=== PATIENT | female | born 1985 | race Caucasian/White ===

== ENCOUNTER → 2020-08-21 08:35 | Outpatient (BNVA) | payer MEDICAID, SELFPAY | PROVIDERS: PCP Nurse Practitioner Family; Visit Provider Obstetrics & Gynecology | DX: G89.29 Other chronic pain (principal); R10.2 Pelvic and perineal pain; N97.9 Female infertility, unspecified | CPT/HCPCS: 99212 ==

== ENCOUNTER 2020-09-13 17:28 | Emergency (ER) | payer MEDICAID, SELFPAY ==
[2020-09-13 19:07] VITALS: BP 134/80; PULSE 81; RESP 18; TEMP 37.1; O2SAT 97; BMI 37.6
--- NOTE | 2020-09-13 19:27 | PC.NURSE ---
PT TO ROOM WITH C/O LOWER BACK PAIN WHICH RADIATES DOWN LEFT LEG. PT HAS LIDOCAINE PATCHES ON BACK WITHOUT RELIEF. PT ARRIVES ALERT, RESPIRATIONS EASY, N/L. SKIN W/D. PT CHG INTO GOWN AND AWAITING MD'S EVAL.
--- NOTE | 2020-09-13 19:57 | ED.BACK ---
HPI - Back Pain/Injury General Chief Complaint: Back Pain/Injury Stated Complaint: low back pain Time Seen by Provider: 09/13/20 19:36 Source: patient Mode of arrival: ambulatory Limitations: no limitations History of Present Illness HPI Narrative: Patient presents to ED for chronic back exacerbation going down left leg. Patient denies any recent trauma to lower back. Patient states history of chronic back pain due to work injury. 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 Patient denies any dysuria or hematuria. Patient states no flank pain, fever, chills, nausea, or vomiting. patient states no vaginal bleeding or discharge. Related Data Home Medications Medication Instructions Recorded Confirmed naproxen 375 mg tablet,delayed 375 mg PO BID 08/21/20 release Previous Rx's Medication Instructions Recorded prenat.vits,kelvin,[id number] 1 tab PO DAILY #90 tab 08/21/20 Allergies Allergy/AdvReac Type Severity Reaction Status Date / Time No Known Allergies Allergy Verified 09/13/20 19:17 [No Known Allergies*] Review of Systems Review of Systems: Yes all other systems are reviewed and are negative Constitutional: Constitutional: Reports as per HPI and Reports no additional constitutional complaints Eyes: Eyes: Reports as per HPI and Reports no additional eye complaints ENT: Reports system reviewed and no additional complaints, except as documented and Reports as per HPI Cardiovascular: Cardiovascular: Reports as per HPI and Reports no additional cardiovascular complaints Respiratory: Respiratory: Reports as per HPI and Reports no additional respiratory complaints Gastrointestinal: Gastrointestinal: Reports as per HPI and Reports no additional gastrointestinal complaints Genitourinary: Genitourinary: Reports no additional female genitourinary complaints and Reports as per HPI Musculoskeletal: Musculoskeletal: Reports no additional musculoskeletal complaints, Reports as per HPI and Reports back pain Neurologic: Reports system reviewed and no additional complaints, except as documented and Reports as per HPI Psychiatric: Psychiatric: Reports no additional psychiatric complaints and Reports as per HPI PMF Past Medical History Medical History Back pain Surgical History History of appendectomy Social History Social History Advance Directives: Yes Advance Directives Information Provided: Yes Advance Directives on File: No Physical Exam Vital Signs: Vital Signs: Last Vital Signs Temp 98.0 F 09/13/20 21:05 Pulse 87 09/13/20 21:05 Resp 18 09/13/20 21:05 BP 121/81 09/13/20 21:05 Pulse Ox 97 09/13/20 21:05 Body Mass Index 37.6 Const: General: cooperative, healthy appearing, comfortable, no acute distress, well developed, alert, awake and Physically active Orientation/consciousness: patient oriented x3 HENMT: Head: Yes normal to inspection and Yes No palpable skull fracture present Eyes: General: appearance normal, both eyes and all related structures Neck: Neck: Yes normal visual inspection, Yes full ROM, Yes no lymphadenopathy, Yes no meningeal signs, Yes trachea midline, Yes supple and No tender Chest: Chest palpation & inspection: normal inspection of the chest, normal palpation of entire chest wall and no localized rib tenderness Resp: Effort & Inspection: normal respiratory effort, able to speak in complete sentences, no audible wheezes and no cough Auscultation: clear to auscultation bilaterally, no crackles, no rales, no rhonchi and no wheezes Cardio: Jugular venous distension: no JVD Heart sounds: S1 normal heart sound present and S2 normal heart sound present GI: Inspection: Yes normal to inspection and No abdominal wall ecchymosis Palpation (GI): Soft to palpation, not firm, nontender, no guarding and not rigid : General: No CVA tenderness and Yes no CVA tenderness Back/Spine/Pelvis: Back: no CVA tenderness, No CVA tenderness and back tenderness (lumbar tenderness. ) Skin: General skin exam: no rashes or lesions noted Neuro: General: patient oriented x3, gait normal, no meningeal signs and CN's II-XI intact bilaterally Cranial nerves: Yes CN's II-XII intact bilaterally Extrem: General: Yes normal to inspection and Yes full ROM Psych: Appearance: grossly normal, well kempt and not disheveled Course Course Course Narrative: History physical exam indicate chronic back pain exacerbation. No need for labs. History physical exam does not indicate kidney stones. Negative for any x-ray due to patient denies having any blunr trauma and no motor deficit of lower extremities. Patient given Toradol. Patient already was prescribed flexeril and nabumethone. Patient also has 2 lidocaine patches. Reevaluation(s) Reevaluation #1: Patient given Toradol for pain. Patient encourageed to continue taking pain med she was prescribed. Presently history physical exam does not indicate on a cord compression or epidural abscess. Time: 20:30 MDM - Back Pain/Injury MDM Narrative Medical decision making narrative: chronic back pain exacerbated Discharge Plan Discharge Clinical Impression: Chronic back pain Patient Disposition: Home, Self-Care Instructions: Chronic Back Pain (DC) Additional Instructions: return to ED for any dysuria, hematuria, flank pain, fever, chills, urinary/ bowel incontinence, nausea, vomiting, weakness, or any other concerning symptoms. Please continue taking medications you are prescribed the by your PCP. Prescriptions: No Action prenat.vits,kelvin,[id number] Tablet 1 tab PO DAILY Qty: 90 RF: 3 Referrals: Cielo Ron NP [Primary Care Provider] - 2 days ( Chronic back pain exacerbation.) Stand Alone Forms: Work/School Release Interventions: ED Discharge Assessment Last Done: 09/13/20 21:06 Discharge Date/Time: 09/13/20 21:07 Print Language: Vietnamese
[2020-09-13] MEDS: Ketorolac Tromethamine 30 MG/ML VIAL 60 MG IM (20:14)
--- NOTE | 2020-09-13 20:20 | PC.NURSE ---
PT MEDICATED FOR BACK PAIN PER EMAR. PT AWAITING FOR D/C.
[2020-09-13 21:05] VITALS: BP 121/81; PULSE 87; RESP 18; TEMP 36.7; O2SAT 97
== END 2020-09-13 21:07 | disposition home or self-care (01) ==
PROVIDERS: Emergency Provider Internal Medicine; PCP Nurse Practitioner Family
DX: M54.5 Low back pain (principal); M79.662 Pain in left lower leg; Z79.899 Other long term (current) drug therapy
CPT/HCPCS: 96372; 99284; J1885

== ENCOUNTER 2020-09-15 12:52 | Outpatient (REF) | payer MEDICAID, SELFPAY ==
--- NOTE | 2020-09-15 13:00 | MR_ITS ---
EXAMINATION: MR BRAIN WITHOUT CONTRAST CLINICAL INFORMATION: Migraine. COMPARISON: CT head from 12/25/2019. TECHNIQUE: MRI of the brain was obtained using routine sequences without contrast. FINDINGS: No focal restricted diffusion is demonstrated to suggest acute or subacute cerebral ischemia. No evidence of acute or chronic hemorrhagic products on heme-sensitive imaging. Normal parenchymal signal characteristics. The ventricles are normal in morphology and size. No abnormal mass effect. No midline shift. Normal appearance of the pituitary gland. No abnormalities of the posterior fossa with normal appearance of the brainstem and cerebellum. Normal positioning of the cerebellar tonsils. Normal arterial and venous vascular flow voids are present. Normal, homogeneous marrow signal. Mild mucosal thickening of the paranasal sinuses. Rightward nasal septal deviation. No signal abnormalities within the mastoids. MR/MR head/brain wo con IMPRESSION: No acute intracranial abnormalities. No MRI abnormalities to explain the patient's symptoms.
== END 2020-09-15 12:53 | disposition home or self-care (01) ==
LOC: HO.MRI 12:52
PROVIDERS: Visit Provider Nurse Practitioner Family
DX: G43.001 Migraine without aura, not intractable, with status migrainosus (principal)
CPT/HCPCS: 70551

== ENCOUNTER → 2020-09-16 11:21 | Outpatient (BNVA) | payer MEDICAID, SELFPAY | PROVIDERS: Visit Provider Obstetrics & Gynecology | DX: Z76.89 Persons encountering health services in other specified circumstances (principal) ==

== ENCOUNTER 2021-01-06 13:43 | Outpatient (REF) | payer MEDICAID, SELFPAY ==
--- NOTE | ~2021-01-06 | US_ITS ---
EXAMINATION: US VENOUS WITH DOPPLER UPPER EXTREMITY, LEFT CLINICAL INFORMATION: Left upper extremity symptoms. Recent blood draw. Assess for DVT. COMPARISON: None TECHNIQUE: Ultrasound of the upper extremity is performed using compression sonography and color and pulse Doppler flow with assessment of augmentation of flow. There is also imaging and Doppler assessment of the jugular and subclavian veins. Spectral analysis with color-flow imaging is performed. FINDINGS: Respiratory variation, normal compression, and augmented flow are noted throughout the upper extremity including the axillary, brachial, cubital, and radial and ulnar veins. There is normal flow in the internal jugular and subclavian veins. Additional imaging contralateral right subclavian vein is unremarkable. There is no visible deep or superficial thrombophlebitis. US/US venous duplex UE LT IMPRESSION: No DVT demonstrated in the left upper extremity.
== END 2021-01-06 13:44 | disposition home or self-care (01) ==
LOC: HO.US 13:43
PROVIDERS: Absent Provider Obstetrics & Gynecology; PCP Family Medicine; Visit Provider Emergency Medicine
DX: M79.602 Pain in left arm (principal); M79.89 Other specified soft tissue disorders
CPT/HCPCS: 93971

== ENCOUNTER 2021-01-15 12:54 | Outpatient (REF) | payer MEDICAID, SELFPAY ==
--- NOTE | ~2021-01-15 | US_ITS ---
EXAMINATION: ULTRASOUND PELVIS COMPLETE CLINICAL INFORMATION: Secondary amenorrhea COMPARISON: None TECHNIQUE: Transabdominal and transvaginal imaging of pelvis is performed. FINDINGS: The uterus is anteverted and anteflexed measuring 8.8 cm in length, 3.2 cm in AP and 4.5 cm in transverse dimension. Endometrial thickness is 0.6 cm. No focal lesion seen. Right ovary measures 3.5 x 2.4 x 2.1 cm and volume 9.1 mL. There is anechoic cyst measuring 1.8 x 1.3 x 1.9 cm. Previously right ovary measured 3.5 x 2.2 x 2.1 cm. The left ovary measures 2.8 x 1.8 x 2.3 cm and volume 6.2 mL. Small follicular cysts are seen. Previously it measured 2.8 x 1.5 x 1.9 cm. There is no free fluid cul-de-sac. US/US transvaginal IMPRESSION: Unremarkable uterus. Small simple cyst right ovary. Multiple small follicular cysts seen in the left ovary.
--- NOTE | ~2021-01-15 | US_ITS ---
EXAMINATION: ULTRASOUND PELVIS COMPLETE CLINICAL INFORMATION: Secondary amenorrhea COMPARISON: None TECHNIQUE: Transabdominal and transvaginal imaging of pelvis is performed. FINDINGS: The uterus is anteverted and anteflexed measuring 8.8 cm in length, 3.2 cm in AP and 4.5 cm in transverse dimension. Endometrial thickness is 0.6 cm. No focal lesion seen. Right ovary measures 3.5 x 2.4 x 2.1 cm and volume 9.1 mL. There is anechoic cyst measuring 1.8 x 1.3 x 1.9 cm. Previously right ovary measured 3.5 x 2.2 x 2.1 cm. The left ovary measures 2.8 x 1.8 x 2.3 cm and volume 6.2 mL. Small follicular cysts are seen. Previously it measured 2.8 x 1.5 x 1.9 cm. There is no free fluid cul-de-sac. US/US pelvic complete IMPRESSION: Unremarkable uterus. Small simple cyst right ovary. Multiple small follicular cysts seen in the left ovary.
== END 2021-01-15 12:55 | disposition home or self-care (01) ==
LOC: HO.US 12:54
PROVIDERS: Visit Provider Family Medicine
DX: N91.1 Secondary amenorrhea (principal)
CPT/HCPCS: 76830; 76856

== ENCOUNTER 2021-02-02 14:42 | Outpatient (REF) | payer MEDICAID, SELFPAY ==
--- NOTE | ~2021-02-02 | XR_ITS ---
EXAMINATION: XR CHEST CLINICAL INFORMATION: Latent tuberculosis. COMPARISON: Most recent chest radiograph dated 03/05/2019. TECHNIQUE: 2 views of the chest were obtained. FINDINGS: The lungs are clear. The cardiomediastinal silhouette is normal in size. There is no pleural effusion or pneumothorax. No acute osseous abnormality. XR/XR chest 2V IMPRESSION: No acute cardiopulmonary findings.
== END 2021-02-02 14:43 | disposition home or self-care (01) ==
LOC: HO.XRAY 14:42
PROVIDERS: PCP Family Medicine; Visit Provider Family Medicine
DX: Z22.7 Latent tuberculosis (principal)
CPT/HCPCS: 71046

== ENCOUNTER 2021-02-27 12:45 | Outpatient (REF) | payer MEDICAID, SELFPAY ==
--- NOTE | ~2021-02-27 | XR_ITS ---
EXAMINATION: XR SHOULDER, RIGHT CLINICAL INFORMATION: Unspecified disorder of synovium and tendon right shoulder. COMPARISON: None TECHNIQUE: AP external rotation, Grashey, scapular Y, and axillary views of the right shoulder. FINDINGS: The bones and soft tissues are normal. No fracture. Glenohumeral and acromioclavicular alignment is anatomic with normal joint space. No abnormal soft tissue calcifications. XR/XR shoulder RT min 2V IMPRESSION: Normal right shoulder.
== END 2021-02-27 12:46 | disposition home or self-care (01) ==
LOC: HO.XRAY 12:45
PROVIDERS: PCP Family Medicine; Visit Provider Family Medicine
DX: M67.911 Unspecified disorder of synovium and tendon, right shoulder (principal)
CPT/HCPCS: 73030

== ENCOUNTER 2021-03-30 13:45 | Outpatient (REF) | payer MEDICAID, SELFPAY ==
--- NOTE | ~2021-03-30 | XR_ITS ---
EXAMINATION: XR WRIST, RIGHT CLINICAL INFORMATION: Pain in right wrist COMPARISON: None TECHNIQUE: PA, lateral, and oblique views of the right wrist. FINDINGS: No acute visible fracture or dislocation. Very slight positive ulnar variance. Joint spaces and alignment are otherwise maintained. Soft tissues are unremarkable. XR/XR wrist RT min 3V IMPRESSION: 1. No acute visible fracture or dislocation. 2. Very slight positive ulnar variance.
== END 2021-03-30 13:46 | disposition home or self-care (01) ==
LOC: HO.HOSX 13:45
PROVIDERS: Visit Provider Orthopaedic Surgery
DX: M25.531 Pain in right wrist (principal); R20.0 Anesthesia of skin; R20.2 Paresthesia of skin
CPT/HCPCS: 73110; 99202

== ENCOUNTER 2021-04-24 13:53 | Outpatient (REF) | payer MEDICAID, SELFPAY ==
[2021-04-29 21:06] LABS: HPV mRNA E6/E7 rflx Not Detected (Not Detected)
== END 2021-04-24 13:54 | disposition home or self-care (01) ==
LOC: HO.LAB 13:53
PROVIDERS: Visit Provider Advanced Practice Midwife
DX: Z01.419 Encounter for gynecological examination (general) (routine) without abnormal findings (principal); E66.9 Obesity, unspecified; R10.2 Pelvic and perineal pain; Z79.899 Other long term (current) drug therapy
CPT/HCPCS: 87624; 88142

== ENCOUNTER 2021-04-26 12:47 | Emergency (ER) | payer MEDICAID, SELFPAY ==
--- NOTE | ~2021-04-26 | XR_ITS ---
EXAMINATION: XR CHEST CLINICAL INFORMATION: Cough. COMPARISON: Chest done on 02/02/2021. TECHNIQUE: Frontal view of the chest was obtained. FINDINGS: No significant abnormality is noted involving the heart, lungs, mediastinum, bony thorax or soft tissues. XR/XR chest 1V IMPRESSION: Unremarkable examination.
[2021-04-26 12:53] VITALS: BP 145/89; PULSE 100; RESP 18; TEMP 36.6; O2SAT 96; BMI 38.4
[2021-04-26 13:20] LABS: COVID-19 Test Negative (Negative); IDNOW Serial# 9DD0AD1C
--- NOTE | 2021-04-26 14:37 | ED.URI ---
HPI - URI/Sore Throat General Chief Complaint: Upper Respiratory Symptoms Stated Complaint: SORE THROAT Time Seen by Provider: 04/26/21 13:55 History of Present Illness HPI Narrative: patient complains of runny nose sore throat and dry cough for 24 hours, no fever no chills no shortness of breath no difficulty breathing or swallowing no vomiting Related Data Home Medications Medication Instructions Recorded Confirmed naproxen 375 mg tablet,delayed 375 mg PO BID 08/21/20 04/24/21 release Previous Rx's Medication Instructions Recorded prenat.vits,kelvin,[id number]-[id number] 1 tab PO DAILY #90 tab 08/21/20 Allergies Allergy/AdvReac Type Severity Reaction Status Date / Time No Known Allergies Allergy Verified 04/24/21 14:14 [No Known Allergies*] Review of Systems Review of Systems: positive for runny nose sore throat and cough Negatives are no fever no chills no dizziness no weakness no fainting no feeling faint no headache no neck pain no chest pain no shortness of breath no abdominal pain no nausea vomiting or diarrhea no dysuria no skin rash Yes all other systems are reviewed and are negative PMFSH Past Medical History Source: nursing notes reviewed Medical History Back pain Migraine headache Surgical History History of appendectomy Social History Social History (Updated 04/24/21 @ 14:20 by Arlene Brewster CMA) Alcohol intake: never Patient Tobacco Use Status: Never used Tobacco Advance Directives: No Advance Directives Information Provided: No Patient : No Current occupational status: employed Current occupation: right handed. Gender identity: female Physical Exam Vital Signs: Vital Signs: Last Vital Signs Temp 97.9 F 04/26/21 12:53 Pulse 100 04/26/21 12:53 Resp 18 04/26/21 12:53 BP 145/89 H 04/26/21 12:53 Pulse Ox 96 04/26/21 12:53 Body Mass Index 38.4 general appearance no acute distress The sinuses are nontender The pharynx is clear with no redness swelling or exudate, voice is normal, mucous membranes are moist Neck is supple Chest is clear to auscultation bilateral Heart no murmur Abdomen soft nontender Extremities no edema no calf swelling or tenderness Extremities full range of motion x4 Skin no rashes Course Course Course Narrative: COVID test and chest x-ray were negative Well-appearing patient is discharged but 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 despite the negative test and advised to not work until symptoms are gone and a repeat test is negative MDM - URI/Sore Throat Lab Data Labs: Lab Results 04/26/21 Range/Units 12:58 COVID-19 (CRICKET) Negative (Negative) COVID-19 Clin Com See Note Discharge Plan Discharge Clinical Impression: Acute viral syndrome Patient Disposition: Home, Self-Care Additional Instructions: COVID test was negative as was chest x-ray But COVID testing can miss many cases and even though your vaccinated in rare cases people can still get COVID and pass it to others, so best plan 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
== END 2021-04-26 14:43 | disposition home or self-care (01) ==
PROVIDERS: Physician Assistant Medical; Emergency Provider Emergency Medicine; PCP Family Medicine
DX: B34.9 Viral infection, unspecified (principal); Z20.822 Contact with and (suspected) exposure to COVID-19
CPT/HCPCS: 36415; 71045; 87635; 99283

== ENCOUNTER 2021-06-03 09:53 | Outpatient (REF) | payer MEDICAID, SELFPAY ==
--- NOTE | 2021-06-03 09:56 | EMG_ITS ---
This is a 36-year-old woman with 1-year history of right upper extremity pain, numbness, and tingling. She is otherwise healthy and takes no medications. PHYSICAL EXAMINATION: On examination, she is alert and oriented with normal intellectual functions. Cranial nerves II through XII are normal. Muscle tone and strength are normal in all 4 extremities. No Tinel or Phalen sign. IMPRESSION: Rule out carpal tunnel syndrome. Nerve conduction EMG study: Normal electrodiagnostic study of the right upper extremity with no evidence of carpal tunnel syndrome or nerve entrapment. Normal EMG of the right C5-T1 innervated muscles. MD ZIA Forbes/SHERYL / [id number]
== END 2021-06-03 09:54 | disposition home or self-care (01) ==
LOC: HO.NEURO 09:53
PROVIDERS: Visit Provider Orthopaedic Surgery
DX: R20.0 Anesthesia of skin (principal); R20.2 Paresthesia of skin
CPT/HCPCS: 95885; 95910

== ENCOUNTER 2021-07-03 13:02 | Outpatient (REF) | payer MEDICAID, SELFPAY ==
--- NOTE | ~2021-07-03 | XR_ITS ---
EXAMINATION: XR SHOULDER, RIGHT CLINICAL INFORMATION: Unspecified disorder of synovium and tendon, right shoulder COMPARISON: 02/27/2021 TECHNIQUE: AP external rotation, Grashey, scapular Y, and axillary views of the right shoulder. FINDINGS: There is mild acromioclavicular osteoarthritis. Glenohumeral joint is well preserved. No fracture. Alignment is anatomic. Soft tissues are normal with no abnormal calcifications. XR/XR shoulder RT min 2V IMPRESSION: No acute osseous abnormality of the right shoulder.
== END 2021-07-03 13:03 | disposition home or self-care (01) ==
LOC: HO.XRAY 13:02
PROVIDERS: PCP Family Medicine; Visit Provider Family Medicine
DX: M67.911 Unspecified disorder of synovium and tendon, right shoulder (principal)
CPT/HCPCS: 73030

== ENCOUNTER → 2021-07-29 16:02 | Outpatient (BNVA) | payer MEDICAID, SELFPAY | PROVIDERS: PCP Family Medicine; Visit Provider Anesthesiology | DX: M79.10 Myalgia, unspecified site (principal); U09.9 Post COVID-19 condition, unspecified; G89.29 Other chronic pain; I47.1 Supraventricular tachycardia | CPT/HCPCS: 99202 ==

== ENCOUNTER → 2021-09-10 10:17 | Outpatient (BNVA) | payer MEDICAID, SELFPAY | PROVIDERS: PCP Family Medicine; Referring Provider Family Medicine; Visit Provider Internal Medicine | DX: R07.2 Precordial pain (principal); R00.2 Palpitations; U09.9 Post COVID-19 condition, unspecified | CPT/HCPCS: 93005; 99202 ==

== ENCOUNTER 2021-09-21 21:52 | Emergency (ER) | payer MEDICAID, SELFPAY ==
--- NOTE | ~2021-09-21 | XR_ITS ---
EXAMINATION: XR CHEST CLINICAL INFORMATION: Syncope COMPARISON: 04/26/2021 TECHNIQUE: Frontal view of the chest was obtained. FINDINGS: No significant abnormality is noted involving the heart, lungs, mediastinum, bony thorax or soft tissues. XR/XR chest 1V IMPRESSION: Unremarkable examination.
[2021-09-21 21:54] VITALS: BP 124/75; PULSE 93; RESP 18; TEMP 36.9; O2SAT 98; BMI 36.6
--- NOTE | 2021-09-21 21:57 | ECG_ITS ---
Test Reason : SYNCOPE Blood Pressure : / mmHG Vent. Rate : 098 BPM Atrial Rate : 098 BPM P-R Int : 122 ms QRS Dur : 084 ms QT Int : 362 ms P-R-T Axes : 032 085 051 degrees QTc Int : 462 ms Normal sinus rhythm Normal ECG When compared with ECG of 24-AUG-2017 19:36, No significant change was found Referred By: Generic ED Physician Electronically Signed By:FABIO HUTTON MD
[2021-09-21 22:56] LABS: Basophils Percent Auto 0.3 % (0-2); Eosinophils Absolute Auto 0.3 X10*3/uL (0.0-0.4); Eosinophils Percent Auto 2.5 % (0-4); Hematocrit 38.4 % (37.0-47.0); Hemoglobin 12.6 g/dl (12.0-16.0); Imm Gran Abs Auto 0.03 X10*3/uL (0.00-0.03); Imm Gran Pct Auto 0.3 % (0.0-0.4); Lymphocytes Absolute Auto 2.2 X10*3/uL (1.2-4.9); Lymphocytes Percent Auto 21.1 % (20-40); MANUAL DIFF FLAG NO; Mean Corpuscular HGB Conc 32.8 g/dl (31.0-35.0); Mean Corpuscular Hemoglobin 29.2 pg (27.0-33.0); Mean Corpuscular Volume 88.9 fL (80.0-98.0); Mean Platelet Volume 9.6 fL (9.4-12.3); Monocytes Absolute Auto 0.9 X10*3/uL (0.1-1.2); Monocytes Percent Auto 8.6 % (2-11); Neutrophils Absolute Auto 6.9 x10*3/uL (2.0-8.3); Neutrophils Percent Auto 67.2 % (45-73); Platelet Count 244 X10*3/uL (160-400); Red Blood Count 4.32 X10*6/uL (4.20-5.50); Red Cell Distribution Width 12.7 % (11.0-16.0); White Blood Count 10.3 X10*3/uL (4.8-10.8)
[2021-09-21 23:08] LABS: Anion Gap 13 (12-20); Blood Urea Nitrogen 10 mg/dL (9-16); Calcium 9.2 mg/dL (8.4-10.2); Carbon Dioxide 24 mmol/L (22-29); Chloride 103 mmol/L (96-108); Creatinine Clr Calc Pharmacy 109.2; Estimated Glomerular Filt Rate > 60; Glucose Random 143 mg/dL (60-115); Potassium 3.7 mmol/L (3.3-5.1); Sodium 136 mmol/L (135-145)
[2021-09-21 23:15] LABS: Troponin-I High Sensitivity < 3.5 ng/L (<3.5-17.0)
[2021-09-22 03:01] LABS: Appearance Urine CLEAR; Color Urine STRAW; Glucose Urine UA NEG (NEG); Leukocyte Esterase Urine TRACE (NEG); Nitrite Urine NEG (NEG); Specific Gravity - Urine <= 1.005 (1.005-1.025); UACC Culture Trigger YES; Urine Blood NEG (NEG); Urine Ketones NEG (NEG); Urine Protein NEG (NEG-TRACE)
[2021-09-22 03:14] LABS: Bacteria Urine 1+ /LPF; Calcium Phosphate Crystals Ur 1+ /LPF; RBC Urine 0 /HPF (0); Squamous Epithelial Cell Urine 2+ /LPF
--- NOTE | 2021-09-22 04:22 | ED.SYNCOPE ---
HPI - Syncope General Chief Complaint: Syncope Stated Complaint: Syncope Time Seen by Provider: 09/22/21 02:08 Source: patient and family ( Significant other) Mode of arrival: ambulatory History of Present Illness HPI narrative: 36-year-old female who presents with having sexual intercourse and approximately 1 hour afterwards experienced a significant amount of pain and went into the bathroom to have a bowel movement but states that she began feeling very cold with graying of her vision and her significant other who was with her at the bedside reports that patient passed out . He was at her side and did not allow her to hit her head. Patient recovered quickly was mildly out of it but was able to walk to the car and come into the emergency room for further evaluation. She denies any recent travel, smoking, use of control, calf swelling/ pain and denies any recent illnesses or fevers. Related Data Home Medications Medication Instructions Recorded Confirmed naproxen 375 mg tablet,delayed 375 mg PO BID 08/21/20 09/10/21 release (EC-Naproxen) Previous Rx's Medication Instructions Recorded prenat.vits,kelvin,[id number] 1 tab PO DAILY #90 tab 08/21/20 gabapentin 300 mg capsule 300 mg PO TID 30 Days #90 cap 07/29/21 ciprofloxacin HCl 250 mg tablet 250 mg PO Q12H 3 Days #6 tab 09/22/21 (Cipro) Allergies Allergy/AdvReac Type Severity Reaction Status Date / Time No Known Allergies Allergy Verified 09/21/21 21:54 [No Known Allergies*] Review of Systems Review of Systems: Pertinent positives and negatives as stated in HPI 10 point review of systems is otherwise negative. [facility] Past Medical History Source: nursing notes reviewed Medical History Back pain 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 Mother Heart disease HTN (hypertension) Social History Social History Alcohol intake: never Patient Tobacco Use Status: Never used Tobacco Advance Directives: No Advance Directives Information Provided: Yes Patient : No Current occupational status: employed Current occupation: right handed. Gender identity: Female Physical Exam Vital Signs: Vital Signs: Last Vital Signs Temp 98.5 F 09/21/21 21:54 Pulse 93 09/21/21 21:54 Resp 18 09/21/21 21:54 BP 124/75 09/21/21 21:54 Pulse Ox 98 09/21/21 21:54 Body Mass Index 36.6 VITAL SIGNS: Reviewed. GENERAL: Well developed, well nourished, in no acute distress. HEAD: Normocephalic/atraumatic EYES: PERRLA, EOMI LUNGS: Normal breath sounds. No adventitious sounds or accessory muscle use. SpO2<98> CARDIOVASCULAR: Regular rate and rhythm without noted murmurs, no JVD or lower extremity edema. ABDOMEN: Soft, Mild tenderness at the suprapubic non-distended with bowel sounds. MUSCULOSKELETAL: No tenderness, deformities, or effusions noted on gross inspection. EXTREMITIES: No cyanosis, clubbing or edema. SKIN: Inspection of the skin reveals no rashes NEUROLOGIC: Alert and oriented x 4. Strength and sensation to light touch were grossly intact x 4. Course Course Course Narrative: 36-year-old female with history and clinical presentation most consistent with vasovagal episode likely secondary to the pain that she experienced. Patient states that she has fully recovered at this time and on review of all investigations there are no acute findings other than evidence of UTI for which she received initial antibiotics here in the emergency room and then will be discharged home in stable condition with remaining course. MDM - Syncope Lab Data Result diagrams: 09/21/21 22:40 09/21/21 22:40 Labs: Lab Results 09/21/21 09/21/21 09/21/21 Range/Units 22:40 22:40 22:40 WBC 10.3 (4.8-10.8) X10*3/uL RBC 4.32 (4.20-5.50) X10*6/uL Hgb 12.6 (12.0-16.0) g/dl Hct 38.4 (37.0-47.0) % MCV 88.9 (80.0-98.0) fL MCH 29.2 (27.0-33.0) pg MCHC 32.8 (31.0-35.0) g/dl RDW 12.7 (11.0-16.0) % Plt Count 244 (160-400) X10*3/uL MPV 9.6 (9.4-12.3) fL Immature Gran % (Auto) 0.3 (0.0-0.4) % Neut % (Auto) 67.2 (45-73) % Lymph % (Auto) 21.1 (20-40) % [place] % (Auto) 8.6 (2-11) % Eos % (Auto) 2.5 (0-4) % Baso % (Auto) 0.3 (0-2) % Lymph # (Auto) 2.2 (1.2-4.9) X10*3/uL [place] # (Auto) 0.9 (0.1-1.2) X10*3/uL Eos # (Auto) 0.3 (0.0-0.4) X10*3/uL Baso # (Auto) 0.0 (0.0-0.2) X10*3/uL Abs Immat Gran (auto) 0.03 (0.00-0.03) X10*3/uL Absolute Neuts (auto) 6.9 (2.0-8.3) x10*3/uL Absolute Nucleated RBC 0.000 (0.0-0.012) X10*3/uL Nucleated RBC % (auto) 0.0 (0.0-0.2) /100WBC Sodium 136 (135-145) mmol/L Potassium 3.7 (3.3-5.1) mmol/L Chloride 103 (96-108) mmol/L Carbon Dioxide 24 (22-29) mmol/L Anion Gap 13 (12-20) BUN 10 (9-16) mg/dL Creatinine 0.76 (0.5-1.4) mg/dL Estim Creat Clear Calc 109.2 Estimated GFR > 60 Random Glucose 143 H (60-115) mg/dL Calcium 9.2 (8.4-10.2) mg/dL Troponin I High Sens < 3.5 (<3.5-17.0) ng/L Urine Color Urine Appearance Urine pH (5.0-8.0) Ur Specific [place] (1.005-1.025) Urine Protein (NEG-TRACE) MG/DL Urine Glucose (UA) (NEG) MG/DL Urine Ketones (NEG) MG/DL Urine Blood (NEG) Urine Nitrite (NEG) Ur Leukocyte Esterase (NEG) Urine RBC (0) /HPF Urine WBC (0-4) /HPF Ur Squamous Epith Cells /LPF Calcium Phosphate Cryst /LPF Urine Bacteria /LPF 09/22/21 Range/Units 02:53 WBC (4.8-10.8) X10*3/uL RBC (4.20-5.50) X10*6/uL Hgb (12.0-16.0) g/dl Hct (37.0-47.0) % MCV (80.0-98.0) fL MCH (27.0-33.0) pg MCHC (31.0-35.0) g/dl RDW (11.0-16.0) % Plt Count (160-400) X10*3/uL MPV (9.4-12.3) fL Immature Gran % (Auto) (0.0-0.4) % Neut % (Auto) (45-73) % Lymph % (Auto) (20-40) % [place] % (Auto) (2-11) % Eos % (Auto) (0-4) % Baso % (Auto) (0-2) % Lymph # (Auto) (1.2-4.9) X10*3/uL [place] # (Auto) (0.1-1.2) X10*3/uL Eos # (Auto) (0.0-0.4) X10*3/uL Baso # (Auto) (0.0-0.2) X10*3/uL Abs Immat Gran (auto) (0.00-0.03) X10*3/uL Absolute Neuts (auto) (2.0-8.3) x10*3/uL Absolute Nucleated RBC (0.0-0.012) X10*3/uL Nucleated RBC % (auto) (0.0-0.2) /100WBC Sodium (135-145) mmol/L Potassium (3.3-5.1) mmol/L Chloride (96-108) mmol/L Carbon Dioxide (22-29) mmol/L Anion Gap (12-20) BUN (9-16) mg/dL Creatinine (0.5-1.4) mg/dL Estim Creat Clear Calc Estimated GFR Random Glucose (60-115) mg/dL Calcium (8.4-10.2) mg/dL Troponin I High Sens (<3.5-17.0) ng/L Urine Color STRAW Urine Appearance CLEAR Urine pH 6.0 (5.0-8.0) Ur Specific [place] <= 1.005 (1.005-1.025) Urine Protein NEG (NEG-TRACE) MG/DL Urine Glucose (UA) NEG (NEG) MG/DL Urine Ketones NEG (NEG) MG/DL Urine Blood NEG (NEG) Urine Nitrite NEG (NEG) Ur Leukocyte Esterase TRACE H (NEG) Urine RBC 0 (0) /HPF Urine WBC 5-9 H (0-4) /HPF Ur Squamous Epith Cells 2+ /LPF Calcium Phosphate Cryst 1+ /LPF Urine Bacteria 1+ /LPF Discharge Plan Discharge Clinical Impression: Vasovagal syncope, UTI (urinary tract infection) Patient Disposition: Home, Self-Care Instructions: Urinary Tract Infection in Women (ED), Syncope (ED) Additional Instructions: 1. Complete the entire course of antibiotics that you have been prescribed for your UTI. 2. Follow-up with your primary care provider in the next 1-2 days for re-evaluation. Return to the ER for acute worsening of symptoms. Prescriptions: New ciprofloxacin HCl [Cipro] 250 mg tablet 250 mg PO Q12H 3 Days Qty: 6 RF: 0 No Action gabapentin 300 mg capsule 300 mg PO TID 30 Days Qty: 90 RF: 8 naproxen [EC-Naproxen] 375 mg tablet,delayed release (DR/EC) 375 mg PO BID RF: 0 prenat.vits,kelvin,[id number] Tablet 1 tab PO DAILY Qty: 90 RF: 3 Referrals: Patti Clark MD [Primary Care Provider] - 2 days
[2021-09-22] MEDS: cephALEXin 500 MG CAPSULE PO (04:29)
[2021-09-22 04:31] VITALS: BP 105/65; PULSE 92; RESP 16; O2SAT 99
== END 2021-09-22 04:50 | disposition home or self-care (01) ==
PROVIDERS: Emergency Provider Student in an Organized Health Care Education/Training Program; PCP Family Medicine
DX: R55 Syncope and collapse (principal); N39.0 Urinary tract infection, site not specified
CPT/HCPCS: 36415; 71045; 80048; 81001; 81003; 84484; 85025; 87086; 93005; 99284

== ENCOUNTER 2021-10-15 11:45 | Outpatient (REF) | payer MEDICAID, SELFPAY ==
--- NOTE | ~2021-10-15 | US_ITS ---
EXAMINATION: US VENOUS ULTRASOUND WITH DOPPLER LOWER EXTREMITY, RIGHT CLINICAL INFORMATION: Right lower extremity pain COMPARISON: None TECHNIQUE: Ultrasound of the deep veins is performed from the hip to the calf with compression sonography and color and pulse Doppler assessment. Spectral analysis with color-flow imaging is performed. FINDINGS: There is normal venous compression and respiratory variation and augmented flow. The visualized common femoral vein, superficial femoral vein, profunda femoral vein, popliteal vein, and the trifurcation region shows no evidence of deep venous thrombosis. There is no significant popliteal fossa cyst. If the patient's symptoms persist, followup ultrasound in 5 days 7 days might be of value to exclude proximal propagation from a non-visualized calf vein. US/US venous duplex LE RT IMPRESSION: No DVT demonstrated in the right lower extremity.
== END 2021-10-15 11:46 | disposition home or self-care (01) ==
LOC: HO.US 11:45
PROVIDERS: PCP Family Medicine; Visit Provider Pediatrics
DX: M79.661 Pain in right lower leg (principal)
CPT/HCPCS: 93971

== ENCOUNTER 2021-11-18 12:33 | Outpatient (REF) | payer MEDICAID, SELFPAY ==
--- NOTE | ~2021-11-18 | XR_ITS ---
EXAMINATION: BILATERAL AP KNEE STANDING AND RIGHT KNEE 2 VIEWS. CLINICAL INFORMATION: Pain in right knee. COMPARISON: None TECHNIQUE: AP bilateral knee standing and right knee 2 views. FINDINGS: AP bilateral knee: There is mild loss of medial compartment joint space both knees. The lateral compartment joint space is somewhat maintained. No bony erosive changes or loose body seen. Right knee: The patellofemoral compartment joint space is maintained normal. There is no loose bodies, no joint effusion. No bony erosive changes. XR/XR knee standing BI IMPRESSION: Minimal loss of medial compartment joint space both knees. Unremarkable lateral and sunrise view right knee.
--- NOTE | ~2021-11-18 | XR_ITS ---
EXAMINATION: BILATERAL AP KNEE STANDING AND RIGHT KNEE 2 VIEWS. CLINICAL INFORMATION: Pain in right knee. COMPARISON: None TECHNIQUE: AP bilateral knee standing and right knee 2 views. FINDINGS: AP bilateral knee: There is mild loss of medial compartment joint space both knees. The lateral compartment joint space is somewhat maintained. No bony erosive changes or loose body seen. Right knee: The patellofemoral compartment joint space is maintained normal. There is no loose bodies, no joint effusion. No bony erosive changes. XR/XR knee RT 2V IMPRESSION: Minimal loss of medial compartment joint space both knees. Unremarkable lateral and sunrise view right knee.
== END 2021-11-18 12:34 | disposition home or self-care (01) ==
LOC: HO.HOSX 12:33
PROVIDERS: PCP Family Medicine; Visit Provider Physician Assistant
DX: M22.2X1 Patellofemoral disorders, right knee (principal); M25.562 Pain in left knee
CPT/HCPCS: 73560; 73565; 99202

== ENCOUNTER 2022-02-25 17:30 | Emergency (ER) | payer MEDICAID, SELFPAY ==
[2022-02-25 17:41] VITALS: BP 123/7; PULSE 78; RESP 16; TEMP 36.2; O2SAT 100; BMI 34.0
[2022-02-25] MEDS: Tetracaine HCl/PF 0.5% Oph Sol 4 ML DROPS 3 DROP EYE-LEFT (19:08)
[2022-02-25] MEDS: Fluorescein Sodium STRIP 1 STRIP EYE-LEFT (19:08)
--- NOTE | 2022-02-25 20:29 | ED_ITS ---
HPI - Eye Problem General Chief complaint: Upper Respiratory Symptoms Stated complaint: blurry vision, head pressure Time Seen by Provider: 02/25/22 18:07 Source: patient Mode of arrival: ambulatory Limitations: no limitations History of Present Illness HPI Narrative: 37-year-old female presents for blurry vision and pressure in her left eye. States her left eye feels burning and is painful to open. Mild headache with pressure and frontal sinuses. No nausea, vomiting, stiff neck, gait disturbance, chest pain, abdominal pain, shortness of breath. Patient does not wear contacts or glasses. Related Data Home Medications Medication Instructions Recorded Confirmed naproxen 375 mg tablet,delayed 375 mg PO BID 08/21/20 09/10/21 release (EC-Naproxen) Previous Rx's Medication Instructions Recorded prenat.vits,kelvin,[id number] 1 tab PO DAILY #90 tab 08/21/20 gabapentin 300 mg capsule 300 mg PO TID 30 Days #90 cap 07/29/21 ciprofloxacin HCl 250 mg tablet 250 mg PO Q12H 3 Days #6 tab 09/22/21 (Cipro) erythromycin 5 mg/gram (0.5 %) eye 0.5 inch OPHTHALMIC (EYE) QID 5 02/25/22 ointment Days #3.5 g Allergies Allergy/AdvReac Type Severity Reaction Status Date / Time No Known Allergies Allergy Verified 02/25/22 17:45 [No Known Allergies*] Review of Systems Constitutional: Constitutional: Denies body ache(s), Denies chills, Denies fatigue, Denies fever(s), Denies headache(s), Denies malaise and Denies weakness Eyes: Eyes: Reports blurry vision, Denies exophthalmos, Denies diplopia, Reports irritation, Denies itchy eyes, Denies loss of vision, Reports eye pain, Denies seeing flashes, Denies spots in vision and Denies tunnel vision ENT: Denies vertigo, Denies dizziness, Denies otalgia, Denies headache(s), Denies mouth pain, Denies post nasal drip, Denies sinus pain, Denies sinus pressure, Denies sore throat and Denies throat swelling Cardiovascular: Cardiovascular: Denies chest pain, Denies syncope, Denies leg edema, Denies lightheadedness, Denies Loss of Consciousness, Denies palpitations and Denies dyspnea Respiratory: Respiratory: Denies chest congestion, Denies cough and Denies dyspnea Musculoskeletal: Musculoskeletal: Reports no additional musculoskeletal complaints Neurologic: Denies confusion, Denies vertigo, Denies dizziness, Denies syncope, Denies headache(s), Denies loss of vision and Denies weakness Psychiatric: Psychiatric: Denies anxiety, Denies confusion and Denies depression Endocrine: Endocrine: Denies fatigue and Denies palpitations Allergic/Immunologic: Allergic/Immunologic: Denies itchy eyes and Denies throat swelling PMFSH Past Medical History Medical History Back pain 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 Mother Heart disease HTN (hypertension) Social History Social History (Updated 11/18/21 @ 12:51 by Angel Schofield) Alcohol intake: never Patient Tobacco Use Status: Never used Tobacco Advance Directives: No Advance Directives Information Provided: Yes Patient : No Current occupational status: unemployed Current occupation: right handed. Gender identity: Female Physical Exam Vital Signs: Vital Signs: Last Vital Signs Temp 97.1 F 02/25/22 17:41 Pulse 78 02/25/22 17:41 Resp 16 02/25/22 17:41 BP 123/7 L 02/25/22 17:41 Pulse Ox 100 02/25/22 17:41 BMI result Body Mass Index 34.0 Const: General: No confusion Nutritional Appearance: well nourished Orientation/consciousness: No confusion Limitations: no limitations HEENT: Head: Yes normal to inspection, Yes normocephalic and Yes atraumatic Ears: hearing grossly normal bilaterally, external ears normal, TM's normal bilaterally and EAC's normal General nose exam: Normal external nose present Face and sinus: Yes normal facial exam and Yes sinuses nontender Mouth: Normal oral and palatal mucosa present Throat: Yes posterior oropharynx normal Eyes: Visual Woodard: normal visual woodard by confrontation Alignment and Position: alignment normal Periorbital: periorbital findings normal Eyelids: Yes eyelids normal Conjunctivae: conjunctival abnormal left conjunctival injection diffuse Corneas: corneas abnormal on the left fluorescein used and abrasion linear and at the following clock position (6 o'clock) and fluorescein used Pupils: Equal, round and reactive pupils present EOM: EOMs intact bilaterally Direct Ophthalmoscopy: normal light reflex and no photophobia Eyes/upper lids images: 1. series of linear scratches to cornea 2. 3. Neck: Neck: Yes full ROM, Yes no lymphadenopathy and Yes supple Resp: Effort & Inspection: normal respiratory effort and able to speak in complete sentences Auscultation: clear to auscultation bilaterally, no crackles, no rales, no rhonchi and no wheezes Cardio: Rate: regular rate Rhythm: regular rhythm Heart sounds: S1 normal heart sound present and S2 normal heart sound present Skin: General skin exam: no rashes or lesions noted Neuro: General: No confusion Cranial nerves: Yes Equal, round and reactive pupils present Extrem: General: Yes normal to inspection and Yes full ROM Psych: Appearance: grossly normal Affect: normal affect Attitude: cooperative Thought process: Normal thought process present Course Course Course Narrative: 37-year-old female presents for left eye irritation and blurry vision, has normal visual acuity, is found to have linear scratches on her cornea under fluorescein stain. Prescribed erythromycin ointment, patient is told to follow- up with eye doctor with whom I referred her Return precautions given Discharge Plan Discharge Clinical Impression: Abrasion, corneal Patient Disposition: Home, Self-Care Instructions: Corneal Abrasion (ED) Additional Instructions: Please call the design engineer agricultural equipment at [phone] tomorrow for follow-up appointment. I have also referred you to them. We found you have a scratch on your cornea,, called a corneal abrasion. The treatment for this is antibiotic ointment. Please instill a 1/2 inch strip into your left eye 4 times a day for 5 days. If you have worsening visual changes, loss of vision, double vision, sudden severe headache, or any other new or concerning symptoms, please return to the emergency room. Prescriptions: New erythromycin 5 mg/gram (0.5 %) ointment 0.5 inch ophthalmic (eye) QID 5 Days Qty: 3.5 0RF Rx Instructions: Please instill a half an inch into your left eye 4 times a day for 5 days No Action ciprofloxacin HCl [Cipro] 250 mg tablet 250 mg PO Q12H 3 Days Qty: 6 0RF gabapentin 300 mg capsule 300 mg PO TID 30 Days Qty: 90 8RF naproxen [EC-Naproxen] 375 mg tablet,delayed release (DR/EC) 375 mg PO BID 0RF prenat.vits,kelvin,[id number] Tablet 1 tab PO DAILY Qty: 90 3RF Referrals: Jose Luis Bolton [Physician] - Stand Alone Forms: Work/School Release Interventions: ED Discharge Assessment Last Done: 02/25/22 19:47 Discharge Date/Time: 02/25/22 19:48
== END 2022-02-25 19:48 | disposition home or self-care (01) ==
PROVIDERS: Emergency Provider Emergency Medicine Emergency Medical Services; PCP Family Medicine
DX: S00.212A Abrasion of left eyelid and periocular area, initial encounter (principal); H53.8 Other visual disturbances; R51.9 Headache, unspecified; X58.XXXA Exposure to other specified factors, initial encounter; Y93.9 Activity, unspecified; Y92.9 Unspecified place or not applicable; Y99.9 Unspecified external cause status; Z79.899 Other long term (current) drug therapy
CPT/HCPCS: 99283; 99284

== ENCOUNTER 2022-04-27 14:42 | Outpatient (REF) | payer MEDICAID, SELFPAY ==
[2022-04-28 02:46] LABS: CT PCR NOT DETECTED (Not Detect.); NG PCR NOT DETECTED (Not Detect.)
[2022-04-28 09:06] LABS: BV Int Neg Control Negative (Negative); BV Int Pos Control Positive (Positive)
== END 2022-04-27 14:43 | disposition home or self-care (01) ==
LOC: HO.LAB 14:42
PROVIDERS: Visit Provider Advanced Practice Midwife
DX: Z01.419 Encounter for gynecological examination (general) (routine) without abnormal findings (principal); Z11.3 Encounter for screening for infections with a predominantly sexual mode of transmission
CPT/HCPCS: 87480; 87491; 87510; 87591; 87660

== ENCOUNTER 2022-08-20 21:09 | Emergency (ER) | payer MEDICAID, SELFPAY ==
[2022-08-20 22:08] VITALS: BP 150/75; PULSE 73; RESP 16; TEMP 36.8; O2SAT 99; BMI 33.8
[2022-08-20 23:00] VITALS: BP 118/81; PULSE 82; RESP 17; TEMP 36.8; O2SAT 98
--- NOTE | 2022-08-20 23:16 | PC.NURSE ---
Pt resting comfortably on stretcher at this time. Pt reports new onset head pain on right side of head wrapping from behind the ear to the middle of the head. Pt states that it is sharp and constant in manner and feels different than her migraine pains. 10/10 pain upon palpation
--- NOTE | 2022-08-20 23:58 | ED.SKABFB ---
HPI - Skin/Abscess/Foreign Bdy General Chief complaint: Headache Stated complaint: head pain and a lump, anxiety Time Seen by Provider: 08/20/22 23:41 Source: patient Mode of arrival: ambulatory Limitations: no limitations History of Present Illness HPI narrative: 37-year-old female presents with an irritated red spot on the back of her scalp. States that she has noted it for about 2-3 days, and that it is a tender burning pain. MD complaint: rash Onset (ago): day(s) (2) Tetanus up to date: unsure Location: head Severity: mild Severity scale (1-10): 2 Quality: burning, constant and pruritic Pain Consistency: constant Relieving factors: none Exacerbating factors: palpation Context: none Associated symptoms: denies other symptoms Treatments prior to arrival: none Related Data Previous Rx's Medication Instructions Recorded cephalexin 500 mg capsule 500 mg PO Q12H 5 days #10 caps 08/21/22 Allergies Allergy/AdvReac Type Severity Reaction Status Date / Time No Known Allergies Allergy Verified 08/20/22 22:10 [No Known Allergies*] Review of Systems Review of Systems: Constitutional: No Fever, No Chills ENT/Mouth: No Ear Pain, No Hoarseness, No sore throat Eyes: No Eye Pain, No Swelling, No Redness, No Foreign Body Cardiovascular: No Chest Pain, No SOB Respiratory: No Cough, No Dyspnea Gastrointestinal: No Nausea, No Vomiting, No Diarrhea, No abdominal Pain Genitourinary: No Dysuria, No Hematuria Musculoskeletal: No joint pain, No Myalgias, No Joint Swelling Skin: No Skin lacerations, positive rash to scalp Neuro: No Weakness, No Numbness, No Paresthesias, No Loss of Consciousness, No Dizziness, No Headache Psych: No Anxiety/Panic, No Depression Heme/Lymph: no easy bruising, no Lymphadenopathy Endocrine: No Polyuria, No Polydipsia Yes all other systems are reviewed and are negative [facility] Past Medical History Attestation statement: The following information was validated with the patient. Source: old records reviewed Medical History (Updated 08/21/22 @ 00:02 by Ning Seymour NP) Arthritis Back pain 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 Mother Heart disease HTN (hypertension) Social History Social History (Updated 11/18/21 @ 12:51 by Angel Schofield) Alcohol intake: never Patient Tobacco Use Status: Never used Tobacco Advance Directives: No Advance Directives Information Provided: Yes Current occupational status: unemployed Current occupation: right handed. Gender identity: Female Physical Exam Vital Signs: Vital Signs: Last Vital Signs Temp 98.2 F 08/20/22 23:00 Pulse 82 08/20/22 23:00 Resp 17 08/20/22 23:00 BP 118/81 08/20/22 23:00 Pulse Ox 98 08/20/22 23:00 O2 Del Method 08/20/22 23:00 BMI result Body Mass Index 33.8 Appearance: Alert. Oriented X3. No acute distress. Eyes: Pupils equal, round and reactive to light. ENT: Pharynx normal. Neck: Normal inspection. Neck supple. CVS: Normal heart rate and rhythm. Pulses normal. Respiratory: No respiratory distress. Breath sounds normal. Abdomen: Soft and nontender. Skin: 3 cm non indurated area of erythema with folliculitis to the right occipital hairline, Skin warm and dry. Normal skin color. Normal skin turgor. Extremities: No lower extremity edema. Gait well-balanced well coordinated. Neuro: No motor deficit. No sensory deficit. Cranial nerves 2-12 intact. Course Course Course Narrative: 37-year-old female presents with an irritated erythematous spot to the back of her scalp that was noted 2-3 days ago. States area is itchy he feels muñiz and is tender when she lays her head down. The pain is causing her to have headache. She does not report fevers or chills, does not report any new personal care products. Physical exam indicates an area of folliculitis with cellulitis to the back of the scalp. 23:30 will treat for cellulitis with Keflex. Although this does not cross the midline, this is low suspicion for varicella. Patient verbalized understanding of and agrees to plan of care discharge home. Verbalized understanding of signs symptoms indicating need for emergent intervention. MDM - Skin/Abscess/Foreign Bdy Differential Diagnosis Differential diagnosis: Likely abscess of skin or subcutaneous tissue, urticaria, herpes zoster, cellulitis and insect bites Medical Records Attestation: I reviewed the patient's medical records. Discharge Plan Discharge Clinical Impression: Cellulitis, Folliculitis Patient Disposition: Home, Self-Care Instructions: Cellulitis (ED), Folliculitis (ED), Warm Compress or Soak (ED) Additional Instructions: You were evaluated for irritation to the skin. Colitis and cellulitis. Please take Keflex 500 mg twice a day for the next 5 days Take Motrin 600 mg every 6 hours as needed for pain management. Last dose of Motrin was given to you at midnight. Next due at 06:00. Thank you for choosing this emergency department for evaluation. Please follow-up with primary care physician as needed. Return to the emergency department for any new, concerning, or worsening symptoms. Prescriptions: New cephalexin 500 mg capsule 500 mg PO Q12H 5 Days Qty: 10 0RF Interventions: ED Discharge Assessment Last Done: 08/21/22 00:23 Discharge Date/Time: 08/21/22 00:24
[2022-08-21] MEDS: cephALEXin 500 MG CAPSULE PO (00:16)
[2022-08-21] MEDS: Ibuprofen 600 MG TABLET PO (00:16)
== END 2022-08-21 00:24 | disposition home or self-care (01) ==
PROVIDERS: Emergency Provider Emergency Medicine Emergency Medical Services; PCP Family Medicine
DX: L03.811 Cellulitis of head [any part, except face] (principal); L73.9 Follicular disorder, unspecified; R51.9 Headache, unspecified; F41.9 Anxiety disorder, unspecified; F43.0 Acute stress reaction
CPT/HCPCS: 99283; 99284

== ENCOUNTER 2022-09-17 13:36 | Outpatient (REF) | payer MEDICAID, SELFPAY ==
--- NOTE | ~2022-09-17 | CT_ITS ---
EXAMINATION: CT INTERNAL AUDITORY CANALS WITHOUT CONTRAST CLINICAL INFORMATION: 37-year-old with right posterior pain and swelling. Evaluate for right-sided mastoiditis. COMPARISON: None TECHNIQUE: Volumetric CT imaging of the temporal bones was done with multiplanar 2-D reformatted reconstructions. This CT examination was performed using dose optimization techniques as appropriate, variously including the following: *Automated exposure control *Adjustment of mA and/or kV according to patient size (this includes techniques or standardized protocols for targeted exams where dose is matched to indication/reason for exam; i.e. extremities or head) *Use of iterative reconstruction technique DLP: 202 mGy-cm FINDINGS: RIGHT: Mastoid: Well pneumatized and clear, with intact bony persaud. No evidence for mastoiditis. EAC: Patent and normal in caliber. TM: Faintly visualized but appears intact. Middle Ear Cavity: Unopacified. No fluid or soft tissue mass. Scutum/Tegmen: Intact. Ossicles: Structurally within normal limits and intact. Oval Window: Normal. Otic Capsule: Grossly intact. Cochlea, Vestibule, Semicircular Canals: Within normal range. IAC/Vestibular Aqueduct: Within normal range. LEFT: Mastoid: Well pneumatized and clear with intact bony persaud. No evidence for mastoiditis. EAC: Patent and normal in caliber. TM: Faintly visualized but grossly intact. Middle Ear Cavity: Unopacified. No fluid or soft tissue mass. Scutum/Tegmen: Intact. Ossicles: Structurally within normal limits and intact. Oval Window: Normal. Otic Capsule: Grossly intact. Cochlea, Vestibule, Semicircular Canals: Within normal range. IAC/Vestibular Aqueduct: Within normal range. Ancillary Findings: The visualized paranasal sinuses are predominantly clear with only small retention cysts in the maxillary sinuses bilaterally and there is moderate nasal septal deviation to the right with a domitila bullosa in the left middle turbinate. Limited assessment of the intracranial and intraorbital soft tissue structures and extracranial soft tissue structures is grossly unremarkable within the limitations of the exam. CT/CT internal auditory canals BI IMPRESSION: Normal appearance to the temporal bones. No evidence for mastoiditis as questioned clinically.
--- NOTE | ~2022-09-17 | CT_ITS ---
EXAMINATION: CT ORBIT WITHOUT CONTRAST CLINICAL INFORMATION: 37-year-old with swelling and pain posterior to right ear. Possible mastoiditis. COMPARISON: None TECHNIQUE: Volumetric CT imaging of the orbits was done without IV contrast. This CT examination was performed using dose optimization techniques as appropriate, variously including the following: *Automated exposure control *Adjustment of mA and/or kV according to patient size (this includes techniques or standardized protocols for targeted exams where dose is matched to indication/reason for exam; i.e. extremities or head) *Use of iterative reconstruction technique DLP: 202 mGy-cm FINDINGS: The globes are bilaterally symmetric and are normal in morphology and attenuation. There is no significant proptosis. There is a normal appearance to the orbital fat and lacrimal glands with a normal appearance to the preseptal and periorbital soft tissues bilaterally. The extraocular muscles and optic nerves are bilaterally symmetric and are normal in morphology and thickness. There is a normal appearance to the orbital apices. Limited assessment of the included intracranial soft tissue structures without IV contrast. No acute process within the limitations of the exam. The bony structures are intact. The visualized airspaces are unopacified. There is nasal septal deviation to the right and a domitila bullosa in the left middle turbinate. CT/CT orbit BI wo IV con IMPRESSION: Normal CT of the orbits without contrast. No evidence for mastoiditis.
== END 2022-09-17 13:37 | disposition home or self-care (01) ==
LOC: HO.CT 13:36
PROVIDERS: PCP Family Medicine; Visit Provider Family Medicine
DX: M89.9 Disorder of bone, unspecified (principal)
CPT/HCPCS: 70480

== ENCOUNTER 2022-10-04 23:54 | Emergency (ER) | payer MEDICAID, SELFPAY ==
[2022-10-04 23:56] VITALS: BP 142/85; PULSE 74; RESP 18; TEMP 36.7; O2SAT 99; BMI 33.8
--- NOTE | 2022-10-05 00:27 | ED.GENADULT ---
HPI - General Adult General Chief complaint: General Medical Stated complaint: headache Time Seen by Provider: 10/05/22 00:27 Source: patient Mode of arrival: ambulatory Limitations: no limitations History of Present Illness HPI narrative: Patient with pain in right occipital area for last 3-4 weeks sharp stabbing pain seen ENT and primary care doctor had CT scan done which was negative but treated for possible cellular comes as she still having the pain, pain is sharp shooting pain intermittent get worse on touching the scalp Related Data Previous Rx's Medication Instructions Recorded cephalexin 500 mg capsule 500 mg PO Q12H 5 days #10 caps 08/21/22 Allergies Allergy/AdvReac Type Severity Reaction Status Date / Time No Known Allergies Allergy Verified 10/04/22 23:56 [No Known Allergies*] Review of Systems Review of Systems: Yes all other systems are reviewed and are negative PMFSH Past Medical History Medical History Arthritis Back pain 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 Mother Heart disease HTN (hypertension) Social History Social History Alcohol intake: never Patient Tobacco Use Status: Never used Tobacco Smoked in Last 30 Days: No Use of substances other than those prescribed or required for medical reasons: No Advance Directives: No Advance Directives Information Provided: Yes Patient : No Current occupational status: unemployed Current occupation: right handed. Gender identity: Female Physical Exam ED Vital Signs: Vital Signs - 24 hr 10/04/22 23:56 Temperature 98.0 F Pulse Rate 74 Respiratory Rate 18 Blood Pressure 142/85 H Pulse Oximetry 99 Oxygen Delivery Method Room Air BMI result Body Mass Index 33.8 Appearance: Alert. Oriented X3. No acute distress. Eyes: PERRLA, No Nystagmus ENT: Pharynx normal. Oral Mucosa moist local tenderness at the greater occipital nerve on the right side inferolateral to occipital prominence Neck: Normal inspection. Neck supple. CVS: Normal heart rate and rhythm. Pulses normal. Respiratory: No respiratory distress. Equal air entry bilateral, Skin: Skin warm and dry. Normal skin color. Normal skin turgor. Neuro: Oriented X 3. No motor deficit. No sensory deficit.No cerebellar signs , cranial nerves II-XII intact Medications Administered Discontinued Medications Generic Name Dose Route Start Last Admin Trade Name Steveq PRN Reason Stop Dose Admin Dexamethasone Sodium Phosphate 4 mg 10/05/22 00:37 10/05/22 00:52 Dexamethasone Sod Phosphate 4 Mg/Ml Vial IVPUSH 10/05/22 00:38 Not Given ONCE ONE Lidocaine HCl 5 ml 10/05/22 00:34 10/05/22 00:52 Lidocaine Hcl 2 % Mpf 5 Ml Vial INFILTRATI 10/05/22 00:35 Not Given ONCE ONE Procedures Nerve Block Nerve Block 1: Local Anesthetic: lidocaine 1% Amount of anesthesia used (mL): 4 Side: right Nerve Blocks: occipital Complications: none Additional Comments: Lidocaine 1% 4 mL with Decadron 4 mg was injected at right greater occipital nerve patient immediately felt relief in pain no complication Discharge Plan Discharge Clinical Impression: Occipital neuralgia of right side Patient Disposition: Home, Self-Care Instructions: General Headache (ED) Additional Instructions: Clinically you have right-sided cervical neuralgia lidocaine and Decadron injection was given to decrease inflammation and likely will cure the problem Follow-up with your PCP if not better Prescriptions: No Action cephalexin 500 mg capsule 500 mg PO Q12H 5 Days Qty: 10 0RF
== END 2022-10-05 01:13 | disposition home or self-care (01) ==
PROVIDERS: Emergency Provider Internal Medicine; PCP Family Medicine
DX: M54.81 Occipital neuralgia (principal); R51.9 Headache, unspecified
CPT/HCPCS: 99282; 99283; 99284

== ENCOUNTER → 2022-11-03 09:19 | Outpatient (BNVA) | payer MEDICAID, SELFPAY | PROVIDERS: PCP Family Medicine; Visit Provider Anesthesiology | DX: U09.9 Post COVID-19 condition, unspecified (principal); M79.10 Myalgia, unspecified site; G89.29 Other chronic pain; I47.1 Supraventricular tachycardia | CPT/HCPCS: 99212 ==

== ENCOUNTER 2022-11-20 10:40 | Emergency (ER) | payer MEDICAID, SELFPAY ==
[2022-11-20 10:44] VITALS: BP 123/76; PULSE 82; RESP 20; TEMP 36.6; O2SAT 97; BMI 33.8
--- NOTE | 2022-11-20 12:20 | ED.GENADULT ---
HPI - General Adult General Chief complaint: Headache Stated complaint: pain in back of head Time Seen by Provider: 11/20/22 11:58 Source: patient Mode of arrival: ambulatory Limitations: no limitations History of Present Illness HPI narrative: Patient is a 37-year-old female presents to the emergency department for evaluation of pain to the right lower side of her head, neck, and right shoulder. She states that this has been ongoing for a few months. She states that she has been seen by her primary care doctor in given medication, that she does not recall the name of, that was not helpful. She was seen in the emergency department by her account 1 month ago, she received an injection which also did not provide her with longstanding relief from her pain. She has been seen by pain management with [facility], who advised her that she needed to follow-up with [facility] because they are currently doing injections in her back. She states that she believes that she has fibromyalgia, and she is requesting medication for treatment of this. Denies fevers, chills, dizziness, lightheadedness, neck stiffness, chest pain, shortness of breath, numbness or tingling of her extremities. Related Data Previous Rx's Medication Instructions Recorded cephalexin 500 mg capsule 500 mg PO Q12H 5 days #10 caps 08/21/22 Allergies Allergy/AdvReac Type Severity Reaction Status Date / Time No Known Allergies Allergy Verified 11/03/22 09:41 [No Known Allergies*] Review of Systems Review of Systems: Pertinent positives as noted in HPI Yes all other systems are reviewed and are negative PMFSH Past Medical History Attestation statement: The following information was validated with the patient. Medical History Arthritis Back pain 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 Mother Heart disease HTN (hypertension) Social History Social History Alcohol intake: never Patient Tobacco Use Status: Never used Tobacco Advance Directives: No Current occupational status: unemployed Current occupation: right handed. Gender identity: Female Physical Exam ED Vital Signs: Vital Signs - 24 hr 11/20/22 10:44 Temperature 97.9 F Pulse Rate 82 Respiratory Rate 20 Blood Pressure 123/76 Pulse Oximetry 97 Oxygen Delivery Method Room Air BMI result Body Mass Index 33.8 Appearance: Alert.?Oriented to person, place and time. No acute distress.?Normal affect. Eyes: Pupils equal, round and reactive to light.? EOMI. No nystagmus. ENT: Pharynx normal.?? Neck: Normal inspection.? Neck supple.??No midline cervical spine tenderness, step-offs, deformities. No nuchal rigidity CVS: Heart sounds normal. Normal heart rate and rhythm.? Pulses normal.?? Respiratory: No respiratory distress.? Lung sounds clear to auscultation bilaterally?? Abdomen: Soft and non-tender. Skin: Skin warm and dry.? Normal skin color.? ? Extremities: No lower extremity edema.? Neuro: Moves all extremities spontaneously. Sensation intact bilaterally. CN II-XII intact. No focal neuro deficits. Ambulates with normal steady gait. Medical Decision Making Medical Decision Making MDM Narrative: Patient is a 37-year-old female with past medical history of chronic arthralgias associated with ' long haul COVID', presenting to the emergency department for evaluation of ongoing pain to the right to lateral neck and shoulder. Review of records indicates 10/05/2022 she was seen in the emergency department, received in occipital nerve block at that time for treatment of occipital neuralgia, she states that she had some pain relief initially but this did not last. She has followed with her primary care doctor who referred her to pain management through [facility]. She was previously being followed at [facility] for injections of the lower back. Upon review of outpatient records from pain management she was advised to decide whether she would seek treatment through pain management or continue with [facility], as she would not be treated by both. At that time she had reported to pain management she believes she has fibromyalgia, however she has not had any relief with gabapentin in the past. She has also been followed by Rheumatology for the same pains. At this time she states she is not currently taking any pain medication. At the time my examination she is overall well-appearing, no focal neurological deficits, does not appear consistent with meningitis, septic arthritis to the right shoulder. Full range of motion is present neck, no nuchal rigidity. I discuss with patient that she must follow-up with her primary care provider/pain management provider for further evaluation of this, we discussed fibromyalgia being a diagnosis of exclusion. She verbalizes understanding of this. She states that she will contact her doctor's office in 2 days when they are open to discuss further management. She was agreeable with discharge. Differential Diagnosis Differential Diagnoses: The differential diagnosis associated with the presentation includes (As noted above) External Record Review External record reviewed: Outpatient record (As noted above) Prescription Management I considered prescription management with: Pain Medication Discharge Plan Discharge Clinical Impression: Arthralgia Patient Disposition: Home, Self-Care Instructions: Arthralgia (ED) Additional Instructions: As we discussed, please contact your primary care provider/pain management provider for further follow-up and evaluation of your chronic pain. You can take ibuprofen 200 mg, 3 tablets (600mg) every 6-8 hours as needed for pain, in addition to Tylenol 500 mg, 2 tablets (1,000mg) every 4-6 hours as needed for pain, but not to exceed 3 doses daily (3,000mg).? You may return to emergency department with any new or worsening symptoms or concerns. Prescriptions: No Action cephalexin 500 mg capsule 500 mg PO Q12H 5 Days Qty: 10 0RF Referrals: Patti Clark MD [Primary Care Provider] -
== END 2022-11-20 12:35 | disposition home or self-care (01) ==
PROVIDERS: Emergency Provider Emergency Medicine; PCP Family Medicine
DX: M25.59 Pain in other specified joint (principal)
CPT/HCPCS: 99282; 99283

== ENCOUNTER 2022-12-16 10:12 | Emergency (ER) | payer MEDICAID, SELFPAY ==
--- NOTE | 2022-12-16 | ECG_ITS ---
Test Reason : syncope Blood Pressure : / mmHG Vent. Rate : 080 BPM Atrial Rate : 267 BPM P-R Int : 000 ms QRS Dur : 080 ms QT Int : 370 ms P-R-T Axes : 048 101 056 degrees QTc Int : 426 ms Artifact in tracing Normal sinus rhythm Rightward axis Abnormal ECG When compared with ECG of 21-SEP-2021 22:45, No significant changes seen Referred By: Generic ED Physician Electronically Signed By:IRAIDA MENDOZA
--- NOTE | ~2022-12-16 | CT_ITS ---
EXAMINATION: CT LUMBAR SPINE WITHOUT CONTRAST CLINICAL INFORMATION: Trauma with pain COMPARISON: Lumbar spine radiographs 08/03/2013 TECHNIQUE: Axial images were obtained through the lumbar spine without the administration of intravenous contrast. Coronal and sagittal reconstructed images generated. This CT examination was performed using dose optimization techniques as appropriate, variously including the following: *Automated exposure control *Adjustment of mA and/or kV according to patient size (this includes techniques or standardized protocols for targeted exams where dose is matched to indication/reason for exam; i.e. extremities or head) *Use of iterative reconstruction technique DLP; 482 mGy-cm FINDINGS: Normal alignment of the lumbar spine. Vertebral body heights are maintained. No fracture. Intervertebral disc space heights are preserved. No pars defects. SI joints are congruent and intact. Small subcentimeter sclerotic bone island in the posterior medial right iliac bone. Paravertebral soft tissues demonstrate normal caliber visualized abdominal aorta. No retroperitoneal lymphadenopathy or fluid collection. Postsurgical changes suggesting prior appendectomy with suture material at the cecal base. Adjacent surgical clips. Limited assessment of spinal canal contents on CT without myelographic technique. No obvious/large posterior disc herniation. Suggestion of right foraminal disc protrusion at L3-L4 with [id number] right neural foraminal narrowing. CT/CT lumbar spine wo IV con IMPRESSION: 1. No fracture or malalignment of the lumbar spine. 2. Suggestion of a right foraminal disc protrusion at L3-L4 with [id number] right neural foraminal narrowing.
[2022-12-16 10:22] VITALS: BP 110/50; BP 121/69; PULSE 74; PULSE 88; RESP 20; TEMP 37.1; O2SAT 96; O2SAT 97; BMI 33.8
[2022-12-16 10:25] VITALS: BP 121/69; PULSE 80; RESP 20; TEMP 37.1; O2SAT 96
[2022-12-16 10:38] LABS: MANUAL DIFF FLAG NO
[2022-12-16 10:39] LABS: Basophils Percent Auto 0.6 % (0-2); Eosinophils Absolute Auto 0.2 X10*3/uL (0.0-0.4); Eosinophils Percent Auto 3.2 % (0-4); Hematocrit 38.5 % (37.0-47.0); Hemoglobin 12.7 g/dl (12.0-16.0); Imm Gran Abs Auto 0.02 X10*3/uL (0.00-0.03); Imm Gran Pct Auto 0.4 % (0.0-0.4); Lymphocytes Absolute Auto 2.4 X10*3/uL (1.2-4.9); Lymphocytes Percent Auto 44.3 % (20-40); Mean Corpuscular Hemoglobin 28.3 pg (27.0-33.0); Mean Corpuscular Volume 85.9 fL (80.0-98.0); Mean Platelet Volume 9.7 fL (9.4-12.3); Monocytes Absolute Auto 0.5 X10*3/uL (0.1-1.2); Monocytes Percent Auto 8.6 % (2-11); Neutrophils Absolute Auto 2.3 x10*3/uL (2.0-8.3); Neutrophils Percent Auto 42.9 % (45-73); Platelet Count 189 X10*3/uL (160-400); Red Blood Count 4.48 X10*6/uL (4.20-5.50); Red Cell Distribution Width 13.3 % (11.0-16.0); White Blood Count 5.4 X10*3/uL (4.8-10.8)
[2022-12-16 10:58] LABS: Alanine Aminotransferase 19 U/L (0-31); Albumin Level 3.9 g/dL (3.5-5.0); Alkaline Phosphatase 50 U/L (39-117); Anion Gap 14 (12-20); Aspartate Amino Transferase 16 U/L (5-31); Bilirubin Total 0.5 mg/dL (0.0-1.0); Blood Urea Nitrogen 12 mg/dL (9-16); Calcium 8.8 mg/dL (8.4-10.2); Carbon Dioxide 19 mmol/L (22-29); Chloride 110 mmol/L (96-108); Creatinine Clr Calc Pharmacy 105.1; Estimated Glomerular Filt Rate > 60; Glucose Random 101 mg/dL (60-115); Potassium 3.8 mmol/L (3.3-5.1); Sodium 139 mmol/L (135-145); Total Protein 7.3 g/dL (6.5-8.0)
--- NOTE | 2022-12-16 12:20 | ED_ITS ---
HPI - General Adult General Chief complaint: General Medical Stated complaint: BACK & PASSED OUT WHILE SHOVELING PER EMS Time Seen by Provider: 12/16/22 12:20 Source: patient and EMS Mode of arrival: EMS Limitations: no limitations History of Present Illness HPI narrative: Patient is a 37 year old assigned female at with a history of chronic low back pain presenting to the emergency department today with low back pain after shoveling snow. Patient states that she was shoveling snow when she felt a jolt of severe pain in her low back. Patient states that [facility] but this is a new flare. Patient denies any dizziness, lightheadedness, abdominal pain, nausea, vomiting, fever, chills, blurry vision, double vision, loss of vision, chest pain, difficulty breathing, shortness of breath, night sweats, pain with urination, increased urinary frequency, increased urinary urgency, blood in her urine or stool, syncope or a near syncopal episode, bowel incontinence, bladder incontinence, bowel retention, bladder retention, or any other complaints at this time. Onset (ago): minute(s) Location: back Severity: mild Severity scale (1-10): 4 Relieving factors: none Exacerbating factors: none Associated symptoms: denies other symptoms Treatments prior to arrival: none Related Data Previous Rx's Medication Instructions Recorded cephalexin 500 mg capsule 500 mg PO Q12H 5 days #10 caps 08/21/22 cyclobenzaprine 5 mg tablet 5 mg PO TID PRN muscle spasm 7 12/16/22 days #21 tabs lidocaine 4 % topical patch 1 patch topical DAILY PRN pain #10 12/16/22 ea Allergies Allergy/AdvReac Type Severity Reaction Status Date / Time No Known Allergies Allergy Verified 12/16/22 10:25 [No Known Allergies*] Review of Systems Constitutional: Constitutional: Reports no additional constitutional complaints, Denies chills, Denies fever(s) and Denies night sweats Eyes: Eyes: Reports no additional eye complaints, Denies blurry vision, Denies change in vision, Denies diplopia, Denies eye discharge, Denies loss of vision and Denies eye pain ENT: Denies dizziness Cardiovascular: Cardiovascular: Reports no additional cardiovascular complaints, Denies chest pain, Denies lightheadedness, Denies Loss of Consciousness and Denies dyspnea Respiratory: Respiratory: Reports no additional respiratory complaints and Denies dyspnea Gastrointestinal: Gastrointestinal: Reports no additional gastrointestinal complaints, Denies abdominal pain, Denies melena, Denies hematochezia, Denies change in bowel habits and Denies change in stool character Genitourinary: Genitourinary: Denies hematuria, Denies urinary frequency, Denies dysuria, Denies urinary incontinence, Denies urinary hesitancy and Denies urinary urgency Musculoskeletal: Musculoskeletal: Reports no additional musculoskeletal complaints, Reports back pain, Denies numbness and Denies tingling Neurologic: Denies dizziness, Denies loss of vision, Denies numbness and Denies tingling Psychiatric: Psychiatric: Reports no additional psychiatric complaints Endocrine: Endocrine: Reports no additional endocrine complaints Hematologic/Lymphatic: Hematologic/Lymphatic: Reports no additional hematologic/lymphatic complaints Allergic/Immunologic: Allergic/Immunologic: Reports no additional allergic/imm unologic complaints PMFSH Past Medical History Attestation statement: The following information was validated with the patient. Source: old records reviewed and nursing notes reviewed Medical History Arthritis Back pain 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 Mother Heart disease HTN (hypertension) Social History Social History Alcohol intake: never Patient Tobacco Use Status: Never used Tobacco Advance Directives: No Advance Directives Information Provided: No Current occupational status: unemployed Current occupation: right handed. Gender identity: Female Physical Exam ED Vital Signs: Vital Signs - 24 hr 12/16/22 15:14 12/16/22 17:45 Pulse Rate 88 Respiratory Rate 15 Blood Pressure 103/66 107/53 L Pulse Oximetry 97 Oxygen Delivery Method Room Air BMI result Body Mass Index 33.8 Const General: cooperative, no acute distress, alert and awake Nutritional Appearance: well nourished Orientation/consciousness: patient oriented x3 Limitations: no limitations HENMT Head: Yes normal to inspection and Yes atraumatic Ears: hearing grossly normal bilaterally and external ears normal General nose exam: Normal external nose present, no nasal discharge noted and no epistaxis Face and sinus: Yes normal facial exam, No abrasion and No laceration Mouth: Normal oral and palatal mucosa present, no drooling and no muffled voice Eyes General: appearance normal, both eyes and all related structures Periorbital: periorbital findings normal Eyelids: Yes eyelids normal Conjunctivae: conjunctivae normal Pupils: Equal, round and reactive pupils present EOM: EOMs intact bilaterally Neck Neck: Yes normal visual inspection, Yes full ROM and Yes no lymphadenopathy Chest Chest palpation & inspection: normal inspection of the chest Resp Effort & Inspection: normal respiratory effort and able to speak in complete sentences Auscultation: clear to auscultation bilaterally Cardio Rate: regular rate Rhythm: regular rhythm GI Inspection: Yes normal to inspection Palpation (GI): Soft to palpation, not firm, nontender and no guarding General: Yes no CVA tenderness Back/Spine/Pelvis Back: no CVA tenderness Cervical Spine: normal cervical lordosis and cervical ROM normal Thoracic/Lumbar Spine: thoracic and lumbar spine normal to inspection and thoraco-lumbar ROM normal Pelvis: no pain with anterior-posterior compression Neuro General: patient oriented x3 and moves all extremities Cranial nerves: Yes Equal, round and reactive pupils present Cognition (Neuro): normal cognition Motor exam (neuro): 5/5 motor strength present throughout Sensory Exam: Normal double simultaneous stimulation for sensation Coordination: [id number] test normal Extrem General: Yes normal to inspection, Yes full ROM and Yes capillary refill normal Psych Appearance: grossly normal Mental Status: mental status grossly normal Affect: normal affect Attitude: cooperative Thought process: Normal thought process present Thought content: Normal thought content present Insight: Good insight present (Psych) Medications Administered Discontinued Medications Generic Name Dose Route Start Last Admin Trade Name Steveq PRN Reason Stop Dose Admin Hydromorphone HCl 1 mg 12/16/22 12:32 12/16/22 13:41 Hydromorphone Hcl 1 Mg/Ml Syringe IVPUSH 12/16/22 12:33 1 mg ONCE ONE Administration Protocol Hydromorphone HCl 1 mg 12/16/22 15:05 12/16/22 15:39 Hydromorphone Hcl 1 Mg/Ml Syringe IVPUSH 12/16/22 15:06 1 mg ONCE ONE Administration Protocol Lorazepam 0.5 mg 12/16/22 15:05 12/16/22 15:39 Lorazepam 2 Mg/Ml Vial IVPUSH 12/16/22 15:06 0.5 mg ONCE ONE Administration Medical Decision Making Medical Decision Making [facility] Narrative: Patient is a 37 year old assigned female at with a history of chronic low back pain presenting to the emergency department today with a flare of low back pain after shoveling snow. Patient's physical exam was unremarkable. Patient's blood work was unremarkable. Patient's lumbar spine CT showed a possible bulging disc at the L3-L4 with mild right neural foraminal narrowing. I explained my physical exam findings as well as all test results to the patient. I answered all questions asked by the patient. Patient received IV pain medications which she stated helped her pain significantly. I stressed the importance of the patient taking her medication as prescribed. I stressed the importance of the p atient following up with her primary care provider and her health care law specialist. I stressed the importance of the patient returning to the emergency department immediately if her symptoms were to worsen or if she were to develop any dizziness, shortness of breath, difficulty breathing, chest pain, blurry vision, loss of vision, nausea, vomiting, abdominal pain, fever, chills, back pain, or any other complaints. Patient verbalized agreement and understanding with this treatment plan and discharge. Differential Diagnosis Differential Diagnoses: The differential diagnosis associated with the presentation includes low back pain, bulging disc Lab Data [facility] Lab Attestation statement: I reviewed the patient's lab results. 12/16/22 10:32 12/16/22 10:32 Labs: Lab Results 12/16/22 12/16/22 Range/Units 10:32 10:32 WBC 5.4 (4.8-10.8) X10*3/uL RBC 4.48 (4.20-5.50) X10*6/uL Hgb 12.7 (12.0-16.0) g/dl Hct 38.5 (37.0-47.0) % MCV 85.9 (80.0-98.0) fL MCH 28.3 (27.0-33.0) pg MCHC 33.0 (31.0-35.0) g/dl RDW 13.3 (11.0-16.0) % Plt Count 189 (160-400) X10*3/uL MPV 9.7 (9.4-12.3) fL Immature Gran % (Auto) 0.4 (0.0-0.4) % Neut % (Auto) 42.9 L (45-73) % Lymph % (Auto) 44.3 H (20-40) % [place] % (Auto) 8.6 (2-11) % Eos % (Auto) 3.2 (0-4) % Baso % (Auto) 0.6 (0-2) % Lymph # (Auto) 2.4 (1.2-4.9) X10*3/uL [place] # (Auto) 0.5 (0.1-1.2) X10*3/uL Eos # (Auto) 0.2 (0.0-0.4) X10*3/uL Baso # (Auto) 0.0 (0.0-0.2) X10*3/uL Abs Immat Gran (auto) 0.02 (0.00-0.03) X10*3/uL Absolute Neuts (auto) 2.3 (2.0-8.3) x10*3/uL Absolute Nucleated RBC 0.000 (0.0-0.012) X10*3/uL Nucleated RBC % (auto) 0.0 (0.0-0.2) /100WBC Sodium 139 (135-145) mmol/L Potassium 3.8 (3.3-5.1) mmol/L Chloride 110 H (96-108) mmol/L Carbon Dioxide 19 L (22-29) mmol/L Anion Gap 14 (12-20) BUN 12 (9-16) mg/dL Creatinine 0.75 (0.5-1.4) mg/dL Estim Creat Clear Calc 105.1 Estimated GFR > 60 Random Glucose 101 (60-115) mg/dL Calcium 8.8 (8.4-10.2) mg/dL Total Bilirubin 0.5 (0.0-1.0) mg/dL AST 16 (5-31) U/L ALT 19 (0-31) U/L Alkaline Phosphatase 50 (39-117) U/L Total Protein 7.3 (6.5-8.0) g/dL Albumin 3.9 (3.5-5.0) g/dL Independent Interpretation Interpretation: My interpretation is in agreement with the radiologist's impression of this imaging study. EXAMINATION: CT LUMBAR SPINE WITHOUT CONTRAST CLINICAL INFORMATION: Trauma with pain? COMPARISON: Lumbar spine radiographs 08/03/2013? TECHNIQUE: Axial images were obtained through the lumbar spine without the administration of intravenous contrast. Coronal and sagittal reconstructed images generated.? This CT examination was performed using dose optimization techniques as appropriate, variously including the following: *Automated exposure control *Adjustment of mA and/or kV according to patient size (this includes techniques or standardized protocols for targeted exams where dose is matched to indication/reason for exam; i.e. extremities or head) *Use of iterative reconstruction technique DLP; 482 mGy-cm FINDINGS: Normal alignment of the lumbar spine. Vertebral body heights are maintained. No fracture. Intervertebral disc space heights are preserved. No pars defects. SI joints are congruent and intact. Small subcentimeter sclerotic bone island in the posterior medial right iliac bone. Paravertebral soft tissues demonstrate normal caliber visualized abdominal aorta. No retroperitoneal lymphadenopathy or fluid collection. Postsurgical changes suggesting prior appendectomy with suture material at the cecal base. Adjacent surgical clips. Limited assessment of spinal canal contents on CT without myelographic technique. No obvious/large posterior disc herniation. Suggestion of right foraminal disc protrusion at L3-L4 with [id number] right neural foraminal narrowing. CT/CT lumbar spine wo IV con IMPRESSION: 1.? No fracture or malalignment of the lumbar spine. 2.? Suggestion of a right foraminal disc protrusion at L3-L4 with [id number] right neural foraminal narrowing. Dictated By: Garrison Ordoñez Signed By: Electronically signed by Garrison?Tiago 12/16/22 1705 Independent Historian Clinical information obtained from an independent historian. History obtained from or confirmed by: EMS Critical Care Time Critical Care Time Critical Care Time: Yes Total Critical Care Time: 30 Attestation: I spent 30 minutes of Critical Care Time with this patient. This does not include time spent on separately reported billable procedures. Discharge Plan Discharge Clinical Impression: Back pain Patient Disposition: Home, Self-Care Instructions: Back Pain (ED) Additional Instructions: Follow up with your primary care provider and your health care law specialist. Return to the emergency department immediately if your symptoms worsen or if you develop any dizziness, shortness of breath, difficulty breathing, chest pain, blurry vision, loss of vision, nausea, vomiting, abdominal pain, fever, chills, back pain, or any other complaints. Prescriptions: New cyclobenzaprine 5 mg tablet 5 mg PO TID PRN (Reason: muscle spasm) 7 Days Qty: 21 0RF lidocaine 4 % adhesive patch,medicated 1 patch topical DAILY PRN (Reason: pain) Qty: 10 0RF No Action cephalexin 500 mg capsule 500 mg PO Q12H 5 Days Qty: 10 0RF Referrals: Patti Clark MD [Primary Care Provider] - Stand Alone Forms: Work/School Release Interventions: ED Discharge Assessment Last Done: 12/16/22 17:46 Discharge Date/Time: 12/16/22 17:46 Print Language: Swedish
[2022-12-16] MEDS: HYDROmorphone HCl 1 MG/ML SYRINGE IVPUSH ×2 (13:41→15:39)
[2022-12-16 15:14] VITALS: BP 103/66; PULSE 88; RESP 15; O2SAT 97
[2022-12-16] MEDS: LORazepam 2 MG/ML VIAL 0.5 MG IVPUSH (15:39)
--- NOTE | 2022-12-16 15:40 | PC.NURSE ---
Pt ambulated with two assist to the bathroom, reporting pain greater on left side. Medicated for pain per the MAR.
[2022-12-16 17:45] VITALS: BP 107/53
== END 2022-12-16 17:46 | disposition home or self-care (01) ==
PROVIDERS: Emergency Provider Emergency Medicine; PCP Family Medicine
DX: M54.50 Low back pain, unspecified (principal); E66.9 Obesity, unspecified; Z68.33 Body mass index [BMI] 33.0-33.9, adult
CPT/HCPCS: 36415; 72131; 80053; 85025; 93005; 96374; 96375; 96376; 99284; J1170; J2060

== ENCOUNTER 2023-05-16 09:56 | Outpatient (AMB) | payer MEDICAID, SELFPAY ==
[2023-05-16 09:59] VITALS: PULSE 78; O2SAT 97; BMI 33.9
--- NOTE | 2023-05-16 09:59 | A.OFFVIS_ITS ---
Intake Vital Signs 05/16/23 09:59 Height 5 ft 2 in Weight 185 lb 8 oz BMI 33.9 Position Sitting Pulse 78 Pulse Source Pulse Oximeter Pulse Oximetry (%) 97 Oxygen Delivery Method Room Air Intake Visit Reasons: NPV-Chronic tension type headache Intake Note: Pt presents as a NPV for Chronic tension type headache. Pt states right side head pain. pt states she has headaches for years but this pain about 8-9 months. Stress Test Technician Required: No Allergies No Known Allergies [No Known Allergies*] Allergy (Verified 05/16/23 10:05) Medication List - Last Reconciled 05/16/23 by MONIKA Valencia gabapentin 100 - 300 mg (1 - 3 x 100 mg) PO BEDTIME 30 days magnesium oxide 400 mg PO BEDTIME 30 days riboflavin (vitamin B2) 400 mg PO DAILY 30 days sumatriptan succinate 50 - 100 mg orally at onset of headache, may repeat in 2 hrs PRN; max 2 tabs per day or 4 tabs/week (may take with Ibuprofen) 30 days HPI HPI Comments History of Present Illness Details 38-yr-old female presents for new pt evaluation of headache disorder.. Pt reports she has been having headaches for the last 4 years. Then she developed a new right occipital region headache about 9-10 months ago. She had 3 ER evals following the onset of these headaches. Headache questionnaire: Preceding causes? No prior infections, head injuries. Headache characteristics? Always right sided, starts in the occipital region and up over the head into the right eye- and if more severe also travels down into her shoulder and into the middle of her back. Initially she had right lateral occipital felt hot and had redness and a big lump - which has resolved. The pain is severe- and feels like sharp/stabbing/shooting. Pain intensity? Severe Prodrome symptoms? Unsure- constant Aura? None Associated symptoms? Photophobia, phonophobia, some dizziness, tiredness, Focal weakness, Parethesias, Autonomic s/s? Right eye watery Postdrome? Constant Triggers? Is not aware of any triggers Positional, valsalva, exertional, sexual activity triggers? None- but really is not able to do strenuous activity d/t back pain Menstrual triggers? None Time of day? None Duration? Constant- intensity varies Frequency? Constant- intensity varies How does headache impact your life? Not currently working d/t her back pain. She continues to have her previous headaches (although no longer constantly) which overlap the right sided headache: Headache questionnaire: Age/time of onset? 4 yrs ago Preceding causes? No prior infections, head injuries. Headache characteristics? Holocranial, throbbing Pain intensity? Mod-Severe Prodrome symptoms? Unsure Aura? None Associated symptoms? Photophobia, phonophobia, some dizziness. Focal weakness, Parethesias, Autonomic s/s? Sometimes bilateral eye watery Postdrome? None Triggers? Is not aware of any triggers Positional, valsalva, exertional, sexual activity triggers? None- but really is not able to do strenuous activity d/t back pain Menstrual triggers? None Time of day? None Duration and Frequency? Was constant- intensity varied, now about 1 day a week How does headache impact your life? Not currently working d/t her back pain. Current acute medication use/interventions: None Previous acute medication use: None Current preventative medication use: None Previous preventative medication use: Mag Non-pharmacological interventions: Rest in a dark quiet place Other history of headache disorder? None other History of musculoskeletal disorders or injury? Arthritis in her right shoulder and right shoulder. Sustained a low-back injury 9 yrs ago at work. The back pain can cause LLE numbness/tingling/weakness. Has a spinal stimulator trial- placed 4 days ago- will be removed tomorrow. History of concussion/head injury? None History of mood disorder? Anxiety and depression- ? mild bipolar History of sleep disorder? Sleep difficulties- especially d/t the right sided headaches and the back pain History of respiratory disease? None History of CV disease? No HTN/HLD. History of coagulopathy? None History of endocrine or metabolic disease? None History of seizure? None. Has passed out from severe back pain. Other? Prone to constipation. Family planning? Has been trying for 4 yrs - but her 's sperm count is low Family history of migraine or other headache disorder? Only one cousin. [facility] Medical History Arthritis Back pain COVID-19 long hauler COVID-19 long hauler manifesting chronic muscle pain Migraine headache Surgical History History of appendectomy Family History (Updated 05/16/23 @ 10:07 by Racquel Bradshaw CMA) Father Diabetes Mother Heart disease HTN (hypertension) Brother Cerebrovascular accident (CVA) Social History (Updated 05/16/23 @ 10:08 by Racquel Bradshaw CMA) Alcohol intake: never Patient Tobacco Use Status: Never used Tobacco Current occupational status: unemployed Current occupation: right handed. Gender identity: Female Female Reproductive History Menstrual Age of Menarche: 12 Review of Systems Const Details: See scanned ROS form Physical Exam Vital Signs: Last Vital Signs Pulse 78 05/16/23 09:59 Pulse Ox 97 05/16/23 09:59 Oxygen Delivery Method Room Air 05/16/23 09:59 BMI result Body Mass Index 33.9 Const Orientation/consciousness: patient oriented x3 HEENT Other: Palpable scalp tenderness- right lesser ON distribution. Head: Yes normocephalic Resp Effort & Inspection: normal respiratory effort and able to speak in complete sentences Back/Spine/Pelvis Other: Bilateral posterior cervical tightness. Cervical ROM: limited Left Spurling: normal Right Spurling: positive- shooting pain from neck into right trap/shoulder Neuro Other: MS 5/5 throughout w/ exception of mild decreased weakness in right hand. Right medical compression and Phalen test- positive. General: patient oriented x3 Cranial nerves: Yes CN's II-XII intact bilaterally Cognition (Neuro): normal cognition Gait exam (Neuro): Normal gait present (slow) Deep tendon reflexes (DTR's): Right triceps reflex intensity grade: 2+, Left triceps reflex intensity grade: 2+, Rt Biceps (C5, C6): 2+, Left biceps reflex intensity grade: 2+, Right brachioradialis reflex intensity grade: 2+, Left brachioradialis reflex intensity grade: 2+, Right patellar reflex intensity grade: 2+ and Left patellar reflex intensity grade: 2+ Coordination: [id number]-to-[id number] test normal and Romberg test negative Pupils: Normal pupillary reactivity/response: bilateral Psych Appearance: grossly normal Mental Status: mental status grossly normal Speech and movement: Normal speech and movement present Affect: normal affect Attitude: cooperative Thought process: Normal thought process present Assessment & Plan Assessment & Plan (1) Right-sided headache: Comment: ? cervicogenic, ? ON, migraine w/o aura Code(s): R51.9 - Headache, unspecified (2) Cervicalgia: Code(s): M54.2 - Cervicalgia (3) Paresthesia: Code(s): R20.2 - Paresthesia of skin (4) Numbness and tingling of right hand: Code(s): R20.0 - Anesthesia of skin; R20.2 - Paresthesia of skin (5) Right arm weakness: Code(s): R29.898 - Other symptoms and signs involving the musculoskeletal system Plan Pt advised to undergo: C-spine XR w/ flex/ext C-spine MRI w/o RUE EMG/NCS Physical therapy for neck pain and RUE weakness- if her back specialist agrees. Future considerations- Right lesser ON block. For overall headache management: Discussed importance of good self-care, including but not limited to maintaining a healthy diet, adequate fluid intake, adequate sleep, and engaging in regular physical activity. For headache triggers: Track headaches, especially after any treatment regimen changes. Migraine [employer] is one of many headache tracking apps. Light sensitivity tips: Patient may try blue light filtering glasses, green glasses, green light therapy.. Avoid wearing sunglasses inside. For acute headache treatment: Discussed importance of taking acute medications at the first sign of headache, however stressed importance of avoiding acute medication overuse (especially with combined headache medications). Trial Sumatriptan 100mg tab, 1/2 - 1 tab (50-100mg) at onset of headache, may repeat in 2 hours. Max of 2 tabs (200mg) per 24 hours. May adjunct with OTC Tylenol 650mg q 4 hours, Ibuprofen 600mg q 6 hours, or Naproxen 440mg q 12 hrs prn. Reviewed potential adverse effects of triptans, including but not limited to nausea, fatigue, chest tightness/tingling (usually passes within a few minutes), medication overuse headaches. Previous acute migraine medication trials: None Acute migraine medication contraindications: None at this time For headache prevention medication: Discussed that preventative medications should be taken routinely as prescribed for best effect, it may take several weeks for full effect to take effect. Start Riboflavin 400mg qam Start Magnesium 400mg qhs Start Gabapentin 100-300mg qhs- may help cervicalgia, RUE pain/paresthesias, right lesser ON pain Previous migraine prevention medication trials: Mag Migraine prevention medication contraindications: TCAs, Topiramate, CGRP MaBs- pt at risk for Information also given on non-pharmacological interventions, such as migraine cooling caps, and Cefaly or Nerivio neuromodulation devices. Pt to follow-up in 3 months or sooner prn. Orders: Orders MR cervical spine wo con 05/16/23 M54.2 - Cervicalgia, R20.0 - Anesthesia of skin, R20.2 - Paresthesia of skin, R29.898 - Other symptoms and signs involving the musculoskeletal system, R51.9 - Headache, unspecified NE electromyogram (EMG) 05/16/23 M54.2 - Cervicalgia, R20.0 - Anesthesia of skin, R20.2 - Paresthesia of skin, R29.898 - Other symptoms and signs involving the musculoskeletal system, R51.9 - Headache, unspecified XR cervical spine 4V 05/16/23 M54.2 - Cervicalgia, R20.0 - Anesthesia of skin, R20.2 - Paresthesia of skin, R29.898 - Other symptoms and signs involving the musculoskeletal system, R51.9 - Headache, unspecified XR cervical spine w flex/ext 05/19/23 M54.2 - Cervicalgia, R20.0 - Anesthesia of skin, R20.2 - Paresthesia of skin, R29.898 - Other symptoms and signs involving the musculoskeletal system, R51.9 - Headache, unspecified Medications: New gabapentin 100 - 300 mg (1 - 3 x 100 mg) PO BEDTIME 30 days 90 caps 3RF magnesium oxide may hold for loose stools 400 mg PO BEDTIME 30 days 30 tabs 6RF sumatriptan succinate (0.5 - 1 x 100 mg) 50 - 100 mg orally at onset of headache, may repeat in 2 hrs PRN; max 2 tabs per day or 4 tabs/week (may take with Ibuprofen) 30 days 12 tabs 6RF migraine headache riboflavin (vitamin B2) 400 mg PO DAILY 30 days 30 tabs 6RF Coding Level of Care Code New Pt Level 4 (37048) Diagnoses Right-sided headache R51.9 Cervicalgia M54.2 Paresthesia R20.2 Numbness and tingling of right hand R20.0; R20.2 Right arm weakness R29.898
== END 2023-05-16 11:16 | disposition home or self-care (01) ==
PROVIDERS: Visit Provider Nurse Practitioner Family
DX: R51.9 Headache, unspecified (principal); M54.2 Cervicalgia; R20.2 Paresthesia of skin; R20.0 Anesthesia of skin; R29.898 Other symptoms and signs involving the musculoskeletal system
CPT/HCPCS: 99204

== ENCOUNTER → 2023-05-16 09:56 | Outpatient (BNVA) | payer MEDICAID, SELFPAY | PROVIDERS: Visit Provider Nurse Practitioner Family | DX: R51.9 Headache, unspecified (principal); M54.2 Cervicalgia; R20.2 Paresthesia of skin; R20.0 Anesthesia of skin; R29.898 Other symptoms and signs involving the musculoskeletal system | CPT/HCPCS: 99204 ==

== ENCOUNTER 2023-05-19 10:57 | Outpatient (REF) | payer MEDICAID, SELFPAY ==
--- NOTE | ~2023-05-19 | XR_ITS ---
EXAMINATION: XR CERVICAL SPINE CLINICAL INFORMATION: Headache. COMPARISON: None available. TECHNIQUE: 5 views of the cervical spine, inclusive of flexion and extension views, were obtained. FINDINGS: No abnormal prevertebral soft tissue swelling is seen. No acute cervical spine fracture is noted. Disc spaces are maintained. No destructive bony lesions. No instability on flexion-extension views. XR/XR cervical spine w flex/ext IMPRESSION: No significant cervical spine bony abnormality.
== END 2023-05-19 10:58 | disposition home or self-care (01) ==
LOC: HO.XRAY 10:57
PROVIDERS: PCP Family Medicine; Visit Provider Nurse Practitioner Family
DX: M54.2 Cervicalgia (principal); R51.9 Headache, unspecified; R20.0 Anesthesia of skin; R20.2 Paresthesia of skin; R29.898 Other symptoms and signs involving the musculoskeletal system
CPT/HCPCS: 72052

== ENCOUNTER 2023-07-05 08:24 | Outpatient (REF) | payer MEDICAID, SELFPAY ==
--- NOTE | ~2023-07-05 | MR_ITS ---
EXAMINATION: MR CERVICAL SPINE WITHOUT CONTRAST CLINICAL INFORMATION: Headache. Right extremity radicular symptoms. Neck pain. COMPARISON: None available. TECHNIQUE: Multiplanar, multisequential imaging of the cervical spine was performed without contrast. Limited study with motion artifacts. FINDINGS: VERTEBRAL BODIES AND PARASPINAL SOFT TISSUES: The marrow signal is homogeneous and the discs are fairly well hydrated. There is a slight reversal of the normal cervical lordosis. No marrow or soft tissue edema is seen. The paraspinal soft tissues appear normal. The vertebral artery flow voids are maintained. The imaged portions of the lungs are grossly clear. CERVICOMEDULLARY JUNCTION AND VISUALIZED POSTERIOR FOSSA: The craniovertebral junction and imaged portions of the brain parenchyma appear normal. SPINAL LEVELS: C2-C3 and C3-C4: No disc pathology, central canal stenosis, or foraminal narrowing. C4-C5: Minimal annular bulge and very small central disc protrusion. No central canal stenosis or foraminal narrowing. C5-C6, C6-C7, and C7-T1: No disc pathology, central canal stenosis, or foraminal narrowing. MR/MR cervical spine wo con IMPRESSION: Limited examination with motion artifacts. Minimal annular bulge and very small central disc protrusion at the C4-C5 level. Mild reversal of the normal cervical lordosis.
== END 2023-07-05 08:25 | disposition home or self-care (01) ==
LOC: HO.MRI 08:24
PROVIDERS: PCP Family Medicine; Visit Provider Nurse Practitioner Family
DX: M54.2 Cervicalgia (principal); R51.9 Headache, unspecified; R20.0 Anesthesia of skin; R20.2 Paresthesia of skin; R29.898 Other symptoms and signs involving the musculoskeletal system
CPT/HCPCS: 72141

== ENCOUNTER 2023-08-23 10:21 | Outpatient (AMB) | payer MEDICAID, SELFPAY ==
--- NOTE | 2023-08-23 10:22 | A.OFFVIS_ITS ---
Intake Vital Signs 08/23/23 10:37 Height 5 ft 2 in Weight 184 lb BMI 33.7 BP 124/82 Blood Pressure Location Lt brachial Position Sitting Intake Visit Reasons: 3m follow up Chronic tension headache-Conf Intake Note: Patient presents for 3 month follow up. Patient states still same no change. Allergies No Known Allergies [No Known Allergies*] Allergy (Verified 08/23/23 10:37) Medication List - Last Reconciled 08/23/23 by MONIKA Valencia gabapentin 100 - 300 mg (1 - 3 x 100 mg) PO BEDTIME 30 days magnesium oxide 400 mg PO BEDTIME 30 days riboflavin (vitamin B2) 400 mg PO DAILY 30 days sumatriptan succinate 50 - 100 mg orally at onset of headache, may repeat in 2 hrs PRN; max 2 tabs per day or 4 tabs/week (may take with Ibuprofen) 30 days tramadol 50 mg PO DAILY HPI HPI Comments History of Present Illness Details 38-yr-old female presents for f/u visit. Pt denies any significant interval medical changes. However, pt has been having increased right sided pain. Her RUE EMG/NCS is scheduled for Aug. Her c-spine MRI did not show any cervical canal or neural foraminal stenosis. She continues to have right aching/stabbing/squeezing occipital region to frontal region headache x's 6-8 hrs about 5-6 days per week. She tried Gabapentin 300mg qhs, Mag, B2, and Sumatriptan which was not effective for the headache. She continues to have RUE weakness. She is having RLE weakness and knee pain/crepitus- she is scheduled to have a Rt knee MRI in Aug. 07/05/23, [facility], MR/MR cervical spine wo co n IMPRESSION: Limited examination with motion artifacts. Minimal annular bulge and very small central disc protrusion at the C4-C5 level. Mild reversal of the normal cervical lordosis. [facility] Medical History Arthritis Back pain COVID-19 long hauler COVID-19 long hauler manifesting chronic muscle pain Migraine headache Surgical History History of appendectomy Family History Father Diabetes Mother Heart disease HTN (hypertension) Brother Cerebrovascular accident (CVA) Social History Alcohol intake: never Patient Tobacco Use Status: Never used Tobacco Current occupational status: unemployed Current occupation: right handed. Gender identity: Female Female Reproductive History Menstrual Age of Menarche: 12 Review of Systems Const All systems reviewed & are unremarkable except as noted in HPI and below Physical Exam Vital Signs: Last Vital Signs BP 124/82 08/23/23 10:37 BMI result Body Mass Index 33.7 Const General: cooperative and no acute distress Orientation/consciousness: patient oriented x3 HEENT Head: Yes normocephalic Resp Effort & Inspection: normal respiratory effort and able to speak in complete sentences Neuro Other: MS- 5-/5 in RUE, right hand grasp, RLE hip flexors. General: patient oriented x3 and CN's II-XI intact bilaterally Cognition (Neuro): normal cognition Gait exam (Neuro): Antalgic gait present Psych Appearance: grossly normal Mental Status: mental status grossly normal Speech and movement: Normal speech and movement present Affect: normal affect Attitude: cooperative Thought process: Normal thought process present Thought content: Normal thought content present Insight: Good insight present (Psych) Judgement: Good judgement present (Psych) Assessment & Plan Assessment & Plan (1) Right-sided headache: Comment: ? cervicogenic, ? ON, migraine w/o aura Code(s): R51.9 - Headache, unspecified (2) Paresthesia: Code(s): R20.2 - Paresthesia of skin (3) Right arm weakness: Code(s): R29.898 - Other symptoms and signs involving the musculoskeletal system Plan Pt advised to undergo: C-spine XR w/ flex/ext- No significant cervical spine bony abnormality. C-spine MRI w/o- Minimal annular bulge and very small central disc protrusion at the C4-C5 level. Mild reversal of the normal cervical lordosis. RUE EMG/NCS as ordered Pt advised to undergo brain MRI w/wo w/ premidcation w/ Xanax- ? central etiology of pt's persistent right sided headache and RUE weakness. ?For overall headache management: Track headaches. For acute headache treatment: Stop Sumatriptan 100mg tab. Trial Diclofenac 50mg tid prn. Previous acute migraine medication trials: Sumatriptan- ineffective. Acute migraine medication contraindications: None at this time ? For headache prevention medication: May hold Riboflavin 400mg qam Continue Magnesium 400mg qhs Stop Gabapentin 100-300mg qhs- ineffective. Trial Amitriptyline 10-30mg qhs- pt states no current risk for Pt currently seeing PS&S for her back pain- will request they eval pt for Right ON block. Previous migraine prevention medication trials: [facility] Headache prevention medication contraindications: none at this time ? ?Pt to follow-up in 3 months or sooner prn. Orders: Orders MR head/brain wo/w con Today R20.2 - Paresthesia of skin, R29.898 - Other symptoms and signs involving the musculoskeletal system, R51.9 - Headache, unspecified Referrals Pain Management Referral M54.2 - Cervicalgia, R51.9 - Headache, unspecified Medications: New diclofenac potassium 50 mg PO TID 30 days PRN 60 tabs 1RF headache amitriptyline 10 - 30 mg (1 - 3 x 10 mg) PO BEDTIME 30 days 90 tabs 3RF alprazolam 0.25 mg orally 1 tab 30 minutes prior to MRI, may repeat x's 1; 1 day 2 tabs 0RF Refilled magnesium oxide may hold for loose stools 400 mg PO BEDTIME 30 days 30 tabs 6RF Discontinued gabapentin Discontinued Reason: Doctor's Order 100 - 300 mg (1 - 3 x 100 mg) PO BEDTIME 30 days 90 caps 3RF riboflavin (vitamin B2) Discontinued Reason: Doctor's Order 400 mg PO DAILY 30 days 30 tabs 6RF sumatriptan succinate Discontinued Reason: Doctor's Order (0.5 - 1 x 100 mg) 50 - 100 mg orally at onset of headache, may repeat in 2 hrs PRN; max 2 tabs per day or 4 tabs/week (may take with Ibuprofen) 30 days 12 tabs 6RF migraine headache Coding Level of Care Code Est Pt Level 4 (86586) Diagnoses Right-sided headache R51.9 Paresthesia R20.2 Right arm weakness R29.898
[2023-08-23 10:37] VITALS: BP 124/82; BMI 33.7
== END 2023-08-23 11:18 | disposition home or self-care (01) ==
PROVIDERS: PCP Family Medicine; Visit Provider Nurse Practitioner Family
DX: R51.9 Headache, unspecified (principal); R20.2 Paresthesia of skin; R29.898 Other symptoms and signs involving the musculoskeletal system
CPT/HCPCS: 99214

== ENCOUNTER → 2023-08-23 10:21 | Outpatient (BNVA) | payer MEDICAID, SELFPAY | PROVIDERS: PCP Family Medicine; Visit Provider Nurse Practitioner Family | DX: R51.9 Headache, unspecified (principal); R20.2 Paresthesia of skin; R29.898 Other symptoms and signs involving the musculoskeletal system | CPT/HCPCS: 99212 ==

== ENCOUNTER 2023-09-16 18:46 | Outpatient (REF) | payer MEDICAID, SELFPAY ==
--- NOTE | ~2023-09-16 | MR_ITS ---
EXAMINATION: MR KNEE WITHOUT CONTRAST, RIGHT CLINICAL INFORMATION: Worsening right knee pain. Laxity. COMPARISON: Right knee radiographs dated 11/18/2021. TECHNIQUE: MRI of the knee without contrast was performed using routine sequences on a high-field scanner. FINDINGS: MENISCI: Medial Meniscus: Intact. Along the anteromedial aspect of the meniscus, there is a lobulated, simple-appearing cyst measuring up to 0.5 x 2.5 x 1.4 cm. Findings could represent a synovial recess versus ganglion cyst. A parameniscal cyst with an occult meniscal tear is thought less likely. Lateral Meniscus: Intact. LIGAMENTS: Cruciate: Intact. Collateral: Intact. EXTENSOR MECHANISM: Intact. ARTICULAR CARTILAGE/BONE: Patellofemoral Compartment: Intact articular cartilage. Medial Compartment: Intact articular cartilage. Lateral Compartment: Intact articular cartilage. JOINT FLUID AND BURSAE: Trace joint effusion. Trace edema within the pes anserine bursa which could represent minimal bursitis. MR/MR knee RT wo con IMPRESSION: 1. No acute meniscal or ligamentous injury. 2. Lobulated, simple-appearing cyst along the anteromedial aspect of the medial meniscus measuring up to 2.5 cm. Findings could represent a synovial recess versus ganglion cyst. A parameniscal cyst with an occult meniscal tear is thought less likely. 3. Trace joint effusion. Trace edema within the pes anserine bursa which could represent minimal bursitis.
== END 2023-09-16 18:47 | disposition home or self-care (01) ==
LOC: HO.MRI 18:46
PROVIDERS: PCP Family Medicine; Visit Provider Family Medicine
DX: M25.561 Pain in right knee (principal)
CPT/HCPCS: 73721

== ENCOUNTER 2023-09-22 09:45 | Outpatient (AMB) | payer MEDICAID, SELFPAY ==
--- NOTE | 2023-09-22 09:50 | A.OFFVIS_ITS ---
Intake Vital Signs 09/22/23 09:54 Height 5 ft 2 in Weight 184 lb BMI 33.7 Intake Visit Reasons: Ov- right hand pain Intake Note: Fariba a 38 year old right hand dominant female presents today for a follow up of right hand pain. Patient reports having an EMG done at [facility] a week ago that was scanned in patients chart. States pain has been present for over 2 months. She would like to discuss treatment options. She describes her pain as a burning sensation that radiates from the tips of her fingers down to her forearm, states most of her pain is in her wrist. Allergies No Known Allergies [No Known Allergies*] Allergy (Verified 09/22/23 09:56) HPI Ov- right hand pain HPI Details 38-year-old right hand dominant female vanessa osborne returns to the office today for a follow-up of right-hand pain. She states she has pain and burning sensation which is mostly in her wrist but radiates from her fingertips to her forearm and elbow. Her pain is aggravated with brace use. She also reports she is unable to lift heavy object and open water bottles due to her pain. She had undergone EMG study at [facility] about a week ago. She would like to discuss treatment options. [facility] Medical History (Updated 09/22/23 @ 10:12 by Mey Gibson PA-C) Arthritis COVID-19 long hauler manifesting chronic muscle pain COVID-19 long hauler Migraine headache Back pain Surgical History History of appendectomy Family History Father Diabetes Mother Heart disease HTN (hypertension) Brother Cerebrovascular accident (CVA) Social History Alcohol intake: never Patient Tobacco Use Status: Never used Tobacco Current occupational status: unemployed Current occupation: right handed. Gender identity: Female Female Reproductive History Menstrual Age of Menarche: 12 Review of Systems Const All systems reviewed & are unremarkable except as noted in HPI and below Physical Exam Vital Signs: BMI result Body Mass Index 33.7 Const General: cooperative and no acute distress Orientation/consciousness: patient oriented x3 Resp Effort & Inspection: normal respiratory effort and able to speak in complete sentences Cardio Peripheral pulses: Peripheral pulses 2+ throughout Neuro General: patient oriented x3 Extrem Other: Right elbow: Skin intact. No erythema or swelling. ROM full without pain. Tenderness over the lateral epicondyle and pain with resisted wrist extension. NVI. Right wrist: Without deformity. No swelling. Mild tenderness over the radial styloid. Positive Zbigniew?s. No pain with CMC grind. is able to make a full fist and fully extend all digits. NVI. Results Reviewed Results Reviewed: EMG study negative for CTS or Ulnar neuropathy Assessment & Plan Assessment & Plan (1) Lateral epicondylitis, right elbow: Code(s): M77.11 - Lateral epicondylitis, right elbow (2) De Quervain's disease (radial styloid tenosynovitis): Code(s): M65.4 - Radial styloid tenosynovitis [de Quervain] Plan We discussed options which include PT, NSAIDs and injections. The patient will defer on the injection today and proceed with OT and NSAIDs. If symptoms persist, the patient will contact me for an injection, otherwise, PRN. Orders: Orders OT Evaluation and Treatment Today M65.4 - Radial styloid tenosynovitis [de Quervain], M77.11 - Lateral epicondylitis, right elbow Patient Instructions: Scribed for Mey Gibson PA-C, by Heriberto Pelaez ophthalmic medical assistant, on 09/22/2023 at 9:45 AM EST. IMey PA-C, have personally reviewed and agree with the information entered by the scribe. Coding Level of Care Code New Pt Level 3 (32826) Diagnoses Lateral epicondylitis, right elbow M77.11 De Quervain's disease (radial styloid tenosynovitis) M65.4
[2023-09-22 09:54] VITALS: BMI 33.7
== END 2023-09-22 10:15 | disposition home or self-care (01) ==
PROVIDERS: PCP Family Medicine; Visit Provider Physician Assistant
DX: M77.11 Lateral epicondylitis, right elbow (principal); M65.4 Radial styloid tenosynovitis [de Quervain]
CPT/HCPCS: 99213

== ENCOUNTER 2023-09-22 09:45 | Outpatient (REF) | payer MEDICAID, SELFPAY ==
[2023-09-22 10:39] LABS: MANUAL DIFF FLAG NO
[2023-09-22 10:51] LABS: Basophils Percent Auto 0.5 % (0-2); Eosinophils Absolute Auto 0.2 X10*3/uL (0.0-0.4); Eosinophils Percent Auto 3.7 % (0-4); Hematocrit 39.1 % (37.0-47.0); Lymphocytes Absolute Auto 2.4 X10*3/uL (1.2-4.9); Lymphocytes Percent Auto 42.7 % (20-40); Mean Corpuscular HGB Conc 33.2 g/dl (31.0-35.0); Mean Corpuscular Hemoglobin 28.7 pg (27.0-33.0); Mean Corpuscular Volume 86.3 fL (80.0-98.0); Monocytes Absolute Auto 0.5 X10*3/uL (0.1-1.2); Monocytes Percent Auto 8.3 % (2-11); Neutrophils Absolute Auto 2.5 x10*3/uL (2.0-8.3); Neutrophils Percent Auto 44.8 % (45-73); Platelet Count 230 X10*3/uL (160-400); Red Blood Count 4.53 X10*6/uL (4.20-5.50); Red Cell Distribution Width 13.2 % (11.0-16.0); White Blood Count 5.7 X10*3/uL (4.8-10.8)
[2023-09-22 11:11] LABS: Alanine Aminotransferase 16 U/L (0-31); Alkaline Phosphatase 55 U/L (39-117); Anion Gap 11 (12-20); Aspartate Amino Transferase 18 U/L (5-31); Bilirubin Total 0.5 mg/dL (0.0-1.0); Blood Urea Nitrogen 8 mg/dL (9-16); Calcium 8.7 mg/dL (8.4-10.2); Carbon Dioxide 24 mmol/L (22-29); Chloride 106 mmol/L (96-108); Estimated Glomerular Filt Rate > 60; Glucose Random 83 mg/dL (60-115); Potassium 3.8 mmol/L (3.3-5.1); Sodium 137 mmol/L (135-145); Total Protein 7.9 g/dL (6.5-8.0)
[2023-09-22 11:42] LABS: Erythrocyte Sedimentation Rate 17 MM/HR (0-20)
[2023-09-23 16:59] LABS: CRP High Sensitivity 3.8 mg/L
[2023-09-26 11:34] LABS: Anti Nuclear Antibody Screen NEGATIVE (NEGATIVE)
== END 2023-09-22 09:46 | disposition home or self-care (01) ==
LOC: HO.LAB 09:45
PROVIDERS: Absent Provider Nurse Practitioner Family; PCP Family Medicine; Visit Provider Physician Assistant
DX: R20.2 Paresthesia of skin (principal); R10.2 Pelvic and perineal pain; M25.531 Pain in right wrist; M19.90 Unspecified osteoarthritis, unspecified site; M96.1 Postlaminectomy syndrome, not elsewhere classified; M77.11 Lateral epicondylitis, right elbow; M65.4 Radial styloid tenosynovitis [de Quervain]
CPT/HCPCS: 36415; 80053; 85025; 85652; 86038; 86141; 99212

== ENCOUNTER 2023-09-22 12:00 | Outpatient (RCR) | payer MEDICAID, SELFPAY ==
--- NOTE | 2023-09-07 10:00 | MHC.PT.EP ---
[facility] [place] [facility] [place] [facility] [place] [facility] [address] [phone] F: [phone] F: [phone] F: [phone] F: [phone] Physical Therapy Plan of Care Date of Evaluation: 09/07/23 Date of Surgery: NA Diagnosis: Cervicalgia, R arm weakness, paraesthesia Assessment: Fariba is a 38 year old female who is referred to PT for cervicalgia, R UE weakness, paresthesia . She reports of having symptoms of R sided neck pain radiating down to R UE for about 2 years. She denies any trauma or falls but reports that her symptoms have been getting worse progressively. On PT examination she presented with TTP over R UT, R levator scap, R scalene, C3 to T1 spinous process and shoulder joint line, 10/10 shoulder pain, decreased shoulder and cervical ROM, decreased shoulder, cervical spine and scap strength and altered posture. She lives with her and is independent with all ADLS however has pain with them and needs to take frequent rest breaks. She is unemployed. She would benefit from skilled PT to address the aforementioned impairments and improve tolerance to functional activities. Frequency and Duration: The patient will be seen 2/week for 5 weeks Short Term Goals: 1. Pt will have 50% decrease in pain which will enable to sleep through the night without reports of neck pain in 2 weeks. 2. Pt will be able to move her neck through all planes of motion without pain which will enable her to move her neck for driving without pain in 3 weeks [employer] [facility] Supervisor Goals: 1. Pt will demonstrate an increase in muscle strength by 1 grade which will enable her to use R UE for ADLS without pain in 5 weeks. 2. Pt will be independent with all HEP for symptom management and maintenance following d/c in 5 weeks. Treatment Plan: Modalities to reduce pain, spasms and effusion. Manual therapy to restore motion and function. Therapeutic exercise to improve strength and flexibility. Neuromuscular re-education for posture and balance. Therapeutic activities to return to functional activities of daily living. Electronically signed by: Cary Jenkins PT DPT Please sign and return to therapist. Thank you for your referral.
--- NOTE | 2023-10-19 10:42 | MHC.PT.DC ---
[facility] [place] Office [place] Office [place] Office [address] Rashad Orozco [address] [phone] F: [phone] F: [phone] F: [phone] F: [phone] Physical Therapy Discharge Report Diagnosis: Cervicalgia, R arm weakness, paraesthesia Date of Surgery: NA Date of Evaluation: 09/07/23 Date of Discharge: 10/19/23 Treatments to Date: 3 Cancellations to Date: 0 No Shows to Date: 0 Discharge Status: Patient Elected to Stop Physician Discontinued Tx Discharge Summary: Fariba called and canceled all her appointments as she had back surgery and per pt she was told to not move her back by the surgeon. She is therefore being d/c from PT. Electronically signed by: Cary Jenkins, PT DPT Please sign and return to therapist. Thank you for your referral.
== END 2023-10-19 10:42 | disposition home or self-care (01) ==
LOC: HO.PT 12:00
PROVIDERS: PCP Family Medicine; Visit Provider Nurse Practitioner Family
DX: M54.2 Cervicalgia (principal); R20.2 Paresthesia of skin; R29.898 Other symptoms and signs involving the musculoskeletal system
CPT/HCPCS: 97012; 97014; 97110; 97140; 97161

== ENCOUNTER 2023-10-03 17:14 | Emergency (ER) | payer MEDICAID, SELFPAY ==
--- NOTE | ~2023-10-03 | CT_ITS ---
EXAMINATION: CT ABDOMEN AND PELVIS WITHOUT CONTRAST CLINICAL INFORMATION: Question of small bowel obstruction COMPARISON: 11/19/2016 TECHNIQUE: Multidetector volumetric imaging was performed from the superior aspect of the liver through the pubic symphysis. Sagittal and coronal reformatted images were obtained on the technologist's workstation. This CT examination was performed using dose optimization techniques as appropriate, variously including the following: *Automated exposure control *Adjustment of mA and/or kV according to patient size (this includes techniques or standardized protocols for targeted exams where dose is matched to indication/reason for exam; i.e. extremities or head) *Use of iterative reconstruction technique DLP: 697 mGy-cm FINDINGS: LUNG BASES: The visualized lung bases are unremarkable. LIVER, GALLBLADDER, AND BILIARY TREE: The liver is normal in size, shape, and attenuation. No focal hepatic lesion or biliary ductal dilatation is present. The gallbladder is unremarkable with no evidence of radiopaque gallstones, gallbladder wall thickening, or obvious pericholecystic inflammatory changes. PANCREAS: Unremarkable. SPLEEN: Unremarkable. ADRENAL GLANDS: Unremarkable. KIDNEYS AND URETERS: The kidneys are normal in size, shape, and attenuation. No hydronephrosis, hydroureter, or calculi seen. No perinephric stranding. BLADDER: Unremarkable. GASTROINTESTINAL TRACT: No intestinal obstruction or inflammation. Previous appendectomy. Mild constipation. ABDOMINAL WALL: No significant hernia is appreciated. LYMPH NODES: Normal. VASCULAR: Unremarkable. PELVIC VISCERA: Uterus and adnexa unremarkable. OSSEOUS STRUCTURES: No acute or suspicious osseous abnormalities. A pain pump is present in the soft tissues overlying the left gluteal musculature. CT/CT abdomen pelvis wo IV con IMPRESSION: * No intestinal obstruction or inflammation. * Mild constipation. Fleischner guidelines were followed.
[2023-10-03 18:02] VITALS: BP 133/75; PULSE 93; RESP 20; TEMP 37; O2SAT 99; BMI 32.9
[2023-10-03 20:01] VITALS: BP 121/70; PULSE 97; RESP 20; TEMP 37.3; O2SAT 99
--- NOTE | 2023-10-03 20:14 | PC.NURSE ---
Patient had spinal surgery for neuro stimulator last Tuesday, with 2 surgical sites(mid spine and left lower back) dsg clean dry and intact. Patient reports that approximately 2pm today started having increase in severe pain 10/10 that is sharp and stabbing in nature with a pulling sensation at the lower surgical site. NO numbness or tingling, currently taking Tylenol and oxycontin that has not helped and missed last dose while in waiting room. Pt has low grade fever 99.1 orally, skin hot to touch. All other VS WNL. Pt also reporting bloating and mild stomach discomfort but denies nausea/vomiting. notified.
--- NOTE | 2023-10-03 21:12 | ED_ITS ---
HPI - General Adult General Chief complaint: General Medical Stated complaint: recent spinal surg. infection? Time Seen by Provider: 10/03/23 21:07 Source: patient Mode of arrival: ambulatory Limitations: no limitations History of Present Illness HPI narrative: Patient with Chronic back problem for more than 8 years on OxyContin and Tylenol at a spinal stimulator placed on 09/28/23 was doing okay since early today noticed abdominal swelling started earlier today no nausea no vomiting patient had last bowel movement yesterday afternoon not passing any gas at this time, had food around 16:00 feels bloated also noticed slight leg swelling. No fever no chills patient had no history of small-bowel obstruction ,status post appendectomy Related Data Home Medications Medication Instructions Recorded Confirmed tramadol 50 mg tablet 50 mg PO DAILY 08/23/23 08/23/23 Previous Rx's Medication Instructions Recorded alprazolam 0.25 mg tablet 0.25 mg PO .COMPLEX 1 day #2 tabs 08/23/23 amitriptyline 10 mg tablet 10 - 30 mg (1 - 3 x 10 mg) PO 08/23/23 BEDTIME 30 days #90 tabs diclofenac potassium 50 mg tablet 50 mg PO TID PRN headache 30 days 08/23/23 #60 tabs magnesium oxide 400 mg (241.3 mg 400 mg PO BEDTIME 30 days #30 tabs 08/23/23 magnesium) tablet polyethylene glycol 3350 17 17 g PO DAILY #510 grams 10/04/23 gram/dose oral powder (Miralax) Allergies Allergy/AdvReac Type Severity Reaction Status Date / Time No Known Allergies Allergy Verified 10/03/23 18:05 [No Known Allergies*] Review of Systems 2 Review of Systems: Yes all other systems are reviewed and are negative [facility] Past Medical History Medical History (Updated 10/04/23 @ 00:35 by Juan Alexis MD) Arthritis COVID-19 long hauler manifesting chronic muscle pain COVID-19 long hauler Migraine headache Back pain Surgical History (Updated 10/03/23 @ 21:30 by Juan Alexis MD) S/P insertion of spinal cord stimulator History of appendectomy Family History Family History Father Diabetes Mother Heart disease HTN (hypertension) Brother Cerebrovascular accident (CVA) Social History Social History Alcohol intake: never Patient Tobacco Use Status: Never used Tobacco Smoked in Last 30 Days: No Use of substances other than those prescribed or required for medical reasons: No Advance Directives: No Advance Directives Information Provided: Yes Patient : No Current occupational status: unemployed Current occupation: right handed. Gender identity: Female Physical Exam ED Vital Signs: Vital Signs - 24 hr 10/03/23 18:02 10/03/23 20:01 10/04/23 00:02 Temperature 98.6 F 99.1 F 98.3 F Pulse Rate 93 97 85 Respiratory Rate 20 20 20 Blood Pressure 133/75 121/70 110/68 Pulse Oximetry 99 99 95 Oxygen Delivery Method Room Air Room Air Room Air BMI result Body Mass Index 32.9 Appearance: Alert. Oriented X3. No acute distress. Eyes: No pallor or icterus ENT: Pharynx normal. Oral Mucosa moist Neck: Normal inspection. Neck supple. CVS: Normal heart rate and rhythm. Pulses normal. Respiratory: No respiratory distress. Equal air entry bilateral, no wheezing/rales/rhonchi Abdomen: Gaseous distended no focal tenderness ,guarding or rebound tenderness Bowel sounds are sluggish no mass palpable, no CVA tenderness Skin: Skin warm and dry. Normal skin color. Normal skin turgor. Extremities: trace lower extremity edema. No calf tenderness Neuro: Oriented X 3. Medications Administered Discontinued Medications Generic Name Dose Route Start Last Admin Trade Name Freq PRN Reason Stop Dose Admin Sodium Chloride 1,000 mls @ 999 mls/hr 10/03/23 21:25 10/03/23 22:04 Ns IV 10/03/23 22:25 999 mls/hr .Q1H1M ONE Administration Morphine Sulfate 4 mg 10/03/23 21:25 10/03/23 22:04 Morphine Sulfate 4 Mg/Ml Cartridge IVPUSH 10/03/23 21:26 4 mg ONCE ONE Administration Protocol Ondansetron HCl 4 mg 10/03/23 21:27 10/03/23 22:04 Ondansetron Hcl 4 Mg/2 Ml Vial IVPUSH 10/03/23 21:28 4 mg ONCE ONE Administration Oxycodone HCl 10 mg 10/03/23 23:27 10/03/23 23:58 Oxycodone Hcl Immed Release 5 Mg Tablet PO 10/03/23 23:28 10 mg ONCE ONE Administration Medical Decision Making Medical Decision Making [facility] Narrative: Patient with diffuse abdominal pain on chronic narcotics likely constipated but will do CT scan to rule out small-bowel obstruction which is unlikely CT scan negative for small-bowel of an shows constipation discharge patient home on MiraLax Differential Diagnosis Differential Diagnoses: The differential diagnosis associated with the presentation includes Small-bowel obstruction/ileus/constipation/pancreatitis Lab Data [facility] Lab Attestation statement: I reviewed the patient's lab results. 10/03/23 22:01 10/03/23 22:01 Labs: Lab Results 10/03/23 10/04/23 Range/Units 22:01 00:01 WBC 8.5 (4.8-10.8) X10*3/uL RBC 3.89 L (4.20-5.50) X10*6/uL Hgb 11.2 L (12.0-16.0) g/dl Hct 34.5 L (37.0-47.0) % MCV 88.7 (80.0-98.0) fL MCH 28.8 (27.0-33.0) pg MCHC 32.5 (31.0-35.0) g/dl RDW 13.3 (11.0-16.0) % Plt Count 242 (160-400) X10*3/uL MPV 9.5 (9.4-12.3) fL Immature Gran % (Auto) 0.2 (0.0-0.4) % Neut % (Auto) 52.4 (45-73) % Lymph % (Auto) 34.7 (20-40) % Hays % (Auto) 8.7 (2-11) % Eos % (Auto) 3.5 (0-4) % Baso % (Auto) 0.5 (0-2) % Lymph # (Auto) 2.9 (1.2-4.9) X10*3/uL Hays # (Auto) 0.7 (0.1-1.2) X10*3/uL Eos # (Auto) 0.3 (0.0-0.4) X10*3/uL Baso # (Auto) 0.0 (0.0-0.2) X10*3/uL Abs Immat Gran (auto) 0.02 (0.00-0.03) X10*3/uL Absolute Neuts (auto) 4.4 (2.0-8.3) x10*3/uL Absolute Nucleated RBC 0.000 (0.0-0.012) X10*3/uL Nucleated RBC % (auto) 0.0 (0.0-0.2) /100WBC Sodium 138 (135-145) mmol/L Potassium 4.0 (3.3-5.1) mmol/L Chloride 107 (96-108) mmol/L Carbon Dioxide 25 (22-29) mmol/L Anion Gap 10 L (12-20) BUN 11 (9-16) mg/dL Creatinine 0.70 (0.5-1.4) mg/dL Estim Creat Clear Calc 110.0 Estimated GFR > 60 Random Glucose 99 (60-115) mg/dL Lactic Acid 1.3 (0.5-2.0) mmol/L Calcium 9.1 (8.4-10.2) mg/dL Magnesium 1.9 (1.6-2.6) mg/dL Total Bilirubin 0.2 (0.0-1.0) mg/dL AST 15 (5-31) U/L ALT 18 (0-31) U/L Alkaline Phosphatase 63 (39-117) U/L Total Protein 7.6 (6.5-8.0) g/dL Albumin 3.7 (3.5-5.0) g/dL Lipase 14 (8-78) U/L Beta HCG, Quant < 2 mIU/mL Urine Color Yellow Urine Appearance Clear Urine pH 8.0 (5.0-9.0) Ur Specific Mobile 1.010 (1.005-1.025) Urine Protein Negative (Neg-Trace) mg/dL Urine Glucose (UA) Negative (Negative) mg/dL Urine Ketones Negative (Negative) mg/dL Urine Blood Negative (Negative) Urine Nitrite Negative (Negative) Ur Leukocyte Esterase Negative (Negative) Independent Interpretation I performed an independent interpretation of an: CT Scan Radiology Impression Discussion of test interpretation with radiology: I have reviewed the radiologist's reading. Radiologist Impression: [address] [address] [address] Scan Report Signed Patient: Fariba Corrales MR#: [id number] : 1985 Acct:[id number] Age/Sex: 38 / F ADM Date: 10/03/23 Loc: HO.ED Attending Dr: Ordering Physician: Juan Alexis MD Date of Service: 10/03/23 Procedure(s): CT abdomen pelvis wo IV con Accession Number(s): [id number] cc: Patti Clark MD; Juan Alexis MD~ EXAMINATION: CT ABDOMEN AND PELVIS WITHOUT CONTRAST CLINICAL INFORMATION: Question of small bowel obstruction COMPARISON: 11/19/2016 TECHNIQUE: Multidetector volumetric imaging was performed from the superior aspect of the liver through the pubic symphysis. Sagittal and coronal reformatted images were obtained on the technologist's workstation. This CT examination was performed using dose optimization techniques as appropriate, variously including the following: *Automated exposure control *Adjustment of mA and/or kV according to patient size (this includes techniques or standardized protocols for targeted exams where dose is matched to indication/reason for exam; i.e. extremities or head) *Use of iterative reconstruction technique DLP: 697 mGy-cm FINDINGS: LUNG BASES: The visualized lung bases are unremarkable. LIVER, GALLBLADDER, AND BILIARY TREE: The liver is normal in size, shape, and attenuation. No focal hepatic lesion or biliary ductal dilatation is present. The gallbladder is unremarkable with no evidence of radiopaque gallstones, gallbladder wall thickening, or obvious pericholecystic inflammatory changes. PANCREAS: Unremarkable. SPLEEN: Unremarkable. ADRENAL GLANDS: Unremarkable. KIDNEYS AND URETERS: The kidneys are normal in size, shape, and attenuation. No hydronephrosis, hydroureter, or calculi seen. No perinephric stranding. BLADDER: Unremarkable. GASTROINTESTINAL TRACT: No intestinal obstruction or inflammation. Previous appendectomy. Mild constipation. ABDOMINAL WALL: No significant hernia is appreciated. LYMPH NODES: Normal. VASCULAR: Unremarkable. PELVIC VISCERA: Uterus and adnexa unremarkable. OSSEOUS STRUCTURES: No acute or suspicious osseous abnormalities. A pain pump is present in the soft tissues overlying the left gluteal musculature. CT/CT abdomen pelvis wo IV con IMPRESSION: * No intestinal obstruction or inflammation. * Mild constipation. Fleischner guidelines were followed. Discharge Plan Discharge Clinical Impression: Abdominal pain, Constipation Patient Disposition: Home, Self-Care Instructions: Constipation (ED), Abdominal Pain (ED) Additional Instructions: Drink plenty of fluid Stool softener as prescribed Follow with PCP Prescriptions: New polyethylene glycol 3350 [Miralax] 17 gram/dose powder 17 g PO DAILY Qty: 510 0RF No Action tramadol 50 mg tablet 50 mg PO DAILY amitriptyline 10 mg tablet 10 - 30 mg PO BEDTIME 30 Days Qty: 90 3RF diclofenac potassium 50 mg tablet 50 mg PO TID PRN (Reason: headache) 30 Days Qty: 60 1RF magnesium oxide 400 mg (241.3 mg magnesium) tablet 400 mg PO BEDTIME 30 Days Qty: 30 6RF Rx Instructions: may hold for loose stools alprazolam 0.25 mg tablet 0.25 mg PO .COMPLEX 1 Days Qty: 2 0RF Rx Instructions: 0.25 mg orally 1 tab 30 minutes prior to MRI, may repeat x's 1; Print Language: Arabic
[2023-10-03] MEDS: Morphine Sulfate 4 MG/ML CARTRIDGE IVPUSH (22:04)
[2023-10-03] MEDS: 0.9 % Sodium Chloride 1,000 ML 999 ML IV (22:04)
[2023-10-03] MEDS: ondansetron HCL 4 MG/2 ML VIAL IVPUSH (22:04)
[2023-10-03 22:10] LABS: MANUAL DIFF FLAG NO
[2023-10-03 22:12] LABS: Basophils Percent Auto 0.5 % (0-2); Eosinophils Absolute Auto 0.3 X10*3/uL (0.0-0.4); Eosinophils Percent Auto 3.5 % (0-4); Hematocrit 34.5 % (37.0-47.0); Hemoglobin 11.2 g/dl (12.0-16.0); Imm Gran Abs Auto 0.02 X10*3/uL (0.00-0.03); Imm Gran Pct Auto 0.2 % (0.0-0.4); Lymphocytes Absolute Auto 2.9 X10*3/uL (1.2-4.9); Lymphocytes Percent Auto 34.7 % (20-40); Mean Corpuscular HGB Conc 32.5 g/dl (31.0-35.0); Mean Corpuscular Hemoglobin 28.8 pg (27.0-33.0); Mean Corpuscular Volume 88.7 fL (80.0-98.0); Mean Platelet Volume 9.5 fL (9.4-12.3); Monocytes Absolute Auto 0.7 X10*3/uL (0.1-1.2); Monocytes Percent Auto 8.7 % (2-11); Neutrophils Absolute Auto 4.4 x10*3/uL (2.0-8.3); Neutrophils Percent Auto 52.4 % (45-73); Platelet Count 242 X10*3/uL (160-400); Red Blood Count 3.89 X10*6/uL (4.20-5.50); Red Cell Distribution Width 13.3 % (11.0-16.0); White Blood Count 8.5 X10*3/uL (4.8-10.8)
[2023-10-03 22:21] LABS: Lactic Acid 1.3 mmol/L (0.5-2.0)
[2023-10-03 22:33] LABS: Alanine Aminotransferase 18 U/L (0-31); Albumin Level 3.7 g/dL (3.5-5.0); Alkaline Phosphatase 63 U/L (39-117); Anion Gap 10 (12-20); Aspartate Amino Transferase 15 U/L (5-31); Bilirubin Total 0.2 mg/dL (0.0-1.0); Blood Urea Nitrogen 11 mg/dL (9-16); Calcium 9.1 mg/dL (8.4-10.2); Carbon Dioxide 25 mmol/L (22-29); Chloride 107 mmol/L (96-108); Estimated Glomerular Filt Rate > 60; Glucose Random 99 mg/dL (60-115); Lipase 14 U/L (8-78); Magnesium 1.9 mg/dL (1.6-2.6); Sodium 138 mmol/L (135-145); Total Protein 7.6 g/dL (6.5-8.0)
[2023-10-03 22:34] LABS: HCG Quantitative < 2 mIU/mL
[2023-10-03] MEDS: oxyCODONE HCl Immed Release 5 MG TABLET 10 MG PO (23:58)
[2023-10-04 00:02] VITALS: BP 110/68; PULSE 85; RESP 20; TEMP 36.8; O2SAT 95
[2023-10-04 00:12] LABS: Appearance Urine Clear; Color Urine Yellow; Glucose Urine UA Negative (Negative); Leukocyte Esterase Urine Negative (Negative); Nitrite Urine Negative (Negative); Urine Blood Negative (Negative); Urine Ketones Negative (Negative); Urine Protein Negative (Neg-Trace)
== END 2023-10-04 01:20 | disposition home or self-care (01) ==
PROVIDERS: Emergency Provider Internal Medicine; PCP Family Medicine
DX: K59.00 Constipation, unspecified (principal); R10.9 Unspecified abdominal pain; G89.29 Other chronic pain; Z96.82 Presence of neurostimulator; Z79.891 Long term (current) use of opiate analgesic; Z79.899 Other long term (current) drug therapy
CPT/HCPCS: 36415; 74176; 80053; 81003; 83605; 83690; 83735; 84702; 85025; 96374; 96375; 99284; J2270; J2405

== ENCOUNTER 2023-10-21 09:19 | Outpatient (REF) | payer MEDICAID, SELFPAY ==
[2023-10-21] MEDS: gadobutroL 10 ML VIAL IVPUSH (10:16)
== END 2023-10-21 09:20 | disposition home or self-care (01) ==
LOC: HO.MRI 09:19
PROVIDERS: PCP Family Medicine; Visit Provider Nurse Practitioner Family
DX: R51.9 Headache, unspecified (principal); R20.2 Paresthesia of skin; R29.898 Other symptoms and signs involving the musculoskeletal system
CPT/HCPCS: 70553; A9585

== ENCOUNTER 2023-11-11 12:19 | Outpatient (AMB) | payer MEDICAID, SELFPAY ==
--- NOTE | 2023-11-11 12:32 | MHC.OFFVIS ---
Intake Vital Signs 11/11/23 12:38 Height 5 ft 2 in Weight 180 lb BMI 32.9 Intake Visit Reasons: Newprob-acute right knee pain Intake Note: Fariba a 38 year old female presents today for an evaluation of right knee pain. Patient reports that she did not attend PT, states does not help. Her pain has been getting worse as well as intermittent swelling. Limited ROM. Her pain radiates up her leg and down to her toes. Finds no relief Tylenol or Motrin. Allergies No Known Allergies [No Known Allergies*] Allergy (Verified 10/03/23 18:05) HPI Newprob-acute right knee pain HPI Details 38-year-old female who presents to the office today for evaluation of acute right knee pain. She states she has limited ROM, intermittent swelling, and worsening pain in her right knee which radiates up to her leg and down to her toes. She finds no relief with Tylenol or Motrin. She did not attend physical therapy as she was not interested. [facility] Medical History (Updated 11/11/23 @ 13:19 by Mey Gibson PA-C) Arthritis COVID-19 long hauler manifesting chronic muscle pain COVID-19 long hauler Migraine headache Back pain Surgical History (Updated 11/11/23 @ 12:38 by KATELYN Greco) S/P insertion of spinal cord stimulator History of appendectomy Family History Father Diabetes Mother Heart disease HTN (hypertension) Brother Cerebrovascular accident (CVA) Social History Alcohol intake: never Patient Tobacco Use Status: Never used Tobacco Current occupational status: unemployed Current occupation: right handed. Gender identity: Female Female Reproductive History Menstrual Age of Menarche: 12 Review of Systems Const All systems reviewed & are unremarkable except as noted in HPI and below Physical Exam Vital Signs: BMI result Body Mass Index 32.9 Extrem Other: Right knee: Skin intact, no erythema or joint effusion. Tenderness along the medial and lateral joint line. Full ROM with crepitus. Negative Kyara?s. No ligamentous laxity. NVI. Office Procedures Joint Injection/Drain Joint Injection/Drain Primary Site: right knee Prep: site was prepped using aseptic technique, ethochloride spray was applied and injection warnings given Injected: 80 mg of, DepoMedrol, with 8 mL of, 1% plain lidocaine and in the joint Approach Used: anterolateral Procedure: The patient tolerated the procedure well and there was some relief with the local anesthesia Coding 91157 - Glenohumeral/Tronchanteric Bursa/Intraarticular Procedure code (CPT) selection complete Assessment & Plan Assessment & Plan (1) Patella-femoral syndrome: Code(s): M22.2X9 - Patellofemoral disorders, unspecified knee Qualifiers: Laterality: right Qualified Code(s): M22.2X1 - Patellofemoral disorders, right knee Plan We discussed options today which include steroid injection. They did consent to move forward with the injection, which was tolerated well. I recommended rest, ice and elevation and OTC anti-inflammatories PRN for discomfort She was also given a handout of knee exercises in the office today. If symptoms persist or worsens over the next 6-8 weeks, patient will contact the office, otherwise follow-up as needed. Patient Instructions: Scribed for Mey Gibson PA-C, by Heriberto Pelaez medical management specialist, on 11/11/2023 at 12:45 PM EST. I, Mey Gibson PA-C, have personally reviewed and agree with the information entered by the scribe. Coding Level of Care Code Est Pt Level 3 (06153) Diagnoses Patellofemoral pain syndrome of right knee M22.2X1 Laterality: right CPT Codes Coding - Joint 7: 92768 - Glenohumeral/Tronchanteric Bursa/Intraarticular ([id number])
[2023-11-11 12:38] VITALS: BMI 32.9
== END 2023-11-11 13:04 | disposition home or self-care (01) ==
PROVIDERS: PCP Family Medicine; Visit Provider Physician Assistant
DX: M22.2X1 Patellofemoral disorders, right knee (principal)
CPT/HCPCS: 20610; 99213

== ENCOUNTER → 2023-11-11 12:19 | Outpatient (BNVA) | payer MEDICAID, SELFPAY | PROVIDERS: PCP Family Medicine; Visit Provider Physician Assistant | DX: M22.2X1 Patellofemoral disorders, right knee (principal) | CPT/HCPCS: 20610; 99212; J1040 ==

== ENCOUNTER 2023-12-22 11:03 | Outpatient (AMB) | payer MEDICAID, SELFPAY ==
--- NOTE | 2023-12-22 11:04 | A.OFFVIS_ITS ---
Intake Intake Visit Reasons: 4 mnts f/u appt for chronic tension Headaches-Conf Intake Note: patient presents for headaches. patient has a headache all day with a a lot of pressure with eye pain. Allergies No Known Allergies [No Known Allergies*] Allergy (Verified 12/22/23 11:05) Medication List - Last Reconciled 12/22/23 by MONIKA Valencia alprazolam 0.25 mg orally 1 tab 30 minutes prior to MRI, may repeat x's 1; 1 day amitriptyline 10 - 30 mg (1 - 3 x 10 mg) PO BEDTIME 30 days diclofenac potassium 50 mg PO TID PRN 30 days magnesium oxide 400 mg PO BEDTIME 30 days polyethylene glycol 3350 (Miralax) 17 grams PO DAILY tramadol 50 mg PO DAILY HPI HPI Comments History of Present Illness Details 38-yr-old female presents for f/u televi darline visit via [employer]. She continues to have general body pains. She underwent spinal stimulator placement on 09/28/[address] Robertson at [facility]. She is f/b PS&S. 09/14/23 RUE EMG/NCS: Normal study. Stephanie barragan concern was raised for multiple tendinopathies of her right hand and wrist- flexor carpi ulnaris and de Quervain's tenosynovitis. ?Recomendation suggested to assess for rheumatology process- 08/2023 [facility]- neg. 2017 and 2019 RF- normal. She has since seen [facility] orth[facility]ics- pt opted for conservative tx NSAIDs and OT and to f/u prn. 10/21/23, MR/MR head/brain wo/w con IMPRESSION: Unremarkable MRI of the brain. Pt reports she is having migraine 5 days out of 7. She is noticing increased eye pain, photosensitivity, and phonophobia. She is using blue light glasses but her phone light still bothers her. She is compliant w/ Amitriptyline 10mg qhs. Diclofenac did not help much. Baseline headache characteristics: Severe, harp/stabbing/shooting, always right sided, starts in the occipital region and up over the head into the right eye- and if more severe also travels down into her shoulder and into the middle of her back. A/w Photophobia, phonophobia, some dizziness, tiredness, right eye watery [facility] Medical History (Updated 11/11/23 @ 13:19 by Mey Gibson PA-C) Arthritis COVID-19 long hauler manifesting chronic muscle pain COVID-19 long hauler Migraine headache Back pain Surgical History S/P insertion of spinal cord stimulator History of appendectomy Family History Father Diabetes Mother Heart disease HTN (hypertension) Brother Cerebrovascular accident (CVA) Social History Alcohol intake: never Patient Tobacco Use Status: Never used Tobacco Current occupational status: unemployed Current occupation: right handed. Gender identity: Female Female Reproductive History Menstrual Age of Menarche: 12 Physical Exam Const General: cooperative and no acute distress Orientation/consciousness: patient oriented x3 Resp Effort & Inspection: normal respiratory effort and able to speak in complete sentences Neuro General: patient oriented x3 Cognition (Neuro): normal cognition Psych Appearance: grossly normal Mental Status: mental status grossly normal Speech and movement: Normal speech and movement present Affect: normal affect Attitude: cooperative Assessment & Plan Assessment & Plan (1) Right-sided headache: Comment: ? cervicogenic, ? ON, migraine w/o aura Code(s): R51.9 - Headache, unspecified (2) Numbness and tingling of right hand: Code(s): R20.0 - Anesthesia of skin; R20.2 - Paresthesia of skin Plan For RUE pain/paresthesias: C-spine XR w/ flex/ext- No significant cervical spine bony abnormality. C-spine MRI w/o- Minimal annular bulge and very small central disc protrusion at the C4-C5 level. Mild reversal of the normal cervical lordosis. RUE EMG/NCS- normal. Reviewed brain MRI w/wo- unremarkable Wear RUE wrist splint qhs and do hand exercises. . For overall headache management: Track headaches. ? For acute headache treatment: Trial Rizatriptan 10mg tab. Continue Diclofenac 50mg tid prn. Previous acute migraine medication trials: Sumatriptan- ineffective. Acute migraine medication contraindications: None at this time ? For headache prevention medication: May hold Riboflavin 400mg qam Continue Magnesium 400mg qhs Increase Amitriptyline 10 qhs to 25mg qhs. Hold- Prequest for right ON block- PS&S will not do and pt requests to hold. Previous migraine prevention medication trials: Mag. Gabapentin 100-300mg qhs- ineffective. Headache prevention medication contraindications: none at this time ? ?Pt to follow-up in 3 months or sooner prn. Medications: New rizatriptan max 2 tabs per day or 4 tabs per week 5 - 10 mg (0.5 - 1 x 10 mg) PO Q2H 21 days PRN 12 tabs 3RF migraine headache amitriptyline 25 mg PO BEDTIME 30 days 30 tabs 3RF Discontinued amitriptyline Discontinued Reason: Doctor's Order 10 - 30 mg (1 - 3 x 10 mg) PO BEDTIME 30 days 90 tabs 3RF alprazolam Discontinued Reason: Patient Completed Course 0.25 mg orally 1 tab 30 minutes prior to MRI, may repeat x's 1; 1 day 2 tabs 0RF Telehealth Telehealth Location of provider rendering services: practice address Location of patient: address on file Patient Identification confirmed using: Name, : Yes Telehealth method: video Patient verbally consented to treatment: Yes Patient verbally consented to billing insurance company: Yes Patient informed of any privacy concerns related to visit: Yes Minutes spent on Phone/Video with Pt.: 23 Coding Level of Care Code Tele Est Pt Level 4 (41858) Diagnoses Right-sided headache R51.9 Numbness and tingling of right hand R20.0; R20.2
== END 2023-12-22 14:28 | disposition home or self-care (01) ==
LOC: HO.HSMS 11:04
PROVIDERS: PCP Family Medicine; Visit Provider Nurse Practitioner Family
DX: R51.9 Headache, unspecified (principal); R20.0 Anesthesia of skin; R20.2 Paresthesia of skin
CPT/HCPCS: 99214

== ENCOUNTER → 2023-12-22 11:03 | Outpatient (BNVA) | payer MEDICAID, SELFPAY | PROVIDERS: PCP Family Medicine; Visit Provider Nurse Practitioner Family ==

== ENCOUNTER 2024-03-14 12:25 | Outpatient (AMB) | payer MEDICAID, SELFPAY ==
--- NOTE | 2024-03-14 12:36 | MHC.OFFVIS ---
Vital Signs 03/14/24 12:40 Height 5 ft 2 in Weight 180 lb BMI 32.9 Intake Visit Reasons: OV- Right knee pain Intake Note: Fariba a 38 year old female who presents today for a follow up of right knee pain, last injection on 11/11/23. Patient reports injection provided her with relief for about 2-3 months, states her pain has returned. She is unsure about repeating injection and would like to discuss with provider. Allergies No Known Allergies [No Known Allergies*] Allergy (Verified 03/17/24 22:04) HPI HPI OV- Right knee pain: Details: 39-year-old female who returns to the office today for a follow-up of right knee pain. She had her last injection on 11/11/23 that provided her relief for more than 2 months. She currently states her pain has returned and she is unsure about repeating the injection. She also experiences locking in her knee. She has no other concerns. [facility] Medical History Arthritis COVID-19 long hauler manifesting chronic muscle pain COVID-19 long hauler Migraine headache Back pain Surgical History S/P insertion of spinal cord stimulator History of appendectomy Family History Father Diabetes Mother Heart disease HTN (hypertension) Brother Cerebrovascular accident (CVA) Social History Alcohol intake: never Patient Tobacco Use Status: Never used Tobacco Advance Directives: Yes Advance Directives Information Provided: Yes Advance Directives on File: No Do you have a plan to hurt others: No Plan Current occupational status: unemployed Current occupation: right handed. Gender identity: Female Female Reproductive History Menstrual Age of Menarche: 12 Review of Systems Const All systems reviewed & are unremarkable except as noted in HPI and below Physical Exam Vital Signs: BMI result Body Mass Index 32.9 Extrem Other: Right knee: Skin intact, no erythema or joint effusion. Tenderness along the medial and lateral joint line. Full ROM with crepitus. Negative Kyara?s. No ligamentous laxity. NVI. Assessment & Plan Assessment & Plan (1) Patella-femoral syndrome: Code(s): M22.2X9 - Patellofemoral disorders, unspecified knee Category: Medical Qualifiers: Laterality: right Qualified Code(s): M22.2X1 - Patellofemoral disorders, right knee Plan We discussed options which include PT, NSAIDs and injections. The patient will defer on the injection today and proceed with PT and NSAIDs. She was also given a knee brace today. If symptoms persist, the patient will contact me for an injection, otherwise, PRN. Orders: Orders PT Evaluation and Treatment 03/14/24 M22.2X1 - Patellofemoral disorders, right knee Patient Instructions: Scribed for Mey Gibson PA-C, by Heriberto Pelaez certified court/medical interpreter, on 03/14/2024 at 12:30 PM EST.? I, Mey Gibson PA-C, have personally reviewed and agree with the information entered by the scribe. Coding Level of Care Code Est Pt Level 3 (44973) Diagnoses Patellofemoral pain syndrome of right knee M22.2X1 Laterality: right
[2024-03-14 12:40] VITALS: BMI 32.9
== END 2024-03-14 13:52 | disposition home or self-care (01) ==
PROVIDERS: PCP Family Medicine; Visit Provider Physician Assistant
DX: M22.2X1 Patellofemoral disorders, right knee (principal)
CPT/HCPCS: 99213

== ENCOUNTER → 2024-03-14 12:25 | Outpatient (BNVA) | payer MEDICAID, SELFPAY | PROVIDERS: PCP Family Medicine; Visit Provider Physician Assistant | DX: M22.2X1 Patellofemoral disorders, right knee (principal) | CPT/HCPCS: 99212 ==

== ENCOUNTER 2024-03-17 21:58 | Emergency (ER) | payer MEDICAID, SELFPAY ==
--- NOTE | ~2024-03-17 | XR_ITS ---
EXAMINATION: XR ANKLE, LEFT CLINICAL INFORMATION: Pain. COMPARISON: None available. TECHNIQUE: AP, lateral, and mortise views of the left ankle. FINDINGS: The bone mineralization is normal. The joint spaces are maintained. No fracture is seen. There is mild lateral soft tissue swelling. XR/XR ankle LT min 3V IMPRESSION: Mild lateral soft tissue swelling. No fracture.
[2024-03-17 22:02] VITALS: BP 136/80; PULSE 75; RESP 16; TEMP 37.2; O2SAT 99; BMI 29.7
[2024-03-18 06:39] VITALS: BP 112/70; PULSE 75; RESP 14; TEMP 36.7; O2SAT 98
[2024-03-18] MEDS: Ibuprofen 600 MG TABLET PO (06:42)
--- NOTE | 2024-03-18 07:41 | ED_ITS ---
HPI - Extremity Injury (Lower) General Chief Complaint: Extremity Injury, Lower Stated Complaint: left ankle pain Time Seen by Provider: 03/18/24 07:35 Source: patient Mode of arrival: ambulatory History of Present Illness ED Provider: Dr Castano HPI Narrative: 39-year-old female who states that she twisted her ankle on the left and had swelling and has pain on weight-bearing that she describes as 10/10. Related Data Home Medications ?Medication ?Instructions ?Recorded ?Confirmed tramadol 50 mg tablet 50 mg PO DAILY 08/23/23 12/22/23 Previous Rx's ?Medication ?Instructions ?Recorded diclofenac potassium 50 mg tablet 50 mg PO TID PRN headache 30 days 08/23/23 #60 tabs magnesium oxide 400 mg (241.3 mg 400 mg PO BEDTIME 30 days #30 tabs 08/23/23 magnesium) tablet polyethylene glycol 3350 17 17 g PO DAILY #510 grams 10/04/23 gram/dose oral powder (Miralax) amitriptyline 25 mg tablet 25 mg PO BEDTIME 30 days #30 tabs 12/22/23 rizatriptan 10 mg tablet 5 - 10 mg (0.5 - 1 x 10 mg) PO Q2H 12/22/23 PRN migraine headache 21 days #12 tabs Allergies Allergy/AdvReac Type Severity Reaction Status Date / Time No Known Allergies Allergy Verified 03/17/24 22:04 [No Known Allergies*] Review of Systems Review of Systems: Pertinent positives and negatives as stated in HPI [facility] Past Medical History Source: nursing notes reviewed Medical History Arthritis COVID-19 long hauler manifesting chronic muscle pain COVID-19 long hauler Migraine headache Back pain Surgical History S/P insertion of spinal cord stimulator History of appendectomy Family History Family History Father Diabetes Mother Heart disease HTN (hypertension) Brother Cerebrovascular accident (CVA) Social History Social History Alcohol intake: never Patient Tobacco Use Status: Never used Tobacco Advance Directives: Yes Advance Directives Information Provided: Yes Advance Directives on File: No Do you have a plan to hurt others: No Plan Current occupational status: unemployed Current occupation: right handed. Gender identity: Female Physical Exam Vital Signs: Vital Signs: Last Vital Signs Temp 98.0 F 03/18/24 06:39 Pulse 75 03/18/24 06:39 Resp 14 03/18/24 06:39 BP 112/70 03/18/24 06:39 Pulse Ox 98 03/18/24 06:39 O2 Del Method Room Air 03/18/24 06:39 BMI result Body Mass Index 29.7 VITAL SIGNS: Reviewed. GENERAL: Well developed, well nourished, in no acute distress. HEAD: Normocephalic/atraumatic EYES: PERRLA, EOMI LUNGS: Normal breath sounds. No adventitious sounds or accessory muscle use. SpO2<98> CARDIOVASCULAR: Regular rate and rhythm without noted murmurs ABDOMEN: Soft, non-tender, non-distended with bowel sounds. MUSCULOSKELETAL: No tenderness, deformities, or effusions noted on gross inspection. EXTREMITIES: No cyanosis, clubbing or edema. LEFT ANKLE: Mild swelling noted to the medial malleolus, sensation intact, palpable DP/PT with good capillary refill. SKIN: Inspection of the skin reveals no rashes NEUROLOGIC: Alert and oriented x 4. Strength and sensation to light touch were grossly intact x 4. Medications Administered Discontinued Medications Generic Name Dose Route Start Last Admin Trade Name Freq PRN Reason Stop Dose Admin Ibuprofen 600 mg 03/18/24 06:40 03/18/24 06:42 Ibuprofen 600 Mg Tablet PO 03/18/24 06:41 600 mg ONCE ONE Administration Medical Decision Making Medical Decision Making MDM Narrative: 39-year-old female with history and clinical presentation, DDX: Sprain /fracture/dislocation. Patient provided with pain medication, review of x-rays negative for fracture or dislocation, Sebastian wrap applied and crutches provided. Differential Diagnosis Differential Diagnoses: The differential diagnosis associated with the presentation includes Please see the discussion above Admission/Observation Consideration of admission/observation: Escalation of care including admission/observation considered Please see the discussion above Radiology Impression Discussion of test interpretation with radiology: I have reviewed the radiologist's reading. Radiologist Impression: Please see the discussion above External Record Review External record reviewed: Outpatient record, Prior outpatient labs and Prior outpatient radiology Critical Care Time Critical Care Time Critical Care Time: Yes Total Critical Care Time: 30 Attestation: I personally attest to this time spent taking care of the patient. Discharge Plan Discharge Clinical Impression: Left ankle sprain Patient Disposition: Home, Self-Care Instructions: Ankle Sprain (ED), Crutch Instructions (ED), R.I.C.E. Treatment (ED), Ice Pack Application (ED) Additional Instructions: 1. Recommend [id number] Tylenol/ibuprofen as needed for pain control, continue to move your ankle by doing exercises to prevent stiffness. 2. Weight bear as tolerated at all times. Follow-up with your primary care provider. Return to the ER for any worsening symptoms. Prescriptions: No Action polyethylene glycol 3350 [Miralax] 17 gram/dose powder 17 g PO DAILY Qty: 510 0RF tramadol 50 mg tablet 50 mg PO DAILY diclofenac potassium 50 mg tablet 50 mg PO TID PRN (Reason: headache) 30 Days Qty: 60 1RF magnesium oxide 400 mg (241.3 mg magnesium) tablet 400 mg PO BEDTIME 30 Days Qty: 30 6RF Rx Instructions: may hold for loose stools rizatriptan 10 mg tablet 5 - 10 mg PO Q2H PRN (Reason: migraine headache) 21 Days Qty: 12 3RF Rx Instructions: max 2 tabs per day or 4 tabs per week amitriptyline 25 mg tablet 25 mg PO BEDTIME 30 Days Qty: 30 3RF Referrals: Patti Clark MD [Primary Care Provider] - Print Language: Ukrainian
--- NOTE | 2024-03-18 08:10 | PC.NURSE ---
PT WAS SEEN BY PROVIDER AND MADE AWARE AND AGREES TO THE DC PLAN. IZA WRAP AND CRUTCHES WERE PROVIDED. DEMONSTRATES PROPER USE
[2024-03-18 08:11] VITALS: BP 112/70; PULSE 75; RESP 14; TEMP 36.7; O2SAT 98
== END 2024-03-18 08:12 | disposition home or self-care (01) ==
PROVIDERS: Emergency Provider Student in an Organized Health Care Education/Training Program; PCP Family Medicine
DX: S93.402A Sprain of unspecified ligament of left ankle, initial encounter (principal); M25.472 Effusion, left ankle; X50.9XXA Other and unspecified overexertion or strenuous movements or postures, initial encounter; Y93.89 Activity, other specified; Y92.9 Unspecified place or not applicable; Y99.9 Unspecified external cause status
CPT/HCPCS: 73610; 99283

== ENCOUNTER 2024-08-09 11:34 | Outpatient (REF) | payer MEDICAID, SELFPAY ==
--- NOTE | ~2024-08-09 | XR_ITS ---
EXAMINATION: XR SHOULDER, LEFT CLINICAL INFORMATION: Left shoulder rotator cuff tendinitis COMPARISON: None available. TECHNIQUE: Three views of the left shoulder. FINDINGS: The bones and soft tissues are normal. No fracture. Glenohumeral and acromioclavicular alignment is anatomic with normal joint space. No abnormal soft tissue calcifications. XR/XR shoulder LT min 2V IMPRESSION: Normal left shoulder. Electronically signed by: Julito Mao MD 08/09/2024 02:30 PM EDT
== END 2024-08-09 11:35 | disposition home or self-care (01) ==
LOC: HO.HHCX 11:34
PROVIDERS: Visit Provider Internal Medicine
DX: M75.82 Other shoulder lesions, left shoulder (principal); M25.512 Pain in left shoulder
CPT/HCPCS: 73030

== ENCOUNTER 2024-09-10 09:29 | Outpatient (REF) | payer MEDICAID, SELFPAY ==
[2024-09-10 11:37] LABS: MANUAL DIFF FLAG NO
[2024-09-10 11:58] LABS: INTERNATIONAL NORM RATIO 0.9 (0.9-1.1); Prothrombin Time 10.9 SEC (10.9-12.4)
[2024-09-10 12:01] LABS: Basophils Percent Auto 0.5 % (0-2); Eosinophils Absolute Auto 0.1 X10*3/uL (0.0-0.4); Eosinophils Percent Auto 1.4 % (0-4); Hematocrit 37.1 % (37.0-47.0); Hemoglobin 12.1 g/dl (12.0-16.0); Imm Gran Abs Auto 0.01 X10*3/uL (0.00-0.03); Imm Gran Pct Auto 0.2 % (0.0-0.4); Lymphocytes Absolute Auto 2.3 X10*3/uL (1.2-4.9); Lymphocytes Percent Auto 40.2 % (20-40); Mean Corpuscular HGB Conc 32.6 g/dl (31.0-35.0); Mean Corpuscular Hemoglobin 29.5 pg (27.0-33.0); Mean Corpuscular Volume 90.5 fL (80.0-98.0); Mean Platelet Volume 10.4 fL (9.4-12.3); Monocytes Absolute Auto 0.6 X10*3/uL (0.1-1.2); Monocytes Percent Auto 10.6 % (2-11); Neutrophils Absolute Auto 2.7 x10*3/uL (2.0-8.3); Neutrophils Percent Auto 47.1 % (45-73); Partial Thromboplastin Time 28.2 SEC (26.0-36.8); Platelet Count 213 X10*3/uL (160-400); White Blood Count 5.7 X10*3/uL (4.8-10.8)
[2024-09-10 12:32] LABS: Ferritin 83 ng/mL (10-122); TSH reflex Free T4 3.77 uIU/mL (0.32-4.0)
== END 2024-09-10 09:30 | disposition home or self-care (01) ==
LOC: HO.HHCL 09:29
PROVIDERS: Visit Provider Internal Medicine
DX: N92.6 Irregular menstruation, unspecified (principal); N92.0 Excessive and frequent menstruation with regular cycle
CPT/HCPCS: 36415; 82728; 84443; 85025; 85610; 85730

== ENCOUNTER 2024-09-18 14:23 | Outpatient (REF) | payer MEDICAID, SELFPAY ==
[2024-09-19 04:10] LABS: CT PCR NOT DETECTED (Not Detect.); NG PCR NOT DETECTED (Not Detect.)
[2024-09-19 08:43] LABS: Bacterial Vaginosis PCR NEGATIVE (Negative); Candida Group PCR NOT DETECTED (Not Detect); Candida glab krusei PCR NOT DETECTED (Not Detect); Trichomonas vaginalis PCR NOT DETECTED (Not Detect)
== END 2024-09-18 14:24 | disposition home or self-care (01) ==
LOC: HO.HHCLNP 14:23
PROVIDERS: Visit Provider Student in an Organized Health Care Education/Training Program
DX: N93.9 Abnormal uterine and vaginal bleeding, unspecified (principal)
CPT/HCPCS: 0352U; 87491; 87591

== ENCOUNTER 2024-09-26 09:40 | Outpatient (AMB) | payer MEDICAID, SELFPAY ==
--- NOTE | 2024-09-26 09:47 | A.OFFVIS_ITS ---
Vital Signs 09/26/24 09:53 Height 5 ft 6 in Weight 183 lb BMI 29.5 Intake Visit Reasons: Inj-right knee inj-last 11/11/23 Intake Note: Fariba a 38 year old female who presents today for a follow up of right knee pain, last injection on 03/14/24. Patient reports last injection helped for about 2 months. Her pain has returned, stating lately a lot of pain and swelling in her whole leg. She would like to discuss repeat of injection. Allergies No Known Allergies [No Known Allergies*] Allergy (Verified 03/17/24 22:04) Medication List - Last Reconciled 09/26/24 by Mey Gibson PA-C amitriptyline 25 mg PO BEDTIME 30 days diclofenac potassium 50 mg PO TID PRN 30 days magnesium oxide 400 mg PO BEDTIME 30 days rizatriptan 5 - 10 mg (0.5 - 1 x 10 mg) PO Q2H PRN 21 days tramadol 50 mg PO DAILY HPI HPI Inj-right knee inj-last 11/11/23: Details: 39-year-old female who returns to the office today for a follow-up of right knee pain. She currently states she has severe pain and swelling in her whole right leg. She had her last injection on 03/14/24 that provided her relief for about 2 months. She would like to repeat the injection. [facility] Medical History Arthritis COVID-19 long hauler manifesting chronic muscle pain COVID-19 long hauler Migraine headache Back pain Surgical History S/P insertion of spinal cord stimulator History of appendectomy Family History Father Diabetes Mother Heart disease HTN (hypertension) Brother Cerebrovascular accident (CVA) Social History Alcohol intake: never Patient Tobacco Use Status: Never used Tobacco Current occupational status: unemployed Current occupation: right handed. Gender identity: Female Female Reproductive History Menstrual Age of Menarche: 12 Review of Systems Const All systems reviewed & are unremarkable except as noted in HPI and below Physical Exam Vital Signs: BMI result Body Mass Index 29.5 Extrem Other: Right knee: Skin intact, no erythema or joint effusion. Tenderness along the medial and lateral joint line. Full ROM with crepitus. Negative Kyara?s. No ligamentous laxity. NVI. Office Procedures AMB Joint Injection/Aspiration Joint Injection/Aspiration Primary Site: right knee Prep: site was prepped using aseptic technique, ethochloride spray was applied and injection warnings given Injected: 80 mg of, DepoMedrol, with 8 mL of, 1% plain lidocaine and in the joint Approach Used: anterolateral Procedure: The patient tolerated the procedure well and there was some relief with the local anesthesia Coding 62189 - Glenohumeral/Tronchanteric Bursa/Intraarticular Procedure code (CPT) selection complete Assessment & Plan Assessment & Plan (1) Patella-femoral syndrome: Code(s): M22.2X9 - Patellofemoral disorders, unspecified knee Category: Medical Qualifiers: Laterality: right Qualified Code(s): M22.2X1 - Patellofemoral disorders, right knee Plan We discussed options today, which include steroid injection. The patient did consent to move forward with the right knee injection, which was tolerated well. I recommended rest, ice, and elevation and OTC anti-inflammatories as needed for discomfort. If symptoms persist or worsens over the next 6-8 weeks, patient will contact the office, otherwise follow-up as needed. Patient Instructions: Scribed for Mey Gibson PA-C, by Heriberto Pelaez director of medical services, on 09/26/2024 at 9:45 AM EST.? I, Mey Gibson PA-C, have personally reviewed and agree with the information entered by the scribe. Coding Level of Care Code Est Pt Level 3 (82937) Complex EM visit Add On G2211 Diagnoses Patellofemoral pain syndrome of right knee M22.2X1 Laterality: right CPT Codes Coding - Joint 7: 11994 - Glenohumeral/Tronchanteric Bursa/Intraarticular ([id number])
[2024-09-26 09:53] VITALS: BMI 29.5
== END 2024-09-26 10:05 | disposition home or self-care (01) ==
PROVIDERS: PCP Family Medicine; Visit Provider Physician Assistant
DX: M22.2X1 Patellofemoral disorders, right knee (principal)
CPT/HCPCS: 20610; 99213

== ENCOUNTER → 2024-09-26 09:40 | Outpatient (BNVA) | payer MEDICAID, SELFPAY | PROVIDERS: PCP Family Medicine; Visit Provider Physician Assistant | DX: M22.2X1 Patellofemoral disorders, right knee (principal) | CPT/HCPCS: 20610; 99212; J1010; J2003 ==

== ENCOUNTER 2024-12-03 12:28 | Outpatient (AMB) | payer MEDICAID, SELFPAY ==
--- NOTE | 2024-12-03 12:50 | MHC.OFFVIS ---
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 She continues to have arthritic pains. She is being f/b orthopedics for tx of knee arthritis. She has spinal stimulator, placed on 09/28/[address] Robertson at [facility]. She has not seen PS[facility]S in a while. She also notes she was dx'd w/ left posterior eye hole - is being tx'd w/ eye drops and new glasses, managed by [facility] eye care. Pt reports she is having migraine 5 days out of 7. She can go to sleep with a headache and wake up with a headache. She does endorse sleep difficulties, including snoring, fragmented sleep, daytime sleepiness. She is compliant w/ Amitriptyline 25mg qhs- has not noticed any benefit, does help her sleep, but overall is tolerating well She has tried Rizatriptan, is tolerated well but it has not helped. Baseline headache characteristics: Severe, harp/stabbing/shooting, always right sided, starts in the occipital region and up over the head into the right eye- and if more severe also travels down into her shoulder and into the middle of her back. A/w Photophobia, phonophobia, some dizziness, tiredness, right eye watery PFSH Medical History Arthritis COVID-19 long hauler manifesting chronic muscle pain COVID-19 long hauler Migraine headache Back pain Surgical History S/P insertion of spinal cord stimulator History of appendectomy Family History Father Diabetes Mother Heart disease HTN (hypertension) Brother Cerebrovascular accident (CVA) Social History Alcohol intake: never Patient Tobacco Use Status: Never used Tobacco Current occupational status: unemployed Current occupation: right handed. Gender identity: Female Female Reproductive History Menstrual Age of Menarche: 12 Physical Exam Vital Signs: Last Vital Signs Pulse 76 12/03/24 12:53 BP 120/78 12/03/24 12:53 Pulse Ox 97 12/03/24 12:53 Oxygen Delivery Method Room Air 12/03/24 12:53 BMI result Body Mass Index 28.6 Const General: cooperative and no acute distress Orientation/consciousness: patient oriented x3 Resp Effort & Inspection: normal respiratory effort and able to speak in complete sentences Neuro General: patient oriented x3 Cognition (Neuro): normal cognition Psych Appearance: grossly normal Mental Status: mental status grossly normal Speech and movement: Normal speech and movement present Affect: normal affect Attitude: cooperative Results Reviewed Results Reviewed: 09/14/23 RUE EMG/NCS: Normal study. However concern was raised for multiple tendinopathies of her right hand and wrist- flexor carpi ulnaris and de Quervain's tenosynovitis. ? 10/21/23, MR/MR head/brain wo/w con IMPRESSION: Unremarkable MRI of the brain. Assessment & Plan Assessment & Plan (1) Right-sided headache: Comment: ? cervicogenic, ? ON, migraine w/o aura Code(s): R51.9 - Headache, unspecified Category: Medical (2) Numbness and tingling of right hand: Code(s): R20.0 - Anesthesia of skin; R20.2 - Paresthesia of skin Category: Medical (3) Snoring: Code(s): R06.83 - Snoring Category: Medical (4) Excessive daytime sleepiness: Comment: [place] sleepiness scale: 10 Code(s): G47.19 - Other hypersomnia Category: Medical (5) Sleep difficulties: Code(s): G47.9 - Sleep disorder, unspecified Category: Medical Plan For overall headache management: Track headaches. Patient advised to undergo HST to assess for sleep apnea. Information shared on nonpharmacological migraine treatment interventions. ? For acute headache treatment: May continue Rizatriptan 10mg tab for now, may try taking with Ubrelvy once available.. Discontinue Diclofenac 50mg tid prn- ineffective.Trial Ubrogepant (Ubrelvy) 100mg tab, 1/2 - 1 tab (50-100mg) at onset of headache, may repeat in 2 hours. Max of 2 tabs (200mg) per 24 hours. May adjunct with OTC Tylenol 650mg q 4 hours, Ibuprofen 600mg q 6 hours, or Naproxen 440mg q 12 hrs prn. Do not take w/ Butalbital (Fioricet or Fiorinal). Potential adverse effects, include but are not limited to fatigue, nausea, dry mouth, constipation Previous acute migraine medication trials: Sumatriptan- ineffective. Rizatriptan- not effective Acute migraine medication contraindications: None at this time ? For headache prevention medication: May hold Riboflavin 400mg qam Continue Magnesium 400mg qhs Increase Amitriptyline from 25mg qhs to 37.5-50 mg daily at bedtime. If increase in amitriptyline is not effective in 4 weeks, Start Propranolol ER 60 mg daily at bedtime. Potential side effects include but are not limited to fatigue, lightheadedness, low blood pressure, low heart rate, asthma/respiratory disease exacerbation, weight gain, hair loss, sexual dysfunction. Previous migraine prevention medication trials: Gabapentin 100-300mg qhs- ineffective. Headache prevention medication contraindications: none at this time Written instructions shared with the patient. ? Will follow-up upon review of above and patient to follow-up in clinic in 6 months or sooner prn. Orders: Orders RT home sleep study Today G47.19 - Other hypersomnia, G47.9 - Sleep disorder, unspecified, R06.83 - Snoring, R51.9 - Headache, unspecified Medications: New propranolol ER 60 mg PO BEDTIME 30 days 30 caps 3RF ubrogepant (Ubrelvy) take at onset of migraine, may repeat in 2hrs (may take w/ Ibuprofen) 50 - 100 mg (0.5 - 1 x 100 mg) PO ONCE 30 days PRN 16 tabs 3RF migraine headache Changed From amitriptyline 25 mg PO BEDTIME 30 days 30 tabs 3RF To amitriptyline 37.5 - 50 mg (1.5 - 2 x 25 mg) PO BEDTIME 30 days 60 tabs 3RF Coding Level of Care Code Est Pt Level 4 (35244) Diagnoses Right-sided headache R51.9 Numbness and tingling of right hand R20.0; R20.2 Snoring R06.83 Excessive daytime sleepiness G47.19 Sleep difficulties G47.9
[2024-12-03 12:53] VITALS: BP 120/78; PULSE 76; O2SAT 97; BMI 28.6
== END 2024-12-03 13:34 | disposition home or self-care (01) ==
PROVIDERS: PCP Family Medicine; Visit Provider Nurse Practitioner Family
DX: R51.9 Headache, unspecified (principal); R20.0 Anesthesia of skin; R20.2 Paresthesia of skin; R06.83 Snoring; G47.19 Other hypersomnia; G47.9 Sleep disorder, unspecified
CPT/HCPCS: 99214

== ENCOUNTER → 2024-12-03 12:28 | Outpatient (BNVA) | payer MEDICAID, SELFPAY | PROVIDERS: PCP Family Medicine; Visit Provider Nurse Practitioner Family | DX: R51.9 Headache, unspecified (principal); R06.83 Snoring; R20.0 Anesthesia of skin; R20.2 Paresthesia of skin; G47.19 Other hypersomnia; G47.9 Sleep disorder, unspecified | CPT/HCPCS: 99212 ==

== ENCOUNTER 2024-12-05 08:26 | Outpatient (REF) | payer MEDICAID, SELFPAY ==
--- NOTE | ~2024-12-05 | XR_ITS ---
CLINICAL HISTORY: M25.512 - Pain in left shoulder 3 view left shoulder Comparison: CR/SR - XR SHOULDER LT MIN 2V - 08/09/24 11:54 EDT Findings: No fractures or dislocations. No significant loss of joint space or osteophytes. No erosions. No radiopaque foreign body. IMPRESSION: 1. No acute findings This document has been electronically signed by: Vic Alonzo MD on 12/05/2024 13:10:52
--- OUTSIDE RECORDS SUMMARY | 2024-12-05 09:04 | XMS_ITS | Encounter Summary ---
Author Organization [employer] Address [address] [place] [address] Care Team Providers Care Pool Table Operator Name Role Phone Patti Clark MD Primary Care Provider [phone] Reason for Visit * Reason Onset Date Comments Appointment Request 12/20/2022 Encounter Details Date Type Department Care Team ([facility] st Contact Info) Description 12/20/2022 Telephone [facility] MED[facility] [address] [place] [address] Patti Clark MD [address] [place] [address] Appointment Request Social History Tobacco Use Types Packs/Day Years Used Date Smoking Tobacco: Never Passive Smoke Exposure: Never Smokeless Tobacco: Never Alcohol Use Standard Drinks/Week Comments Never 0 (1 standard drink = 0.6 oz pur e alcohol) Depression Answer Date Recorded Patient Health Questionnaire-9 Score 11 11/23/2022 Depression Answer Date Recorded Patient Health Questionnaire-2 Score 5 11/23/2022 Comments Unknown Sex and Gender Information Value Date Recorded Sex Assigned at Female 08/23/2022 10:16 AM EDT Legal Sex Female 10:16 AM EDT Gender Identity Female 08/23/2022 10:16 AM EDT Sexual Orientation Straight 08/23/2022 10 :16 AM EDT COVID-19 Exposure Response Date Recorded In the last 10 days, have yo u been in contact with someone who was confirmed or suspected to have Coronavirus/COVID-19? No / Unsure 11/23/2022 3:06 PM EST documented as of this encounter Miscellaneous Notes * Telephone Encounter - Ahiritza Delacruz Bermudez - 12/22/2022 12:53 PM EST Tc from pt requesting a call back regarding message below. Please contact pt at [phone] * Telephone Encounter - Adan Ambrocio - 12/20/2022 3:27 PM EST Tc from pt requesting to r/s appt 12/21/22 ( [place] [facility] [place]16 for low back pain and passing out due to the pain. ) Please contact pt at [phone] documented in this encounter Plan of Treatment Upcoming Encounters Date Type Department Care Team (Late st Contact Info) Description 12/11/2024 9:00 AM EST Telemedicine [facility] MED [facility] P[facility] [address] [place] [address] Abbey Fonseca MD [address] [place] [address] documented as of this encounter Visit Diagnoses Not on filedocumented in this encounter Additional Health Concerns Assessment Noted Time PHQ-9 Depression Total Score: 11 11/23/ 023 3:48 PM EST documented as of this encounter Care Teams Pool Table Operator Relationship Specialty Start Date End Date Patti Clark MD [address] [place] [address] PCP - General Family Medicine 12/10/20 Kanchan Hughes NP Psychiatrist 09/24/24 documented as of this encounter
--- OUTSIDE RECORDS SUMMARY | 2024-12-05 09:04 | XMS_ITS | Encounter Summary ---
Author Organization [employer] Address [address] [place] [address] Care Team Providers Care Business Rules Developer Name Role Phone Patti Clark MD Primary Care Provider [phone] Encounter Details Date Type Department Care Team ([facility] st Contact Info) Description 11/09/2024 10:30 AM EST Office Visit [facility] OPTOM[facility]RY [address] [place], [place] [id number] Nessa Mayfield, OD [address] [place] [address] Retinal hole of left eye (Primary Dx) Social History Tobacco Use Types Packs/Day Years Used Date Smoking Tobacco: Never Passive Smoke Exposure: Never Smokeless Tobacco: Never Alcohol Use Standard Drinks/Week Comments Never 0 (1 standard drink = 0.6 oz pur e alcohol) Depression Answer Date Recorded Patient Health Questionnaire-9 Score 5 08/23/2024 Patient Health Questionnaire-9 Score 5 08/23/2024 Last PHQ-9: Questionnaire Data Not on file 1 Housing Stability Answer Date Recorded What is your housing situation today? I have imeldaadal jon 01/20/[address] you li ve. Do you have problems with any of the following? None of the above 01/20/2024 Food Insecurity Answer Date Recorded Within the past 12 months, y ou worried that your food would run out before you got money to buy more: Never True 01/20/2024 Within the past 12 months,th e food you bought just didn't last and you didn't have enough money to get more: Never True Transportation Answer Date Recorded In the past 12 months, has l ack of transportation kept you from medical appts, meetings, work or from getting things needed for daily living? No 01/20/2024 Utilities Answer Date Recorded In the past 12 months, has t he electric, gas, oil or water company threatened to shut off services in your home? No 01/20/2024 Depression Answer Date Recorded Patient Health Questionnaire-2 Score 2 08/23/2024 Comments No Sex and Gender Information Value Date Recorded Sex Assigned at Female 08/23/2022 10:16 AM EDT Legal Sex Female 10:16 AM EDT Gender Identity Female 08/23/2022 10:16 AM EDT Sexual Orientation Straight 08/23/2022 10 :16 AM EDT documented as of this encounter Progress Notes * Nessa Mayfield, OD - 11/09/2024 10:30 AM EST Eye Care Progress Note Patient ID: Fariba Corrales is a 39 y.o. female. HPI Patient reports for doctor directed 3 month f/u for retinal hole left eye (OS). Patient denies floaters/flashes in vision. Last edited by Nessa Mayfield, OD on 11/09/2024 10:41 AM. Current Outpatient Medications Medication Sig Dispense Refill amitriptyline (Elavil) 10 MG tablet TAKE 1 TO 3 TABLETS BY MOUTH DAILY AT BEDTIME cholecalciferol (Vitamin D-3) 50 MCG (2000 UT) tablet Take 100 mcg by mouth in the morning. cyclobenzaprine (Flexeril) 10 MG tablet Take 1 tablet (10 mg) by mouth at bedtime. 30 tablet 0 diclofenac (Voltaren) 75 MG EC tablet Take 1 tablet (75 mg) by mouth 2 times daily. Do not crush, chew, or split. 60 tablet 0 fluocinolone (Synalar) 0.01 % external solution APPLY TO THE AFFECTED AREA(S) ON SCALP ONCE DAILY NEEDED FOR ITCHING AND FLARE FLUoxetine (PROzac) 40 MG capsule Take 80 mg by mouth Once per day. hydrOXYzine pamoate (Vistaril) 25 MG capsule TAKE 1 TO 2 CAPSULES BY MOUTH TWICE DAILY NEEDED FOR ANXIETY ketoconazole (NIZOral) 2 % shampoo APPLY TO SCALP ONCE A WEEK LEAVE ON el erum por 5 MINUTES THEN RINSE magnesium oxide (Mag-Ox) 400 (240 Mg) MG tablet TAKE 1 TABLET BY MOUTH DAILY AT BEDTIME HOLD FOR LOOSE STOOL meloxicam (Mobic) 15 MG tablet Take 1 tablet (15 mg) by mouth Once per day. 30 tablet 0 norethindrone (Aygestin) 5 MG tablet Take 1 tablet (5 mg) by mouth Once per day for 10 days. 10 tablet 0 olopatadine (Pataday) 0.2 % ophthalmic solution Administer 1 drop into both eyes Once per day. 2.5 mL 5 propranolol (Inderal) 10 MG tablet Take 10 mg by mouth if needed in the morning and at bedtime. rizatriptan (Maxalt) 10 MG tablet TAKE 1/2 TO 1 TABLET BY MOUTH EVERY 2 HOURS NEEDED FOR MIGRAINE. DO NOT EXCEED 2 TABLETS IN 24 HOURS OR 4 TABLETS PER WEEK semaglutide (Ozempic) 2 MG/1.5ML solution pen-injector Inject 0.25 mg under the skin 1 (one) time per week. (Patient not taking: Reported on 09/18/2024) 2 mL 0 No current facility-administered medications for this visit. No past medical history on file. No past surgical history on file. Family History Problem Relation Name Age of Onset Osteogenesis imperfecta Mother Tobacco Use: Low Risk (11/06/2024) Tobacco Smoking Tobacco Use: Never Smokeless Tobacco Use: Never Passive Exposure: Never No Known Allergies ROS Positive for: Eyes Negative for: Constitutional, Gastrointestinal, Neurological, Skin, Genitourinary, Musculoskeletal,HENT, Endocrine, Cardiovascular, Respiratory, Psychiatric, Allergic/Imm, Heme/Lymph Last edited by Nessa Mayfield, ROX on 11/09/2024 10:41 AM. Base Eye Exam Visual Acuity (Snellen - Linear) Right Left Dist cc 20/20 20/25 +2 Tonometry (iCare , 10:39 AM) Right Left Pressure 14 13 Pupils Pupils APD Right PERRL None Left PERRL None Visual Woodard (Counting fingers) Left Right Full Full Extraocular Movement Right Left Full Full Neuro/Psych Oriented x3: Yes Mood/Affect: Normal Dilation Both eyes: 1.0% tropicamide @ 10:41 AM Slit Lamp and Fundus Exam External Exam Right Left External Normal Normal Slit Lamp Exam Right Left Lids/Lashes Clean and clear Clean and clear Conjunctiva/Sclera 1+ papillae UL 1+ papillae UL Cornea TBUT: >5 sec TBUT: 4 sec Anterior Chamber Deep and quiet, angles open gr 4 Deep and quiet, angles open gr 4 Iris Round and reactive Round and reactive Lens Clear Clear Fundus Exam Right Left Vitreous (-) schaffers sign (-) schaffers sign Disc [place] and healthy [place] and healthy C/D Ratio Vertical 0.50 0.50 C/D Ratio Horizontal 0.50 0.50 Macula Flat, even pigmentation Flat, even pigmentation Vessels AV 2/3, normal course and caliber AV 2/3, normal course and caliber Periphery No holes/tears/detachments 360 0.5DD retinal hole @ 4:00 with cuff of edema, WWOP inferior and temporally, no tears/detachments Assessment and Plan Diagnoses and all orders for this visit: Retinal hole of left eye - Stable to last visit. Hole is asymptomatic and inferior. - Discussed symptoms of retinal detachment and to RTC immediately if flashes/floaters/curtains overvision occur. Pt expressed understanding - RTC in 9 months for CEE or sooner PRN Nessa Mayfield, OD 11/13/2024, 10:00 AM documented in this encounter Plan of Treatment Upcoming Encounters Date Type Department Care Team (Late st Contact Info) Description 12/11/2024 9:00 AM EST Telemedicine [facility] [address] [place] [address] Abbey Fonseca MD [address] [place] [address] documented as of this encounter Visit Diagnoses Diagnosis Retinal hole of left eye- Primary documented in this encounter Additional Health Concerns Assessment Noted Time PHQ-9 Depression Total Score: 5 08/23/20 24 11:38 AM EDT documented as of this encounter Care Teams Business Rules Developer Relationship Specialty Start Date End Date Patti Clark MD [address] [place] [address] PCP - General Family Medicine 12/10/20 Kanchan Hughes, STAFF SOFTWARE ENGINEER Psychiatrist 09/24/24 documented as of this encounter
--- OUTSIDE RECORDS SUMMARY | 2024-12-05 09:04 | XMS_ITS | Encounter Summary ---
Author Organization [employer] Address [address] [facility] [address] [place] [address] Care Team Providers Care Livestock Rancher Name Role Phone Patti Clark MD Primary Care Provider [phone] Reason for Referral * Imaging (Routine) - Closed Specialty Diagnoses / Procedures Referred By Contac t Referred To Contact Radiology Diagnoses Menorrhagia with regular cycle Procedures US Pelvis Transvaginal Erin Soto MD [address] [place] [address] Phone: tel: fax: [facility] [address] [place], [place] Phone: tel: fax: Referral ID Status Reason Start Date Expiration Date Visits Re quested Visits Authorized [id number] Closed 09/12/2024 09/12/2025 1 1 Encounter Details Date Type Department Care Team (Late st Contact Info) Description 09/12/2024 Orders Only [facility] [address] [place] [address] Erin Soto MD [address] [place] [phone] Menorrhagia with regular cycle (Primary Dx) Social History Tobacco Use Types [...] is your housing situation today? I have imelda jon 01/20/[address] you [...] AM EDT documented as of this encounter Plan of Treatment Upcoming Encounters Date Type Department Care Team (Late st Contact Info) Description 12/11/2024 9:00 AM EST Telemedicine [facility] [address] [place] [address] Abbey Fonseca MD [address] [place] [address] Scheduled Orders Name Type Priority Associated Diagnoses Orde r Schedule US Pelvis Transvaginal Imaging Routine Menorrhagia with regular cycle Expected: 09/12/2024, Expires: 09/12/2025 documented as of this encounter Visit Diagnoses Diagnosis Menorrhagia with regular cycle- Primary documented in this encounter Additional Health Concerns Assessment Noted Time PHQ-9 Depression Total Score: 5 08/23/20 24 11:38 AM EDT documented as of this encounter Care Teams Livestock Rancher Relationship Specialty Start Date End Date Patti Clark MD [address] [place] [address] PCP - General Family Medicine 12/10/20 Kacnhan Hughes NP Psychiatrist 09/24/24 documented as of this encounter
--- OUTSIDE RECORDS SUMMARY | 2024-12-05 09:04 | XMS_ITS | Clinical Summary ---
Author Organization [email or web address] Address [address] [place] [address] Care Team Providers Care Bread Stacker Name Role Phone Patti Clark MD Primary Care Provider [phone] Allergies No known active allergies Medications cholecalciferol (Vitamin D-3) 50 MCG (1999 UT) tablet Take 100 mcg by mouth in the morning. 12/30/19 22 Active magnesium oxide (Mag-Ox) 400 (240 Mg) MG tablet TAKE 1 TABLET BY MOUTH DAILY AT BEDTIME HOLD FOR LOOSE STOOL 08/23/20 23 Active ketoconazole (NIZOral) 2 % shampoo APPLY TO SCALP ONCE A WEEK LEAVE ON el erum por 5 MINUTES THEN RINSE 05/05/20 23 Active hydrOXYzine pamoate (Vistaril) 25 MG capsule TAKE 1 TO 2 CAPSULES BY MOUTH TWICE DAILY NEEDED FOR ANXIETY 09/07/20 23 Active amitriptyline (Elavil) 10 MG tablet TAKE 1 TO 3 TABLETS BY MOUTH DAILY AT BEDTIME 08/23/20 23 Active meloxicam (Mobic) 15 MG tablet Take 1 tablet (15 mg) by mouth Once per day. 30 tablet 08/09/20 24 025 Active fluocinolone (Synalar) 0.01 % external solution APPLY TO THE AFFECTED AREA(S) ON SCALP ONCE DAILY NEEDED FOR ITCHING AND FLARE 12/05/19 24 Active rizatriptan (Maxalt) 10 MG tablet TAKE 1/2 TO 1 TABLET BY MOUTH EVERY 2 HOURS NEEDED FOR MIGRAINE. DO NOT EXCEED 2 TABLETS IN 24 HOURS OR 4 TABLETS PER WEEK 12/22/19 24 Active semaglutide (Ozempic) 2 MG/1.5ML solution pen-injector Inject 0.25 mg under the skin 1 (one) time per week. 2 mL 08/23/20 24 Active Additional Information Patient not taking.Reported on 09/18/2024 cyclobenzaprine (Flexeril) 10 MG tablet Take 1 tablet (10 mg) by mouth at bedtime. 30 tablet 08/23/20 Active norethindrone (Aygestin) 5 MG tablet Take 1 tablet (5 mg) by mouth Once per day for 10 days. 10 tablet 09/18/20 Active FLUoxetine (PROzac) 40 MG capsule Take 80 mg by mouth Once per day. 09/05/20 Active propranolol (Inderal) 10 MG tablet Take 10 mg by mouth if needed in the morning and at bedtime. 09/05/20 Active diclofenac (Voltaren) 75 MG EC tabletIndications: Chronic pain of multiple joints Take 1 tablet (75 mg) by mouth 2 times daily. Do not crush, chew, or split. 60 tablet 09/24/20 Active olopatadine (Pataday) 0.2 % ophthalmic solutionIndication s:Other chronic allergic conjunctivitis of both eyes Administer 1 drop into both eyes Once per day. 2.5 mL 5 11/06/19 25 Active Active Problems Problem Noted Date Diagnosed Date Dysmenorrhea 09/19/2024 Assessment & Plan (09/19/2024 6:04 AM EST): -CT Abd and pelvis w/o contrast 09/2023 : Uterus and adnexa unremarkable. 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 Assessment & Plan (08/09/2024 11:46 AM EDT): Reccommended to apply heat to affected area and do stretching exercises daily until she starts PT. Take Meloxicam daily x 2-3w + tylenol prn pain Refer to PT FU with PCP in 3m or earlier prn. Meralgia paresthetica of right side 01/20/2024 Assessment & Plan (01/21/2024 2:55 PM EDT): Numbness with no radiation or shooting pain. Diagnosed with meralgia paresthetica of right side due to lots of pressure being put on that side. Advised to relieve pressure by avoiding to put a lot of pressure on that side. Acute pain of right knee 08/12/2023 Assessment & Plan (11/18/2023 8:55 AM EST): Patient still presents complaints of R knee pain, therefore, will send referral to Physiatry. Advised to notify office if symptom doesn't improve. Assessment & Plan (09/26/2023 9:20 AM EST): Reviewed MRI results with patient, at this moment we will proceed with trial of tramadol, she has trial different NSAIDs w/o any improvement of symptoms. Will f/up in 2 weeks to assess if medication is helpful. At this moment, will send to ortho and PT. Assessment & Plan (08/12/2023 11:26 AM EDT): Patient with complaints of R Knee pain will be sent for X-Rays. Will be prescribing Tramadol to control the pain. Right hand pain 08/12/2023 Assessment & Plan (08/12/2023 11:27 AM EDT): -Referred to Hand Surgeon -Will prescribe pain medication. Chronic midline low back pain with left-sided sc iatica 02/09/2023 Assessment & Plan (01/21/2024 2:56 PM EDT): Patient report chronic back pain. She was prescribed Tramadol . Assessment & Plan (02/09/2023 2:25 PM EDT): Patient report chronic back pain, refers that since last visit symptoms improved, but for the past 4 days it has gotten worse, no recent trauma, heavy lifting reported. Denied lower extremity weakness, urinary/fecal incontinence/retention. She has been taking tramadol without much improvement in symptoms, will try cyclobenzaprine and naproxen, told to rest, apply cold pads, has upcoming follow up appointments with pain management on 02/10/23 Chronic pain of multiple joints 11/23/2022 Assessment & Plan (09/24/2024 10:29 AM EST): Discussed medication refills as needed. Continue to follow up with Orthopaedic. Assessment & Plan (11/23/2022 5:25 PM EST): More then 2 year hx of multiple joint pain, multiple ED visit, inflammatory labs done last year normal. Not responsive to gabapentin, NSAIDs. Was already referred to pain management. Will benefit of assessment or her multiple joint pain. Most present on the right side of her body Chronic tension-type headache, intractable 11/23 Assessment & Plan (12/27/2022 2:42 PM EST): Patient reports she was seen in [facility] by neurologist but she was concern about his rapport, requested referral to specialist in [place], referral placed. Assessment & Plan (11/23/2022 5:23 PM EST): Patient with ongoing issue for months, no improvement with conservative therapy, will send to neurology for evaluation. Female fertility problem 11/22/2022 Constipation 11/22/2022 Class 1 obesity 10/13/2022 Assessment & Plan (08/23/2024 1:21 PM EDT): Patient currently on pharmacotherapy to assist with management of her weight. Starting weight: 187 lbs Current weight:162 lbs Review continue lifestyle modifications. Patient was titrated up to treatment dose. Tolerated titration well. Patient on Wegovy, given know efficacy and proven benefits to reduce the risk of cardiovascular events in patients who are overweight or obese and have cardiovascular disease, following of the [facility] trial results. Reviewed mechanism of action with patient. Discussed side effects with patient: nausea, vomiting, diarrhea & risk of pancreatitis. No contraindications identified: , hx of pancreatitis, hx of medullary thyroid cancer or MEN 2. Discussed calorie deficit, recommended reduction of 20-30% of maintenance calories; network systems operator referral offered. Recommended to decrease soda and sugary beverage consumption. Recommended at least 20 g per meal of protein to assist with satiety. Recommended at least 150 min/week of moderate intensity exercise. Assessment & Plan (04/02/2024 2:27 AM EDT): -Pt has lost 6 pounds. Discussed calorie deficit, recommended reduction of 20-30% of maintenance calories; network systems operator referral offered. Recommended to decrease soda and sugary beverage consumption. Recommended at least 20 g per meal of protein to assist with satiety. Recommended at least 150 min/week of moderate intensity exercise. -f/u in 3 months Assessment & Plan (01/24/2024 9:19 AM EDT): - Discussed calorie deficit, recommended reduction of 20-30% of maintenance calories; network systems operator referral offered. Recommended to decrease soda and sugary beverage consumption. Recommended at least 20 g per meal of protein to assist with satiety. Recommended at least 150 min/week of moderate intensity exercise. Will start trial of AOM to assist w/ wt loss. Assessment & Plan (11/18/2023 8:55 AM EST): Discussed calorie deficit, recommended reduction of 20-30% of maintenance calories; network systems operator referral offered. Recommended to decrease soda and sugary beverage consumption. Recommended at least 20 g per meal of protein to assist with satiety. Recommended at least 150 min/week of moderate intensity exercise. Patient reports taking weight loss medications with no improvements. Therefore, patient was explained that dose could be increased, in which was advised that anxiety and palpitations could be a possible side effect: patient accepted. As a result, will increase dose Assessment & Plan (08/12/2023 11:25 AM EDT): Discussed calorie deficit, recommended reduction of 20-30% of maintenance calories; network systems operator referral offered. Recommended to decrease soda and sugary beverage consumption. Recommended at least 20 g per meal of protein to assist with satiety. Recommended at least 150 min/week of moderate intensity exercise. Patient with concerns of weight loss will be prescribed Lomaira and Topamax. Will be referred to Nutrition Therapy Follow up in 1 month. Status migrainosus 10/13/2022 Vitamin D deficiency 10/13/2022 Back pain 10/13/2022 Assessment & Plan (04/02/2024 2:26 AM EDT): Tramadol has helped with the pt's pain. Prescribed Tramadol (Ultram) 50 MG. Assessment & Plan (12/27/2022 2:41 PM EST): Acute on chronic LBP with left sided radiation, patient with abnormal gait severe that we deferred further physical evaluation. Will send short trial of tramadol and recommended to use diclofenac as needed. In terms of chronic pain management she does follow in [place] with [facility] but is thinking of switching to [facility], report patient that she will need to inform specialist of her decision. Pain in female pelvis 10/09/2018 Encounters Date Type Department Care Team Description 11/19/2024 Orders Only [facility] [address] [place] [address] Abbey Fonseca MD 11/16/2024 Telephone [facility] [address] [place], [place] [phone] Patti Clark MD PA 11/13/2024 Telephone [facility] [address] [place], [place] [phone] Patti Clark MD 11/09/2024 10:30 AM EST Office Visit [facility] [address] [place] [address] Nessa Mayfield, OD Retinal hole of left eye (Primary Dx) 11/09/2024 Travel 11/07/2024 Refill [facility] [address] [place] [address] Patti Clark MD 11/06/2024 11:15 AM EST Office Visit [facility] [address] [place] [address] Nessa Mayfield, OD Other chronic allergic conjunctivitis of both eyes (Primary Dx); Retinal hole of left eye 11/06/2024 Travel 10/05/[address] [address] Cony Brown RN Error (VOID this visit) 10/05/2024 Orders Only [facility] [address] [place] [address] Erin Soto MD 10/01/2024 Telephone [facility] [address] [place] [address] Erin Soto MD Results (Ultrasound) 09/24/2024 10:00 AM EST Office Visit [facility] [address] [place] [address] Patti Clark MD Rotator cuff tendinitis, left (Primary Dx); Chronic pain of multiple joints 09/24/2024 Travel 09/19/2024 Travel 09/19/2024 Telephone [facility] [address] [place] [phone] Glo Garner MD 09/18/2024 11:00 AM EST Office Visit [facility] [address] [place] [phone] Gol Garner MD Dysmenorrhea (Primary Dx); Vaginal bleeding; Excessive bleeding in premenopausal period 09/18/2024 Orders Only [facility] [address] [place] [phone] Glo Garner MD 09/14/[address] [address] Patti Clark MD Results 09/12/2024 Orders Only [facility] [address] [place] [address] Erin Soto MD Menorrhagia with regular cycle (Primary Dx) 09/11/2024 Telephone [facility] [address] [place] [address] Patti Clark MD Request For Order(s) 09/10/2024 9:00 AM EST Office Visit [facility] [address] [place] [address] Erin Soto MD Menorrhagia with regular cycle (Primary Dx); Menstrual problem from Last 3 Months Immunizations Name Administration Dates Next Due Hep A, Adult 04/22/2016 Hep B, adult 04/22/2016 Influenza injectable quadriv alent preservative free 07/21/2020,10/15/2019 MMR 07/09/2016,05/25/2016,1987 Moderna Covid-19 Vaccine 12+ 03/09/2021 Tdap 05/25/2016 Family History Medical History Relation Name Comments Osteogenesis imperfecta Mother Relation Name Status Comments Mother Social History Tobacco Use Types Packs/Day Years Used Date Smoking Tobacco: Never Passive Smoke Exposure: Never Smokeless Tobacco: Never Tobacco Cessation:Counseling Given: No Alcohol Use Standard Drinks/Week Comments Never 0 [...] Orientation Straight 08/23/2022 10 :16 AM EDT Last Filed Vital Signs Vital Sign Reading Time Taken Comments Blood Pressure 109/72 09/24/2024 9:56 AM EST Pulse 82 09/24/2024 9:56 AM EST Temperature 36.3 ??C (97.4 ??F) 09/24/2024 9:56 AM ES T Respiratory Rate 20 09/24/2024 9:56 AM EST Oxygen Saturation 98% 09/24/2024 9:56 AM EST Inhaled Oxygen Concentration - - Weight 74.7 kg (164 lb 9.6 oz) 09/24/2024 9:56 A M EST Height 158 cm (5' 2.21 ) 09/24/2024 9:56 AM EST Body Mass Index 29.91 09/24/2024 9:56 AM EST Plan of Treatment Upcoming Encounters Date Type Department Care Team (Late st Contact Info) Description 12/11/2024 9:00 AM EST Telemedicine [facility] [address] [place] [address] Abbey Fonseca MD [address] [place] [address] Health Maintenance Due Date Last Done Comments Family Planning (PISQ) 2002 Hepatitis C Screening 2005 Pap Smear 01/28/2008 Hepatitis B Vaccines (2 of 3 - 19+ 3-dose series) 05/20/2016 04/22/2016 COVID-19 Vaccine ( season) 2024 04/06/2021, 03/09/2021 Influenza Vaccine (#1) 2024 07/21/2020, 2018 SDOH Screening 01/19/2025 01/20/2024 Alcohol/Substance Use Screening 08/23/2025 08/23/2024 Depression Screening 08/23/2025 08/23/2024, 08/23/20 Tobacco Screening 11/06/2025 11/06/2024 Cervical Cancer Screening 04/24/2026 HPV/Cotest 04/24/2026 04/24/2021, 07/0 11/2020, 08/16/2019, Additional history exists DTaP/Tdap/Td Vaccines (2 - Td or Tdap) 05/25/2026 05/25/2016 Lipid Panel 12/28/2026 12/28/2021, 08/21/2020 Zoster Vaccines (1 of 2) 2037 RSV Patients and Patients Aged 60 years or older (1 - 1-dose 75+ series) 2062 Hepatitis A Vaccines Aged Out 04/22/2016 No long er eligible based on patient's age to complete this topic HIV Screening Completed 08/21/2020 HIB Vaccines Aged Out No longer eligi ble based on patient's age to complete this topic HPV Vaccines Aged Out No longer eligi ble based on patient's age to complete this topic IPV Vaccines Aged Out No longer eligi ble based on patient's age to complete this topic Meningococcal Vaccine Aged Out No xiomy sagar eligible based on patient's age to complete this topic Pneumococcal Vaccine: Pediatrics (0 to 5 Years) and At-Risk Patients (6 to 49) Years) Aged Out No longer eligible based on patient's age to complete this topic RSV under 20 months Aged Out No longe r eligible based on patient's age to complete this topic Rotavirus Vaccines Aged Out No longer eligible based on patient's age to complete this topic Procedures Procedure Name Priority Date/Time Associated Diagnosis Comments US PELVIS COMPLETE Routine 09/26/2024 Menstrual problem Menorrhagia with regular cycle POCT URINALYSIS DIPSTICK Routine 09/18/2024 11:21 AM EST Vaginal bleeding POCT , URINE Routine 09/18/2024 11:20 AM EST Vaginal bleeding BACTERIAL VAGINOSIS PANEL Routine 09/18/2024 12:00 AM EST CHLAMYDIA/N. GONORRHOEAE RNA, TMA, UROGENITAL Routine 09/18/2024 12:00 AM EST FERRITIN Routine 09/10/2024 9:35 AM EST Menstrual problem Menorrhagia with regular cycle TSH W/REFLEX TO FT4 Routine 09/10/2024 9 :35 AM EST Menstrual problem Menorrhagia with regular cycle APTT Routine 09/10/2024 9:35 AM EST Menstrual problem Menorrhagia with regular cycle PROTHROMBIN TIME-INR Routine 09/10/2024 9:35 AM EST Menstrual problem Menorrhagia with regular cycle CBC WITH AUTO DIFFERENTIAL Routine 09/10/2024 9:35 AM EST Menstrual problem Menorrhagia with regular cycle POCT , URINE Routine 09/10/2024 9:13 AM EST Menstrual problem LIPID PANEL, STANDARD Routine 12/28/2021 11:25 AM EST ZZZ HISTORICAL HPV E6/E7 RFLX ANTWAN 16 18/45 Routine 04/24/2021 3:22 PM EDT HIV 1/2 ANTIGEN/ANTIBODY, FOURTH GENERATION W/RFL Routine 08/21/2020 10:06 AM EDT from Last 3 Months or Most Recently Relevant to Health Maintenance Results * Us Pelvis complete (09/26/2024) Anatomical Region Laterality Modality Pelvis Ultrasound us Erin Soto MD IMG US PROCEDURES Final Res ult * (ABNORMAL) POCT urinalysis dipstick manually resulted (09/18/2024 11:21 AM EST) Color, UA Hellen Clarity, UA Cloudy Glucose, UA Negative Bilirubin, UA Few 15 Comment:Small Ketones, UA Negative Spec Grav, UA 1.025 Blood, UA Positive(A) Negative, None Detected Comment:Large pH, UA 5.5 Protein, UA 1+ 70+ Comment:30mg Urobilinogen, UA 0.2 Leukocytes, UA Trace Negative, Rare, Trace Nitrite, UA Negative Negative, None Detected Appearance, UA OK Urine 09/18/2024 11:2 1 AM EST Glo Al MD POINT OF CARE RAVINDRA T ENTER/EDIT ORDERABLES Final Result * POCT , urine manually resulted (09/18/2024 11:20 AM EST) Only the most recent of2 resultswithin the time period is included. Pathologist [facility] Preg Test, Ur Negative Negative, Indeterminate, None Detected, Invalid, Specimen unsatisfactory for evaluation, Weakly Positive Urine 09/18/2024 11:2 0 AM EST Glo Al MD POINT OF CARE RAVINDRA T ENTER/EDIT ORDERABLES Final Result * Bacterial Vaginosis (09/18/2024 12:00 AM EST) Pathologist [facility] TRICHOMONAS VAGINALIS DETECTION BY PCR NOT DETECTED Not Detect [facility] BACTERIAL VAGINOSIS DETECTION BY PCR NEGATIVE Negative [facility] Comment:The BV organism targ ets of the Xpert Xpress MVP test can becommensal in women; Xpert Xpress MVP positive results forbacterial vaginosis should be considered in conjunction withother clinical and patient information to determine thedisease status. Organisms that are not detected by the XpertXpress MVP test have also been reported to be associatedwith BV and aerobic vaginitis.The Xpert Xpress MVP test performance has not been evaluatedin patients under the age of 14. MAGGIE GROUP DETECTION BY PCR NOT DETECTED Not Detect [facility] Maggie glab krusei PCR NOT DETECTED Not Detect [facility] 09/18/2024 09/18/2024 Glo Al MD LAB MICROBIOLOGY - GENERAL ORDERABLES Final Result [facility] [address] [place] [address] [phone] * Chlamydia/N. Gonorrhoeae RNA, TMA, Urogenitial (09/18/2024 12:00 AM EST) CT PCR NOT DETECTED Not Detect. [facility] Comment:A not detected test result does not exclude the possibilityof infection because test results can be affected byimproper specimen collection, concurrent antibiotic therapy,or the number of organisms in the specimen which may bebelow the sensitivity of the test. As with many diagnostictests, results from the Xpert CT/NG assay should beinterpreted in conjunction with other laboratory andclinical data available to the clinician.Xpert CT/NG performance has not been evaluated in patientsless than 14 years of age. The assay should not be used forthe evaluationof suspected sexual abuse or for other medico-legalindications. Additional testing is recommended in anycircumstance when false positive or false negative resultscould lead to adverse medical, social or psychologicalconsequences. NG PCR NOT DETECTED Not Detect. [facility] Comment:A not detected test result does not exclude the possibilityof infection because test results can be affected byimproper specimen collection, concurrent antibiotic therapy,or the number of organisms in the specimen which may bebelow the sensitivity of the test. As with many diagnostictests, results from the Xpert CT/NG assay should beinterpreted in conjunction with other laboratory andclinical data available to the clinician.Xpert CT/NG performance has not been evaluated in patientsless than 14 years of age. The assay should not be used forthe evaluationof suspected sexual abuse or for other medico-legalindications. Additional testing is recommended in anycircumstance when false positive or false negative resultscould lead to adverse medical, social or psychologicalconsequences. 09/18/2024 09/18/2024 Narrative [facility] - 09/19/2024 4:10 AM EST Vaginal us Glo Al MD LAB MICROBIOLOGY - GENERAL ORDERABLES Final Result Performing Organization Address City/[facility]/ZIP Co de Phone Number [facility] [address] [place] [address] [phone] * TSH W/Reflex to FT4 (09/10/2024 9:35 AM EST) TSH reflex Free T4 3.77 0.32 - 4.0 uIU/mL [facility] Blood Venous blood specimen / Unknown 09/10/2024 9:35 AM EST 09/10/2024 11:32 AM EST us Erin Soto MD LAB BLOOD ORDERABLES Final Result Performing Organization Address [facility]/ZIP Co de Phone Number [facility] [address] [place] [phone] * (ABNORMAL) CBC auto differential (09/10/2024 9:35 AM EST) Pathologist [facility] White Blood Count 5.7 4.8 - 10.8 X10*3/uL [facility] Red Blood Count 4.10(L) 4.20 - 5.50 X10*6/uL [facility] Hemoglobin 12.1 12.0 - 16.0 g/dl [facility] Hematocrit 37.1 37.0 - 47.0 % [facility] Mean Corpuscular Volume 90.5 80.0 - 98.0 fL [facility] Mean Corpuscular Hemoglobin 29.5 27.0 - 33.0 pg [facility] Mean Corpuscular HGB Conc 32.6 31.0 - 35.0 g/dl [facility] Red Cell Distribution Width 14.0 11.0 - 16.0 % [facility] Platelet Count 213 160 - 400 X10*3/uL [facility] Mean Platelet Volume 10.4 9.4 - 12.3 fL [facility] Neutrophils Percent Auto 47.1 45 - 73 % [facility] Imm Gran Pct Auto 0.2 0.0 - 0.4 % [facility] Lymphocytes Percent Auto 40.2(H) 20 - 40 % [facility] Monocytes Percent Auto 10.6 2 - 11 % [facility] Eosinophils Percent Auto 1.4 0 - 4 % [facility] Basophils Percent Auto 0.5 0 - 2 % [facility] NRBC Pct Auto 0.0 0.0 - 0.2 /100WBC [facility] Neutrophils Absolute Auto 2.7 2.0 - 8.3 x10*3/uL [facility] Imm Gran Abs Auto 0.01 0.00 - 0.03 X10*3/uL [facility] Lymphocytes Absolute Auto 2.3 1.2 - 4.9 X10*3/uL [facility] Monocytes Absolute Auto 0.6 0.1 - 1.2 X10*3/uL [facility] Eosinophils Absolute Auto 0.1 0.0 - 0.4 X10*3/uL [facility] Basophils Absolute Auto 0.0 0.0 - 0.2 X10*3/uL [facility] NRBC Abs Auto 0.000 0.0 - 0.012 X10*3/uL [facility] Blood Venous blood specimen / Unknown 09/10/2024 9:35 AM EST 09/10/2024 11:32 AM EST Erin Soto MD LAB BLOOD ORDERABLES Final Result [facility] [address] [place] [phone] * Partial Thromboplastin Time, Activated (APTT) (09/10/2024 9:35 AM EST) Partial Thromboplastin Time 28.2 26.0 - 36.8 SEC [facility] Comment:For information rega rding the monitoring of direct thrombininhibitors, please refer to Pharmacy. Blood Venous blood specimen / Unknown 09/10/2024 9:35 AM EST 09/10/2024 11:32 AM EST us Erin Soto MD LAB BLOOD ORDERABLES Final Result Performing Organization Address [facility] [place]/[facility] Co de Phone Number [facility] [address] [place] [phone] * Prothrombin Time-INR (09/10/2024 9:35 AM EST) Prothrombin Time 10.9 10.9 - 12.4 SEC [facility] INTERNATIONAL NORM RATIO 0.9 0.9 - 1.1 [facility] Comment:INTERNATIONAL NORMAL IZED RATIO (INR) REFERENCE RANGES Reference RangeFor patients not on anticoagulant therapy: 0.9 - 1.1INR ranges for oral anticoagulanttherapy:For prevention and treatment of venous thrombosis and pulmonary embolism: 2.0 - 3.0For acute myocardial infarction with aspirin therapy: 2.0 - 3.0For acute myocardial infarction without aspirin therapy: 3.0 - 4.0For patients with mechanical prosthetic heart valves: 2.5 - 3.5 Blood Venous blood specimen / Unknown 09/10/2024 9:35 AM EST 09/10/2024 11:32 AM EST us Erin Soto MD LAB BLOOD ORDERABLES Final Result Performing Organization Address [facility] Co de Phone Number [facility] [address] [place] [phone] * Ferritin (09/10/2024 9:35 AM EST) Ferritin 83 10 - 122 ng/mL [facility] Blood Venous blood specimen / Unknown 09/10/2024 9:35 AM EST 09/10/2024 11:32 AM EST us Erin Soto MD LAB BLOOD ORDERABLES Final Result Performing Organization Address [facility] [place]/[facility] Co de Phone Number [facility] [address] [place] [phone] * (ABNORMAL) LIPID PANEL, STANDARD (12/28/2021 11:25 AM EST) Chol/HDLC Ratio 4.1 <5.0 (calc) [facility] Cholesterol, Total 198 <200 mg/dL [facility] HDL Cholesterol 48(L) > OR = 50 mg/dL [facility] LDL Cholesterol 133(H) mg/dL (calc) [facility] Comment: Reference range: <100 ?? Desirable range <100 mg/dL for primary prevention; ?? <70 mg/dL for patients with CHD or diabetic patients ?? with > or = 2 CHD risk factors. ?? LDL-C is now calculated using the Abdon-Cm ?? calculation, which is a validated novel method providing ?? better accuracy than the Friedewald equation in the ?? estimation of LDL-C. ?? Abdon NELSON et al. CATHERINE. 2013;310(19): 9280-3634 ?? (http://education.[employer]/faq/UFH568) Non-HDL Cholesterol 150(H) <130 mg/dL (calc) [facility] Comment: For patients with diabetes plus 1 major ASCVD risk ?? factor, treating to a non-HDL-C goal of <100 mg/dL ?? (LDL-C of <70 mg/dL) is considered a therapeutic ?? option. Triglycerides 78 <150 mg/dL [facility] 12/28/2021 11:2 5 AM EST us Patti Clark MD LAB BLOOD ORDERABLES Final Re sult [facility] [address] * HPV E6/E7 RFLX ANTWAN 16 18/45 (04/24/2021 3:22 PM EDT) HPV mRNA E6/E7 rflx Not Detected Not Detected [facility] Comment: Methodology: Labor Mediator-Mediated Amplification This assay detects E6/E7 viral messenger RNA (mRNA) from 14 high-risk HPV types (16,18,31,33,35,39,45,51,52,56,58,59,66,68). The analytical performance characteristics of this assay have been determined by [employer]. The modifications have not been cleared or approved by the FDA. This assay has been validated pursuant to the CLIA regulations and is used for clinical purposes. For additional information, please refer to http://Acquisio.Flipkart/faq/ZPH225j8 (This link if provided for information/ educational purposes only.) THIS TEST WAS PERFORMED AT: [employer] [address] [place] [address] [address] [place], [place] ??[phone] FAISAL MINOR MD 04/24/2021 3:22 PM EDT Cony Hart HISTORICAL/NON ORDERABLE LABS Fi nal Result Performing Organization Address City/State/[facility] Co de Phone Number [facility] [address] * HIV 1/2 ANTIGEN/ANTIBODY,FOURTH GENERATION W/RFL (08/21/2020 10:06 AM EDT) HIV-1/2 ANTIGEN AND ANTIBODIES, 4TH GENERATION W/ REFLEX NON-REACT LARA NON-REACT LARA [facility] Comment: HIV-1 antigen and HIV-1/HIV-2 antibodies were not detected. There is no laboratory evidence of HIV infection. ?? PLEASE NOTE: This information has been disclosed to you from records whose confidentiality may be protected by state law. ??If your state requires such protection, then the state law prohibits you from making any further disclosure of the information without the specific written consent of the person to whom it pertains, or as otherwise permitted by law. A general authorization for the release of medical or other information is NOT sufficient for this purpose. ? For additional information please refer to http://education.[employer] Madina.ideeli/faq/TMO570 (This link is being provided for informational/ educational purposes only.) ? The performance of this assay has not been clinically validated in patients less than 2 years old. ?? 08/21/2020 10:0 6 AM EDT Cielo Asaf PRODUCT DEMONSTRATOR LAB BLOOD ORDERABLES Final Resul t [facility] [address] from Last 3 Months or Most Recently Relevant to Health Maintenance Insurance [facility] C3 Care Teams Bread Stacker Relationship Specialty Start Date End Date Patti Clark MD [address] [place] [address] PCP - General Family Medicine 12/10/20 Kanchan Hughes NP Psychiatrist 09/24/24
--- OUTSIDE RECORDS SUMMARY | 2024-12-05 09:04 | XMS_ITS | Encounter Summary ---
Author Organization [facility] Address [address] [place] [address] Care Team Providers Care Production Planner Scheduler Name Role Phone Patti Clark MD Primary Care Provider [phone] Encounter Details Date Type Department Care Team (Latest Contact Info) Description 11/09/2024 Travel Social History Tobacco Use Types Packs/Day Years [...] Upcoming Encounters Date Type Department Care Team ([facility] st Contact Info) Description 12/11/2024 9:00 AM EST Telemedicine [facility] [address] [place] [address] Abbey Fonseca MD [address] [place] [address] documented as of this encounter Visit Diagnoses Not on filedocumented in this encounter Additional Health Concerns Assessment Noted Time PHQ-9 Depression Total Score: 5 08/23/20 24 11:38 AM EDT documented as of this encounter Care Teams Production Planner Scheduler Relationship Specialty Start Date End Date Patti Clark MD [address] [place] [address] PCP - General Family Medicine 12/10/20 Kanchan Hughes NP Psychiatrist 09/24/24 documented as of this encounter
--- OUTSIDE RECORDS SUMMARY | 2024-12-05 09:04 | XMS_ITS | Encounter Summary ---
Author Organization [employer] Address [address] [place] [address] Care Team Providers Care Cash Crop Farmer Name Role Phone Patti Clark MD Primary Care Provider [phone] Reason for Visit * Reason Onset Date Comments Med Refill 11/07/2024 Encounter Details Date Type Department Care Team (Late st Contact Info) Description 11/07/2024 Refill [facility] [address] [place] [address] Patti Clark MD [address] [place] [address] Social History Tobacco Use Types Packs/Day Years [...] your housing situation today? I have imelda dontrell 01/20/[address] you li [...] AM EDT documented as of this encounter Miscellaneous Notes * Telephone Encounter - Shanell Hutchins - 11/07/2024 10:53 AM EST TC from pt requesting medication refill. Medications needing refill : semaglutide (Ozempic) 2 MG/1.5ML solution pen-injector To be sent to: [facility] - [place], [place] - [address] [facility] documented in this encounter Plan of Treatment Upcoming Encounters Date Type Department Care Team (Late st Contact Info) Description 12/11/2024 9:00 AM EST Telemedicine [facility] [address] [place] [address] Abbey Fonseca MD [address] [place] [address] documented as of this encounter Visit Diagnoses Not on filedocumented in this encounter Additional Health Concerns Assessment Noted Time PHQ-9 Depression Total Score: 5 08/23/20 24 11:38 AM EDT documented as of this encounter Care Teams Cash Crop Farmer Relationship Specialty Start Date End Date Patti Clark MD [address] [facility] [place] [address] PCP - General Family Medicine 12/10/20 Kanchan Hughes NP Psychiatrist 09/24/24 documented as of this encounter
--- OUTSIDE RECORDS SUMMARY | 2024-12-05 09:04 | XMS_ITS | Encounter Summary ---
Author Organization [employer] Address [address] [place] [address] Care Team Providers Care Building Rigger Name Role Phone Patti Clark MD Primary Care Provider [phone] Reason for Visit * Reason Onset Date Comments PA 11/16/2024 Encounter Details Date Type Department Care Team ([facility] st Contact Info) Description 11/16/2024 Telephone [facility] [address] [place] [address] Patti Clark MD [address] [place] [address] PA Social History Tobacco Use Types Packs/Day Years [...] your housing situation today? I have imelda sing 01/20/[address] you li [...] encounter Miscellaneous Notes * Telephone Encounter - Fara Whitaker RN - 11/21/2024 11:07 AM EST TC to pt, televisit scheduled for 12/11 at [address] Fonseca to discuss weight loss med options. * Telephone Encounter - Haritha Al LPN - 11/19/2024 10:[address] EST Good [address] Fonseca please review message below. This medication is usually used to DM however Can you consider changing pt to Zepbound due to pt has been on Wegovy ,, Tc from pt calling to inform a PA is needed for medication semaglutide (Ozempic) 2 MG/1.5ML solution pen-injector . * Telephone Encounter - Shanell Hutchins - 11/16/2024 10:18 AM EST Tc from pt calling to inform a PA is needed for medication semaglutide (Ozempic) 2 MG/1.5ML solution pen-injector . documented in this encounter Plan of Treatment Upcoming Encounters Date Type Department Care Team (Late st Contact Info) Description 12/11/2024 9:00 AM EST Telemedicine [facility] [address] [place] [address] Abbey Fonseca MD [address] [place] [address] documented as of this encounter Visit Diagnoses Not on filedocumented in this encounter Additional Health Concerns Assessment Noted Time PHQ-9 Depression Total Score: 5 08/23/20 24 11:38 AM EDT documented as of this encounter Care Teams Building Rigger Relationship Specialty Start Date End Date Patti Clark MD [address] [place] [address] PCP - General Family Medicine 12/10/20 Kanchan Hughes NP Psychiatrist 09/24/24 documented as of this encounter
--- OUTSIDE RECORDS SUMMARY | 2024-12-05 09:04 | XMS_ITS | Encounter Summary ---
Author Organization [employer] Address [address] [place] [address] Care Team Providers Care First Responder Name Role Phone Patti Clark MD Primary Care Provider [phone] Encounter Details Date Type Department Care Team ([facility] Contact Info) Description 11/13/2024 Telephone [facility] & PEDS [address] [place], [place] [phone] Patti Clark MD [address] [place] [address] Social History Tobacco Use Types Packs/Day Years [...] encounter Miscellaneous Notes * Telephone Encounter - Hollie Hernandes RN - 11/13/2024 4:02 PM EST Notified patient of results. Reviewed results bc patient stated her pain is on the right side. Confirmed left sided cyst. All questions and concerns were addressed. Will F/U PRN. * Telephone Encounter - Patti Clark MD - 11/13/2024 3:20 PM EST Gisselle Shar Team! Can you please call Fariba Corrales and inform about results? Benign US with benign left ovarian cyst. Thanks! Patti documented in this encounter Plan of Treatment Upcoming Encounters Date Type Department Care Team (Late st Contact Info) Description 12/11/2024 9:00 AM EST Telemedicine [facility] [address] [place] [address] Abbey Fonseca MD [address] [place] [address] documented as of this encounter Visit Diagnoses Not on filedocumented in this encounter Additional Health Concerns Assessment Noted Time PHQ-9 Depression Total Score: 5 08/23/20 24 11:38 AM EDT documented as of this encounter Care Teams First Responder Relationship Specialty Start Date End Date Patti Clark MD [address] [place] [address] PCP - General Family Medicine 12/10/20 Kanchan Hughes NP Psychiatrist 09/24/24 documented as of this encounter
--- OUTSIDE RECORDS SUMMARY | 2024-12-05 09:05 | XMS_ITS | Encounter Summary ---
Author Organization [employer] Address [address] [place] [address] Care Team Providers Care Hydrogen Braze Furnace Operator Name Role Phone Patti Clark MD Primary Care Provider [phone] Encounter Details Date Type Department Care Team ([facility] st Contact Info) Description 11/19/2024 Orders Only [facility] [address] [place] [address] Abbey Fonseca MD [address] [place] [address] Social History Tobacco Use Types Packs/Day Years [...] Upcoming Encounters Date Type Department Care Team ([facility] st Contact Info) Description 12/11/2024 9:00 AM EST Telemedicine [facility] [address] [place] [address] Abbey Fonseca MD [address] [place] [address] documented as of this encounter Visit Diagnoses Not on filedocumented in this encounter Additional Health Concerns Assessment Noted Time PHQ-9 Depression Total Score: 5 08/23/20 24 11:38 AM EDT documented as of this encounter Care Teams Hydrogen Braze Furnace Operator Relationship Specialty Start Date End Date Patti Clark MD [address] [place] [address] PCP - General Family Medicine 12/10/20 Kanchan Hughes NP Psychiatrist 09/24/24 documented as of this encounter
--- OUTSIDE RECORDS SUMMARY | 2024-12-05 09:05 | XMS_ITS | Encounter Summary ---
Author Organization [email or web address] Address [address] [place] [address] Care Team Providers Care Pilot Fuel Engineer Name Role Phone Patti Clark MD Primary Care Provider [phone] Encounter Details Date Type Department Care Team ([facility] st Contact Info) Description 10/05/2024 Orders Only [facility] MED & PEDS [address] [place], [place] [phone] Erin Soto MD [address] [place] [address] Social History Tobacco Use Types Packs/Day Years [...] Upcoming Encounters Date Type Department Care Team ([facility] st Contact Info) Description 12/11/2024 9:00 AM EST Telemedicine [facility] [address] [place] [address] Abbey Fonseca MD [address] [place] [address] documented as of this encounter Visit Diagnoses Not on filedocumented in this encounter Additional Health Concerns Assessment Noted Time PHQ-9 Depression Total Score: 5 08/23/20 24 11:38 AM EDT documented as of this encounter Care Teams Pilot Fuel Engineer Relationship Specialty Start Date End Date Patti Clark MD [address] [place] [address] PCP - General Family Medicine 12/10/20 Kanchan Hughes NP Psychiatrist 09/24/24 documented as of this encounter
--- OUTSIDE RECORDS SUMMARY | 2024-12-05 09:05 | XMS_ITS | Encounter Summary ---
Author Organization [employer] Address [address] [place] [address] Care Team Providers Care Tandem Mill Sticker Name Role Phone Patti Clark MD Primary Care Provider [phone] Encounter Details Date Type Department Care Team (Latest Contact Info) Description 11/06/2024 Travel Social History Tobacco Use Types Packs/Day [...] Upcoming Encounters Date Type Department Care Team ([facility] st Contact Info) Description 12/11/2024 9:00 AM EST Telemedicine [facility] [address] [place] [address] Abbey Fonseca MD [address] [place] [address] documented as of this encounter Visit Diagnoses Not on filedocumented in this encounter Additional Health Concerns Assessment Noted Time PHQ-9 Depression Total Score: 5 08/23/20 24 11:38 AM EDT documented as of this encounter Care Teams Tandem Mill Sticker Relationship Specialty Start Date End Date Patti Clark MD [address] [place] [address] PCP - General Family Medicine 12/10/20 Kanchan Hughes NP Psychiatrist 09/24/24 documented as of this encounter
--- OUTSIDE RECORDS SUMMARY | 2024-12-05 09:05 | XMS_ITS | Encounter Summary ---
Author Organization [employer] Address [address] [place] [address] Care Team Providers Care Supervisor Weaving Name Role Phone Patti Clark MD Primary Care Provider [phone] Reason for Visit * Reason Comments Med Refill Encounter Details Date Type Department Care Team ([facility] st Contact Info) Description 05/28/2024 Refill [facility] & PEDS [address] [place] [address] Patti Clark MD [address] [place] [address] Social History Tobacco Use Types Packs/Day Years Used Date Smoking Tobacco: Never Passive Smoke Exposure: Never Smokeless Tobacco: Never Alcohol Use Standard Drinks/Week Comments Never 0 (1 standard drink = 0.6 oz pur e alcohol) Depression Answer Date Recorded Patient Health Questionnaire-9 Score 9 11/18/2023 Patient Health Questionnaire-9 Score 9 11/18/2023 Last PHQ-9: Questionnaire Data Not on file 0 11/18/2023 Housing Stability Answer Date Recorded What is [...] Answer Date Recorded Patient Health Questionnaire-2 Score 4 11/18/2023 Comments Unknown Sex and Gender Information Value [...] 12/11/2024 9:00 AM EST Telemedicine [facility] [address] [place] [address] Abbey Fonseca MD [address] [place] [address] documented as of this encounter Visit Diagnoses Not on filedocumented in this encounter Additional Health Concerns Assessment Noted Time PHQ-9 Depression Total Score: 9 11/18/19 24 8:24 AM EST documented as of this encounter Care Teams Supervisor Weaving Relationship Specialty Start Date End Date Patti Clark MD [address] [place] [address] PCP - General Family Medicine 12/10/20 Kanchan Hughes PROOF MACHINE OPERATOR Psychiatrist 09/24/24 documented as of this encounter
--- OUTSIDE RECORDS SUMMARY | 2024-12-05 09:05 | XMS_ITS | Encounter Summary ---
Author Organization [employer] Address [address] [place] [address] Care Team Providers Care Insurance Associate Name Role Phone Patti Clark MD Primary Care Provider [phone] Encounter Details Date Type Department Care Team (Latest Contact Info) Description 11/06/2024 11:15 AM EST Office Visit [facility] [address] [place], [place] [phone] Nessa Mayfield, OD [address] [place], [place] [phone] Other chronic allergic conjunctivitis of both eyes (Primary Dx); Retinal hole of left eye Social History Tobacco Use Types Packs/Day Years [...] Progress Notes * Nessa Mayfield, OD - 11/06/2024 11:15 AM EST Eye Care Progress Note Patient ID: Fariba Corrales is a 39 y.o. female. HPI Patient reports for doctor directed 3 month f/u for retinal hole left eye (OS). Patient denies floaters/flashes in vision. Patient c/o itching and burning sensation left eye (OS)>right eye (OD) x 1-2 months. Patient is uncomfortable with dilation today and would like to reschedule for a time when she can bring a national van truck driver. Last edited by Nessa Mayfield, OD on 11/06/2024 3:09 PM. Current Outpatient Medications Medication Sig Dispense Refill [...] No current facility-administered medications for this visit. History reviewed. No pertinent past medical history. History reviewed. No pertinent surgical history. Family History Problem Relation Name Age of Onset Osteogenesis imperfecta Mother Tobacco Use: Low Risk (11/06/2024) Tobacco Smoking Tobacco Use: Never Smokeless Tobacco Use: Never Passive Exposure: Never No Known Allergies ROS Negative for: Constitutional, Gastrointestinal, Neurological, Skin, Genitourinary, Musculoskeletal,HENT, Endocrine, Cardiovascular, Eyes, Respiratory, Psychiatric, Allergic/Imm, Heme/Lymph Last edited by Nessa Mayfield, ROX on 11/06/2024 11:11 AM. Base Eye Exam Visual Acuity (Snellen - Linear) Right Left Dist cc 20/20 20/20 Tonometry ([facility] , 3:10 PM) Right Left Pressure 16 16 Pupils Pupils APD Right PERRL None Left PERRL None Visual Woodard (Counting fingers) Left Right Full Full Extraocular Movement Right Left Full Full Neuro/Psych Oriented x3: Yes Mood/Affect: Normal Dilation Pt declined dilation Slit Lamp and Fundus Exam External Exam [...] reactive Round and reactive Lens Clear Clear Assessment and Plan Diagnoses and all orders for this visit: Other chronic allergic conjunctivitis of both eyes - Recommended use of Pataday 1gtt every day PRN, Rx sent to pharmacy - olopatadine (Pataday) 0.2 % ophthalmic solution; Administer 1 drop into both eyes Once per day. ---Not directly assessed today--- 2. Retinal hole of left eye - Rescheduled DFE for 1 week - Discussed symptoms of retinal detachment and to RTC immediately if flashes/floaters/curtains overvision occur Nesas Mayfield, ROX 11/06/2024, 3:10 PM documented in this encounter Plan of Treatment Upcoming Encounters Date Type Department Care Team (Late st Contact Info) Description 12/11/2024 9:00 AM EST Telemedicine [facility]EDS [address] [place] [address] Abbey Fonseca MD [address] [place] [address] documented as of this encounter Visit Diagnoses Diagnosis Other chronic allergic conjunctivitis of both eyes- Primary Retinal hole of left eye documented in this encounter Additional Health Concerns Assessment Noted Time PHQ-9 Depression Total Score: 5 08/23/20 24 11:38 AM EDT documented as of this encounter Care Teams Insurance Associate Relationship Specialty Start Date End Date Patti Clark MD [address] [place] [address] PCP - General Family Medicine 12/10/20 Kanchan Hughes NP Psychiatrist 09/24/24 documented as of this encounter
--- OUTSIDE RECORDS SUMMARY | 2024-12-05 09:05 | XMS_ITS | Encounter Summary ---
Author Organization [employer] Address [address] [place] [address] Care Team Providers Care Product Development Carpenter Name Role Phone Patti Clark MD Primary Care Provider [phone] Reason for Visit * Reason Onset Date Comments Nurse Triage 06/11/2024 Encounter Details Date Type Department Care Team ([facility] st Contact Info) Description 06/11/2024 Telephone [facility] [address] [place] [address] Patti Clark MD [address] [place] [address] Nurse Triage Social History Tobacco Use Types Packs/Day Years [...] Patient Health Questionnaire-2 Score 2 08/23/2024 Comments Unknown Sex and Gender Information Value Date Recorded Sex Assigned at Female 08/23/2022 10:16 AM EDT Legal Sex Female 10:16 AM EDT Gender Identity Female 08/23/2022 10:16 AM EDT Sexual Orientation Straight 08/23/2022 10 :16 AM EDT documented as of this encounter Miscellaneous Notes * Telephone Encounter - Keturah Adams RN - 06/11/2024 11:14 AM EDT Triage call Pt reports itchiness which started 06/06/24 primarily on face. Pt reports 06/09/24 itchiness began to spread to arms, legs. Pt denies redness but, describes bumpy skin. Pt denies any changes in soaps, lotions, laundry detergent. Pt also reports a burning sensation on face with tenderness to touch also. But, again denies any obvious rash like look. Pt is advised to come to [facility] which is open till 800pm today. Pt agrees with disposition and will come when Pt comes home from work for ride. Home care reviewed. Insurance is verified as active. Protocol Used: Itching - Widespread (Adult) Protocol-Based Disposition: See in Office or Video Visit Today or Tomorrow Video visit not offered Positive Triage Question: * Patient wants to be seen * All higher-acuity triage questions were negative Care Advice Discussed: * Reassurance and Education - Widespread Itching * Don't Scratch * Avoid Soaps * Moisturize the Skin With Lotion * Reasons To Call Back - Rash occurs - Itching becomes worse or lasts over 48 hours - You become worse * Telephone Encounter - Padmini Jordan - 06/11/2024 10:50 AM EDT Symptom: Itching - No Rash Outcome: Schedule an appointment to be seen within 24 hours Reason: severe burning on skin The caller accepted this outcome Please contact at [phone] documented in this encounter Plan of Treatment Upcoming Encounters Date Type Department Care Team ([facility] st Contact Info) Description 12/11/2024 9:00 AM EST Telemedicine [facility] MED & PEDS [address] [place] [address] Abbey Fonseca MD [address] [place] [address] documented as of this encounter Visit Diagnoses Not on filedocumented in this encounter Additional Health Concerns Assessment Noted Time PHQ-9 Depression Total Score: 9 11/18/19 24 8:24 AM EST documented as of this encounter Care Teams Product Development Carpenter Relationship Specialty Start Date End Date Patti Clark MD [address] [place] [address] PCP - General Family Medicine 12/10/20 Kanchan Hughes NP Psychiatrist 09/24/24 documented as of this encounter
== END 2024-12-05 08:27 | disposition home or self-care (01) ==
LOC: HO.HOSX 08:26
PROVIDERS: Visit Provider Physician Assistant
DX: M25.511 Pain in right shoulder (principal); M77.8 Other enthesopathies, not elsewhere classified
CPT/HCPCS: 20610; 73030; 99212; J1010; J2003

== ENCOUNTER 2024-12-05 10:45 | Outpatient (AMB) | payer MEDICAID, SELFPAY ==
--- NOTE | 2024-12-05 10:51 | MHC.OFFVIS ---
Vital Signs 12/05/24 10:59 Height 5 ft 6 in Weight 177 lb BMI 28.6 Intake Visit Reasons: New Problem - Left Shoulder Pain Intake Note: Fariba is a 39 year old right hand dominant female who presents today for a new problem visit with complaints of left shoulder pain. Patient reports that in July of 2024 she was moving and was lifting a table when she had pain in her shoulder. Her pain is felt all the time, her pain affects her quality of sleep. She has popping/clicking with ROM. She has tried and failed PT. She is taking Tylenol & Ibuprofen, uses topical creamsn and heat application with no relief. Denies numbness and tingling Allergies No Known Allergies [No Known Allergies*] Allergy (Verified 12/03/24 12:52) HPI HPI New Problem - Left Shoulder Pain: Details: 39-year-old female returns to the office today for pain in the left shoulder. She states she has had pain since July of last year after lifting a table. She states she felt a pop at that time and ever since she has had discomfort with lifting or raising the arm. This is limiting her ability to perform daily activities. [facility] Medical History Arthritis COVID-19 long hauler manifesting chronic muscle pain COVID-19 long hauler Migraine headache Back pain Surgical History S/P insertion of spinal cord stimulator History of appendectomy Family History Father Diabetes Mother Heart disease HTN (hypertension) Brother Cerebrovascular accident (CVA) Social History Alcohol intake: never Patient Tobacco Use Status: Never used Tobacco Current occupational status: unemployed Current occupation: right handed. Gender identity: Female Female Reproductive History Menstrual Age of Menarche: 12 Review of Systems Const All systems reviewed & are unremarkable except as noted in HPI and below Physical Exam Vital Signs: BMI result Body Mass Index 28.6 Const General: cooperative and no acute distress Orientation/consciousness: patient oriented x3 Resp Effort & Inspection: normal respiratory effort and able to speak in complete sentences Cardio Peripheral pulses: Peripheral pulses 2+ throughout Neuro General: patient oriented x3 Extrem Other: Left shoulder normal to inspection. She has full range of motion in all planes however she has discomfort with reaching beyond 90 degrees of forward flexion. There is tenderness over the proximal biceps tendon and positive Terrell. Neurovascularly intact. Office Procedures AMB Joint Injection/Aspiration Joint Injection/Aspiration Primary Site: left shoulder Prep: site was prepped using aseptic technique, ethochloride spray was applied and injection warnings given Injected: 80 mg of, DepoMedrol, with 8 mL of, 1% plain lidocaine and in the subcromial space Approach Used: posterolateral Procedure: The patient tolerated the procedure well and there was some relief with the local anesthesia Coding 44850 - Glenohumeral/Tronchanteric Bursa/Intraarticular Procedure code (CPT) selection complete Results Reviewed Results Reviewed: X-rays of the left shoulder obtained in the office today are negative for any acute or chronic abnormalities. Assessment & Plan Assessment & Plan (1) Left shoulder tendonitis: Code(s): M77.8 - Other enthesopathies, not elsewhere classified Category: Medical Plan: We discussed options today, which include steroid injection. The patient did consent to move forward with the injection, which was tolerated well.? I recommended rest, ice and elevation and OTC antiinflammatories prn for discomfort. If symptoms persist over the next 6-8 weeks, they will contact our office, otherwise, prn Orders: Orders XR shoulder LT min 2V Today M25.512 - Pain in left shoulder Medications: New ibuprofen 800 mg PO Q8H PRN 90 tabs 3RF pain 30 days Coding Level of Care Code Est Pt Level 3 (82060) Complex EM visit Add On G2211 Diagnoses Left shoulder tendonitis M77.8 CPT Codes Coding - Joint 7: 45087 - Glenohumeral/Tronchanteric Bursa/Intraarticular ([id number])
[2024-12-05 10:59] VITALS: BMI 28.6
--- OUTSIDE RECORDS SUMMARY | 2024-12-05 12:33 | XMS_ITS | Clinical Summary ---
Author Organization [employer] Address [address] [place] [address] Care Team Providers Care Electrical Project Manager Name Role Phone Patti Clark MD Primary Care Provider [phone] Allergies No known active allergies Medications cholecalciferol [...] daily for 10 days until can completes DIETETICS PROFESSOR eval -denies any risk factors to take [...] EST): Patient reports she was seen in [facility] [place]ist but she was concern about his rapport, requested referral to specialist in [place], referral placed. Assessment & Plan (11/23/2022 5:23 [...] recommended reduction of 20-30% of maintenance calories; nuclear medicine tech referral offered. Recommended to decrease soda and sugary beverage consumption. Recommended at least 20 g per meal of protein to assist with satiety. Recommended at least 150 min/week of moderate intensity exercise. Assessment & Plan (04/02/2024 2:27 AM EDT): -Pt has lost 6 pounds. Discussed calorie deficit, recommended reduction of 20-30% of maintenance calories; nuclear medicine tech referral offered. Recommended to decrease soda and sugary beverage consumption. Recommended at least 20 g per meal of protein to assist with satiety. Recommended at least 150 min/week of moderate intensity exercise. -f/u in 3 months Assessment & Plan (01/24/2024 9:19 AM EDT): - Discussed calorie deficit, recommended reduction of 20-30% of maintenance calories; nuclear medicine tech referral offered. Recommended to decrease soda and sugary beverage consumption. Recommended at least 20 g per meal of protein to assist with satiety. Recommended at least 150 min/week of moderate intensity exercise. Will start trial of AOM to assist w/ wt loss. Assessment & Plan (11/18/2023 8:55 AM EST): Discussed calorie deficit, recommended reduction of 20-30% of maintenance calories; nuclear medicine tech referral offered. Recommended to decrease soda and [...] recommended reduction of 20-30% of maintenance calories; nuclear medicine tech referral offered. Recommended to decrease soda and [...] chronic pain management she does follow in [place] with [facility] but is thinking of switching to [facility], report patient that she will need to inform specialist of her decision. Pain in female pelvis 10/09/2018 Encounters Date Type Department Care Team Description 11/19/2024 Orders Only [facility] [address] [place] [address] Abbey Fonseca MD 11/16/2024 Telephone [facility]ED[facility] [address] [place], [place] [phone] Patti Clark MD PA 11/13/2024 Telephone [facility] [address] [place], [place] [phone] Patti Clark MD 11/09/2024 10:30 AM EST Office Visit [facility] [address] [place] [address] Nessa [place], OD Retinal hole of left eye (Primary Dx) 11/09/2024 Travel 11/07/2024 Refill [facility] [address] [place] [address] Patti Clark MD 11/06/2024 11:15 AM EST Office Visit [facility] [address] [place] [address] Nessa [place], OD Other chronic allergic conjunctivitis of both eyes (Primary Dx); Retinal hole of left eye 11/06/2024 Travel 10/05/[address] [address] Cony Brown RN Error (VOID this visit) 10/05/2024 Orders Only [facility] [address] [place] [address] Erin Soto MD 10/01/2024 Telephone [facility] [address] [place] [address] Erin Soto MD Results (Ultrasound) 09/24/2024 10:00 AM EST Office Visit [facility] [address] [place] [address] Patti Clark MD Rotator cuff tendinitis, left (Primary Dx); Chronic pain of multiple joints 09/24/2024 Travel 09/19/2024 Travel 09/19/2024 Telephone [facility] [address] [place] [address] Glo Garner MD 09/18/2024 11:00 AM EST Office Visit [facility] [address] [place] [address] Glo Garner MD Dysmenorrhea (Primary Dx); Vaginal bleeding; Excessive bleeding in premenopausal period 09/18/2024 Orders Only [facility] [address] [place] [phone] Glo Garner MD 09/14/[address] [address] Patti Clark MD Results 09/12/2024 Orders Only [facility] [address] [place] [address] Erin Soto MD Menorrhagia with regular cycle (Primary Dx) 09/11/2024 Telephone [facility] [address] [place] [address] Patti Clark MD Request For Order(s) 09/10/2024 9:00 AM EST Office Visit [facility] [address] [place] [address] Erin Soto MD Menorrhagia with regular cycle [...] Info) Description 12/11/2024 9:00 AM EST Telemedicine [facility] [address] [place] [address] Abbey Fonseca MD [address] [place] [address] Health Maintenance Due Date Last Done Comments [...] resultswithin the time period is included. Pathologist [facility] Preg Test, Ur Negative Negative, Indeterminate, None Detected, Invalid, Specimen unsatisfactory for evaluation, Weakly Positive Urine 09/18/2024 11:2 0 AM EST Glo Al MD POINT OF CARE RAVINDRA T ENTER/EDIT ORDERABLES Final Result * Bacterial Vaginosis (09/18/2024 12:00 AM EST) Pathologist [facility] TRICHOMONAS VAGINALIS DETECTION BY PCR NOT DETECTED Not Detect [facility] BACTERIAL VAGINOSIS DETECTION BY PCR NEGATIVE Negative [facility] Comment:The BV organism targ ets [...] DETECTION BY PCR NOT DETECTED Not Detect [facility] Maggie glab krusei PCR NOT DETECTED Not Detect [facility] 09/18/2024 09/18/2024 Glo Al MD LAB MICROBIOLOGY - GENERAL ORDERABLES Final Result [facility] [address] [place] [address] [phone] * Chlamydia/N. Gonorrhoeae RNA, TMA, Urogenitial (09/18/2024 12:00 AM EST) CT PCR NOT DETECTED Not Detect. [facility] Comment:A not detected test result [...] psychologicalconsequences. NG PCR NOT DETECTED Not Detect. [facility] Comment:A not detected test result [...] medical, social or psychologicalconsequences. 09/18/2024 09/18/2024 Narrative [facility] - 09/19/2024 4:10 AM EST Vaginal us Glo Al MD LAB MICROBIOLOGY - GENERAL ORDERABLES Final Result Performing Organization Address City/[facility]/ZIP Co de Phone Number [facility] [address] [place] [address] [phone] * TSH W/Reflex to FT4 (09/10/2024 9:35 AM EST) TSH reflex Free T4 3.77 0.32 - 4.0 uIU/mL [facility] Blood Venous blood specimen / Unknown 09/10/2024 9:35 AM EST 09/10/2024 11:32 AM EST us Erin Soto MD LAB BLOOD ORDERABLES Final Result Performing Organization Address [facility]/ZIP Co de Phone Number [facility] [address] [place] [phone] * (ABNORMAL) CBC auto differential (09/10/2024 9:35 AM EST) Pathologist [facility] White Blood Count 5.7 4.8 - 10.8 X10*3/uL [facility] Red Blood Count 4.10(L) 4.20 - 5.50 X10*6/uL [facility] Hemoglobin 12.1 12.0 - 16.0 g/dl [facility] Hematocrit 37.1 37.0 - 47.0 % [facility] Mean Corpuscular Volume 90.5 80.0 - 98.0 fL [facility] Mean Corpuscular Hemoglobin 29.5 27.0 - 33.0 pg [facility] Mean Corpuscular HGB Conc 32.6 31.0 - 35.0 g/dl [facility] Red Cell Distribution Width 14.0 11.0 - 16.0 % [facility] Platelet Count 213 160 - 400 X10*3/uL [facility] Mean Platelet Volume 10.4 9.4 - 12.3 fL [facility] Neutrophils Percent Auto 47.1 45 - 73 % [facility] Imm Gran Pct Auto 0.2 0.0 - 0.4 % [facility] Lymphocytes Percent Auto 40.2(H) 20 - 40 % [facility] Monocytes Percent Auto 10.6 2 - 11 % [facility] Eosinophils Percent Auto 1.4 0 - 4 % [facility] Basophils Percent Auto 0.5 0 - 2 % [facility] NRBC Pct Auto 0.0 0.0 - 0.2 /100WBC [facility] Neutrophils Absolute Auto 2.7 2.0 - 8.3 x10*3/uL [facility] Imm Gran Abs Auto 0.01 0.00 - 0.03 X10*3/uL [facility] Lymphocytes Absolute Auto 2.3 1.2 - 4.9 X10*3/uL [facility] Monocytes Absolute Auto 0.6 0.1 - 1.2 X10*3/uL [facility] Eosinophils Absolute Auto 0.1 0.0 - 0.4 X10*3/uL [facility] Basophils Absolute Auto 0.0 0.0 - 0.2 X10*3/uL [facility] NRBC Abs Auto 0.000 0.0 - 0.012 X10*3/uL [facility] Blood Venous blood specimen / Unknown 09/10/2024 9:35 AM EST 09/10/2024 11:32 AM EST Erin Soto MD LAB BLOOD ORDERABLES Final Result [facility] [address] [place] [phone] * Partial Thromboplastin Time, Activated (APTT) (09/10/2024 9:35 AM EST) Partial Thromboplastin Time 28.2 26.0 - 36.8 SEC [facility] Comment:For information rega rding the monitoring of direct thrombininhibitors, please refer to Pharmacy. Blood Venous blood specimen / Unknown 09/10/2024 9:35 AM EST 09/10/2024 11:32 AM EST us Erin Soto MD LAB BLOOD ORDERABLES Final Result Performing Organization Address [facility] Co de Phone Number [facility] [address] [place] [phone] * Prothrombin Time-INR (09/10/2024 9:35 AM EST) Prothrombin Time 10.9 10.9 - 12.4 SEC [facility] INTERNATIONAL NORM RATIO 0.9 0.9 - 1.1 [facility] Comment:INTERNATIONAL NORMAL IZED RATIO (INR) [...] BLOOD ORDERABLES Final Result Performing Organization Address [facility] Co de Phone Number [facility] [address] [place] [phone] * Ferritin (09/10/2024 9:35 AM EST) Ferritin 83 10 - 122 ng/mL [facility] Blood Venous blood specimen / Unknown 09/10/2024 9:35 AM EST 09/10/2024 11:32 AM EST us Erin Soto MD LAB BLOOD ORDERABLES Final Result Performing Organization Address [facility] Co de Phone Number [facility] [address] [place] [phone] * (ABNORMAL) LIPID PANEL, STANDARD (12/28/2021 [...] ?? Abdon NELSON et al. CATHERINE. 2013;310(19): 4667-0721 ?? (http://education.CS Networks/faq/ATL322) Non-HDL Cholesterol 150(H) <130 mg/dL (calc) [facility] Comment: For patients with diabetes plus 1 major ASCVD risk ?? factor, treating to a non-HDL-C goal of <100 mg/dL ?? (LDL-C of <70 mg/dL) is considered a therapeutic ?? option. Triglycerides 78 <150 mg/dL [facility] 12/28/2021 11:2 5 AM EST us Patti Clark MD LAB BLOOD ORDERABLES Final Re sult [facility] [address] * HPV E6/E7 RFLX ANTWAN 16 18/45 (04/24/2021 3:22 PM EDT) HPV mRNA E6/E7 rflx Not Detected Not Detected [facility] Comment: Methodology: Data Migration Consultant-Mediated Amplification This assay detects E6/E7 viral messenger RNA (mRNA) from 14 high-risk HPV types (16,18,31,33,35,39,45,51,52,56,58,59,66,68). The analytical performance characteristics of this assay have been determined by [employer] system. The modifications have not been cleared or approved by the FDA. This assay has been validated pursuant to the CLIA regulations and is used for clinical purposes. For additional information, please refer to http://CoinSeed.Easiest Credit Card To Get Approved For/faq/XSL003i3 (This link if provided for information/ educational purposes only.) THIS TEST WAS PERFORMED AT: [email or web address] [address] [place] [address] [address] [place], [place] ??[phone] FAISAL MINOR MD 04/24/2021 3:22 PM EDT Cony Hart HISTORICAL/NON ORDERABLE LABS Fi nal Result Performing Organization Address City/State/[facility] Co de Phone Number [facility] [address] * HIV 1/2 ANTIGEN/ANTIBODY,FOURTH GENERATION W/RFL (08/21/2020 10:06 AM EDT) HIV-1/2 ANTIGEN AND ANTIBODIES, 4TH GENERATION W/ REFLEX NON-REACT LARA NON-REACT LARA [facility] Comment: HIV-1 antigen and HIV-1/HIV-2 [...] ? For additional information please refer to http://education.Shelfari.BigTeams/faq/UEG854 (This link is being provided for informational/ educational purposes only.) ? The performance of this assay has not been clinically validated in patients less than 2 years old. ?? 08/21/2020 10:0 6 AM EDT Cielo Asaf OUTSOLE TACKER LAB BLOOD ORDERABLES Final Resul t [facility] [address] from Last 3 Months or Most Recently Relevant to Health Maintenance Insurance [facility] C3 Care Teams Electrical Project Manager Relationship Specialty Start Date End Date Patti Clark MD [address] [place] [address] PCP - General Family Medicine 12/10/20 Kanchan Hughes NP Psychiatrist 09/24/24
--- OUTSIDE RECORDS SUMMARY | 2024-12-05 12:33 | XMS_ITS | Encounter Summary ---
Author Organization [employer] Address [address] [place] [address] Care Team Providers Care Ep Specialist Name Role Phone Patti Clark MD Primary Care Provider [phone] Reason for Visit * Reason Onset Date Comments Appointment Request 12/20/2022 Encounter Details Date Type Department Care Team ([facility] st Contact Info) Description 12/20/2022 Telephone [facility] [address] [place] [address] Patti Clark MD [address] [place] [address] Appointment Request Social History Tobacco Use Types [...] regarding message below. Please contact pt at [phone] * Telephone Encounter - Adan Ambrocio - 12/20/2022 3:27 PM EST Tc from pt requesting to r/s appt 12/21/22 ( ER follow up [facility] 12/16 for low back pain and passing out due to the pain. ) Please contact pt at [phone] documented in this encounter Plan of Treatment Upcoming Encounters Date Type Department Care Team (Late st Contact Info) Description 12/11/2024 9:00 AM EST Telemedicine [facility] [address] [place] [address] Abbey Fonseca MD [address] [place] [address] documented as of this encounter Visit Diagnoses Not on filedocumented in this encounter Additional Health Concerns Assessment Noted Time PHQ-9 Depression Total Score: 11 11/23/ 023 3:48 PM EST documented as of this encounter Care Teams Ep Specialist Relationship Specialty Start Date End Date Patti Clark MD [address] [place] [address] PCP - General Family Medicine 12/10/20 Kanchan Hughes NP Psychiatrist 09/24/24 documented as of this encounter
--- OUTSIDE RECORDS SUMMARY | 2024-12-05 12:34 | XMS_ITS | Encounter Summary ---
Author Organization [employer] Address [address] [place] [address] Care Team Providers Care Meter Attendant Name Role Phone Patti Clark MD Primary Care Provider [phone] Encounter Details Date Type Department Care Team ([facility] st Contact Info) Description 11/19/[address] [facility] [address] [place] [address] Abbey Fonseca MD [address] [place] [address] Social History Tobacco Use Types Packs/Day Years [...] Upcoming Encounters Date Type Department Care Team ([facility] st Contact Info) Description 12/11/2024 9:00 AM EST Telemedicine [facility] [address] [place] [address] Abbey Fonseca MD [address] [place] [address] documented as of this encounter Visit Diagnoses Not on filedocumented in this encounter Additional Health Concerns Assessment Noted Time PHQ-9 Depression Total Score: 5 08/23/20 24 11:38 AM EDT documented as of this encounter Care Teams Meter Attendant Relationship Specialty Start Date End Date Patti Clark MD [address] [place] [address] PCP - General Family Medicine 12/10/20 Kanchan Hughes NP Psychiatrist 09/24/24 documented as of this encounter
--- OUTSIDE RECORDS SUMMARY | 2024-12-05 12:34 | XMS_ITS | Encounter Summary ---
Author Organization [employer] Address [address] [facility] [address] 7t [place] [address] Care Team Providers Care Primary Substance Abuse Counselor Name Role Phone Patti Clark MD Primary Care Provider [phone] Encounter Details Date Type Department Care Team [...] Upcoming Encounters Date Type Department Care Team ([facility] st Contact Info) Description 12/11/2024 9:00 AM EST Telemedicine [facility] MED & PEDS [address] [place] [address] Abbey Fonseca MD 505 [place] [address] documented as of this encounter Visit Diagnoses Not on filedocumented in this encounter Additional Health Concerns Assessment Noted Time PHQ-9 Depression Total Score: 5 08/23/20 24 11:38 AM EDT documented as of this encounter Care Teams Primary Substance Abuse Counselor Relationship Specialty Start Date End Date Patti Clark MD [address] [place] [address] PCP - General Family Medicine 12/10/20 Kanchan Hughes NP Psychiatrist 09/24/24 documented as of this encounter
--- OUTSIDE RECORDS SUMMARY | 2024-12-05 12:34 | XMS_ITS | Encounter Summary ---
Author Organization [employer] Address [address] [facility] [address] 7[address] [place] [address] Care Team Providers Care Shirt Creaser Name Role Phone Patti Clark MD Primary Care Provider [phone] Encounter Details Date Type Department Care Team (Latest Contact Info) Description 11/06/2024 11:15 AM EST Office Visit [facility] [address] [place], [place] [address] Nessa Mayfield, OD [address] [place], [place] [id number] Other chronic allergic conjunctivitis of both eyes [...] a time when she can bring a driver examiner. Last edited by Nessa Mayfield, OD on [...] to RTC immediately if flashes/floaters/curtains overvision occur Nessa Mayfield, ROX 11/06/2024, 3:10 PM documented in this encounter Plan of Treatment Upcoming Encounters Date Type Department Care Team (Late st Contact Info) Description 12/11/2024 9:00 AM EST Telemedicine [facility] CH[facility] MED & PEDS [address] [place] [address] Abbey Fonseca MD 505 [place] [address] documented as of this encounter Visit Diagnoses Diagnosis Other chronic allergic conjunctivitis of both eyes- Primary Retinal hole of left eye documented in this encounter Additional Health Concerns Assessment Noted Time PHQ-9 Depression Total Score: 5 08/23/20 24 11:38 AM EDT documented as of this encounter Care Teams Shirt Creaser Relationship Specialty Start Date End Date Patti Clark MD [address] [place] [address] PCP - General Family Medicine 12/10/20 Kanchan Hughes NP Psychiatrist 09/24/24 documented as of this encounter
--- OUTSIDE RECORDS SUMMARY | 2024-12-05 12:34 | XMS_ITS | Encounter Summary ---
Author Organization [employer] Address [address] [facility] [address] [facility] [address] [place] [address] Care Team Providers Care Sewage Plant Operator Name Role Phone Patti Clark MD Primary Care Provider [phone] Encounter Details Date Type Department Care Team ([facility] st Contact Info) Description 11/09/2024 10:30 AM EST Office Visit [facility] [address] [place], [place] [phone] Nessa Mayfield, OD [address] [place] [address] Retinal hole of left eye (Primary Dx) [...] (-) schaffers sign (-) schaffers sign [facility] C/D Ratio Vertical 0.50 0.50 [...] Info) Description 12/11/2024 9:00 AM EST Telemedicine [facility] MED & PEDS [address] [place] [address] Abbey Fonseca MD 505 [place] [address] documented as of this encounter Visit Diagnoses Diagnosis Retinal hole of left eye- Primary documented in this encounter Additional Health Concerns Assessment Noted Time PHQ-9 Depression Total Score: 5 08/23/20 24 11:38 AM EDT documented as of this encounter Care Teams Sewage Plant Operator Relationship Specialty Start Date End Date Patti Clark MD 230 [place] [address] PCP - General Family Medicine 12/10/20 Kanchan Hughes, EDUCATION TEACHER Psychiatrist 09/24/24 documented as of this encounter
--- OUTSIDE RECORDS SUMMARY | 2024-12-05 12:34 | XMS_ITS | Encounter Summary ---
Author Organization [employer] Address [address] [facility] [address] 7[address] [place] [address] Care Team Providers Care Electrician Ship Name Role Phone Patti Clark MD Primary Care Provider [phone] Reason for Visit * Reason Onset Date Comments Med Refill 11/07/2024 Encounter Details Date Type Department Care Team (Late st Contact Info) Description 11/07/2024 Refill [facility] MEDICINE [address] [place] [address] Patti Clark MD 505 [place] [address] Social History Tobacco Use Types Packs/Day Years [...] MG/1.5ML solution pen-injector To be sent to: [facility] - [place], [place] - [address] [facility] documented in this encounter Plan of Treatment Upcoming Encounters Date Type Department Care Team (Late st Contact Info) Description 12/11/2024 9:00 AM EST Telemedicine [facility] CHC MED & PEDS 505 [place] [address] Abbey Fonseca MD 505 [place] [address] documented as of this encounter Visit Diagnoses Not on filedocumented in this encounter Additional Health Concerns Assessment Noted Time PHQ-9 Depression Total Score: 5 08/23/20 24 11:38 AM EDT documented as of this encounter Care Teams Electrician Ship Relationship Specialty Start Date End Date Patti Clark MD 230 [facility] [place] [address] PCP - General Family Medicine 12/10/20 Kanchan Hughes NP Psychiatrist 09/24/24 documented as of this encounter
--- OUTSIDE RECORDS SUMMARY | 2024-12-05 12:34 | XMS_ITS | Encounter Summary ---
Author Organization [employer] Address [address] [facility] [address] [place] [address] Care Team Providers Care Seam Stay Stitcher Name Role Phone Patit Clark MD Primary Care Provider [phone] Encounter Details Date Type Department Care Team [...] Upcoming Encounters Date Type Department Care Team ([facility] st Contact Info) Description 12/11/2024 9:00 AM EST Telemedicine [facility] MED & PEDS [address] [place] [address] Abbey Fonseca MD 505 [place] [address] documented as of this encounter Visit Diagnoses Not on filedocumented in this encounter Additional Health Concerns Assessment Noted Time PHQ-9 Depression Total Score: 5 08/23/20 24 11:38 AM EDT documented as of this encounter Care Teams Seam Stay Stitcher Relationship Specialty Start Date End Date Patti Clark MD 230 [place] [address] PCP - General Family Medicine 12/10/20 Kanchan Hughes NP Psychiatrist 09/24/24 documented as of this encounter
--- OUTSIDE RECORDS SUMMARY | 2024-12-05 12:34 | XMS_ITS | Encounter Summary ---
Author Organization [employer] Address [address] [facility] [facility] [address] [place] [address] Care Team Providers Care General Dentist/Owner Name Role Phone Patti Clark MD Primary Care Provider [phone] Reason for Visit * Reason Onset Date Comments PA 11/16/2024 Encounter Details Date Type Department Care Team ([facility] st Contact Info) Description 11/16/2024 Telephone [facility] CHC MED & PEDS [address] [place] [address] Patti Clark MD 505 [place] [address] PA Social History Tobacco Use Types Packs/Day [...] Info) Description 12/11/2024 9:00 AM EST Telemedicine [facility] CHC MED & PEDS [address] [place] [address] Abbey Fonseca MD 505 [place] [address] documented as of this encounter Visit Diagnoses Not on filedocumented in this encounter Additional Health Concerns Assessment Noted Time PHQ-9 Depression Total Score: 5 08/23/20 24 11:38 AM EDT documented as of this encounter Care Teams General Dentist/Owner Relationship Specialty Start Date End Date Patti Clark MD 230 [place] [address] PCP - General Family Medicine 12/10/20 Kanchan Hughes NP Psychiatrist 09/24/24 documented as of this encounter
--- OUTSIDE RECORDS SUMMARY | 2024-12-05 12:34 | XMS_ITS | Encounter Summary ---
Author Organization [employer] Address [address] [facility] [address] [place] [address] Care Team Providers Care Manager Data Name Role Phone Patti Clark MD Primary Care Provider [phone] Reason for Visit * Reason Comments Med Refill Encounter Details Date Type Department Care Team ([facility] st Contact Info) Description 05/28/2024 Refill [facility] MED & PEDS [address] [place] [address] Patti Clark MD 505 [place] [address] Social History Tobacco Use Types Packs/Day Years [...] Description 12/11/2024 9:00 AM EST Telemedicine [facility] MED & PEDS [address] [place] [address] Abbey Fonseca MD 505 [place] [address] documented as of this encounter Visit Diagnoses Not on filedocumented in this encounter Additional Health Concerns Assessment Noted Time PHQ-9 Depression Total Score: 9 11/18/19 24 8:24 AM EST documented as of this encounter Care Teams Manager Data Relationship Specialty Start Date End Date Patti Clark MD 230 [place] [address] PCP - General Family Medicine 12/10/20 Kanchan Hughes WELL LOGGING OPERATOR MUD ANALYSIS Psychiatrist 09/24/24 documented as of this encounter
--- OUTSIDE RECORDS SUMMARY | 2024-12-05 12:34 | XMS_ITS | Encounter Summary ---
Author Organization [employer] Address [address] [place] [address] Care Team Providers Care Member Of Congress Name Role Phone Patti Clark MD Primary Care Provider [phone] Encounter Details Date Type Department Care Team ([facility] Contact Info) Description 11/13/2024 Telephone [facility] CHC MED & PEDS [address] [place], [place] [phone] Patti Clark MD 505 [place] [address] Social History Tobacco Use Types Packs/Day Years [...] 12/11/2024 9:00 AM EST Telemedicine [facility] MED & PEDS 505 [place] [address] Abbey Fonseca MD 505 [place] [address] documented as of this encounter Visit Diagnoses Not on filedocumented in this encounter Additional Health Concerns Assessment Noted Time PHQ-9 Depression Total Score: 5 08/23/20 24 11:38 AM EDT documented as of this encounter Care Teams Member Of Congress Relationship Specialty Start Date End Date Patti Clark MD 230 [place] [address] PCP - General Family Medicine 12/10/20 Kanchan Hughes NP Psychiatrist 09/24/24 documented as of this encounter
--- OUTSIDE RECORDS SUMMARY | 2024-12-05 12:34 | XMS_ITS | Encounter Summary ---
Author Organization [employer] Address [address] [facility] [address] [place] [address] Care Team Providers Care High Density Press Operator Name Role Phone Patti Clark MD Primary Care Provider [phone] Reason for Referral * Imaging (Routine) - Closed Specialty Diagnoses / Procedures Referred By Contac t Referred To Contact Radiology Diagnoses Menorrhagia with regular cycle Procedures US Pelvis Transvaginal Erin Soto MD [address] [place] [address] Phone: tel: fax: [facility] [address] [place], [place] Phone: tel: fax: Referral ID Status Reason Start Date Expiration Date Visits Re quested Visits Authorized [id number] Closed 09/12/2024 09/12/2025 1 1 Encounter Details Date Type Department Care Team (Late st Contact Info) Description 09/12/2024 Orders Only [facility] CHC MED & PEDS [address] [place] [address] Erin Soto MD [address] [place] [address] Menorrhagia with regular cycle (Primary Dx) Social [...] Description 12/11/2024 9:00 AM EST Telemedicine [facility] CHC MED & PEDS [address] [place] [address] Abbey Fonseca MD 505 [place] [address] Scheduled Orders Name Type Priority Associated Diagnoses Orde r Schedule US Pelvis Transvaginal Imaging Routine Menorrhagia with regular cycle Expected: 09/12/2024, Expires: 09/12/2025 documented as of this encounter Visit Diagnoses Diagnosis Menorrhagia with regular cycle- Primary documented in this encounter Additional Health Concerns Assessment Noted Time PHQ-9 Depression Total Score: 5 08/23/20 24 11:38 AM EDT documented as of this encounter Care Teams High Density Press Operator Relationship Specialty Start Date End Date Patti Clark MD 230 [place] [address] PCP - General Family Medicine 12/10/20 Kanchan Hughes NP Psychiatrist 09/24/24 documented as of this encounter
--- OUTSIDE RECORDS SUMMARY | 2024-12-05 12:34 | XMS_ITS | Encounter Summary ---
Author Organization [employer] Address [address] [facility] [address] 7t [place] [address] Care Team Providers Care Press Shop Supervisor Name Role Phone Patti Clark MD Primary Care Provider [phone] Reason for Visit * Reason Onset Date Comments Nurse Triage 06/11/2024 Encounter Details Date Type Department Care Team ([facility] st Contact Info) Description 06/11/2024 Telephone [facility] MEDICINE 230 [place] [address] Patti Clark MD 505 [place] [address] Nurse Triage Social History Tobacco Use Types [...] look. Pt is advised to come to [facility] which is open till 800pm [...] caller accepted this outcome Please contact at [phone] documented in this encounter Plan of Treatment Upcoming Encounters Date Type Department Care Team ([facility] st Contact Info) Description 12/11/2024 9:00 AM EST Telemedicine [facility] CHC MED & PEDS 505 [place] [address] Abbey Fonseca MD 505 [place] [address] documented as of this encounter Visit Diagnoses Not on filedocumented in this encounter Additional Health Concerns Assessment Noted Time PHQ-9 Depression Total Score: 9 11/18/19 24 8:24 AM EST documented as of this encounter Care Teams Press Shop Supervisor Relationship Specialty Start Date End Date Patti Clark MD [address] [place] [address] PCP - General Family Medicine 12/10/20 Kanchan Hughes NP Psychiatrist 09/24/24 documented as of this encounter
--- OUTSIDE RECORDS SUMMARY | 2024-12-05 12:34 | XMS_ITS | Encounter Summary ---
Author Organization [employer] Address [address] [facility] [address] 7[address] [place] [address] Care Team Providers Care Key Worker Name Role Phone Patti Clark MD Primary Care Provider [phone] Encounter Details Date Type Department Care Team ([facility] st Contact Info) Description 10/05/2024 Orders Only [facility] CHC MED & PEDS [address] [place], [place] [phone] Erin Soto MD 505 [place] [address] Social History Tobacco Use Types Packs/Day Years [...] Upcoming Encounters Date Type Department Care Team ([facility] st Contact Info) Description 12/11/2024 9:00 AM EST Telemedicine [facility] MED & PEDS [address] [place] [address] Abbey Fonseca MD 505 [place] [address] documented as of this encounter Visit Diagnoses Not on filedocumented in this encounter Additional Health Concerns Assessment Noted Time PHQ-9 Depression Total Score: 5 08/23/20 24 11:38 AM EDT documented as of this encounter Care Teams Key Worker Relationship Specialty Start Date End Date Patti Clark MD 230 [place] [address] PCP - General Family Medicine 12/10/20 Kanchan Hughes NP Psychiatrist 09/24/24 documented as of this encounter
== END 2024-12-05 11:30 | disposition home or self-care (01) ==
PROVIDERS: PCP Family Medicine; Visit Provider Physician Assistant
DX: M77.8 Other enthesopathies, not elsewhere classified (principal)
CPT/HCPCS: 20610; 99213

== ENCOUNTER → 2024-12-05 10:53 | Outpatient (BNV) | payer MEDICAID, SELFPAY | PROVIDERS: Visit Provider Radiology Diagnostic Radiology | DX: M25.512 Pain in left shoulder (principal) | CPT/HCPCS: 73030 ==

== ENCOUNTER 2024-12-26 08:14 | Outpatient (REF) | payer MEDICAID, SELFPAY ==
--- OUTSIDE RECORDS SUMMARY | 2024-12-26 08:36 | XMS_ITS | Encounter Summary ---
Author Organization [employer] Address [address] [facility] [address] 7[address] [place] [address] Care Team Providers Care Anglesmith Helper Name Role Phone Patti Clark MD Primary Care Provider [phone] Reason for Visit * Reason Comments Med Refill Encounter Details Date Type Department Care Team ([facility] st Contact Info) Description 05/28/2024 Refill [facility] CHC MED & PEDS [address] [place] [address] Patti Clark MD 505 [place] [address] Social History Tobacco Use Types Packs/Day Years [...] as of this encounter Plan of Treatment Not on file documented as of this encounter Visit Diagnoses Not on filedocumented in this encounter Additional Health Concerns Assessment Noted Time PHQ-9 Depression Total Score: 9 11/18/19 24 8:24 AM EST documented as of this encounter Care Teams Anglesmith Helper Relationship Specialty Start Date End Date Patti Clark MD [address] [place] [address] PCP - General Family Medicine 12/10/20 Kanchan Hughes NP Psychiatrist 09/24/24 documented as of this encounter
--- OUTSIDE RECORDS SUMMARY | 2024-12-26 08:36 | XMS_ITS | Encounter Summary ---
Author Organization [employer] Address [address] [place] [address] Care Team Providers Care Filtering Machine Tender Name Role Phone Patti Clark MD Primary Care Provider [phone] Encounter Details Date Type Department Care Team ([facility] st Contact Info) Description 11/19/2024 Orders Only [facility] [address] [place] [address] Abbey Fonseca MD 505 [place] [address] Social History Tobacco Use Types Packs/Day Years [...] documented as of this encounter Care Teams Filtering Machine Tender Relationship Specialty Start Date End Date Patti Clark MD [address] [place] [address] PCP - General Family Medicine 12/10/20 Kanchan Hughes NP Psychiatrist 09/24/24 documented as of this encounter
--- OUTSIDE RECORDS SUMMARY | 2024-12-26 08:36 | XMS_ITS | Encounter Summary ---
Author Organization [employer] Address [address] [place] [address] Care Team Providers Care Ep Technologist Name Role Phone Patti Clark MD Primary Care Provider Reason for Visit * Reason Onset Date Comments Appointment Request 12/20/2022 Encounter Details Date Type Department Care Team ([facility] st Contact Info) Description 12/20/2022 Telephone [facility] MEDICINE [address] [place] [address] Patti Clark MD 505 [place] [address] Appointment Request Social History Tobacco Use Types [...] regarding message below. Please contact pt at [phone] * Telephone Encounter - Adan Albrecht - 12/20/2022 3:27 PM EST Tc from pt requesting to r/s appt 12/21/22 ( ER follow up [facility] 12/16 for low back pain and passing out due to the pain. ) Please contact pt at [phone] documented in this encounter Plan of Treatment Not on file documented as of this encounter Visit Diagnoses Not on filedocumented in this encounter Additional Health Concerns Assessment Noted Time PHQ-9 Depression Total Score: 11 023 3:48 PM EST documented as of this encounter Care Teams Ep Technologist Relationship Specialty Start Date End Date Patti Clark MD [address] [place] [address] PCP - General Family Medicine 12/10/20 Kanchan Hughes NP Psychiatrist 09/24/24 documented as of this encounter
--- OUTSIDE RECORDS SUMMARY | 2024-12-26 08:36 | XMS_ITS | Encounter Summary ---
Author Organization [employer] Address [address] [facility] 7 [place] [address] Care Team Providers Care Manager Data Center Name Role Phone Patti Clark MD Primary Care Provider [phone] Reason for Referral * Imaging (Routine) - Closed Specialty Diagnoses / Procedures Referred By Contac t Referred To Contact Radiology Diagnoses Menorrhagia with regular cycle Procedures US Pelvis Transvaginal Erin Soto MD [address] [place] [address] Phone: tel: fax: [facility] [address] [place], [place] Phone: tel: fax: Referral ID Status Reason Start Date Expiration Date Visits Re quested Visits Authorized [id number] Closed 09/12/2024 09/12/2025 1 1 Encounter Details Date Type Department Care Team (Late st Contact Info) Description 09/12/2024 Orders Only [facility] CHC MED & PEDS [address] [place] [address] Erin Soto MD [address] [place] [address] Menorrhagia with regular cycle (Primary Dx) Social [...] as of this encounter Plan of Treatment Scheduled Orders Name Type Priority Associated Diagnoses [...] of this encounter Care Teams Manager Data Center Relationship Specialty Start Date End Date Patti Clark MD [address] [place] [address] PCP - General Family Medicine 12/10/20 Kanchan Hughes NP Psychiatrist 09/24/24 documented as of this encounter
--- OUTSIDE RECORDS SUMMARY | 2024-12-26 08:36 | XMS_ITS | Encounter Summary ---
Author Organization [employer] Address [address] [facility] [address] [facility] [address] [place] [address] Care Team Providers Care Accounts Officer Name Role Phone Patti Clark MD Primary Care Provider [phone] Encounter Details Date Type Department Care Team ([facility] st Contact Info) Description 10/05/2024 Orders Only [facility] CHC MED & PEDS [address] [place], [place] [phone] Erin Soto MD 505 [place] [address] Social History Tobacco Use Types Packs/Day Years [...] documented as of this encounter Care Teams Accounts Officer Relationship Specialty Start Date End Date Patti Clark MD 230 [place] [address] PCP - General Family Medicine 12/10/20 Kanchan Hughes NP Psychiatrist 09/24/24 documented as of this encounter
--- OUTSIDE RECORDS SUMMARY | 2024-12-26 08:36 | XMS_ITS | Encounter Summary ---
Author Organization [employer] Address [address] [facility] [address] [place] [address] Care Team Providers Care Naturopathic Doctor Name Role Phone Patti Clark MD Primary Care Provider [phone] Encounter Details Date Type Department Care Team ([facility] Contact Info) Description 12/11/2024 9:00 AM EST Telemedicine [facility] MED & PEDS [address] [place], [place] [id number] Abbey Fonseca MD [address] [place] [address] Class 1 obesity (Primary Dx); Anxiety Social History Tobacco Use Types Packs/Day Years [...] as of this encounter Progress Notes * Abbey Fonseca MD - 12/11/2024 9:00 AM EST Subjective Patient ID: Fariba Corrales is a 39 y.o. female who presents for televisit. Fariba is a 39 y/o female patient of seen via televisit because she needs to be switched to zepbound for weight loss from wegovy. Tolerated well. No vomiting. Highest weight was 220 lbs. Did keto diet, went to 180 lbs. Then with wegovy she went to 164 lbs . She walks a lot. Latest weight at home is 162 lbs. patient is doing really great with her protein intake. She has been able to josephine ntain her weight despite being off GLP-1 since September. Patient was congratulated. She is still seeing her psychiatrist and is on fluoxetine, propranolol Elavil. Review of Systems Constitutional: Negative for activity change, chills, fever and unexpected weight change. Respiratory: Negative for cough, shortness of breath and wheezing. Cardiovascular: Negative for chest pain, palpitations and leg swelling. Gastrointestinal: Negative for abdominal pain and blood in stool. Endocrine: Negative for polydipsia and polyuria. Genitourinary: Negative for decreased urine volume, difficulty urinating, dysuria and hematuria. Musculoskeletal: Negative for arthralgias and gait problem. Skin: Negative for color change and rash. Neurological: Negative for dizziness and headaches. Hematological: Negative for adenopathy. Psychiatric/Behavioral: Negative for dysphoric mood, hallucinations, sleep disturbance and suicidalideas. The patient is not nervous/anxious. Objective Physical Exam Constitutional: General: She is not in acute distress. Neurological: Mental Status: She is alert and oriented to person, place, and time. Mental status is at baseline. Psychiatric: Mood and Affect: Mood normal. Thought Content: Thought content normal. Judgment: Judgment normal. Assessment/Plan Diagnoses and all orders for this visit: Class 1 obesity Comments: Patient is doing great. Has good concept of what to do on GLP-1. Patient was switched from Wegovy to Zepbound today. No PA seems to be needed. Return to clinic in 3 months with PCP.. Next month dose should be increased. Advised patient to add weight training to avoid muscle mass loss. Patient expressed understanding. Orders: - Tirzepatide-Weight Management (Zepbound) 2.5 MG/0.5ML solution auto-injector; Inject 0.05 mL (0.25 mg) under the skin 1 (one) time per week. Anxiety Comments: Patient sees therapist and psychiatrist. Meds reconciled today. States has follow-up with them. Seems stable. documented in this encounter Plan of Treatment Not on file documented as of this encounter Visit Diagnoses Diagnosis Class 1 obesity- Primary Anxiety Anxiety state, unspecified documented in this encounter Additional Health Concerns Assessment Noted Time PHQ-9 Depression Total Score: 5 08/23/20 24 11:38 AM EDT documented as of this encounter Care Teams Naturopathic Doctor Relationship Specialty Start Date End Date Patti Clark MD [address] [place] [address] PCP - General Family Medicine 12/10/20 Kanchan Hughes NP Psychiatrist 09/24/24 documented as of this encounter
--- OUTSIDE RECORDS SUMMARY | 2024-12-26 08:36 | XMS_ITS | Encounter Summary ---
Author Organization [employer] Address [address] [place] [address] Care Team Providers Care Railroad Signal And Switch Operator Name Role Phone Patti Clark MD Primary Care Provider [phone] Encounter Details Date Type Department Care Team (Latest Contact Info) Description 12/11/2024 Travel Social History Tobacco Use Types Packs/Day [...] documented as of this encounter Care Teams Railroad Signal And Switch Operator Relationship Specialty Start Date End Date Patti Clark MD [address] [place] [phone] PCP - General Family Medicine 12/10/20 Kanchan Hughes NP Psychiatrist 09/24/24 documented as of this encounter
--- OUTSIDE RECORDS SUMMARY | 2024-12-26 08:36 | XMS_ITS | Clinical Summary ---
Author Organization [employer] Address [address] [facility] [address] [place] [address] Care Team Providers Care Heading Saw Operator Name Role Phone Patti Clark MD Primary Care Provider [phone] Allergies No known active allergies Medications cholecalciferol [...] 4 TABLETS PER WEEK 12/22/19 24 Active cyclobenzaprine (Flexeril) 10 MG tablet Take 1 tablet (10 mg) by mouth at bedtime. 30 tablet 08/23/20 24 Active norethindrone (Aygestin) 5 MG tablet Take 1 tablet (5 mg) by mouth Once per day for 10 days. 10 tablet 09/18/20 24 Active FLUoxetine (PROzac) 40 MG capsule Take 80 mg by mouth Once per day. 09/05/20 24 Active propranolol (Inderal) 10 MG tablet Take 10 mg by mouth if needed in the morning and at bedtime. 09/05/20 24 Active diclofenac (Voltaren) 75 MG EC tabletIndications: Chronic pain of multiple joints Take 1 tablet (75 mg) by mouth 2 times daily. Do not crush, chew, or split. 60 tablet 09/24/20 24 Active olopatadine (Pataday) 0.2 % ophthalmic solutionIndication s:Other chronic allergic conjunctivitis of both eyes Administer 1 drop into both eyes Once per day. 2.5 mL 5 11/06/19 25 Active SUMAtriptan (Imitrex) 100 MG tablet TAKE 1 TABLET BY MOUTH ONCE NEEDED FOR FOR MIGRAINE 09/24/20 24 Active amitriptyline (Elavil) 25 MG tablet Take 25 mg by mouth at bedtime. 12/22/19 24 Active Tirzepatide-Weight Management (Zepbound) 2.5 MG/0.5ML solution auto-injectorIndic ations:Class 1 obesity Inject 0.05 mL (0.25 mg) under the skin 1 (one) time per week. 2 mL 12/11/19 25 Active semaglutide (Ozempic) 2 MG/1.5ML solution pen-injector Inject 0.25 mg under the skin 1 (one) time per week. 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 Assessment & Plan (11/23/2022 5:23 [...] recommended reduction of 20-30% of maintenance calories; barrel handler referral offered. Recommended to decrease soda and sugary beverage consumption. Recommended at least 20 g per meal of protein to assist with satiety. Recommended at least 150 min/week of moderate intensity exercise. Assessment & Plan (04/02/2024 2:27 AM EDT): -Pt has lost 6 pounds. Discussed calorie deficit, recommended reduction of 20-30% of maintenance calories; barrel handler referral offered. Recommended to decrease soda and sugary beverage consumption. Recommended at least 20 g per meal of protein to assist with satiety. Recommended at least 150 min/week of moderate intensity exercise. -f/u in 3 months Assessment & Plan (01/24/2024 9:19 AM EDT): - Discussed calorie deficit, recommended reduction of 20-30% of maintenance calories; barrel handler referral offered. Recommended to decrease soda and sugary beverage consumption. Recommended at least 20 g per meal of protein to assist with satiety. Recommended at least 150 min/week of moderate intensity exercise. Will start trial of AOM to assist w/ wt loss. Assessment & Plan (11/18/2023 8:55 AM EST): Discussed calorie deficit, recommended reduction of 20-30% of maintenance calories; barrel handler referral offered. Recommended to decrease soda and [...] recommended reduction of 20-30% of maintenance calories; barrel handler referral offered. Recommended to decrease soda and [...] chronic pain management she does follow in [place] with [facility] but is thinking of switching to [facility], report patient that she will need to inform specialist of her decision. Pain in female pelvis 10/09/2018 Encounters Date Type Department Care Team Description 12/11/2024 9:00 AM EST Telemedicine [facility] [address] [place] [address] Abbey Fonseca MD Class 1 obesity (Primary Dx); Anxiety 12/11/2024 Travel 11/19/2024 Orders Only [facility] [address] [place] [address] Abbey Fonseca MD 11/16/2024 Telephone [facility] MED & PEDS [address] [place] [address] Patti Clark MD PA 11/13/2024 Telephone [facility] MED & PEDS [address] [place] [address] Patti Clark MD 11/09/2024 10:30 AM EST Office Visit [facility] OPTOMETRY [address] [place] [address] Nessa Mayfield, OD Retinal hole of left eye (Primary Dx) 11/09/2024 Travel 11/07/2024 Refill [facility] MEDICINE [address] [place] [address] Patti Clark MD 11/06/2024 11:15 AM EST Office Visit [facility] [address] [place] [phone] Nessa Mayfield, OD Other chronic allergic conjunctivitis of both eyes (Primary Dx); Retinal hole of left eye 11/06/2024 Travel 10/05/[address] [address] Cony Brown RN Error (VOID this visit) 10/05/2024 Orders Only [facility] MED & PEDS [address] [place] [address] Erin Soto MD 10/01/2024 Telephone [facility] MED & PEDS [address] [place], [place] [phone] Erin Soto MD Results (Ultrasound) from Last 3 Months Immunizations Name Administration [...] 09/24/2024 9:56 AM EST Plan of Treatment Health Maintenance Due Date Last Done Comments Family Planning (PISQ) 2002 Hepatitis C Screening 2005 Pap Smear 01/28/2008 Hepatitis B Vaccines (2 of 3 - 19+ 3-dose series) 05/20/2016 04/22/2016 COVID-19 Vaccine ( - 2023- season) 2024 04/06/2021, 03/09/2021 Influenza Vaccine (#1) [...] Procedure Name Priority Date/Time Associated Diagnosis Comments LIPID PANEL, STANDARD Routine 12/28/2021 11:25 AM EST [facility] HISTORICAL HPV E6/E7 RFLX ANTWAN 16 18/45 Routine 04/24/2021 3:22 PM EDT HIV 1/2 ANTIGEN/ANTIBODY, FOURTH GENERATION W/RFL Routine 08/21/2020 10:06 AM EDT from Last 3 Months or Most Recently Relevant to Health Maintenance Results * (ABNORMAL) LIPID PANEL, STANDARD (12/28/2021 11:25 [...] ?? LDL-C is now calculated using the Christopher ?? calculation, which is a validated novel method providing ?? better accuracy than the Friedewald equation in the ?? estimation of LDL-C. ?? Abdon NELSON et al. CATHERINE. 2013;310(19): 8359-8312 ?? (http://education.Mahalo.Instamour/faq/NQR394) Non-HDL Cholesterol 150(H) <130 mg/dL (calc) [facility] Comment: For patients with diabetes plus 1 major ASCVD risk ?? factor, treating to a non-HDL-C goal of <100 mg/dL ?? (LDL-C of <70 mg/dL) is considered a therapeutic ?? option. Triglycerides 78 <150 mg/dL [facility] 12/28/2021 11:2 5 AM EST Patti Clark MD LAB BLOOD ORDERABLES Final Re sult Performing Organization Address [facility] Co de Phone Number [facility] [address] [place] [address], * HPV E6/E7 RFLX ANTWAN 16 18/45 (04/24/2021 3:22 PM EDT) HPV mRNA E6/E7 rflx Not Detected Not Detected [facility] Comment: Methodology: Locomotive Crane Engineer-Mediated Amplification This assay detects E6/E7 viral messenger RNA (mRNA) from 14 high-risk HPV types (16,18,31,33,35,39,45,51,52,56,58,59,66,68). The analytical performance characteristics of this assay have been determined by [employer]. The modifications have not been cleared or approved by the FDA. This assay has been validated pursuant to the CLIA regulations and is used for clinical purposes. For additional information, please refer to http://education.mCASH/faq/QVO207b1 (This link if provided for information/ educational purposes only.) THIS TEST WAS PERFORMED AT: [employer] [address] [place] [address],[address] [place], [place] ??[phone] FAISAL MINOR MD 04/24/2021 3:22 PM EDT us Cony [place] HISTORICAL/NON ORDERABLE LABS Fi nal Result Performing Organization Address [facility] Co de Phone Number [facility] [address] [place] [address], * HIV 1/2 ANTIGEN/ANTIBODY,FOURTH GENERATION W/RFL (08/21/2020 10:06 AM EDT) HIV-1/2 ANTIGEN AND ANTIBODIES, 4TH GENERATION W/ REFLEX NON-REACT LARA NON-REACT LARA [facility] Comment: HIV-1 antigen and [...] ? For additional information please refer to http://education.mCASH/faq/OEZ380 (This link is being provided for informational/ educational purposes only.) ? The performance of this assay has not been clinically validated in patients less than 2 years old. ?? 08/21/2020 10:0 6 AM EDT Cielo Ron NP LAB BLOOD ORDERABLES Final Resul t [facility] [address] from Last 3 Months or Most Recently Relevant to Health Maintenance Insurance * Guarantor: Fariba Corrales Account Type Relation to Patient Date of Phone Billing Address Personal/Family Self 1985 [address] [place] [id number] [facility] C3 Care Teams Heading Saw Operator Relationship Specialty Start Date End Date Patti Clark MD [address] [place] [address] PCP - General Family Medicine 12/10/20 Kanchan Hughes NP Psychiatrist 09/24/24
== END 2024-12-26 08:15 | disposition home or self-care (01) ==
LOC: HO.HOSX 08:14
PROVIDERS: Visit Provider Physician Assistant
DX: Z13.89 Encounter for screening for other disorder (principal)

== ENCOUNTER 2025-01-07 08:18 | Emergency (ER) | payer MEDICAID, SELFPAY ==
--- NOTE | 2025-01-07 | ECG_ITS ---
Test Reason : cp Blood Pressure : */* mmHG Vent. Rate : 84 BPM Atrial Rate : 84 BPM P-R Int : 126 ms QRS Dur : 82 ms QT Int : 344 ms P-R-T Axes : 55 93 50 degrees QTcB Int : 406 ms Normal sinus rhythm Rightward axis Borderline ECG When compared with ECG of 16-Dec-2022 10:36, No significant changes seen Referred By: Generic ED Physician Electronically Signed By: Jacob Pereira
[2025-01-07 08:36] VITALS: BP 132/75; PULSE 87; RESP 20; TEMP 37; O2SAT 96; BMI 31.3
[2025-01-07 09:01] LABS: MANUAL DIFF FLAG NO
[2025-01-07 09:02] LABS: Basophils Percent Auto 0.5 % (0-2); Eosinophils Absolute Auto 0.1 X10*3/uL (0.0-0.4); Eosinophils Percent Auto 2.2 % (0-4); Hematocrit 37.5 % (37.0-47.0); Hemoglobin 12.5 g/dl (12.0-16.0); Lymphocytes Absolute Auto 2.5 X10*3/uL (1.2-4.9); Lymphocytes Percent Auto 41.6 % (20-40); Mean Corpuscular HGB Conc 33.3 g/dl (31.0-35.0); Mean Corpuscular Hemoglobin 28.9 pg (27.0-33.0); Mean Corpuscular Volume 86.6 fL (80.0-98.0); Mean Platelet Volume 9.8 fL (9.4-12.3); Monocytes Absolute Auto 0.5 X10*3/uL (0.1-1.2); Monocytes Percent Auto 8.4 % (2-11); Neutrophils Absolute Auto 2.8 x10*3/uL (2.0-8.3); Neutrophils Percent Auto 47.3 % (45-73); Platelet Count 183 X10*3/uL (160-400); Red Blood Count 4.33 X10*6/uL (4.20-5.50); Red Cell Distribution Width 13.2 % (11.0-16.0)
--- NOTE | 2025-01-07 09:09 | ED.CHESTPAIN ---
HPI - Chest Pain General Chief Complaint: Chest Pain Stated Complaint: CP, arm pain Time Seen by Provider: 01/07/25 09:08 Source: patient Mode of arrival: ambulatory Limitations: no limitations History of Present Illness ED Provider: Ramya Wu PA-C HPI narrative: Patient is a 39 year old female with a past medical history of migraines, arthritis, and various tendinopathies who presents to the ED for complaints of chest pain. She states that the pain began on Tuesday while she was lying in bed. The pain is on the left side of her chest, sharp in nature, and radiates to her left shoulder and down to the fingertips of her left arm. The pain is worse while laying on the left side and significantly increases with range of motion of the shoulders. She reportedly injured that shoulder last year and has been seeing [facility] orthopedics for corticosteroid injections with her last injection being last month. She endorses sensation of shortness of breath with her pain that is not present at this time. Denies loss of sensation or swelling to the left upper extremity, dizziness, syncope, abdominal pain, nausea, vomiting, diarrhea, recent illness. MD complaint: chest pain Onset (ago): day(s) Timing of current episode: still present Onset: during rest Pain location: left chest Pain radiation: left arm and left shoulder Quality: sharp Exacerbating factors: movement Related Data Home Medications ?Medication ?Instructions ?Recorded ?Confirmed tramadol 50 mg tablet 50 mg PO DAILY 08/23/23 12/03/24 Previous Rx's ?Medication ?Instructions ?Recorded diclofenac potassium 50 mg tablet 50 mg PO TID PRN headache 30 days 08/23/23 #60 tabs rizatriptan 10 mg tablet 5 - 10 mg (0.5 - 1 x 10 mg) PO Q2H 12/22/23 PRN migraine headache 21 days #12 tabs amitriptyline 25 mg tablet 37.5 - 50 mg (1.5 - 2 x 25 mg) PO 12/03/24 BEDTIME 30 days #60 tabs propranolol 60 mg capsule,24 60 mg PO BEDTIME 30 days #30 caps 12/03/24 hr,extended release ubrogepant 100 mg tablet (Ubrelvy) 50 - 100 mg (0.5 - 1 x 100 mg) PO 12/03/24 ONCE PRN migraine headache 30 days #16 tabs ibuprofen 800 mg tablet 800 mg PO Q8H PRN pain 30 days #90 12/05/24 tabs cyclobenzaprine 5 mg tablet 5 mg PO TID PRN pain 7 days #21 01/07/25 tabs Allergies Allergy/AdvReac Type Severity Reaction Status Date / Time No Known Allergies Allergy Verified 01/07/25 08:39 [No Known Allergies*] Review of Systems Review of Systems: Yes all other systems are reviewed and are negative Constitutional: Constitutional: Reports no additional constitutional complaints, Denies chills, Denies fever(s) and Denies night sweats Eyes: Eyes: Reports no additional eye complaints, Denies blurry vision, Denies change in vision, Denies diplopia, Denies eye discharge, Denies loss of vision and Denies eye pain ENT: Denies dizziness Cardiovascular: Cardiovascular: Reports no additional cardiovascular complaints, Reports chest pain, Denies lightheadedness, Denies Loss of Consciousness and Denies dyspnea Respiratory: Respiratory: Reports no additional respiratory complaints and Denies dyspnea Gastrointestinal: Gastrointestinal: Reports no additional gastrointestinal complaints, Denies abdominal pain, Denies melena, Denies hematochezia, Denies change in bowel habits and Denies change in stool character Genitourinary: Genitourinary: Denies hematuria, Denies urinary frequency, Denies dysuria, Denies urinary incontinence, Denies urinary hesitancy and Denies urinary urgency Musculoskeletal: Musculoskeletal: Reports no additional musculoskeletal complaints, Denies numbness and Denies tingling Comments: left shoulder pain Neurologic: Denies dizziness, Denies loss of vision, Denies numbness and Denies tingling Psychiatric: Psychiatric: Reports no additional psychiatric complaints Endocrine: Endocrine: Reports no additional endocrine complaints Hematologic/Lymphatic: Hematologic/Lymphatic: Reports no additional hematologic/lymphatic complaints Allergic/Immunologic: Allergic/Immunologic: Reports no additional allergic/immunologic complaints PMFSH Past Medical History Attestation statement: The following information was validated with the patient. Source: old records reviewed and nursing notes reviewed Medical History Arthritis COVID-19 long hauler manifesting chronic muscle pain COVID-19 long hauler Migraine headache Back pain Surgical History S/P insertion of spinal cord stimulator History of appendectomy Family History Family History Father Diabetes Mother Heart disease HTN (hypertension) Brother Cerebrovascular accident (CVA) Social History Social History Alcohol intake: never Patient Tobacco Use Status: Never used Tobacco Use of substances other than those prescribed or required for medical reasons: No Advance Directives: No Advance Directives Information Provided: Yes Patient : No Current occupational status: unemployed Current occupation: right handed. Gender identity: Female Physical Exam Vital Signs: Vital Signs: Last Vital Signs Temp 98.3 F 01/07/25 11:01 Pulse 70 01/07/25 11:01 Resp 16 01/07/25 11:01 BP 101/56 L 01/07/25 11:01 Pulse Ox 98 01/07/25 11:01 O2 Del Method Room Air 01/07/25 11:01 BMI result Body Mass Index 31.3 Const: General: cooperative, no acute distress, alert and awake Nutritional Appearance: well nourished Orientation/consciousness: patient oriented x3 Limitations: no limitations HEENT: Head: Yes normal to inspection and Yes atraumatic Ears: hearing grossly normal bilaterally and external ears normal General nose exam: Normal external nose present, no nasal discharge noted and no epistaxis Face and sinus: Yes normal facial exam, No abrasion and No laceration Mouth: Normal oral and palatal mucosa present, no drooling and no muffled voice Eyes: General: appearance normal, both eyes and all related structures Periorbital: periorbital findings normal Eyelids: Yes eyelids normal Conjunctivae: conjunctivae normal Pupils: Equal, round and reactive pupils present EOM: EOMs intact bilaterally Neck: Neck: Yes normal visual inspection, Yes full ROM and Yes no lymphadenopathy Chest: Chest palpation & inspection: normal inspection of the chest and tenderness (Tenderness to palpation of the left upper chest wall ) pectoral muscle on the left Resp: Effort & Inspection: normal respiratory effort and able to speak in complete sentences Auscultation: clear to auscultation bilaterally Cardio: Rate: regular rate Rhythm: regular rhythm Heart sounds: S1 normal heart sound present, S2 normal heart sound present, no click, no gallops, no murmurs and no rubs GI: Inspection: Yes normal to inspection Skin: General skin exam: no ecchymosis and no erythema Neuro: General: patient oriented x3, moves all extremities and CN's II-XI intact bilaterally Cranial nerves: Yes Equal, round and reactive pupils present Cognition (Neuro): normal cognition Extrem: General: Yes normal to inspection, Yes full ROM and Yes capillary refill normal Left upper extremity: normal capillary refill and shoulder/upper arm Details: tenderness and abnormal ROM (decreased ROM 2/2 pain) Details: pain with active ROM and pain with passive ROM; ROM limited (limited ROM 2/2 pain ), no cyanosis, no edema and joint enlargement noted Psych: Appearance: grossly normal Mental Status: mental status grossly normal Affect: normal affect Attitude: cooperative Thought process: Normal thought process present Thought content: Normal thought content present Insight: Good insight present (Psych) Medications Administered Discontinued Medications Generic Name Dose Route Start Last Admin Trade Name Steveq PRN Reason Stop Dose Admin Cyclobenzaprine HCl 5 mg 01/07/25 09:44 01/07/25 09:54 Cyclobenzaprine Hcl 5 Mg Tablet PO 01/07/25 09:45 5 mg ONCE ONE Administration Ketorolac Tromethamine 15 mg 01/07/25 09:44 01/07/25 09:55 Ketorolac Tromethamine 15 Mg/Ml Vial IM 01/07/25 09:45 15 mg ONCE ONE Administration Medical Decision Making Medical Decision Making [facility] Narrative: Patient is a 39 year old female patient who presents to the ER with complaints of left sided chest pain that radiates down her left arm and is exacerbated with movement of both shoulders (left more than right). Troponin under 2.7 and EKG showed normal sinus rhythm with no ST elevations making ACS unlikely. Labs and vital signs were within normal limits. Her left sided chest wall is significantly tender to palpation and pain is increased with passive ROM of the left shoulder. This is consistent with musculoskeletal pathology of the left chest wall/shoulder, likely a strain of the pectoralis muscles. Patient appeared well and in no acute distress in the ER and vital signs remained within normal limits. She was given ketorolac and cyclobenzaprine which, upon re-evaluation, she stated it helped her pain significantly. Recommend outpatient follow up with the orthopedic team. I explained my physical exam findings as well as all test results to the patient. I answered all questions asked by the patient. I stressed the importance of the patient taking her medication as directed (either prescribed or as the over the counter packaging recommends). I stressed the importance of the patient following up with her primary care provider and the orthopedic team. I stressed the importance of the patient returning to the emergency department immediately if her symptoms were to worsen or if she were to develop any dizziness, shortness of breath, difficulty breathing, chest pain, blurry vision, loss of vision, nausea, vomiting, abdominal pain, fever, chills, back pain, or any other complaints. Patient verbalized agreement and understanding with this treatment plan and discharge. Differential Diagnosis Differential Diagnoses: The differential diagnosis associated with the presentation includes Left chest wall pain Left pectoralis strain Left pectoralis sprain NSTEMI STEMI Admission/Observation Consideration of admission/observation: Escalation of care including admission/observation considered Patient would have been admitted to the hospital had her work up had any findings where hospital admission was appropriate and her clinical presentation warranted hospital admission. Lab Data [facility] Lab Attestation statement: I reviewed the patient's lab results. My interpretation of these results are in the [facility] Rationale portion of this note. 01/07/25 08:56 01/07/25 08:56 Labs: Lab Results 01/07/25 Range/Units 08:56 WBC 6.0 (4.8-10.8) X10*3/uL RBC 4.33 (4.20-5.50) X10*6/uL Hgb 12.5 (12.0-16.0) g/dl Hct 37.5 (37.0-47.0) % MCV 86.6 (80.0-98.0) fL MCH 28.9 (27.0-33.0) pg MCHC 33.3 (31.0-35.0) g/dl RDW 13.2 (11.0-16.0) % Plt Count 183 (160-400) X10*3/uL MPV 9.8 (9.4-12.3) fL Immature Gran % (Auto) 0.0 (0.0-0.4) % Neut % (Auto) 47.3 (45-73) % Lymph % (Auto) 41.6 H (20-40) % Early % (Auto) 8.4 (2-11) % Eos % (Auto) 2.2 (0-4) % Baso % (Auto) 0.5 (0-2) % Lymph # (Auto) 2.5 (1.2-4.9) X10*3/uL Early # (Auto) 0.5 (0.1-1.2) X10*3/uL Eos # (Auto) 0.1 (0.0-0.4) X10*3/uL Baso # (Auto) 0.0 (0.0-0.2) X10*3/uL Abs Immat Gran (auto) 0.00 (0.00-0.03) X10*3/uL Absolute Neuts (auto) 2.8 (2.0-8.3) x10*3/uL Absolute Nucleated RBC 0.000 (0.0-0.012) X10*3/uL Nucleated RBC % (auto) 0.0 (0.0-0.2) /100WBC Sodium 140 (135-145) mmol/L Potassium 3.7 (3.3-5.1) mmol/L Chloride 112 H (96-108) mmol/L Carbon Dioxide 22 (22-29) mmol/L Anion Gap 10 L (12-20) BUN 11 (9-16) mg/dL Creatinine 0.70 (0.5-1.4) mg/dL Estim Creat Clear Calc 106.2 Estimated GFR > 60 Random Glucose 79 (60-115) mg/dL Calcium 8.4 D (8.4-10.2) mg/dL Magnesium 2.0 (1.6-2.6) mg/dL Total Bilirubin 0.3 (0.0-1.0) mg/dL AST 21 (5-31) U/L ALT 21 (0-31) U/L Alkaline Phosphatase 55 (39-117) U/L Troponin I High Sens < 2.7 (<3.5-17.0) ng/L Total Protein 7.2 (6.5-8.0) g/dL Albumin 3.6 (3.5-5.0) g/dL Influenza Type A (PCR) NEGATIVE (Negative) Influenza Type B (PCR) NEGATIVE (Negative) RSV RNA Qual (PCR) NEGATIVE (Negative) SARS-CoV-2 RNA (RT-PCR) NEGATIVE (Negative) Independent Interpretation I performed an independent interpretation of an: EKG and Plain X-Ray Interpretation: I independently interpreted this EKG and am in agreement with the below findings: Vent. Rate: 84 BPM Atrial Rate: 84 BPM P-R Int: 126 ms QRS Dur: 82 ms QT Int: 344 ms P-R-T Axes: 55 93 50 degrees QTcB Int: 406 ms Normal sinus rhythm Rightward axis When compared with ECG of 16-Dec-2022 10:36, Sinus rhythm has replaced Atrial flutter DD/ 0823 Radiology Impression Discussion of test interpretation with radiology: I have reviewed the radiologist's reading. Tests considered The following testing was considered but not selected: I considered obtaining a chest x-ray however, the patient's current clinical presentation does not warrant this. I discussed this with the patient who verbalized understanding and agreement. Discharge Plan Discharge Clinical Impression: Chest wall muscle strain Patient Disposition: Home, Self-Care Instructions: Muscle Strain (DC) Additional Instructions: Follow up with your primary care provider and an orthopedic provider. Return to the emergency department immediately if your symptoms worsen or if you develop any numbness, tingling, dizziness, shortness of breath, difficulty breathing, chest pain, blurry vision, loss of vision, nausea, vomiting, abdominal pain, fever, chills, back pain, or any other complaints. Please see the information below about our Patient Portal. If you are not yet enrolled in the [facility] Patient Portal, you will receive an enrollment email invitation following your visit to any [facility] care setting. You may also self-enroll in the Patient Portal by visiting our website: [email or web address] The following information is required to access the Patient Portal: - Your [facility] Medical Record Number - Your personal home email address (must match what is in your electronic medical record, Registration staff can assist with this) - Name - Date of Capabilities of the Patient Portal: - Message some providers - View upcoming appointments - Access your health summary, medical history, and visit history - View current conditions and allergies - View procedure and lab results - View your medications, including guidelines, side effects, and precautions - Complete pre-appointment questionnaires requested by your provider - Ready summary reports of your office visits and procedures To access the Patient Portal Mobile Phong, follow these directions: - Search [employer] in the Phong Store or [employer] Interactive Store - Download the Phong - Search for [facility] - Enter your login/password Prescriptions: New cyclobenzaprine 5 mg tablet 5 mg PO TID PRN (Reason: pain) 7 Days Qty: 21 0RF No Action tramadol 50 mg tablet 50 mg PO DAILY diclofenac potassium 50 mg tablet 50 mg PO TID PRN (Reason: headache) 30 Days Qty: 60 1RF Ubrelvy 100 mg tablet 50 - 100 mg PO ONCE PRN (Reason: migraine headache) 30 Days Qty: 16 3RF Rx Instructions: take at onset of migraine, may repeat in 2hrs (may take w/ Ibuprofen) amitriptyline 25 mg tablet 37.5 - 50 mg PO BEDTIME 30 Days Qty: 60 3RF propranolol 60 mg capsule,extended release 24 hr 60 mg PO BEDTIME 30 Days Qty: 30 3RF rizatriptan 10 mg tablet 5 - 10 mg PO Q2H PRN (Reason: migraine headache) 21 Days Qty: 12 3RF Rx Instructions: max 2 tabs per day or 4 tabs per week ibuprofen 800 mg tablet 800 mg PO Q8H PRN (Reason: pain) 30 Days Qty: 90 3RF Referrals: [facility] Orthopedic Surgeons [Provider Group] Patti Clark MD [Primary Care Provider] - Interventions: ED Discharge Assessment Last Done: 01/07/25 11:01 Discharge Date/Time: 01/07/25 11:09 Print Language: Greek
[2025-01-07 09:20] LABS: Alanine Aminotransferase 21 U/L (0-31); Albumin Level 3.6 g/dL (3.5-5.0); Alkaline Phosphatase 55 U/L (39-117); Anion Gap 10 (12-20); Aspartate Amino Transferase 21 U/L (5-31); Bilirubin Total 0.3 mg/dL (0.0-1.0); Blood Urea Nitrogen 11 mg/dL (9-16); Calcium 8.4 mg/dL (8.4-10.2); Carbon Dioxide 22 mmol/L (22-29); Chloride 112 mmol/L (96-108); Creatinine Clr Calc Pharmacy 106.2; Estimated Glomerular Filt Rate > 60; Glucose Random 79 mg/dL (60-115); Potassium 3.7 mmol/L (3.3-5.1); Sodium 140 mmol/L (135-145); Total Protein 7.2 g/dL (6.5-8.0)
[2025-01-07 09:29] LABS: Troponin-I High Sensitivity < 2.7 ng/L (<3.5-17.0)
[2025-01-07] MEDS: Cyclobenzaprine HCl 5 MG TABLET PO (09:54)
[2025-01-07] MEDS: Ketorolac Tromethamine 15 MG/ML VIAL IM (09:55)
[2025-01-07 10:03] LABS: Influenza A PCR NEGATIVE (Negative); Influenza B PCR NEGATIVE (Negative); Resp Syncy Virus RNA Qual PCR NEGATIVE (Negative); SARS COV2 PCR INHOUSE NEGATIVE (Negative)
[2025-01-07 10:24] VITALS: BP 101/70; PULSE 71; RESP 20; TEMP 36.8; O2SAT 99
[2025-01-07 11:01] VITALS: BP 101/56; PULSE 70; RESP 16; TEMP 36.8; O2SAT 98
== END 2025-01-07 11:09 | disposition home or self-care (01) ==
PROVIDERS: Emergency Provider Emergency Medicine Emergency Medical Services; PCP Family Medicine
DX: S29.011A Strain of muscle and tendon of front wall of thorax, initial encounter (principal); R07.89 Other chest pain; M79.602 Pain in left arm; X58.XXXA Exposure to other specified factors, initial encounter; Y93.9 Activity, unspecified; Y92.9 Unspecified place or not applicable; Y99.8 Other external cause status; Z79.899 Other long term (current) drug therapy; Z03.818 Encounter for observation for suspected exposure to other biological agents ruled out
CPT/HCPCS: 0241U; 80053; 83735; 84484; 85025; 93005; 96372; 99284; 99285; J1885

== ENCOUNTER → 2025-01-07 08:23 | Outpatient (BNV) | payer MEDICAID, SELFPAY | PROVIDERS: Emergency Provider Emergency Medicine Emergency Medical Services; PCP Family Medicine; Visit Provider Internal Medicine Cardiovascular Disease | DX: R07.9 Chest pain, unspecified (principal) | CPT/HCPCS: 93010 ==

== ENCOUNTER 2025-01-28 13:15 | Outpatient (AMB) | payer MEDICAID, SELFPAY ==
--- NOTE | 2025-01-28 13:29 | A.OFFVIS_ITS ---
Intake Visit Reasons: Inj-right knee inj-last 09/26/2024 Intake Note: Patient reports last injeciton did not really provide relief. swelling on the lateral aspect. She has constant pain since November. Finds no relife with tylneol or motrin, as well heat. Allergies No Known Allergies [No Known Allergies*] Allergy (Verified 01/07/25 08:39) Medication List - Last Reconciled 01/28/25 by Mey Gibson PA-C amitriptyline 37.5 - 50 mg (1.5 - 2 x 25 mg) PO BEDTIME 30 days cyclobenzaprine 5 mg PO TID PRN 7 days diclofenac potassium 50 mg PO TID PRN 30 days ibuprofen 800 mg PO Q8H PRN 30 days propranolol ER 60 mg PO BEDTIME 30 days rizatriptan 5 - 10 mg (0.5 - 1 x 10 mg) PO Q2H PRN 21 days tramadol 50 mg PO DAILY ubrogepant (Ubrelvy) 50 - 100 mg (0.5 - 1 x 100 mg) PO ONCE PRN 30 days HPI HPI Inj-right knee inj-last 09/26/2024: Details: 40-year-old female returns to the office today for follow-up right knee pain. She had an injection back in September of 2024 which was beneficial for 2 months however she continues to feel limitations with activities such as twisting and pivoting motions. She feels as though there is a mechanical lock in the knee at times and her knee will give out. [facility] Medical History Arthritis COVID-19 long hauler manifesting chronic muscle pain COVID-19 long hauler Migraine headache Back pain Surgical History S/P insertion of spinal cord stimulator History of appendectomy Family History Father Diabetes Mother Heart disease HTN (hypertension) Brother Cerebrovascular accident (CVA) Social History Alcohol intake: never Patient Tobacco Use Status: Never used Tobacco Current occupational status: unemployed Current occupation: right handed. Gender identity: Female Female Reproductive History Menstrual Age of Menarche: 12 Review of Systems Const All systems reviewed & are unremarkable except as noted in HPI and below Physical Exam Const General: cooperative and no acute distress Orientation/consciousness: patient oriented x3 Resp Effort & Inspection: normal respiratory effort and able to speak in complete sentences Cardio Peripheral pulses: Peripheral pulses 2+ throughout Neuro General: patient oriented x3 Extrem Other: Right knee skin intact, no erythema or joint effusion. Tenderness along the medial joint line. ROM full with crepitus. Positive steinmans. No ligamentous laxity. NVI. Assessment & Plan Assessment & Plan (1) Internal derangement of right knee: Code(s): M23.91 - Unspecified internal derangement of right knee Category: Medical Plan: We discussed options and given her ongoing mechanical symptoms an MRI of the right knee has been ordered to further evaluate the extent of the meniscus. We will compare this to her previous imaging study in 2022. She will see me back once the scan is complete. Orders: Orders MR knee RT wo con Today M17.11 - Unilateral primary osteoarthritis, right knee Coding Level of Care Code Est Pt Level 3 (42477) Complex EM visit Add On G2211 Diagnoses Internal derangement of right knee M23.91
--- OUTSIDE RECORDS SUMMARY | 2025-01-28 15:42 | XMS_ITS | Encounter Summary ---
Author Organization [employer] Address [address] [facility] [address] [place] [address] Care Team Providers Care Oracle Adf Developer Name Role Phone Patti Clark MD Primary Care Provider [phone] Reason for Referral * Imaging (Routine) - Closed Specialty Diagnoses / Procedures Referred By Contac t Referred To Contact Radiology Diagnoses Menorrhagia with regular cycle Procedures US Pelvis Transvaginal Erin Soto MD [address] [place] [id number] Phone: tel: fax: [facility] [address] [place], [place] Phone: tel: fax: Referral ID Status Reason Start Date Expiration Date Visits Re quested Visits Authorized [id number] Closed 09/12/2024 09/12/2025 1 1 Encounter Details Date Type Department Care Team (Late st Contact Info) Description 09/12/2024 Orders Only [facility] [address] [place] [address] Erin Soto MD [address] [place] [address] Menorrhagia with regular cycle (Primary Dx) Social [...] documented as of this encounter Care Teams Oracle Adf Developer Relationship Specialty Start Date End Date Patti Clark MD [address] [place] [id number] PCP - General Family Medicine 12/10/20 Kanchan Hughes NP Psychiatrist 09/24/24 documented as of this encounter
--- OUTSIDE RECORDS SUMMARY | 2025-01-28 15:42 | XMS_ITS | Encounter Summary ---
Author Organization [employer] Address [address] [facility] [address] [place] [address] Care Team Providers Care Plant Operator Control Room Operator Name Role Phone Patti Clark MD Primary Care Provider [phone] Encounter Details Date Type Department Care Team ([facility] st Contact Info) Description 11/19/2024 Orders Only [facility] [address] [place] [address] Abbey Fonseca MD [address] [place] [address] Social History Tobacco Use Types Packs/Day Years [...] documented as of this encounter Care Teams Plant Operator Control Room Operator Relationship Specialty Start Date End Date Patti Clark MD [address] [place] [id number] PCP - General Family Medicine 12/10/20 Kanchan Hughes NP Psychiatrist 09/24/24 documented as of this encounter
--- OUTSIDE RECORDS SUMMARY | 2025-01-28 15:42 | XMS_ITS | Clinical Summary ---
Author Organization [email or web address] Address [address] [facility] 7t [place] [address] Care Team Providers Care Statistical Geneticist Name Role Phone Patti Clark MD Primary Care Provider [phone] Allergies No known active allergies Medications cholecalciferol (Vitamin D-3) 50 MCG (1999 UT) tablet Take 100 mcg by mouth in the morning. 022 Active magnesium oxide (Mag-Ox) 400 (240 Mg) MG tablet TAKE 1 TABLET BY MOUTH DAILY AT BEDTIME HOLD FOR LOOSE STOOL 023 Active ketoconazole (NIZOral) 2 % shampoo APPLY TO SCALP ONCE A WEEK LEAVE ON el erum por 5 MINUTES THEN RINSE 023 Active hydrOXYzine pamoate (Vistaril) 25 MG capsule TAKE 1 TO 2 CAPSULES BY MOUTH TWICE DAILY NEEDED FOR ANXIETY 023 Active amitriptyline (Elavil) 10 MG tablet TAKE 1 TO 3 TABLETS BY MOUTH DAILY AT BEDTIME 023 Active meloxicam (Mobic) 15 MG tablet Take 1 tablet (15 mg) by mouth Once per day. 30 tablet 024 2024 Active fluocinolone (Synalar) 0.01 % external solution APPLY TO THE AFFECTED AREA(S) ON SCALP ONCE DAILY NEEDED FOR ITCHING AND FLARE 024 Active rizatriptan (Maxalt) 10 MG tablet TAKE 1/2 TO 1 TABLET BY MOUTH EVERY 2 HOURS NEEDED FOR MIGRAINE. DO NOT EXCEED 2 TABLETS IN 24 HOURS OR 4 TABLETS PER WEEK 02/29/2 024 Active cyclobenzaprine (Flexeril) 10 MG tablet Take 1 tablet (10 mg) by mouth at bedtime. 30 tablet Active norethindrone (Aygestin) 5 MG tablet Take 1 tablet (5 mg) by mouth Once per day for 10 days. 10 tablet Active FLUoxetine (PROzac) 40 MG capsule Take 80 mg by mouth Once per day. Active propranolol (Inderal) 10 MG tablet Take 10 mg by mouth if needed in the morning and at bedtime. Active diclofenac (Voltaren) 75 MG EC tabletIndications :Chronic pain of multiple joints Take 1 tablet (75 mg) by mouth 2 times daily. Do not crush, chew, or split. 60 tablet Active olopatadine (Pataday) 0.2 % ophthalmic solutionIndicatio ns:Other chronic allergic conjunctivitis of both eyes Administer 1 drop into both eyes Once per day. 2.5 mL 5 Active SUMAtriptan (Imitrex) 100 MG tablet TAKE 1 TABLET BY MOUTH ONCE NEEDED FOR FOR MIGRAINE Active amitriptyline (Elavil) 25 MG tablet Take 25 mg by mouth at bedtime. Active Zepbound 2.5 MG/0.5ML solution auto-injectorIndi cations:Class 1 obesity INJECT ONE PEN (=2.5MG) SUBCUTANEOUSLY ONCE A WEEK DIRECTED 2 mL 025 Active Tirzepatide-Weigh t Management (Zepbound) 2.5 MG/0.5ML solution auto-injectorIndi cations:Class 1 obesity Inject 0.05 mL (0.25 mg) under the skin 1 (one) time per week. 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 Assessment & Plan (11/23/2022 5:23 [...] recommended reduction of 20-30% of maintenance calories; dispatch supervisor referral offered. Recommended to decrease soda and sugary beverage consumption. Recommended at least 20 g per meal of protein to assist with satiety. Recommended at least 150 min/week of moderate intensity exercise. Assessment & Plan (04/02/2024 2:27 AM EDT): -Pt has lost 6 pounds. Discussed calorie deficit, recommended reduction of 20-30% of maintenance calories; dispatch supervisor referral offered. Recommended to decrease soda and sugary beverage consumption. Recommended at least 20 g per meal of protein to assist with satiety. Recommended at least 150 min/week of moderate intensity exercise. -f/u in 3 months Assessment & Plan (01/24/2024 9:19 AM EDT): - Discussed calorie deficit, recommended reduction of 20-30% of maintenance calories; dispatch supervisor referral offered. Recommended to decrease soda and sugary beverage consumption. Recommended at least 20 g per meal of protein to assist with satiety. Recommended at least 150 min/week of moderate intensity exercise. Will start trial of AOM to assist w/ wt loss. Assessment & Plan (11/18/2023 8:55 AM EST): Discussed calorie deficit, recommended reduction of 20-30% of maintenance calories; dispatch supervisor referral offered. Recommended to decrease soda and [...] recommended reduction of 20-30% of maintenance calories; dispatch supervisor referral offered. Recommended to decrease soda and [...] chronic pain management she does follow in [place] with [facility] but is thinking of switching to [facility], report patient that she will need to inform specialist of her decision. Pain in female pelvis 10/09/2018 Encounters Date Type Department Care Team Description 01/08/2025 Refill [facility] [address] [place] [address] Abbey Fonseca MD Class 1 obesity 01/07/2025 Orders Only GENERIC EXTERNAL DATA DEPARTMENT Provider, Generic External Data 01/04/2025 Population Health Risk Score [facility] (C3) Department [address] [place] [address] [phone] Provider, Population Health Generic 12/11/2024 9:00 AM EST Telemedicine [facility] [address] [place] [address] Abbey Fonseca MD Class 1 obesity (Primary Dx); Anxiety 12/11/2024 Travel 11/19/2024 Orders Only [facility] [address] [place] [phone] Abbey Fonseca MD 11/16/2024 Telephone [facility] [address] [place] [address] Patti Clark MD [place] 11/13/2024 Telephone [facility] [address] [place] [address] Patti Clark MD 11/09/2024 10:30 AM EST Office Visit [facility] [address] [place] [address] Nessa Mayfield, OD Retinal hole of left eye (Primary Dx) 11/09/2024 Travel 11/07/2024 Refill [facility] [address] [place] [address] Patti Clark MD 11/06/2024 11:15 AM EST Office Visit [facility] [address] [place] [address] Nessa Mayfield, OD Other chronic allergic conjunctivitis of both eyes (Primary Dx); Retinal hole of left eye 11/06/2024 Travel from Last 3 Months Immunizations Name Administration [...] 08/23/2025 08/23/2024 Depression Screening 08/23/2025 08/23/2024, 08/23/20 24 Tobacco Screening 11/06/2025 11/06/2024 Cervical Cancer Screening [...] Procedure Name Priority Date/Time Associated Diagnosis Comments HIGH SENSITIVITY TROPONIN I Routine 01/07/2025 8:56 AM EDT CBC WITH AUTO DIFFERENTIAL Routine 01/07/2025 8:56 AM EDT SARS COV2/INFLUENZA A/B AND RSV RNA QL NAAT Routine 01/07/2025 8:56 AM EDT LIPID PANEL, STANDARD Routine 12/28/2021 11:25 AM EST ZZZ HISTORICAL HPV E6/E7 RFLX ANTWAN 16 18/45 Routine 04/24/2021 3:22 PM EDT HIV 1/2 ANTIGEN/ANTIBODY, FOURTH GENERATION W/RFL Routine 08/21/2020 10:06 AM EDT from Last 3 Months or Most Recently Relevant to Health Maintenance Results * High Sensitivity Troponin I (01/07/2025 8:56 AM EDT) TROPONIN I HIGH SENSITIVITY <2.7 <3.5 - 17.0 ng/L [facility] Comment:The Hope high sens itivity Troponin-I results should beused in conjunction with other diagnostic information suchas ECG, clinical observations and information, and patientsymptoms to aid in the diagnosis of CA. 01/07/2025 8:56 AM EDT 01/07/2025 8:59 AM EDT us Generic External Data Provider LAB BLOOD ORDERAB LES Final Result [facility] [address] [place] [phone] * SARS-CoV-2 RNA, Influenza A/B, and RSV RNA, Ql NAAT (01/07/2025 8:56 AM EDT) Pathologist [facility] Influenza A PCR NEGATIVE Negative [facility] Influenza B PCR NEGATIVE Negative [facility] Resp Syncy Virus RNA Qual PCR NEGATIVE Negative [facility] SARS COV2 PCR NEGATIVE Negative [facility] Comment:All test results mus t be correlated with clinical findings.Negative results do not preclude SARS-CoV2, influenza Avirus, influenza B virus and/or RSV infectionand should not be used as the sole basis for treatment orother patient management decisions. Negative results must becombined with clinical observations, patient history, andepidemiological information.This test has not been evaluated for monitoring treatment ofinfection.This test has been authorized by the FDA under an EmergencyUse Authorization (EUA) for use by authorized laboratories.Testing performed on the [employer] GeneXpert utilizingreal-time RT-PCR.All SARS CoV2 and positive influenza A/B results arereported to [facility]. 01/07/2025 8:56 AM EDT 01/07/2025 8:59 AM EDT us Generic External Data Provider LAB MICROBIOLOGY - GENERAL ORDERABLES Final Result [facility] [address] [place] [address] [phone] * (ABNORMAL) CBC auto differential (01/07/2025 8:56 AM EDT) [facility] White Blood Count 6.0 4.8 - 10.8 X10*3/uL [facility] Red Blood Count 4.33 4.20 - 5.50 X10*6/uL [facility] Hemoglobin 12.5 12.0 - 16.0 g/dl [facility] Hematocrit 37.5 37.0 - 47.0 % [facility] Mean Corpuscular Volume 86.6 80.0 - 98.0 fL [facility] Mean Corpuscular Hemoglobin 28.9 27.0 - 33.0 pg [facility] Mean Corpuscular HGB Conc 33.3 31.0 - 35.0 g/dl [facility] Red Cell Distribution Width 13.2 11.0 - 16.0 % [facility] Platelet Count 183 160 - 400 X10*3/uL [facility] Mean Platelet Volume 9.8 9.4 - 12.3 fL [facility] Neutrophils Percent Auto 47.3 45 - 73 % [facility] Imm Gran Pct Auto 0.0 0.0 - 0.4 % [facility] Lymphocytes Percent Auto 41.6(H) 20 - 40 % [facility] Monocytes Percent Auto 8.4 2 - 11 % [facility] Eosinophils Percent Auto 2.2 0 - 4 % [facility] Basophils Percent Auto 0.5 0 - 2 % [facility] NRBC Pct Auto 0.0 0.0 - 0.2 /100WBC [facility] Neutrophils Absolute Auto 2.8 2.0 - 8.3 x10*3/uL [facility] Imm Gran Abs Auto 0.00 0.00 - 0.03 X10*3/uL [facility] Lymphocytes Absolute Auto 2.5 1.2 - 4.9 X10*3/uL [facility] Monocytes Absolute Auto 0.5 0.1 - 1.2 X10*3/uL [facility] Eosinophils Absolute Auto 0.1 0.0 - 0.4 X10*3/uL [facility] Basophils Absolute Auto 0.0 0.0 - 0.2 X10*3/uL [facility] NRBC Abs Auto 0.000 0.0 - 0.012 X10*3/uL [facility] 01/07/2025 8:56 AM EDT 01/07/2025 8:59 AM EDT us Generic External Data Provider LAB BLOOD ORDERAB LES Final Result [facility] [address] [place] [address] [phone] * (ABNORMAL) LIPID PANEL, STANDARD (12/28/2021 [...] ?? Abdon NELSON et al. CATHERINE. 2013;310(19): 9992-1741 ?? (http://education.[employer].American Board of Addiction Medicine (ABAM)/faq/NRR379) Non-HDL Cholesterol 150(H) <130 mg/dL (calc) [facility] Comment: For patients with diabetes plus 1 major ASCVD risk ?? factor, treating to a non-HDL-C goal of <100 mg/dL ?? (LDL-C of <70 mg/dL) is considered a therapeutic ?? option. Triglycerides 78 <150 mg/dL [facility] 12/28/2021 11:2 5 AM EST us Patti Clark MD LAB BLOOD ORDERABLES Final Re sult [facility] [address] * HPV E6/E7 RFLX ANTWAN 16 18/45 (04/24/2021 3:22 PM EDT) HPV mRNA E6/E7 rflx Not Detected Not Detected [facility] Comment: Methodology: Flight [employer] Officer-Mediated Amplification This assay detects E6/E7 viral messenger RNA (mRNA) from 14 high-risk HPV types (16,18,31,33,35,39,45,51,52,56,58,59,66,68). The analytical performance characteristics of this assay have been determined by [employer]. The modifications have not been cleared or approved by the FDA. This assay has been validated pursuant to the CLIA regulations and is used for clinical purposes. For additional information, please refer to http://[employer]/faq/NGV857r2 (This link if provided for information/ educational purposes only.) THIS TEST WAS PERFORMED AT: [employer] [address] [place] [address] [address] [place], [place] ??[phone] FAISAL MINOR MD 04/24/2021 3:22 PM EDT Cony Hart HISTORICAL/NON ORDERABLE LABS Fi nal Result Performing Organization Address City/State/[facility] Co de Phone Number [facility] [address] * HIV 1/2 ANTIGEN/ANTIBODY,FOURTH GENERATION W/RFL (08/21/2020 10:06 AM EDT) HIV-1/2 ANTIGEN AND ANTIBODIES, 4TH GENERATION W/ REFLEX NON-REACT LARA NON-REACT LARA [facility] Comment: HIV-1 antigen and HIV-1/HIV-2 [...] ? For additional information please refer to http://education.[employer].American Board of Addiction Medicine (ABAM)/faq/LMH317 (This link is being provided for informational/ educational purposes only.) ? The performance of this assay has not been clinically validated in patients less than 2 years old. ?? 08/21/2020 10:0 6 AM EDT Cielo Ron NP LAB BLOOD ORDERABLES Final Resul t [facility] [address] from Last 3 Months or Most Recently Relevant to Health Maintenance Insurance [facility] Care Teams Statistical Geneticist Relationship Specialty Start Date End Date Patti Clark MD [address] [place] [address] PCP - General Family Medicine 12/10/20 Kanchan Hughes NP Psychiatrist 09/24/24
--- OUTSIDE RECORDS SUMMARY | 2025-01-28 15:42 | XMS_ITS | Encounter Summary ---
Author Organization [employer] Address [address] [address] [place] [address] Care Team Providers Care Business Solutions Analyst Name Role Phone Patti Clark MD Primary Care Provider [phone] Reason for Visit * Reason Onset Date Comments Appointment Request 12/20/2022 Encounter Details Date Type Department Care Team ([facility] st Contact Info) Description 12/20/2022 Telephone [facility] [address] [place] [address] Patti Clark MD [address] [place] [address] Appointment Request Social History Tobacco Use Types [...] regarding message below. Please contact pt at [phone] * Telephone Encounter - Adan Albrecht - 12/20/2022 3:27 PM EST Tc from pt requesting to r/s appt 12/21/22 ( [place] follow [place] [facility] [place] for low back pain and passing out due to the pain. ) Please contact pt at [phone] documented in this encounter Plan of Treatment Not on file documented as of this encounter Visit Diagnoses Not on filedocumented in this encounter Additional Health Concerns Assessment Noted Time PHQ-9 Depression Total Score: 11 023 3:48 PM EST documented as of this encounter Care Teams Business Solutions Analyst Relationship Specialty Start Date End Date Patti Clark MD [address] [place] [address] PCP - General Family Medicine 12/10/20 Kanchan Hughes NP Psychiatrist 09/24/24 documented as of this encounter
--- OUTSIDE RECORDS SUMMARY | 2025-01-28 15:42 | XMS_ITS | Encounter Summary ---
Author Organization [employer] Address [address] [facility] [address] [place] [address] Care Team Providers Care Rigging Foreman Name Role Phone Patti Clark MD Primary Care Provider [phone] Reason for Visit * Reason Comments Med Refill Encounter Details Date Type Department Care Team ([facility] st Contact Info) Description 05/28/2024 Refill [facility] [address] [place] [address] Patti Clark MD [address] [place] [address] Social History Tobacco Use Types Packs/Day Years [...] documented as of this encounter Care Teams Rigging Foreman Relationship Specialty Start Date End Date Patti Clark MD [address] [place] [address] PCP - General Family Medicine 12/10/20 Kanchan Hughes NP Psychiatrist 09/24/24 documented as of this encounter
--- OUTSIDE RECORDS SUMMARY | 2025-01-28 15:42 | XMS_ITS | Encounter Summary ---
Author Organization [employer] Address [address] [facility] [address] [place] [address] Care Team Providers Care Adventure Challenge Instructor Name Role Phone Patti Clark MD Primary Care Provider [phone] Encounter Details Date Type Department Care Team ([facility] st Contact Info) Description 10/05/2024 Orders Only [facility] [address] [place] [address] Erin Soto MD [address] [place] [address] Social History Tobacco Use Types Packs/Day Years [...] documented as of this encounter Care Teams Adventure Challenge Instructor Relationship Specialty Start Date End Date Patti Clark MD [address] [place] [address] PCP - General Family Medicine 12/10/20 Kanchan Hughes NP Psychiatrist 09/24/24 documented as of this encounter
== END 2025-01-28 13:47 | disposition home or self-care (01) ==
LOC: HO.HOS 13:15
PROVIDERS: Visit Provider Physician Assistant
DX: M23.91 Unspecified internal derangement of right knee (principal)
CPT/HCPCS: 99213

== ENCOUNTER → 2025-01-28 13:15 | Outpatient (BNVA) | payer MEDICAID, SELFPAY | PROVIDERS: Visit Provider Physician Assistant | DX: M23.91 Unspecified internal derangement of right knee (principal); M17.11 Unilateral primary osteoarthritis, right knee | CPT/HCPCS: 99212 ==

== ENCOUNTER → 2025-01-30 08:43 | Outpatient (REF) | payer MEDICAID, SELFPAY ==
--- OUTSIDE RECORDS SUMMARY | 2025-01-30 09:03 | XMS_ITS | Encounter Summary ---
Author Organization [employer] Address [address] [facility] [address] [place] [address] Care Team Providers Care Service Delivery Consultant Name Role Phone Patti Clark MD Primary Care Provider [phone] Reason for Visit * Reason Onset Date Comments Appointment Request 12/20/2022 Encounter Details Date Type Department Care Team ([facility] st Contact Info) Description 12/20/2022 Telephone [facility] [address] [place] [address] Patti Clark MD [address] [place] [address] Appointment Request Social History Tobacco Use Types [...] regarding message below. Please contact pt at [phone] * Telephone Encounter - Adan Albrecht - 12/20/2022 3:27 PM EST Tc from pt requesting to r/s appt 12/21/22 ( ER follow up [facility] 12/16 for low back pain and passing out due to the pain. ) Please contact pt at [phone] documented in this encounter Plan of Treatment Not on file documented as of this encounter Visit Diagnoses Not on filedocumented in this encounter Additional Health Concerns Assessment Noted Time PHQ-9 Depression Total Score: 11 023 3:48 PM EST documented as of this encounter Care Teams Service Delivery Consultant Relationship Specialty Start Date End Date Patti Clark MD [address] [place] [address] PCP - General Family Medicine 12/10/20 Kanchan Hughes NP Psychiatrist 09/24/24 documented as of this encounter
--- OUTSIDE RECORDS SUMMARY | 2025-01-30 09:03 | XMS_ITS | Encounter Summary ---
Author Organization [employer] Address [address] [facility] [address] [place] [address] Care Team Providers Care Pairer Name Role Phone Patti Clark MD Primary Care Provider [phone] Encounter Details Date Type Department Care Team ([facility] st Contact Info) Description 10/05/2024 Orders Only [facility] [address] [place] [address] Erin Soto MD [address] [place] [address] Social History Tobacco Use Types Packs/Day Years [...] documented as of this encounter Care Teams Pairer Relationship Specialty Start Date End Date Patti Clark MD [address] [place] [address] PCP - General Family Medicine 12/10/20 Kanchan Hughes NP Psychiatrist 09/24/24 documented as of this encounter
--- OUTSIDE RECORDS SUMMARY | 2025-01-30 09:03 | XMS_ITS | Encounter Summary ---
Author Organization [employer] Address [address] [facility] [address] [place] [address] Care Team Providers Care Store Team Member Name Role Phone Patti Clark MD Primary Care Provider [phone] Reason for Visit * Reason Comments Med Refill Encounter Details Date Type Department Care Team ([facility] st Contact Info) Description 05/28/2024 Refill [facility] [address] [place] [address] Patti Clark MD [address] [place] [address] Social History Tobacco Use Types Packs/Day Years [...] documented as of this encounter Care Teams Store Team Member Relationship Specialty Start Date End Date Patti Clark MD [address] [place] [address] PCP - General Family Medicine 12/10/20 Kanchan Hughes NP Psychiatrist 09/24/24 documented as of this encounter
--- OUTSIDE RECORDS SUMMARY | 2025-01-30 09:03 | XMS_ITS | Encounter Summary ---
Author Organization [employer] Address [address] [facility] 7 [place] [address] Care Team Providers Care Plate Corrector Name Role Phone Patti Clark MD Primary Care Provider [phone] Reason for Referral * Imaging (Routine) - Closed Specialty Diagnoses / Procedures Referred By Contac t Referred To Contact Radiology Diagnoses Menorrhagia with regular cycle Procedures US Pelvis Transvaginal Erin Soto MD [address] [place] [address] Phone: tel: fax: [facility] [address] [place], [place] Phone: tel: fax: Referral ID Status Reason Start Date Expiration Date Visits Re quested Visits Authorized [id number] Closed 09/12/2024 09/12/2025 1 1 Encounter Details Date Type Department Care Team (Late st Contact Info) Description 09/12/2024 Orders Only [facility] [address] [place] [address] Erin Soto MD [address] [place] [address] Menorrhagia with regular cycle (Primary Dx) Social [...] documented as of this encounter Care Teams Plate Corrector Relationship Specialty Start Date End Date Patti Clark MD [address] [place] [address] PCP - General Family Medicine 12/10/20 Kanchan Hughes NP Psychiatrist 09/24/24 documented as of this encounter
--- OUTSIDE RECORDS SUMMARY | 2025-01-30 09:03 | XMS_ITS | Clinical Summary ---
Author Organization [facility] [facility] [employer] Address [address] [facility] 7t [place] [address] Care Team Providers Care Patient Access Coordinator Name Role Phone Patti Clark MD Primary Care Provider [phone] Allergies No known active allergies Medications cholecalciferol [...] daily for 10 days until can completes MECHANOTHERAPIST eval -denies any risk factors to take [...] EST): Patient reports she was seen in [facility] by neurologist but she was concern about his rapport, requested referral to specialist in [place], referral placed. Assessment & Plan (11/23/2022 5:23 [...] recommended reduction of 20-30% of maintenance calories; filter press supervisor referral offered. Recommended to decrease soda and sugary beverage consumption. Recommended at least 20 g per meal of protein to assist with satiety. Recommended at least 150 min/week of moderate intensity exercise. Assessment & Plan (04/02/2024 2:27 AM EDT): -Pt has lost 6 pounds. Discussed calorie deficit, recommended reduction of 20-30% of maintenance calories; filter press supervisor referral offered. Recommended to decrease soda and sugary beverage consumption. Recommended at least 20 g per meal of protein to assist with satiety. Recommended at least 150 min/week of moderate intensity exercise. -f/u in 3 months Assessment & Plan (01/24/2024 9:19 AM EDT): - Discussed calorie deficit, recommended reduction of 20-30% of maintenance calories; filter press supervisor referral offered. Recommended to decrease soda and sugary beverage consumption. Recommended at least 20 g per meal of protein to assist with satiety. Recommended at least 150 min/week of moderate intensity exercise. Will start trial of AOM to assist w/ wt loss. Assessment & Plan (11/18/2023 8:55 AM EST): Discussed calorie deficit, recommended reduction of 20-30% of maintenance calories; filter press supervisor referral offered. Recommended to decrease soda [...] recommended reduction of 20-30% of maintenance calories; filter press supervisor referral offered. Recommended to decrease soda [...] chronic pain management she does follow in [place] with [facility] but is thinking of switching to [facility], report patient that she will need to inform specialist of her decision. Pain in female pelvis 10/09/2018 Encounters Date Type Department Care Team Description 01/08/2025 Refill [facility] [address] [place] [address] Abbey Fonseca MD Class 1 obesity 01/07/2025 Orders Only GENERIC EXTERNAL DATA DEPARTMENT Provider, Generic External Data 01/04/2025 Population Health Risk Score Community Care [facility] (C3) Department [address] [place] [id number] Provider, Population Health Generic 12/11/2024 9:00 AM EST Telemedicine [facility] [address] [place] [address] Abbey Fonseca MD Class 1 obesity (Primary Dx); Anxiety 12/11/2024 Travel 11/19/2024 Orders Only [facility] [address] [place] [address] Abbey Fonseca MD 11/16/2024 Telephone [facility] [address] [place] [address] Patti Clark MD PA 11/13/2024 Telephone [facility] [address] [place] [address] Patti Clark MD 11/09/2024 10:30 AM EST Office Visit [facility] [address] [place] [address] Nessa [place], OD Retinal hole of left eye (Primary Dx) 11/09/2024 Travel 11/07/2024 Refill [facility] [address] [place] [address] Patti Clark MD 11/06/2024 11:15 AM EST Office Visit [facility] [address] [place] [address] Nessa [place], OD Other chronic allergic conjunctivitis [...] HIGH SENSITIVITY <2.7 <3.5 - 17.0 ng/L [facility] Comment:The Hope high sens itivity Troponin-I results should beused in conjunction with other diagnostic information suchas ECG, clinical observations and information, and patientsymptoms to aid in the diagnosis of RI. 01/07/2025 8:56 AM EDT 01/07/2025 8:59 AM EDT us Generic External Data Provider LAB BLOOD ORDERAB LES Final Result [facility] [address] [place] [phone] * SARS-CoV-2 RNA, Influenza A/B, and RSV RNA, Ql NAAT (01/07/2025 8:56 AM EDT) Pathologist [facility] Influenza A PCR NEGATIVE Negative [facility] Influenza B PCR NEGATIVE Negative [facility] Resp Syncy Virus RNA Qual PCR NEGATIVE Negative [facility] SARS COV2 PCR NEGATIVE Negative [facility] Comment:All test results mus [...] use by authorized laboratories.Testing performed on the [employer] GeneXpert utilizingreal-time RT-PCR.All SARS CoV2 and positive influenza A/B results arereported to [facility]. 01/07/2025 8:56 AM EDT 01/07/2025 8:59 AM EDT us Generic External Data Provider LAB MICROBIOLOGY - GENERAL ORDERABLES Final Result [facility] [address] [place] [address] [phone] * (ABNORMAL) CBC auto differential (01/07/2025 8:56 AM EDT) [facility] White Blood Count 6.0 4.8 - 10.8 X10*3/uL [facility] Red Blood Count 4.33 4.20 - 5.50 X10*6/uL [facility] Hemoglobin 12.5 12.0 - 16.0 g/dl [facility] Hematocrit 37.5 37.0 - 47.0 % [facility] Mean Corpuscular Volume 86.6 80.0 - 98.0 fL [facility] Mean Corpuscular Hemoglobin 28.9 27.0 - 33.0 pg [facility] Mean Corpuscular HGB Conc 33.3 31.0 - 35.0 g/dl [facility] Red Cell Distribution Width 13.2 11.0 - 16.0 % [facility] Platelet Count 183 160 - 400 X10*3/uL [facility] Mean Platelet Volume 9.8 9.4 - 12.3 fL [facility] Neutrophils Percent Auto 47.3 45 - 73 % [facility] Imm Gran Pct Auto 0.0 0.0 - 0.4 % [facility] Lymphocytes Percent Auto 41.6(H) 20 - 40 % [facility] Monocytes Percent Auto 8.4 2 - 11 % [facility] Eosinophils Percent Auto 2.2 0 - 4 % [facility] Basophils Percent Auto 0.5 0 - 2 % [facility] NRBC Pct Auto 0.0 0.0 - 0.2 /100WBC [facility] Neutrophils Absolute Auto 2.8 2.0 - 8.3 x10*3/uL [facility] Imm Gran Abs Auto 0.00 0.00 - 0.03 X10*3/uL [facility] Lymphocytes Absolute Auto 2.5 1.2 - 4.9 X10*3/uL [facility] Monocytes Absolute Auto 0.5 0.1 - 1.2 X10*3/uL [facility] Eosinophils Absolute Auto 0.1 0.0 - 0.4 X10*3/uL [facility] Basophils Absolute Auto 0.0 0.0 - 0.2 X10*3/uL [facility] NRBC Abs Auto 0.000 0.0 - 0.012 X10*3/uL [facility] 01/07/2025 8:56 AM EDT 01/07/2025 8:59 AM EDT us Generic External Data Provider LAB BLOOD ORDERAB LES Final Result [facility] [address] [place] [phone] [phone] * (ABNORMAL) LIPID PANEL, STANDARD (12/28/2021 [...] ?? Abdon NELSON et al. CATHERINE. 2013;310(19): 2209-4119 ?? (http://education.Social IQ (Social Influence Quotient).[employer]/faq/UDP477) Non-HDL Cholesterol 150(H) <130 mg/dL (calc) [facility] Comment: For patients with diabetes plus 1 major ASCVD risk ?? factor, treating to a non-HDL-C goal of <100 mg/dL ?? (LDL-C of <70 mg/dL) is considered a therapeutic ?? option. Triglycerides 78 <150 mg/dL [facility] 12/28/2021 11:2 5 AM EST us Patti Clark MD LAB BLOOD ORDERABLES Final Re sult [facility] [address] * HPV E6/E7 RFLX ANTWAN 16 18/45 (04/24/2021 3:22 PM EDT) HPV mRNA E6/E7 rflx Not Detected Not Detected [facility] Comment: Methodology: Fire Support Specialist-Mediated Amplification This assay detects E6/E7 viral messenger RNA (mRNA) from 14 high-risk HPV types (16,18,31,33,35,39,45,51,52,56,58,59,66,68). The analytical performance characteristics of this assay have been determined by [employer]. The modifications have not been cleared or approved by the FDA. This assay has been validated pursuant to the CLIA regulations and is used for clinical purposes. For additional information, please refer to http://Skilljar.Validas/faq/HGC595i8 (This link if provided for information/ educational purposes only.) THIS TEST WAS PERFORMED AT: [facility] [address] [place] [address] [address] [place], [place] ??[phone] FAISAL MINOR MD 04/24/2021 3:22 PM EDT Cony Hart HISTORICAL/NON ORDERABLE LABS Fi nal Result Performing Organization Address City/State/[facility] Co de Phone Number [facility] [address] * HIV 1/2 ANTIGEN/ANTIBODY,FOURTH GENERATION W/RFL (08/21/2020 10:06 AM EDT) HIV-1/2 ANTIGEN AND ANTIBODIES, 4TH GENERATION W/ REFLEX NON-REACT LARA NON-REACT LARA [facility] Comment: HIV-1 antigen and HIV-1/HIV-2 [...] ? For additional information please refer to http://education.Sureline Systems.Sherpa [employer]/faq/XBX290 (This link is being provided for informational/ educational purposes only.) ? The performance of this assay has not been clinically validated in patients less than 2 years old. ?? 08/21/2020 10:0 6 AM EDT Cielo Ron NP LAB BLOOD ORDERABLES Final Resul t [facility] [address] from Last 3 Months or Most Recently Relevant to Health Maintenance Insurance [facility] C3 Care Teams Patient Access Coordinator Relationship Specialty Start Date End Date Patti Clark MD [address] [place] [address] PCP - General Family Medicine 12/10/20 Kanchan Hughes NP Psychiatrist 09/24/24
--- OUTSIDE RECORDS SUMMARY | 2025-01-30 09:03 | XMS_ITS | Encounter Summary ---
Author Organization [employer] Address [address] [facility] [address] [place] [address] Care Team Providers Care Furniture Manager Name Role Phone Patti Clark MD Primary Care Provider [phone] Encounter Details Date Type Department Care Team ([facility] st Contact Info) Description 11/19/2024 Orders Only [facility] [address] [place] [address] Abbey Fonseca MD [address] [place] [address] Social History Tobacco Use Types Packs/Day Years [...] documented as of this encounter Care Teams Furniture Manager Relationship Specialty Start Date End Date Patti Clark MD [address] [place] [address] PCP - General Family Medicine 12/10/20 Kanchan Hughes NP Psychiatrist 09/24/24 documented as of this encounter
== END ==
LOC: HO.SL 08:43
PROVIDERS: PCP Family Medicine; Visit Provider Nurse Practitioner Family
DX: G47.9 Sleep disorder, unspecified (principal); G47.19 Other hypersomnia; R06.83 Snoring; R51.9 Headache, unspecified
CPT/HCPCS: 95806

== ENCOUNTER → 2025-01-30 08:57 | Outpatient (BNV) | payer MEDICAID, SELFPAY | PROVIDERS: PCP Family Medicine; Visit Provider Psychiatry & Neurology Neurology | DX: R06.83 Snoring (principal); G47.10 Hypersomnia, unspecified | CPT/HCPCS: 95806 ==

== ENCOUNTER → 2025-02-01 15:10 | Outpatient (BNV) | payer MEDICAID, SELFPAY | PROVIDERS: PCP Family Medicine; Visit Provider Radiology Diagnostic Radiology | DX: R07.89 Other chest pain (principal); M25.512 Pain in left shoulder | CPT/HCPCS: 71046; 73030 ==

== ENCOUNTER 2025-02-01 15:11 | Outpatient (REF) | payer MEDICAID, SELFPAY ==
--- NOTE | ~2025-02-01 | XR_ITS ---
EXAMINATION: XR CHEST CLINICAL INFORMATION: Left sided chest wall pain COMPARISON: 09/21/2021. TECHNIQUE: 2 views of the chest were obtained. FINDINGS: The cardiac, hilar, and mediastinal contours are normal. The lungs are clear bilaterally. There is no pneumothorax or pleural effusion. There is no focal osseous or soft tissue abnormality. There are spinal stimulator leads terminating in the midline mid thoracic dorsal epidural space, mid to inferior T7 level. XR/XR chest 2V IMPRESSION: Normal chest. Electronically signed by: David Quintero MD 02/01/2025 03:44 PM EDT
--- NOTE | ~2025-02-01 | XR_ITS ---
EXAMINATION: XR SHOULDER 2 OR MORE VIEWS LEFT HISTORY: Acute on chronic left shoulder pain COMPARISON: Comparison is made with the prior examination dated 12/05/2024. FINDINGS: Four views of the left shoulder are submitted. Osseous mineralization is normal. There is no fracture or dislocation. The glenohumeral and acromioclavicular joint spaces are preserved. The soft tissues are unremarkable. XR/XR shoulder LT min 2V IMPRESSION: Unremarkable examination of the left shoulder. Electronically signed by: Kain Nieves MD 02/01/2025 03:38 PM EDT
--- OUTSIDE RECORDS SUMMARY | 2025-02-01 15:14 | XMS_ITS | Encounter Summary ---
Author Organization [employer] Address [address] [facility] [facility] [address] [place] [address] Care Team Providers Care Welfare Manager Name Role Phone Patti Clark MD Primary Care Provider [phone] Encounter Details Date Type Department Care Team ([facility] st Contact Info) Description 10/05/2024 Orders Only [facility] [address] [place], [place] [id number] Erin Soto MD [address] [place] [address] Social History Tobacco Use Types Packs/Day Years [...] documented as of this encounter Care Teams Welfare Manager Relationship Specialty Start Date End Date Patti Clark MD [address] [place] [address] PCP - General Family Medicine 12/10/20 Kanchan Hughes NP Psychiatrist 09/24/24 documented as of this encounter
--- OUTSIDE RECORDS SUMMARY | 2025-02-01 15:14 | XMS_ITS | Encounter Summary ---
Author Organization [employer] Address [address] [facility] [address] [place] [address] Care Team Providers Care Spool Hauler Name Role Phone Patti Clark MD Primary Care Provider [phone] Reason for Visit * Reason Comments Med Refill Encounter Details Date Type Department Care Team ([facility] st Contact Info) Description 05/28/2024 Refill [facility] [address] [place] [address] Patti Clark MD [address] [place] [address] Social History Tobacco Use Types Packs/Day Years [...] documented as of this encounter Care Teams Spool Hauler Relationship Specialty Start Date End Date Patti Clark MD [address] [place] [address] PCP - General Family Medicine 12/10/20 Kanchan Hughes NP Psychiatrist 09/24/24 documented as of this encounter
--- OUTSIDE RECORDS SUMMARY | 2025-02-01 15:14 | XMS_ITS | Encounter Summary ---
Author Organization [employer] Address [address] [facility] 7 [place] [address] Care Team Providers Care Conveyor Belt Operator Name Role Phone Patti Clark MD Primary Care Provider [phone] Reason for Referral * Imaging (Routine) - Closed Specialty Diagnoses / Procedures Referred By Contac t Referred To Contact Radiology Diagnoses Menorrhagia with regular cycle Procedures US Pelvis Transvaginal Erin Soto MD [address] [place] [address] Phone: tel: fax: [facility] [address] [place], [place] Phone: tel: fax: Referral ID Status Reason Start Date Expiration Date Visits Re quested Visits Authorized [id number] Closed 09/12/2024 09/12/2025 1 1 Encounter Details Date Type Department Care Team (Late st Contact Info) Description 09/12/2024 Orders Only [facility] [address] [place] [address] Erin Soto MD [address] [place] [address] Menorrhagia with regular cycle (Primary Dx) Social [...] documented as of this encounter Care Teams Conveyor Belt Operator Relationship Specialty Start Date End Date Patti Clark MD [address] [place] [address] PCP - General Family Medicine 12/10/20 Kanchan Hughes NP Psychiatrist 09/24/24 documented as of this encounter
--- OUTSIDE RECORDS SUMMARY | 2025-02-01 15:14 | XMS_ITS | Encounter Summary ---
Author Organization [employer] Address [address] [address] [facility] [address] [place] [address] Care Team Providers Care Decorator Inspector Name Role Phone Patti Clark MD Primary Care Provider [phone] Reason for Visit * Reason Onset Date Comments Appointment Request 12/20/2022 Encounter Details Date Type Department Care Team ([facility] st Contact Info) Description 12/20/2022 Telephone [facility] [address] [place] [address] Patti Clark MD [address] [place] [address] Appointment Request Social History Tobacco Use Types [...] regarding message below. Please contact pt at [phone] * Telephone Encounter - Adan Albrecht - 12/20/2022 3:27 PM EST Tc from pt requesting to r/s appt 12/21/22 ( ER follow up [facility] 12/16 for low back pain and passing out due to the pain. ) Please contact pt at [phone] documented in this encounter Plan of Treatment Not on file documented as of this encounter Visit Diagnoses Not on filedocumented in this encounter Additional Health Concerns Assessment Noted Time PHQ-9 Depression Total Score: 11 023 3:48 PM EST documented as of this encounter Care Teams Decorator Inspector Relationship Specialty Start Date End Date Patti Clark MD [address] [place] [address] PCP - General Family Medicine 12/10/20 Kanchan Hughes NP Psychiatrist 09/24/24 documented as of this encounter
--- OUTSIDE RECORDS SUMMARY | 2025-02-01 15:14 | XMS_ITS | Encounter Summary ---
Author Organization [employer] Address [address] [facility] [address] [address] [place] [address] Care Team Providers Care Boilers Inspector Name Role Phone Patti Clark MD Primary Care Provider [phone] Encounter Details Date Type Department Care Team (Latest Contact Info) Description 02/01/2025 Travel Social History Tobacco Use Types Packs/Day [...] documented as of this encounter Care Teams Boilers Inspector Relationship Specialty Start Date End Date Patti Clark MD [address] [place] [address] PCP - General Family Medicine 12/10/20 Kanchan Hughes NP Psychiatrist 09/24/24 documented as of this encounter
--- OUTSIDE RECORDS SUMMARY | 2025-02-01 15:14 | XMS_ITS | Clinical Summary ---
Author Organization [employer] Address [address] [facility] 7t [place] [address] Care Team Providers Care Human Resource Professional Name Role Phone Patti Clark MD Primary Care Provider [phone] Allergies No known active allergies Medications cholecalciferol [...] daily for 10 days until can completes CERTIFIED NURSE PRACTITIONER eval -denies any risk factors to take [...] EST): Patient reports she was seen in [facility] by neurologist but she was concern about his rapport, requested referral to specialist in [place], referral placed. Assessment & Plan (11/23/2022 5:23 [...] recommended reduction of 20-30% of maintenance calories; doctorate of chiropractic referral offered. Recommended to decrease soda and sugary beverage consumption. Recommended at least 20 g per meal of protein to assist with satiety. Recommended at least 150 min/week of moderate intensity exercise. Assessment & Plan (04/02/2024 2:27 AM EDT): -Pt has lost 6 pounds. Discussed calorie deficit, recommended reduction of 20-30% of maintenance calories; doctorate of chiropractic referral offered. Recommended to decrease soda and sugary beverage consumption. Recommended at least 20 g per meal of protein to assist with satiety. Recommended at least 150 min/week of moderate intensity exercise. -f/u in 3 months Assessment & Plan (01/24/2024 9:19 AM EDT): - Discussed calorie deficit, recommended reduction of 20-30% of maintenance calories; doctorate of chiropractic referral offered. Recommended to decrease soda and sugary beverage consumption. Recommended at least 20 g per meal of protein to assist with satiety. Recommended at least 150 min/week of moderate intensity exercise. Will start trial of AOM to assist w/ wt loss. Assessment & Plan (11/18/2023 8:55 AM EST): Discussed calorie deficit, recommended reduction of 20-30% of maintenance calories; doctorate of chiropractic referral offered. Recommended to decrease soda and [...] recommended reduction of 20-30% of maintenance calories; doctorate of chiropractic referral offered. Recommended to decrease soda and [...] chronic pain management she does follow in [place] with [facility] but is thinking of switching to [facility], report patient that she will need to inform specialist of her decision. Pain in female pelvis 10/09/2018 Encounters Date Type Department Care Team Description 02/01/2025 2:00 PM EDT Office Visit [facility] [address] [place] [address] Acute pain of left shoulder (Primary Dx); Left-sided chest wall pain 02/01/2025 Travel 01/31/2025 Telephone [facility] [address] [place] [address] Patti Clark MD ER Follow-up 01/08/2025 Refill [facility] [address] [place] [address] Abbey Fonseca MD Class 1 obesity 01/07/2025 Orders Only GENERIC EXTERNAL DATA DEPARTMENT Provider, Generic External Data 01/04/2025 Population Health Risk Score [facility] (C[facility]) Department [address] [place] [phone] Provider, Population Health Generic 12/11/2024 9:00 AM EST Telemedicine [facility] [address] [place] [address] Abbey Fonseca MD Class 1 obesity (Primary Dx); Anxiety 12/11/2024 Travel 11/19/2024 Orders Only [facility] [address] [place] [address] Abbey Fonseca MD 11/16/2024 Telephone [facility] [address] [place] [address] Patti Clark MD PA 11/13/2024 Telephone [facility] [address] [place] [address] Patti Clark MD 11/09/2024 10:30 AM EST Office Visit [facility] [address] [place] [phone] Nessa Mayfield, OD Retinal hole of left eye (Primary Dx) 11/09/2024 Travel 11/07/2024 Refill [facility] [address] [place] [address] Patti Clark MD 11/06/2024 11:15 AM EST Office Visit [facility] [address] [place] [address] Nessa Mayfield, OD Other chronic allergic conjunctivitis [...] Sign Reading Time Taken Comments Blood Pressure 117/77 02/01/2025 1:51 PM EDT Pulse 88 02/01/2025 1:51 PM EDT Temperature 36.9 ??C (98.4 ??F) 02/01/2025 1:51 PM ED T Respiratory Rate 20 02/01/2025 1:51 PM EDT Oxygen Saturation 98% 02/01/2025 1:51 PM EDT Inhaled Oxygen Concentration - - Weight 76.2 kg (168 lb) 02/01/2025 1:51 PM EDT Height 158 cm (5' 2.21 ) 02/01/2025 1:51 PM EDT Body Mass Index 30.52 02/01/2025 1:51 PM EDT Plan of Treatment Health Maintenance Due Date [...] HIGH SENSITIVITY <2.7 <3.5 - 17.0 ng/L [facility] Comment:The Hope high sens itivity Troponin-I results should beused in conjunction with other diagnostic information suchas ECG, clinical observations and information, and patientsymptoms to aid in the diagnosis of DE. 01/07/2025 8:56 AM EDT 01/07/2025 8:59 AM EDT Generic External Data Provider LAB BLOOD ORDERAB LES Final Result Performing Organization Address [facility] Co de Phone Number [facility] [address] [place] [phone] * SARS-CoV-2 RNA, Influenza A/B, and RSV RNA, Ql NAAT (01/07/2025 8:56 AM EDT) Influenza A PCR NEGATIVE Negative [facility] Influenza B PCR NEGATIVE Negative [facility] Resp Syncy Virus RNA Qual PCR NEGATIVE Negative [facility] SARS COV2 PCR NEGATIVE Negative [facility] Comment:All test results mus t [...] use by authorized laboratories.Testing performed on the [employer] GeneXpert utilizingreal-time RT-PCR.All SARS CoV2 and positive influenza A/B results arereported to [facility]. 01/07/2025 8:56 AM EDT 01/07/2025 8:59 AM EDT us Generic External Data Provider LAB MICROBIOLOGY - GENERAL ORDERABLES Final Result Performing Organization Address [facility] Co de Phone Number [facility] [address] [place] [phone] * (ABNORMAL) CBC auto differential (01/07/2025 8:56 AM EDT) White Blood Count 6.0 4.8 - 10.8 X10*3/uL [facility] Red Blood Count 4.33 4.20 - 5.50 X10*6/uL [facility] Hemoglobin 12.5 12.0 - 16.0 g/dl [facility] Hematocrit 37.5 37.0 - 47.0 % [facility] Mean Corpuscular Volume 86.6 80.0 - 98.0 fL [facility] Mean Corpuscular Hemoglobin 28.9 27.0 - 33.0 pg [facility] Mean Corpuscular HGB Conc 33.3 31.0 - 35.0 g/dl [facility] Red Cell Distribution Width 13.2 11.0 - 16.0 % [facility] Platelet Count 183 160 - 400 X10*3/uL [facility] Mean Platelet Volume 9.8 9.4 - 12.3 fL [facility] Neutrophils Percent Auto 47.3 45 - 73 % [facility] Imm Gran Pct Auto 0.0 0.0 - 0.4 % [facility] Lymphocytes Percent Auto 41.6(H) 20 - 40 % [facility] Monocytes Percent Auto 8.4 2 - 11 % [facility] Eosinophils Percent Auto 2.2 0 - 4 % [facility] Basophils Percent Auto 0.5 0 - 2 % [facility] NRBC Pct Auto 0.0 0.0 - 0.2 /100WBC [facility] Neutrophils Absolute Auto 2.8 2.0 - 8.3 x10*3/uL [facility] Imm Gran Abs Auto 0.00 0.00 - 0.03 X10*3/uL [facility] Lymphocytes Absolute Auto 2.5 1.2 - 4.9 X10*3/uL [facility] Monocytes Absolute Auto 0.5 0.1 - 1.2 X10*3/uL [facility] Eosinophils Absolute Auto 0.1 0.0 - 0.4 X10*3/uL [facility] Basophils Absolute Auto 0.0 0.0 - 0.2 X10*3/uL [facility] NRBC Abs Auto 0.000 0.0 - 0.012 X10*3/uL [facility] 01/07/2025 8:56 AM EDT 01/07/2025 8:59 AM EDT us Generic External Data Provider LAB BLOOD ORDERAB LES Final Result Performing Organization Address City/[facility]/ZIP Co de Phone Number [facility] [address] [place] [phone] [phone] * (ABNORMAL) LIPID PANEL, STANDARD (12/28/2021 [...] ?? Abdon NELSON et al. CATHERINE. 2013;310(19): 9849-2739 ?? (http://education.[employer]/faq/VQA148) Non-HDL Cholesterol 150(H) <130 mg/dL (calc) [facility] [...] ORDERABLES Final Re sult Performing Organization Address City/[facility]/ZIP Co de Phone Number [facility] [address] * HPV E6/E7 RFLX ANTWAN [phone] (04/24/2021 3:22 PM EDT) HPV mRNA E6/E7 rflx Not Detected Not Detected [facility] Comment: Methodology: Dietary Services Director-Mediated Amplification This assay detects E6/E7 viral messenger RNA (mRNA) from 14 high-risk HPV types (16,18,31,33,35,39,45,51,52,56,58,59,66,68). The analytical performance characteristics of this assay have been determined by [employer]. The modifications have not been cleared or approved by the FDA. This assay has been validated pursuant to the CLIA regulations and is used for clinical purposes. For additional information, please refer to http://[employer]/faq/VIL462y5 (This link if provided for information/ educational purposes only.) THIS TEST WAS PERFORMED AT: [employer] [address] [place] [address],[address] [place], [place] ??[phone] FAISAL MINOR MD 04/24/2021 3:22 PM EDT Cony Chisago HISTORICAL/NON ORDERABLE LABS Fi nal Result [facility] [address] * HIV 1/2 ANTIGEN/ANTIBODY,FOURTH GENERATION W/RFL [...] ? For additional information please refer to http://education.[employer]/faq/XDB833 (This link is being provided for informational/ educational purposes only.) ? The performance of this assay has not been clinically validated in patients less than 2 years old. ?? 08/21/2020 10:0 6 AM EDT us Cielo Ron NP LAB BLOOD ORDERABLES Final Resul t [facility] [address] from Last 3 Months or Most Recently Relevant to Health Maintenance Insurance [facility] C3 Care Teams Human Resource Professional Relationship Specialty Start Date End Date Patti Clark MD [address] [place] [phone] PCP - General Family Medicine 12/10/20 Kanchan Hughes NP Psychiatrist 09/24/24
--- OUTSIDE RECORDS SUMMARY | 2025-02-01 15:14 | XMS_ITS | Encounter Summary ---
Author Organization [employer] Address [address] 7[address] [place] [address] Care Team Providers Care Shear Operator Helper Name Role Phone Patti Clark MD Primary Care Provider [phone] Reason for Visit * Reason Comments Follow-up HDF Encounter Details Date Type Department Care Team ([facility] st Contact Info) Description 02/01/2025 2:00 PM EDT Office Visit [facility] [address] [place] [address] Acute pain of left shoulder (Primary Dx); Left-sided chest wall pain Social History Tobacco Use Types Packs/Day Years [...] AM EDT documented as of this encounter Last Filed Vital Signs Vital Sign Reading [...] Mass Index 30.52 02/01/2025 1:51 PM EDT documented in this encounter Plan of Treatment Scheduled Orders Name Type Priority Associated Diagnoses Orde r Schedule XR Shoulder 2+ Views Left Imaging Routine Acute pain of left shoulder Expected: 02/01/2025, Expires: 02/01/2026 XR Chest 2 Views Imaging Routine Left-sided chest wall pain Expected: 02/01/2025, Expires: 02/01/2026 documented as of this encounter Visit Diagnoses Diagnosis Acute pain of left shoulder- Primary Left-sided chest wall pain Painful respiration documented in this encounter Additional Health Concerns Assessment Noted Time PHQ-9 Depression Total Score: 5 08/23/20 24 11:38 AM EDT documented as of this encounter Care Teams Shear Operator Helper Relationship Specialty Start Date End Date Patti Clark MD [address] [place] [address] PCP - General Family Medicine 12/10/20 Kanchan Hughes NP Psychiatrist 09/24/24 documented as of this encounter
--- OUTSIDE RECORDS SUMMARY | 2025-02-01 15:14 | XMS_ITS | Encounter Summary ---
Author Organization [employer] Address [address] 7[address] [place] [address] Care Team Providers Care Stranner Name Role Phone Patti Clark MD Primary Care Provider [phone] Reason for Visit * Reason Onset Date Comments ER Follow-up 01/31/2025 Encounter Details Date Type Department Care Team ([facility] st Contact Info) Description 01/31/2025 Telephone [facility] [address] [place] [address] Patti Clark MD [address] [place] [address] ER Follow-up Social History Tobacco Use Types Packs/Day Years [...] encounter Miscellaneous Notes * Telephone Encounter - Bianca Pa RN - 01/31/2025 3:18 PM EDT called pt to triage, spoke to pt. pt seen ER at [facility] on 01/07 for left sided chest pain, diagnosed with chest wall pain. work up negative for acute and pt given home care recommendations and to follow up as needed with PCP. pt states persistent, intermittent left chest pain, left arm pain. pt denies current severe symptoms, sob, illness symptoms, fever, or other associated symptoms. advised home care: rest, fluids, ice, heat, OTC pain reliever as needed, and call back if worsening or new concerns. advised if severe symptoms with any sob or numbness, to seek ER evaluation. given appt with [facility] tomorrow at 2:00 for exam and recheck. pt understands and agrees with plan. insurance verified. Protocol Used: Chest Pain (Adult) Protocol-Based Disposition: See in Office post ER visit, chest wall pain. Video visit offer not recorded Positive Triage Question: * Patient wants to be seen * All higher-acuity triage questions were negative Care Advice Discussed: * Reasons To Call Back - Chest pain increases in frequency, duration or severity - Chest pain lasts over 5 minutes - Chest pains persist over 3 days - Difficulty breathing or unusual sweating occurs - Fever over 100.4 F (38.0 C) - You become worse * Telephone Encounter - Haseeb Zuniga - 01/31/2025 2:59 PM EDT Patient calling to report ED visit on : Date: 01/07/25 Hospital: [facility] Seen for: Chest Pain Symptomatic Yes *if yes message should go to Triage Patient advised will forward to team nurse for follow up Contact pt at [phone] documented in this encounter Plan of Treatment Not on file documented as of this encounter Visit Diagnoses Not on filedocumented in this encounter Additional Health Concerns Assessment Noted Time PHQ-9 Depression Total Score: 5 08/23/20 24 11:38 AM EDT documented as of this encounter Care Teams Stranner Relationship Specialty Start Date End Date Patti Clark MD [address] [place] [address] PCP - General Family Medicine 12/10/20 Kanchan Hughes NP Psychiatrist 09/24/24 documented as of this encounter
--- OUTSIDE RECORDS SUMMARY | 2025-02-01 15:14 | XMS_ITS | Encounter Summary ---
Author Organization [employer] Address [address] [facility] [address] [place] [address] Care Team Providers Care Flame Annealing Machine Operator Name Role Phone Patti Clark MD Primary Care Provider [phone] Encounter Details Date Type Department Care Team ([facility] st Contact Info) Description 11/19/2024 Orders Only [facility] [address] [place] [address] Abbey Fonseca MD [address] [place] [address] Social History Tobacco Use Types Packs/Day Years [...] documented as of this encounter Care Teams Flame Annealing Machine Operator Relationship Specialty Start Date End Date Patti Clark MD [address] [place] [phone] PCP - General Family Medicine 12/10/20 Kanchan Hughes NP Psychiatrist 09/24/24 documented as of this encounter
== END 2025-02-01 15:12 | disposition home or self-care (01) ==
LOC: HO.XRAY 15:11
PROVIDERS: PCP Family Medicine; Visit Provider Internal Medicine
DX: R07.89 Other chest pain (principal); M25.512 Pain in left shoulder
CPT/HCPCS: 71046; 73030

== ENCOUNTER 2025-02-11 08:55 | Outpatient (REF) | payer MEDICAID, SELFPAY ==
--- NOTE | ~2025-02-11 | MR_ITS ---
EXAMINATION: MR KNEE WITHOUT CONTRAST, RIGHT CLINICAL INFORMATION: Right knee pain. Unilateral primary osteoarthritis, right knee. COMPARISON: MRI right knee 09/16/2023. TECHNIQUE: MRI of the RIGHT knee without contrast was performed using routine sequences on a 1.5 Dali Siemens high-field scanner. FINDINGS: MENISCI: Medial Meniscus: There is a stable lobulated simple appearing cyst abutting the posterior root entry zone of the medial meniscus, measuring approximately 1.1 x 0.8 x 1.5 cm, most likely a ganglion cyst (series 19, image 22).. No definite associated meniscal tear is identified. Remainder of the medial meniscus appears intact and normal in signal. Root entry zones are intact. In addition, there is an unchanged elongated linear cystic structure abutting the anterior meniscal body and proximal posterior horn (Series 17, image 11), traveling along with the region of the meniscal recess, also likely an incidental ganglion cyst. No definite associated meniscal tear. Lateral Meniscus: Intact and normal in signal. Root entry zones appear intact. LIGAMENTS: Anterior Cruciate: Intact and normal in signal. Posterior Cruciate: Intact and normal in signal. Medial Collateral: Intact and normal in signal. Lateral Collateral Complex: The biceps femoris tendon, conjoined tendon, fibular collateral ligament, and popliteus tendon all appear intact and normal in signal. Arcuate Ligament: Intact and normal in signal. EXTENSOR MECHANISM: Intact and normal in signal. There are no signal abnormalities within Hoffa's fat pad or the prefemoral fat pad. There is mild increased signal within the suprapatellar fat pad, finding which can indicate patellar tracking abnormality. PATELLAR RETINACULUM: Intact and normal in signal. The medial patellofemoral ligament is intact. BONE: There are no gross regions of bone marrow edema or subchondral bone plate edema. No infiltrating abnormal signal. JOINTS/CARTILAGE: Medial Compartment: Minimal cartilage thinning and eburnation involving the weightbearing condyle and tibial plateau, without full-thickness defect. Tiny/early marginal osteophytes present. Nonweightbearing femoral cartilage is normal. Lateral Compartment: Minimal cartilage thinning and eburnation involving the weightbearing lateral femoral condyle. Minimal signal changes within the lateral tibial plateau cartilage without thinning or defect. Minimal/tiny marginal osteophytes present. Nonweightbearing lateral femoral cartilage is normal. Patellofemoral Compartment: There is a somewhat shallow trochlea, with lateral patellar tilt present. Patella otherwise normally aligned. Normal patellar cartilage without focal defect. Normal trochlear cartilage without defect. No significant degenerative change. JOINT FLUID AND BURSAE: There is normal joint fluid without effusion. There is minimal increased signal in the prepatellar region suggesting mild prepatellar bursitis. OTHER: Popliteal fossa is normal in signal without cyst. The imaged musculature is normal in signal. MR/MR knee RT wo con IMPRESSION: 1. There is no internal derangement. The menisci, cruciates, and major ligamentous structures are intact and normal in signal. 2. There is mild edema within the suprapatellar fat pad, with a notably shallow femoral trochlea and lateral patellar tilt. This may indicate patellar tracking abnormality. Correlate for anterior knee pain. 3. There is minimal osteoarthritis in the medial lateral compartments. 4. Incidental findings as discussed. Electronically signed by: David Quintero MD 02/13/2025 08:42 AM EDT
--- OUTSIDE RECORDS SUMMARY | 2025-02-11 09:12 | XMS_ITS | Encounter Summary ---
Author Organization [employer] Address [address] [place] [address] Care Team Providers Care Wire Bender Name Role Phone Patti Clark MD Primary Care Provider [phone] Reason for Visit * Reason Onset Date Comments Med Refill 02/08/2025 Encounter Details Date Type Department Care Team ([facility] st Contact Info) Description 02/08/2025 Telephone [facility] [address] [place] [address] Patti Clark MD [address] [place] [address] Med Refill Social History Tobacco Use Types Packs/Day Years [...] encounter Miscellaneous Notes * Telephone Encounter - Piper Mojica LPN - 02/08/2025 2:20 PM EDT Duplicate request * Telephone Encounter - Denise Dickinson - 02/08/2025 2:18 PM EDT TC from pt requesting medication refill. Medications needing refill : Zepbound 2.5 MG/0.5ML solution auto-injector To be sent to: [facility] documented in this encounter Plan of Treatment Not on file documented as of this encounter Visit Diagnoses Not on filedocumented in this encounter Additional Health Concerns Assessment Noted Time PHQ-9 Depression Total Score: 5 08/23/20 11:38 AM EDT documented as of this encounter Care Teams Wire Bender Relationship Specialty Start Date End Date Patti Clark MD [address] [place] [address] PCP - General Family Medicine 12/10/20 Kanchan Hughes NP Psychiatrist 09/24/24 documented as of this encounter
--- OUTSIDE RECORDS SUMMARY | 2025-02-11 09:12 | XMS_ITS | Encounter Summary ---
Author Organization [employer] Address [address] [place] [address] Care Team Providers Care Electrical Engineering Technologist Name Role Phone Patti Clark MD Primary Care Provider [phone] Reason for Visit * Reason Onset Date Comments Appointment Request 12/20/2022 Encounter Details Date Type Department Care Team ([facility] st Contact Info) Description 12/20/2022 Telephone [facility] [address] [place] [address] Patti Clark MD [address] [place] [address] Appointment Request Social History Tobacco Use Types [...] regarding message below. Please contact pt at [phone] * Telephone Encounter - Adan Albrecht - 12/20/2022 3:27 PM EST Tc from pt requesting to r/s appt 12/21/22 ( ER follow up [facility] 12/16 for low back pain and passing out due to the pain. ) Please contact pt at [phone] documented in this encounter Plan of Treatment Not on file documented as of this encounter Visit Diagnoses Not on filedocumented in this encounter Additional Health Concerns Assessment Noted Time PHQ-9 Depression Total Score: 11 023 3:48 PM EST documented as of this encounter Care Teams Electrical Engineering Technologist Relationship Specialty Start Date End Date Patti Clark MD [address] [place] [address] PCP - General Family Medicine 12/10/20 Kanchan Hughes NP Psychiatrist 09/24/24 documented as of this encounter
--- OUTSIDE RECORDS SUMMARY | 2025-02-11 09:12 | XMS_ITS | Encounter Summary ---
Author Organization [employer] Address [address] 7[address] [place] [address] Care Team Providers Care Program Proposals Coordinator Name Role Phone Patti Clark MD Primary Care Provider [phone] Encounter Details Date Type Department Care Team ([facility] st Contact Info) Description 11/19/2024 Orders Only [facility] [address] [place] [address] Abbey Fonseca MD [address] [place] [address] Social History Tobacco Use Types Packs/Day Years [...] documented as of this encounter Care Teams Program Proposals Coordinator Relationship Specialty Start Date End Date Patti Clark MD [address] [place] [address] PCP - General Family Medicine 12/10/20 Kanchan Hughes NP Psychiatrist 09/24/24 documented as of this encounter
--- OUTSIDE RECORDS SUMMARY | 2025-02-11 09:12 | XMS_ITS | Encounter Summary ---
Author Organization [employer] Address [address] [place] [address] Care Team Providers Care Distribution Dispatcher Name Role Phone Patti Clark MD Primary Care Provider [phone] Reason for Visit * Reason Comments Med Refill Encounter Details Date Type Department Care Team ([facility] st Contact Info) Description 05/28/2024 Refill [facility] [address] [place] [address] Patti Clark MD [address] [place] [address] Social History Tobacco Use Types Packs/Day Years [...] documented as of this encounter Care Teams Distribution Dispatcher Relationship Specialty Start Date End Date Patti Clark MD [address] [place] [address] PCP - General Family Medicine 12/10/20 Kanchan Hughes NP Psychiatrist 09/24/24 documented as of this encounter
--- OUTSIDE RECORDS SUMMARY | 2025-02-11 09:12 | XMS_ITS | Clinical Summary ---
Author Organization [employer] Address [address] [facility] 7t [place] [address] Care Team Providers Care Senior Business Manager Name Role Phone Patti Clark MD Primary Care Provider [phone] Allergies No known active allergies Medications cholecalciferol [...] by mouth at bedtime. 12/22/19 24 Active Zepbound 2.5 MG/0.5ML solution auto-injectorIndic ations:Class 1 obesity INJECT ONE PEN (=2.5MG) SUBCUTANEOUSLY ONCE A WEEK DIRECTED 2 mL 01/09/20 25 Active Tirzepatide-Weight Management (Zepbound) 5 MG/0.5ML solution auto-injector Inject 0.5 mL (5 mg) under the skin every 7 (seven) days. INJECT ONE PEN (=5 MG) SUBCUTANEOUSLY ONCE A WEEK 2 mL 02/09/20 25 Active Active Problems Problem Noted Date [...] daily for 10 days until can completes [employer] eval -denies any risk factors to take [...] EST): Patient reports she was seen in [facility] by neurologist but she was concern about his rapport, requested referral to specialist in [place], referral placed. Assessment & Plan (11/23/2022 5:23 [...] recommended reduction of 20-30% of maintenance calories; [facility] former referral offered. Recommended to decrease soda and sugary beverage consumption. Recommended at least 20 g per meal of protein to assist with satiety. Recommended at least 150 min/week of moderate intensity exercise. Assessment & Plan (04/02/2024 2:27 AM EDT): -Pt has lost 6 pounds. Discussed calorie deficit, recommended reduction of 20-30% of maintenance calories; [facility] former referral offered. Recommended to decrease soda and sugary beverage consumption. Recommended at least 20 g per meal of protein to assist with satiety. Recommended at least 150 min/week of moderate intensity exercise. -f/u in 3 months Assessment & Plan (01/24/2024 9:19 AM EDT): - Discussed calorie deficit, recommended reduction of 20-30% of maintenance calories; [facility] former referral offered. Recommended to decrease soda and sugary beverage consumption. Recommended at least 20 g per meal of protein to assist with satiety. Recommended at least 150 min/week of moderate intensity exercise. Will start trial of AOM to assist w/ wt loss. Assessment & Plan (11/18/2023 8:55 AM EST): Discussed calorie deficit, recommended reduction of 20-30% of maintenance calories; [facility] former referral offered. Recommended to decrease soda and [...] recommended reduction of 20-30% of maintenance calories; [facility] former referral offered. Recommended to decrease soda and [...] chronic pain management she does follow in [place] with [facility] but is thinking of switching to [facility], report patient that she will need to inform specialist of her decision. Pain in female pelvis 10/09/2018 Encounters Date Type Department Care Team Description 02/08/2025 Telephone [facility] [address] [place] [address] Patti Clark MD Med Refill 02/08/2025 Refill [facility] [address] [place] [address] Patti Clark MD 02/01/2025 2:00 PM EDT Office Visit [facility] [address] [place] [address] Comfort Bautista MD Acute pain of left shoulder (Primary Dx); Left-sided chest wall pain 02/01/2025 Travel 01/31/2025 Telephone [facility] [address] [place] [address] Patti Clark MD ER Follow-up 01/08/2025 Refill [facility] [address] [place] [address] Abbey Fonseca MD Class 1 obesity 01/07/2025 Orders Only GENERIC EXTERNAL DATA DEPARTMENT Provider, Generic External Data 01/04/2025 Population Health Risk Score [facility] ([facility] Department [address] [place] [phone] Provider, Population Health Generic 12/11/2024 9:00 AM EST Telemedicine [facility] [address] [place] [address] Abbey Fonseca MD Class 1 obesity (Primary Dx); Anxiety 12/11/2024 Travel 11/19/2024 Orders Only [facility] [address] [place] [address] Abbey Fonseca MD 11/16/2024 Telephone [facility] [address] [place] [address] Patti Clark MD PA 11/13/2024 Telephone [facility] [address] [place] [address] Patti Clark MD from Last 3 Months Immunizations Name Administration [...] series) 05/20/2016 04/22/2016 COVID-19 Vaccine ( - season) 2024 04/06/2021, 03/09/2021 Influenza Vaccine (#1) [...] Procedure Name Priority Date/Time Associated Diagnosis Comments XR CHEST 2 VIEWS Routine 02/01/2025 3:10 PM EDT Left-sided chest wall pain XR SHOULDER 2+ VIEWS LEFT Routine 02/01/2025 3:10 PM EDT Acute pain of left shoulder HIGH SENSITIVITY TROPONIN I Routine 01/07/2025 8:56 [...] Recently Relevant to Health Maintenance Results * XR Shoulder 2+ Views Left (02/01/2025 3:10 PM EDT) Anatomical Region Laterality Modality Upper Extremities, Shoulder Left Radi ographic Imaging 02/01/2025 3:10 PM EDT Narrative 02/01/2025 3:40 PM EDT ? [facility] ?[address] ?[place] [address] ?XRay Report ? Signed ? Patient: Corrales,Fariba M ?MR#: [id number] ?? [id number] ? : 1985 ?Acct:[id number] ? Age/Sex: 40 / F ?ADM Date: 02/01/25 ? Loc: HO.XRAY ? Attending Dr: Comfort Bautista MD ? Ordering Physician: Comfort Bautista MD ?? Date of Service: 02/01/25 ?? Procedure(s): XR shoulder LT min 2V ?? Accession Number(s): [id number] ? cc: Comfort Bautista MD; Patti Clark MD ? EXAMINATION: ??XR SHOULDER 2 OR MORE VIEWS LEFT ? HISTORY: Acute on chronic left shoulder pain ? COMPARISON: Comparison is made with the prior examination dated ?? 12/05/2024. ? FINDINGS: ? Four views of the left shoulder are submitted. ??Osseous mineralization ?? is normal. ??There is no fracture or dislocation. ??The glenohumeral and ?? acromioclavicular joint spaces are preserved. ??The soft tissues are ?? unremarkable. ? XR/XR shoulder LT min 2V ?? IMPRESSION: ? Unremarkable examination of the left shoulder. ? Electronically signed by: ??Kain Nieves MD ??02/01/2025 03:38 PM EDT ?? RP ? Dictated By: ?Kain Nieves MD ? Signed By: ?<Electronically signed by Kain Nieves MD in OV> ?02/01/25 1538 ? DD/ 1510 ? TD/TT: 02/01/25 1530 ? P D Driver: ? Procedure Note Luis Giles - 02/01/[address] [address] XRay Report Signed Patient: Fariba Corrales [facility]#: [id number] : 1985Acct:[id number] Age/Sex: 40 / FADM Date: 02/01/25 Loc: LON Attending Dr: Comfort Bautista MD Ordering Physician: Comfort Bautista MD Date of Service: 02/01/25 Procedure(s): XR shoulder LT min 2V Accession Number(s): [id number] cc: Comfort Bautista MD; Patti Clark MD EXAMINATION: XR SHOULDER 2 OR MORE VIEWS LEFT HISTORY: Acute on chronic left shoulder pain COMPARISON: Comparison is made with the prior examination dated 12/05/2024. FINDINGS: Four views of the left shoulder are submitted. Osseous mineralization is normal. There is no fracture or dislocation. The glenohumeral and acromioclavicular joint spaces are preserved. The soft tissues are unremarkable. XR/XR shoulder LT min 2V IMPRESSION: Unremarkable examination of the left shoulder. Electronically signed by: Kain Nieves MD 02/01/2025 03:38 PM EDT RP Dictated By: Kain Nieves MD Signed By: <Electronically signed by Kain Nieves MD in OV> 02/01/25 1538 DD/ 1510 TD/TT: 02/01/25 1530 P D Driver: us Comfort Bautista MD IMG XR PROCEDURES Final Resul t * XR Chest 2 Views (02/01/2025 3:10 PM EDT) Anatomical Region Laterality Modality Chest Radiographic Maite ging 02/01/2025 3:10 PM EDT Narrative 02/01/2025 3:47 PM EDT ? [facility] ?[address] ?[place] [address] ?XRay Report ? Signed ? Patient: Savanna,Fariba M ?MR#: [id number] ?? [id number] ? : 1985 ?Acct:[id number] ? Age/Sex: 40 / F ?ADM Date: 04/11/25 ? Loc: HO.XRAY ? Attending Dr: Comfort Bautista MD ? Ordering Physician: Comfort Bautista MD ?? Date of Service: 02/01/25 ?? Procedure(s): XR chest 2V ?? Accession Number(s): [id number] ? cc: Comfort Bautista MD; Patti Clark MD ? EXAMINATION: ?? XR CHEST ? CLINICAL INFORMATION: ?? Left sided chest wall pain ? COMPARISON: ?? 09/21/2021. ? TECHNIQUE: ?? 2 views of the chest were obtained. ? FINDINGS: ?? The cardiac, hilar, and mediastinal contours are normal. ? The lungs are clear bilaterally. There is no pneumothorax or pleural ?? effusion. ? There is no focal osseous or soft tissue abnormality. ?? There are spinal stimulator leads terminating in the midline mid ?? thoracic dorsal epidural space, mid to inferior T7 level. ? XR/XR chest 2V ?? IMPRESSION: ?? Normal chest. ? Electronically signed by: ??David Quintero MD ??02/01/2025 03:44 PM EDT RP ? Dictated By: ?David Quintero MD ? Signed By: ?<Electronically signed by David Quintero MD in OV> ?02/01/25 1544 ? DD/ 1510 ? TD/TT: 02/01/25 1530 ? P D Driver: ? Procedure Note Donfrancisco javier, Image - 02/01/2025 [place] [address] XRay Report Signed Patient: Fariba Corrales MMR#: [id number] : 1985Acct:[id number] Age/Sex: 40 / FADM Date: 02/01/25 Loc: [facility] Attending Dr: Comfort Bautista MD Ordering Physician: Comfort Bautista MD Date of Service: 02/01/25 Procedure(s): XR chest 2V Accession Number(s): [id number] cc: Comfort Bautista MD; Patti Clark MD EXAMINATION: XR CHEST CLINICAL INFORMATION: Left sided chest wall pain COMPARISON: 09/21/2021. TECHNIQUE: 2 views of the chest were obtained. FINDINGS: The cardiac, hilar, and mediastinal contours are normal. The lungs are clear bilaterally. There is no pneumothorax or pleural effusion. There is no focal osseous or soft tissue abnormality. There are spinal stimulator leads terminating in the midline mid thoracic dorsal epidural space, mid to inferior T7 level. XR/XR chest 2V IMPRESSION: Normal chest. Electronically signed by: David Quintero MD 02/01/2025 03:44 PM EDT Dictated By: David Quintero MD Signed By: <Electronically signed by David Quintero MD in OV> 02/01/25 1544 DD/ 1510 TD/TT: 02/01/25 1530 P D Driver: Comfort Bautista MD IMG XR PROCEDURES Final Resul t * High Sensitivity Troponin I (01/07/2025 8:56 AM EDT) Pathologist [facility] TROPONIN I HIGH SENSITIVITY <2.7 <3.5 - 17.0 ng/L [facility] Comment:The Hope high sens itivity Troponin-I results should beused in conjunction with other diagnostic information suchas ECG, clinical observations and information, and patientsymptoms to aid in the diagnosis of [place]. 01/07/2025 8:56 AM EDT 01/07/2025 8:59 AM EDT Generic External Data Provider LAB BLOOD ORDERAB LES Final Result [facility] [address] [place] [phone] * SARS-CoV-2 RNA, Influenza A/B, and RSV RNA, Ql NAAT (01/07/2025 8:56 AM EDT) [facility] [address] Influenza A PCR NEGATIVE Negative [facility] Influenza B PCR NEGATIVE Negative [facility] Resp Syncy Virus RNA Qual PCR NEGATIVE Negative [facility] SARS COV2 PCR NEGATIVE Negative [facility] Comment:All test results mus t [...] use by authorized laboratories.Testing performed on the Cepheid GeneXpert utilizingreal-time RT-PCR.All SARS CoV2 and positive influenza A/B results arereported to [facility]. 01/07/2025 8:56 AM EDT 01/07/2025 8:59 AM EDT Generic External Data Provider LAB MICROBIOLOGY - GENERAL ORDERABLES Final Result [facility] [address] [place] [phone] * (ABNORMAL) CBC auto differential (01/07/2025 8:56 AM EDT) White Blood Count 6.0 4.8 - 10.8 X10*3/uL [facility] Red Blood Count 4.33 4.20 - 5.50 X10*6/uL [facility] Hemoglobin 12.5 12.0 - 16.0 g/dl [facility] Hematocrit 37.5 37.0 - 47.0 % [facility] Mean Corpuscular Volume 86.6 80.0 - 98.0 fL [facility] Mean Corpuscular Hemoglobin 28.9 27.0 - 33.0 pg [facility] Mean Corpuscular HGB Conc 33.3 31.0 - 35.0 g/dl [facility] Red Cell Distribution Width 13.2 11.0 - 16.0 % [facility] Platelet Count 183 160 - 400 X10*3/uL [facility] Mean Platelet Volume 9.8 9.4 - 12.3 fL [facility] Neutrophils Percent Auto 47.3 45 - 73 % [facility] Imm Gran Pct Auto 0.0 0.0 - 0.4 % [facility] Lymphocytes Percent Auto 41.6(H) 20 - 40 % [facility] Monocytes Percent Auto 8.4 2 - 11 % [facility] Eosinophils Percent Auto 2.2 0 - 4 % [facility] Basophils Percent Auto 0.5 0 - 2 % [facility] NRBC Pct Auto 0.0 0.0 - 0.2 /100WBC [facility] Neutrophils Absolute Auto 2.8 2.0 - 8.3 x10*3/uL [facility] Imm Gran Abs Auto 0.00 0.00 - 0.03 X10*3/uL [facility] Lymphocytes Absolute Auto 2.5 1.2 - 4.9 X10*3/uL [facility] Monocytes Absolute Auto 0.5 0.1 - 1.2 X10*3/uL [facility] Eosinophils Absolute Auto 0.1 0.0 - 0.4 X10*3/uL [facility] Basophils Absolute Auto 0.0 0.0 - 0.2 X10*3/uL [facility] NRBC Abs Auto 0.000 0.0 - 0.012 X10*3/uL [facility] 01/07/2025 8:56 AM EDT 01/07/2025 8:59 AM EDT us Generic External Data Provider LAB BLOOD ORDERAB LES Final Result [facility] [address] [place] [phone] * (ABNORMAL) LIPID PANEL, STANDARD (12/28/2021 11:25 AM EST) Chol/HDLC Ratio 4.1 <5.0 (calc) [facility] Cholesterol, Total 198 <200 mg/dL [...] ?? Abdon NELSON et al. CATHERINE. 2013;310(19): 7358-9784 ?? (http://education.KeyOwner/faq/NLG903) Non-HDL Cholesterol 150(H) <130 mg/dL (calc) [facility] Comment: For patients with diabetes plus 1 major ASCVD risk ?? factor, treating to a non-HDL-C goal of <100 mg/dL ?? (LDL-C of <70 mg/dL) is considered a therapeutic ?? option. Triglycerides 78 <150 mg/dL [facility] 12/28/2021 11:2 5 AM EST Patti Clark MD LAB BLOOD ORDERABLES Final Re sult Performing Organization Address [facility] Co de Phone Number [facility] [address] * HPV E6/E7 RFLX ANTWAN 16 18/45 (04/24/2021 3:22 PM EDT) HPV mRNA E6/E7 rflx Not Detected Not Detected [facility] Comment: Methodology: [employer] Helper-Mediated Amplification This assay detects E6/E7 viral messenger RNA (mRNA) from 14 high-risk HPV types (16,18,31,33,35,39,45,51,52,56,58,59,66,68). The analytical performance characteristics of this assay have been determined by [employer]. The modifications have not been cleared or approved by the FDA. This assay has been validated pursuant to the CLIA regulations and is used for clinical purposes. For additional information, please refer to http://education.CrowdSystems/faq/MKC695s6 (This link if provided for information/ educational purposes only.) THIS TEST WAS PERFORMED AT: [facility] [address] [place] [address] [address]LO[address] [place], [place] ??[phone] FAISAL MINOR MD 04/24/2021 3:22 PM EDT us [facility] HISTORICAL/NON ORDERABLE LABS Fi nal Result Performing Organization Address [facility] Co de Phone Number [facility] [address] * HIV 1/2 ANTIGEN/ANTIBODY,FOURTH GENERATION W/RFL [...] ? For additional information please refer to http://whoplusyou.CrowdSystems/faq/BUM323 (This link is being provided for informational/ educational purposes only.) ? The performance of this assay has not been clinically validated in patients less than 2 years old. ?? 08/21/2020 10:0 6 AM EDT us Cielo Ron NP LAB BLOOD ORDERABLES Final Resul t [facility] [address] from Last 3 Months or Most Recently Relevant to Health Maintenance Insurance [facility] C3 Care Teams Senior Business Manager Relationship Specialty Start Date End Date Patti Clark MD [address] [place] [phone] PCP - General Family Medicine 12/10/20 Kanchan Hughes NP Psychiatrist 09/24/24
--- OUTSIDE RECORDS SUMMARY | 2025-02-11 09:12 | XMS_ITS | Encounter Summary ---
Author Organization [employer] Address [address] [facility] [address] [place] [address] Care Team Providers Care Clinical Rn Manager Name Role Phone Patti Clark MD Primary Care Provider [phone] Reason for Visit * Reason Onset Date Comments Med Refill 02/08/2025 Encounter Details Date Type Department Care Team ([facility] st Contact Info) Description 02/08/2025 Refill [facility] [address] [place] [address] Patti Clark MD [address] [place] [address] Social History Tobacco Use Types Packs/Day Years [...] encounter Miscellaneous Notes * Telephone Encounter - Karishma Infante LPN - 02/08/2025 1:35 PM EDT Next dose pended please review. PCP off. Last seen 02/01/25. documented in this encounter Plan of Treatment Not on file documented as of this encounter Visit Diagnoses Not on filedocumented in this encounter Additional Health Concerns Assessment Noted Time PHQ-9 Depression Total Score: 5 08/23/20 24 11:38 AM EDT documented as of this encounter Care Teams Clinical Rn Manager Relationship Specialty Start Date End Date Patti Clark MD [address] [place] [address] PCP - General Family Medicine 12/10/20 Kanchan Hughes NP Psychiatrist 09/24/24 documented as of this encounter
--- OUTSIDE RECORDS SUMMARY | 2025-02-11 09:12 | XMS_ITS | Encounter Summary ---
Author Organization [employer] Address [address] [facility] 7 [place] [address] Care Team Providers Care Entertainment Usher Name Role Phone Patti Clark MD Primary Care Provider [phone] Reason for Referral * Imaging (Routine) - Closed Specialty Diagnoses / Procedures Referred By Contac t Referred To Contact Radiology Diagnoses Menorrhagia with regular cycle Procedures US Pelvis Transvaginal Erin Soto MD [address] [place] [address] Phone: tel: fax: [facility] [address] [place], [place] Phone: tel: fax: Referral ID Status Reason Start Date Expiration Date Visits Re quested Visits Authorized [id number] Closed 09/12/2024 09/12/2025 1 1 Encounter Details Date Type Department Care Team (Late st Contact Info) Description 09/12/2024 Orders Only [facility] [address] [place] [address] Erin Soto MD [address] [place] [address] Menorrhagia with regular cycle (Primary Dx) Social [...] documented as of this encounter Care Teams Entertainment Usher Relationship Specialty Start Date End Date Patti Clark MD [address] [place] [address] PCP - General Family Medicine 12/10/20 Kanchan Hughes NP Psychiatrist 09/24/24 documented as of this encounter
--- OUTSIDE RECORDS SUMMARY | 2025-02-11 09:12 | XMS_ITS | Encounter Summary ---
Author Organization [employer] Address [address] [facility] [address] [place] [address] Care Team Providers Care Change Coordinator Name Role Phone Patti Clark MD Primary Care Provider [phone] Encounter Details Date Type Department Care Team ([facility] st Contact Info) Description 10/05/2024 Orders Only [facility] [address] [place] [address] Erin Soto MD [address] [place] [address] Social History Tobacco Use Types Packs/Day Years [...] documented as of this encounter Care Teams Change Coordinator Relationship Specialty Start Date End Date Patti Clark MD [address] [place] [address] PCP - General Family Medicine 12/10/20 Kanchan Hughes NP Psychiatrist 09/24/24 documented as of this encounter
== END 2025-02-11 08:56 | disposition home or self-care (01) ==
LOC: HO.MRI 08:55
PROVIDERS: PCP Family Medicine; Visit Provider Physician Assistant
DX: M17.11 Unilateral primary osteoarthritis, right knee (principal)
CPT/HCPCS: 73721

== ENCOUNTER → 2025-02-11 08:55 | Outpatient (BNV) | payer MEDICAID, SELFPAY | PROVIDERS: PCP Family Medicine; Visit Provider Radiology Diagnostic Radiology | DX: M17.11 Unilateral primary osteoarthritis, right knee (principal) | CPT/HCPCS: 73721 ==

== ENCOUNTER 2025-03-11 09:56 | Outpatient (RCR) | payer MEDICAID, SELFPAY | END 2025-04-22 11:25 | disposition home or self-care (01) | LOC: HO.PT 09:56 | PROVIDERS: PCP Family Medicine; Visit Provider Specialist/Technologist Athletic Trainer | DX: M94.0 Chondrocostal junction syndrome [Tietze] (principal) | CPT/HCPCS: 97110; 97162 ==

== ENCOUNTER 2025-03-26 08:36 | Outpatient (REF) | payer MEDICAID, SELFPAY ==
--- NOTE | ~2025-03-26 | XR_ITS ---
EXAMINATION: XR LUMBOSACRAL SPINE CLINICAL INFORMATION: 40 yo F with sacral back pain, feels hypermobility of pain, send to [facility] COMPARISON: CT lumbar 12/16/2022. TECHNIQUE: Three views of the lumbosacral spine. FINDINGS: Minimal levoconvex scoliosis centered at C5, possibly positional. Normal lumbar lordosis. No subluxations. No fractures, compression deformities, or suspicious bone lesions. No subluxations. Very mild disc and facet degeneration noted at L4-5 and L5-S1. Left-sided posterior neurostimulator device in place within the soft tissues, with leads extending cephalad into the thoracic spine. There are surgical clips overlying the right sacral wing medially. XR/XR lumbar spine 2-3V IMPRESSION: 1. No acute bony abnormalities of the lumbar spine. 2. Very mild degenerative spondylosis, most significant at L4-5 and L5-S1. Electronically signed by: David Quintero MD 03/26/2025 09:10 AM EDT
--- OUTSIDE RECORDS SUMMARY | 2025-03-26 09:02 | XMS_ITS | Encounter Summary ---
Author Organization [employer] Address [address] [facility] [address] [place] [address] Care Team Providers Care Medical Delivery Driver Name Role Phone Patti Clark MD Primary Care Provider [phone] Reason for Visit * Reason Onset Date Comments Appointment Request 12/20/2022 Encounter Details Date Type Department Care Team ([facility] st Contact Info) Description 12/20/2022 Telephone [facility] [address] [place] [address] Patti Clark MD [address] [place] [address] Appointment Request Social History Tobacco Use Types [...] regarding message below. Please contact pt at [phone] * Telephone Encounter - Adan Albrecht - 12/20/2022 3:27 PM EST Tc from pt requesting to r/s appt 12/21/22 ( ER follow up [facility] 12/16 for low back pain and passing out due to the pain. ) Please contact pt at [phone] documented in this encounter Plan of Treatment Not on file documented as of this encounter Visit Diagnoses Not on filedocumented in this encounter Additional Health Concerns Assessment Noted Time PHQ-9 Depression Total Score: 11 023 3:48 PM EST documented as of this encounter Care Teams Medical Delivery Driver Relationship Specialty Start Date End Date Patti Clark MD [address] [place] [id number] PCP - General Family Medicine 12/10/20 Kanchan Hughes NP Psychiatrist 09/24/24 documented as of this encounter
== END 2025-03-26 08:37 | disposition home or self-care (01) ==
LOC: HO.HHCX 08:36
PROVIDERS: Visit Provider Family Medicine
DX: M54.9 Dorsalgia, unspecified (principal); G89.29 Other chronic pain
CPT/HCPCS: 72100

== ENCOUNTER → 2025-03-26 08:37 | Outpatient (BNV) | payer MEDICAID, SELFPAY | PROVIDERS: Visit Provider Radiology Diagnostic Radiology | DX: M53.3 Sacrococcygeal disorders, not elsewhere classified (principal) | CPT/HCPCS: 72100 ==

== ENCOUNTER 2025-04-12 12:59 | Outpatient (AMB) | payer MEDICAID, SELFPAY ==
[2025-04-12 13:07] VITALS: BMI 31.3
--- NOTE | 2025-04-12 13:07 | A.OFFVIS_ITS ---
Vital Signs 04/12/25 13:07 Height 5 ft 2 in Weight 171 lb BMI 31.3 Intake Visit Reasons: OV- MR knee RT review Intake Note: Fariba is a 39 year old female who presents today for an MRI review of her right knee. Patient reports having an increase of pain since her last visit. Allergies No Known Allergies (No Known Allergies*) Allergy (Verified 04/12/25 13:09) Medication List - Last Reconciled 04/12/25 by Mey Gibson PA-C amitriptyline 37.5 - 50 mg (1.5 - 2 x 25 mg) PO BEDTIME 30 days cyclobenzaprine 5 mg PO TID PRN 7 days diclofenac potassium 50 mg PO TID PRN 30 days ibuprofen 800 mg PO Q8H PRN 30 days propranolol ER 60 mg PO BEDTIME 30 days rizatriptan 5 - 10 mg (0.5 - 1 x 10 mg) PO Q2H PRN 21 days tramadol 50 mg PO DAILY ubrogepant (Ubrelvy) 50 - 100 mg (0.5 - 1 x 100 mg) PO ONCE PRN 30 days HPI HPI OV- MR knee RT review: Details: 40-year-old female returns to the office today for a follow-up right knee pain status post MRI. She states she continues to have discomfort primarily with going up and downstairs. She feels the pain right behind the kneecap and also along the medial side of the knee. She states she has done physical therapy without relief and has had injections with minimal benefits. 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 Gender identity: Female Female Reproductive History Menstrual Age of Menarche: 12 Review of Systems Const All systems reviewed & are unremarkable except as noted in HPI and below Physical Exam Vital Signs: BMI result Body Mass Index 31.3 Extrem Other: Right knee is normal to inspection. She does have some retropatellar tenderness and also tenderness along the pes bursa. Range of motion is full. Neurovascularly intact. Results Reviewed Results Reviewed: MR knee RT wo con IMPRESSION: 1. There is no internal derangement. The menisci, cruciates, and major ligamentous structures are intact and normal in signal. 2. There is mild edema within the suprapatellar fat pad, with a notably shallow femoral trochlea and lateral patellar tilt. This may indicate patellar tracking abnormality. Correlate for anterior knee pain. 3. There is minimal osteoarthritis in the medial lateral compartments. 4. Incidental findings as discussed. Assessment & Plan Assessment & Plan (1) Patella-femoral syndrome: Code(s): M22.2X9 - Patellofemoral disorders, unspecified knee Category: Medical Qualifiers: Laterality: right Qualified Code(s): M22.2X1 - Patellofemoral disorders, right knee Plan: I discussed with the patient the results of her MRI. I explained there is no structural abnormalities that would require surgery. We will continue to treat this conservatively with therapy exercises that she has learned. I did send her a prescription for Celebrex to take twice a day for 2 weeks. I encouraged her to refrain from any activities that cause discomfort for the next 2 weeks to help with resolution of her symptoms. She was also sent a diclofenac gel cream to the pharmacy to help with her symptoms. She does have an upcoming pain management an appointment for her left upper extremity which she can discuss with them her knee pain as well. She will see me back if symptoms worsen or there is any concerns. Medications: New celecoxib (Celebrex) 200 mg PO BID 60 caps 3RF 30 days diclofenac sodium 1% apply to single knee, ankle, foot; for foot includes sole/toes/top of foot 4 grams topical QID 50 grams 0RF 30 days Coding Level of Care Code Est Pt Level 3 (72541) Complex EM visit Add On G2211 Diagnoses Patellofemoral pain syndrome of right knee M22.2X1 Laterality: right
== END 2025-04-12 13:24 | disposition home or self-care (01) ==
LOC: HO.HOS 13:00
PROVIDERS: PCP Family Medicine; Visit Provider Physician Assistant
DX: M22.2X1 Patellofemoral disorders, right knee (principal)
CPT/HCPCS: 99213

== ENCOUNTER → 2025-04-12 12:59 | Outpatient (BNVA) | payer MEDICAID, SELFPAY | PROVIDERS: PCP Family Medicine; Visit Provider Physician Assistant | DX: M22.2X1 Patellofemoral disorders, right knee (principal) | CPT/HCPCS: 99212 ==

== ENCOUNTER 2025-05-02 10:14 | Outpatient (AMB) | payer MEDICAID, SELFPAY ==
[2025-05-02 10:25] VITALS: BP 113/73; PULSE 75; RESP 18; O2SAT 100
--- NOTE | 2025-05-02 10:25 | A.OFFVIS_ITS ---
Vital Signs 05/02/25 10:25 Weight 160 lb BP 113/73 Blood Pressure Location Lt brachial Position Sitting Respiration 18 Pulse 75 Pulse Source Pulse Oximeter Pulse Oximetry (%) 100 Oxygen Delivery Method Room Air Intake Visit Reasons: Polyathralgia ELVIN 2022 Statement Clerks Manager Required: No Allergies No Known Allergies (No Known Allergies*) Allergy (Verified 05/02/25 10:22) HPI Comments Details: Fariba is back in my office after 2 years of absence. She visited me during the COVID pandemic with long COVID symptoms complaining on widespread pains all over the body. Two years after that she attended this office again and she complained to me on right-sided chest pain right-sided shoulder pain and bilateral feet pain. She was under care of [facility] with lower back pain. She received some injections with [facility]. She was recommended to come back and bring me the results of the injections. However today the patient came in my office complaining on left-sided chance pain, radiation of the pain into the left upper extremity and limited range of motion with the left arm. She denies pain being aggravated with coughing or sneezing. She stated that her primary care physician sent her for chest x-ray but it was not diagnostic. We agreed that I will send her for EKG as well as left shoulder x-ray. I will see her in 1 week. I will evaluate left shoulder x-ray and if there are arthritic changes I will offer her intra-articular left shoulder steroid injections. Prior: History she COVID-19 infection.? 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 She started to feel pain in the shoulder on the right pain in the forearm on the right pain in the wrist on the right numbness and pain in the right hip and pain on the right in the area of the posterior chest.? She was diagnosed with arthritis.? She reports that pain is getting crease when she takes a slow deep breath.? She tried NSAIDs to treat her pain.? She never went for physical therapy to treat her pain.? She previously was working as the [employer].? She was examined by hand orthopedic surgeon and was sent for EMG by neurologist.? her neurological examination was normal and her EMG was also normal.? Hand orthopedic surgeon did not find any issues with her wrist or hand.? She was sent to pain management to help her pain.? She received COVID-19 vaccine injection however that did not help her pain. Her past medical history significant for headaches.? She developed intermittent heart palpitations rapid heartbeats after her COVID-19 infection she reported arthritis in the past and ovarian cysts [facility] Medical History Arthritis COVID-19 long hauler manifesting chronic muscle pain COVID-19 long hauler Migraine headache Back pain Surgical History S/P insertion of spinal cord stimulator History of appendectomy Family History Father Diabetes Mother Heart disease HTN (hypertension) Brother Cerebrovascular accident (CVA) Social History Alcohol intake: never Patient Tobacco Use Status: Never used Tobacco Current occupational status: unemployed Current occupation: right handed. Gender identity: Female Female Reproductive History Menstrual Age of Menarche: 12 Review of Systems Const All systems reviewed & are unremarkable except as noted in HPI and below ENT Reports Normal hearing present Neuro Reports Normal hearing present, Denies Abnormal speech present and Denies Sensory deficit (Neuro) Physical Exam Vital Signs: Last Vital Signs Pulse 75 05/02/25 10:25 Resp 18 05/02/25 10:25 BP 113/73 05/02/25 10:25 Pulse Ox 100 05/02/25 10:25 Oxygen Delivery Method Room Air 05/02/25 10:25 Const General: no acute distress and well developed; No acute distress Nutritional Appearance: average body habitus, well nourished and obese Orientation/consciousness: patient oriented x3 Limitations: no limitations Eyes Pupils: Equal, round and reactive pupils present EOM: EOMs intact bilaterally Chest Chest palpation & inspection: normal inspection of the chest Resp Effort & Inspection: normal respiratory effort, able to speak in complete sentences, normal respiratory pattern, no audible wheezes and no cough Cardio Jugular venous distension: no JVD Back/Spine/Pelvis Other: tenderness on palpation in paraspinal spinal region in lumbar spine. Loading test is positive. Range of motion in lumbar spine is preserved. Luis Angel test is negative bilaterally. Neuro General: patient oriented x3 Cranial nerves: Yes Equal, round and reactive pupils present and Yes Normal hearing present Speech: No Abnormal speech present Sensory Exam: No Sensory deficit (Neuro) Extrem Other: Limited range of motion of the left upper extremity. Unable to lift up the left arm above the shoulder line, unable to bring the left forearm behind the upper back, unable to touch the right shoulder with the left hand. Psych Speech and movement: Normal speech and movement present Affect: normal affect Attitude: cooperative Thought process: Normal thought process present Thought content: Normal thought content present Insight: Good insight present (Psych) Judgement: Good judgement present (Psych) Assessment & Plan Assessment & Plan (1) Osteoarthritis of left shoulder: Code(s): M19.012 - Primary osteoarthritis, left shoulder Category: Medical (2) Chest pain: Code(s): R07.9 - Chest pain, unspecified Category: Medical Plan I will evaluate x-ray of this patient and in 1 week I will offer her injections provided the x-ray demonstrates osteoarthritis. I also will send her for EKG 12 leads because she complains on chest pain. Unlikely coronary syndrome however nevertheless I would prefer to have baseline EKG at this time because she complains on chest pain. Orders: Orders XR shoulder LT min 2V Today M19.012 - Primary osteoarthritis, left shoulder ECG 12 lead EKG Today R07.9 - Chest pain, unspecified Coding Level of Care Code Est Pt Level 3 (71769) Diagnoses Osteoarthritis of left shoulder M19.012 Chest pain R07.9
--- OUTSIDE RECORDS SUMMARY | 2025-05-02 10:54 | XMS_ITS | Encounter Summary ---
Author Organization [employer] Address [address] [place] [address] Care Team Providers Care Pan Pusher Name Role Phone Patti Clark MD Primary Care Provider [phone] Reason for Visit * Reason Onset Date Comments Appointment Request 12/20/2022 Encounter Details Date Type Department Care Team ([facility] st Contact Info) Description 12/20/2022 Telephone [facility] [address] [place] [address] Patti Clark MD [address] [place] [address] Appointment Request Social History Tobacco Use Types [...] regarding message below. Please contact pt at [phone] * Telephone Encounter - Adan Albrecht - 12/20/2022 3:27 PM EST Tc from pt requesting to r/s appt 12/21/22 ( ER follow up [facility] 12/16 for low back pain and passing out due to the pain. ) Please contact pt at [phone] documented in this encounter Plan of Treatment Upcoming Encounters Date Type Department Care Team (Late st Contact Info) Description 08/12/2025 10:30 AM EDT Office Visit [facility] [address] [place] [address] Nessa Mayfield, OD [address] [place] [address] documented as of this encounter Visit Diagnoses Not on filedocumented in this encounter Additional Health Concerns Assessment Noted Time PHQ-9 Depression Total Score: 11 023 3:48 PM EST documented as of this encounter Care Teams Pan Pusher Relationship Specialty Start Date End Date Patti Clark MD [address] [place] [id number] PCP - General Family Medicine 12/10/20 Kanchan Hughes NP Psychiatrist 09/24/24 documented as of this encounter
== END 2025-05-02 10:33 | disposition home or self-care (01) ==
LOC: HO.PMC 10:14
PROVIDERS: PCP Family Medicine; Visit Provider Anesthesiology
DX: M19.012 Primary osteoarthritis, left shoulder (principal); R07.9 Chest pain, unspecified
CPT/HCPCS: 99213

== ENCOUNTER → 2025-05-02 10:14 | Outpatient (REF) | payer MEDICAID, SELFPAY ==
--- NOTE | ~2025-05-02 | XR_ITS ---
EXAMINATION: XR SHOULDER, LEFT CLINICAL INFORMATION: M19.012 - Primary osteoarthritis, left shoulder COMPARISON: 02/01/2025, 12/05/2024. TECHNIQUE: AP external rotation, Grashey, scapular Y, and axillary views of the left shoulder. FINDINGS: Normal bone mineralization. No fracture, dislocation, or suspicious bone lesion. Normal alignment. The glenohumeral joint is normal. The AC joint demonstrates minimal spurring. There is a type II acromion. No undersurface spurring. The subacromial space is preserved. Remainder of the soft tissue and bony structures appear normal. XR/XR shoulder LT min 2V IMPRESSION: 1. No acute bony abnormalities left shoulder. 2. Minimal AC joint spurring. Electronically signed by: David Quintero MD 05/02/2025 11:26 AM EDT
--- NOTE | 2025-05-02 10:53 | ECG_ITS ---
Test Reason : ekg rhythm Blood Pressure : */* mmHG Vent. Rate : 71 BPM Atrial Rate : 71 BPM P-R Int : 124 ms QRS Dur : 78 ms QT Int : 388 ms P-R-T Axes : 30 82 42 degrees QTcB Int : 421 ms Normal sinus rhythm Normal ECG When compared with ECG of 07-Jan-2025 08:23, No significant change was found Referred By: Rj Abdi Electronically Signed By: Jacob Pereira
== END ==
LOC: HO.CARD 10:14
PROVIDERS: PCP Family Medicine; Visit Provider Anesthesiology
DX: M19.012 Primary osteoarthritis, left shoulder (principal); R07.9 Chest pain, unspecified
CPT/HCPCS: 73030; 93005; 99212

== ENCOUNTER → 2025-05-02 10:53 | Outpatient (BNV) | payer MEDICAID, SELFPAY | PROVIDERS: PCP Family Medicine; Visit Provider Internal Medicine Cardiovascular Disease | DX: Z13.6 Encounter for screening for cardiovascular disorders (principal) | CPT/HCPCS: 93010 ==

== ENCOUNTER → 2025-05-02 11:00 | Outpatient (BNV) | payer MEDICAID, SELFPAY | PROVIDERS: PCP Family Medicine; Visit Provider Radiology Diagnostic Radiology | DX: M19.012 Primary osteoarthritis, left shoulder (principal) | CPT/HCPCS: 73030 ==

== ENCOUNTER 2025-05-08 10:18 | Outpatient (AMB) | payer MEDICAID, SELFPAY ==
--- OUTSIDE RECORDS SUMMARY | 2025-05-08 10:53 | XMS_ITS | Encounter Summary ---
Author Organization [employer] Address [address] [facility] [address] [place] [address] Care Team Providers Care Professor Of Social Work Name Role Phone Patti Clark MD Primary Care Provider [phone] Reason for Visit * Reason Onset Date Comments Appointment Request 12/20/2022 Encounter Details Date Type Department Care Team ([facility] st Contact Info) Description 12/20/2022 Telephone [facility] [address] [place] [address] Patti Clark MD [address] [place] [address] Appointment Request Social History Tobacco Use Types [...] regarding message below. Please contact pt at [phone] * Telephone Encounter - Adan Albrecht - 12/20/2022 3:27 PM EST Tc from pt requesting to r/s appt 12/21/22 ( ER follow up [facility] 12/16 for low back pain and passing out due to the pain. ) Please contact pt at [phone] documented in this encounter Plan of Treatment Upcoming Encounters Date Type Department Care Team (Late st Contact Info) Description 08/12/2025 10:30 AM EDT Office Visit [facility] [address] [place] [address] Nessa Mayfield, OD [address] [place] [address] documented as of this encounter Visit Diagnoses Not on filedocumented in this encounter Additional Health Concerns Assessment Noted Time PHQ-9 Depression Total Score: 11 023 3:48 PM EST documented as of this encounter Care Teams Professor Of Social Work Relationship Specialty Start Date End Date Patti Clark MD [address] [place] [id number] PCP - General Family Medicine 12/10/20 Kanchan Hughes NP Psychiatrist 09/24/24 documented as of this encounter
[2025-05-08 11:02] VITALS: BP 108/69; PULSE 63; RESP 18; O2SAT 99
--- NOTE | 2025-05-08 11:02 | A.OFFVIS_ITS ---
Vital Signs 05/08/25 11:02 Weight 164 lb BP 108/69 Blood Pressure Location Lt brachial Position Sitting Respiration 18 Pulse 63 Pulse Source Pulse Oximeter Pulse Oximetry (%) 99 Oxygen Delivery Method Room Air Intake Visit Reasons: 1 week appt for Xrays review per Dr Abdi House Mover Required: No Allergies No Known Allergies (No Known Allergies*) Allergy (Verified 05/08/25 11:01) HPI Comments Details: Fariba is here for the follow-up after the x-ray of left shoulder and EKG follow-up. Her EKG is normal. Her left shoulder glenohumeral joint demonstrates no pathology, however she has acromioclavicular joint spurring which could be a cause of her pain. I will offer her therapeutic left AC joint injection without sedation. Patient agreed to go for the procedure. Prior: in my office after 2 years of absence. She visited me during the COVID pandemic with long COVID symptoms complaining on widespread pains all over the body. Two years after that she attended this office again and she complained to me on right-sided chest pain right-sided shoulder pain and bilateral feet pain. She was under care of [facility] with lower back pain. She received some injections with [facility]. She was recommended to come back and bring me the results of the injections. However today the patient came in my office complaining on left-sided chance pain, radiation of the pain into the left upper extremity and limited range of motion with the left arm. She denies pain being aggravated with coughing or sneezing. She stated that her primary care physician sent her for chest x-ray but it was not diagnostic. We agreed that I will send her for EKG as well as left shoulder x-ray. I will see her in 1 week. I will evaluate left shoulder x-ray and if there are arthritic changes I will offer her intra-articular left shoulder steroid injections. Prior: History she COVID-19 infection.? 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 She started to feel pain in the shoulder on the right pain in the forearm on the right pain in the wrist on the right numbness and pain in the right hip and pain on the right in the area of the posterior chest.? She was diagnosed with arthritis.? She reports that pain is getting crease when she takes a slow deep breath.? She tried NSAIDs to treat her pain.? She never went for physical therapy to treat her pain.? She previously was working as the [employer].? She was examined by hand orthopedic surgeon and was sent for EMG by neurologist.? her neurological examination was normal and her EMG was also normal.? Hand orthopedic surgeon did not find any issues with her wrist or hand.? She was sent to pain management to help her pain.? She received COVID-19 vaccine injection however that did not help her pain. Her past medical history significant for headaches.? She developed intermittent heart palpitations rapid heartbeats after her COVID-19 infection she reported arthritis in the past and ovarian cysts [facility] Medical History Arthritis COVID-19 long hauler manifesting chronic muscle pain COVID-19 long hauler Migraine headache Back pain Surgical History S/P insertion of spinal cord stimulator History of appendectomy Family History Father Diabetes Mother Heart disease HTN (hypertension) Brother Cerebrovascular accident (CVA) Social History Alcohol intake: never Patient Tobacco Use Status: Never used Tobacco Current occupational status: unemployed Current occupation: right handed. Gender identity: Female Female Reproductive History Menstrual Age of Menarche: 12 Review of Systems Const All systems reviewed & are unremarkable except as noted in HPI and below ENT Reports Normal hearing present Neuro Reports Normal hearing present, Denies Abnormal speech present and Denies Sensory deficit (Neuro) Physical Exam Vital Signs: Last Vital Signs Pulse 63 05/08/25 11:02 Resp 18 05/08/25 11:02 BP 108/69 05/08/25 11:02 Pulse Ox 99 05/08/25 11:02 Oxygen Delivery Method Room Air 05/08/25 11:02 Const General: no acute distress and well developed; No acute distress Nutritional Appearance: average body habitus, well nourished and obese Orientation/consciousness: patient oriented x3 Limitations: no limitations Eyes Pupils: Equal, round and reactive pupils present EOM: EOMs intact bilaterally Chest Chest palpation & inspection: normal inspection of the chest Resp Effort & Inspection: normal respiratory effort, able to speak in complete senten yared, normal respiratory pattern, no audible wheezes and no cough Cardio Jugular venous distension: no JVD Back/Spine/Pelvis Other: tenderness on palpation in paraspinal spinal region in lumbar spine. Loading test is positive. Range of motion in lumbar spine is preserved. Luis Angel test is negative bilaterally. Neuro General: patient oriented x3 Cranial nerves: Yes Equal, round and reactive pupils present and Yes Normal hearing present Speech: No Abnormal speech present Sensory Exam: No Sensory deficit (Neuro) Extrem Other: Limited range of motion of the left upper extremity. Unable to lift up the left arm above the shoulder line, unable to bring the left forearm behind the upper back, unable to touch the right shoulder with the left hand. Psych Speech and movement: Normal speech and movement present Affect: normal affect Attitude: cooperative Thought process: Normal thought process present Thought content: Normal thought content present Insight: Good insight present (Psych) Judgement: Good judgement present (Psych) Results Reviewed Results Reviewed: XR SHOULDER, LEFT CLINICAL INFORMATION: M19.012 - Primary osteoarthritis, left shoulder COMPARISON: 02/01/2025, 12/05/2024. TECHNIQUE: AP external rotation, Grashey, scapular Y, and axillary views of the left shoulder. FINDINGS: Normal bone mineralization. No fracture, dislocation, or suspicious bone lesion. Normal alignment. The glenohumeral joint is normal. The AC joint demonstrates minimal spurring. There is a type II acromion. No undersurface spurring. The subacromial space is preserved. Remainder of the soft tissue and bony structures appear normal. 1. No acute bony abnormalities left shoulder. 2. Minimal AC joint spurring. Assessment & Plan Assessment & Plan (1) Osteoarthritis of left shoulder: Code(s): M19.012 - Primary osteoarthritis, left shoulder Category: Medical (2) Chest pain: Code(s): R07.9 - Chest pain, unspecified Category: Medical Plan EKGs negative, the x-ray of the left glenohumeral joint is normal however the spurring and the projection of the AC joint on the left. I offered the patient therapeutic AC joint on the left injection she agreed to go for the procedure. Coding Level of Care Code Est Pt Level 3 (58174) Diagnoses Osteoarthritis of left shoulder M19.012 Chest pain R07.9
== END 2025-05-08 11:13 | disposition home or self-care (01) ==
LOC: HO.PMC 10:19
PROVIDERS: PCP Family Medicine; Visit Provider Anesthesiology
DX: M19.012 Primary osteoarthritis, left shoulder (principal); R07.9 Chest pain, unspecified
CPT/HCPCS: 99213

== ENCOUNTER → 2025-05-08 10:18 | Outpatient (BNVA) | payer MEDICAID, SELFPAY | PROVIDERS: PCP Family Medicine; Visit Provider Anesthesiology | DX: M19.012 Primary osteoarthritis, left shoulder (principal); R07.9 Chest pain, unspecified | CPT/HCPCS: 99212 ==

== ENCOUNTER 2025-05-23 10:38 | Outpatient (REF) | payer MEDICAID, SELFPAY ==
--- NOTE | ~2025-05-23 | XR_ITS ---
EXAMINATION: XR ELBOW, RIGHT CLINICAL INFORMATION: R elbow medial pain and swelling COMPARISON: None available. TECHNIQUE: AP, lateral, and oblique views of the right elbow. FINDINGS: No fracture, dislocation, or suspicious bone lesion. Normal bone mineralization. Normal alignment. Joint spaces are preserved. No significant arthropathy. There is minimal calcification of the distal triceps tendon abutting the enthesis. The epicondyles are normal. No significant joint effusion. Soft tissues appear normal. XR/XR elbow RT min 3V IMPRESSION: 1. No acute fracture, dislocation, or joint effusion. 2. Mild calcific tendinosis of the triceps tendon. Electronically signed by: David Quintero MD 05/23/2025 11:15 AM EDT
--- OUTSIDE RECORDS SUMMARY | 2025-05-23 11:22 | XMS_ITS | Encounter Summary ---
Author Organization [employer] Address [address] [place] [address] Care Team Providers Care Inspector Dials Name Role Phone Patti Clark MD Primary Care Provider [phone] Reason for Visit * Reason Onset Date Comments Appointment Request 12/20/2022 Encounter Details Date Type Department Care Team ([facility] st Contact Info) Description 12/20/2022 Telephone [facility]INE [address] [place] [address] Patti Clark MD [address] [place] [address] Appointment Request Social History Tobacco Use Types [...] regarding message below. Please contact pt at [phone] * Telephone Encounter - Adan Albrecht - 12/20/2022 3:27 PM EST Tc from pt requesting to r/s appt 12/21/22 ( ER follow up [facility] [place] 12/16 for low back pain and passing out due to the pain. ) Please contact pt at [phone] documented in this encounter Plan of Treatment Upcoming Encounters Date Type Department Care Team (Late st Contact Info) Description 08/12/2025 10:30 AM EDT Office Visit [facility] OPTOMETRY [address] [place] [address] Nessa Mayfield, OD [address] [place] [address] documented as of this encounter Visit Diagnoses Not on filedocumented in this encounter Additional Health Concerns Assessment Noted Time PHQ-9 Depression Total Score: 11 023 3:48 PM EST documented as of this encounter Care Teams Inspector Dials Relationship Specialty Start Date End Date Patti Clark MD [address] [place] [id number] PCP - General Family Medicine 12/10/20 Kanchan Hughes NP Psychiatrist 09/24/24 documented as of this encounter
== END 2025-05-23 10:39 | disposition home or self-care (01) ==
LOC: HO.HHCX 10:38
PROVIDERS: Visit Provider Family Medicine
DX: M25.521 Pain in right elbow (principal); M25.421 Effusion, right elbow
CPT/HCPCS: 73080

== ENCOUNTER → 2025-05-23 10:38 | Outpatient (BNV) | payer MEDICAID, SELFPAY | PROVIDERS: Visit Provider Radiology Diagnostic Radiology | DX: M65.221 Calcific tendinitis, right upper arm (principal) | CPT/HCPCS: 73080 ==

== ENCOUNTER 2025-06-26 14:42 | Outpatient (AMB) | payer MEDICAID, SELFPAY ==
--- NOTE | 2025-06-26 14:54 | A.OFFVIS_ITS ---
Intake Visit Reasons: Inj-Right knee cortisone-last 09/26/24 Intake Note: Fariba is a 40 year old female who presents today for a right knee injection. Patient reports injections provided2 months of relief. Allergies No Known Allergies (No Known Allergies*) Allergy (Verified 05/08/25 11:01) Medication List - Last Reconciled 06/26/25 by ARIANA Clark-Luis amitriptyline 37.5 - 50 mg (1.5 - 2 x 25 mg) PO BEDTIME 30 days celecoxib (Celebrex) 200 mg PO BID 30 days cyclobenzaprine 5 mg PO TID PRN 7 days gabapentin 300 mg PO DAILY ibuprofen 800 mg PO Q8H PRN 30 days propranolol ER 60 mg PO BEDTIME 30 days HPI HPI Inj-Right knee cortisone-last 09/26/24: Details: 40-year-old female returns to the office today for her right knee pain. She states she was seen by pain management but they did not offer her any treatment for her knee. She continues to have discomfort along the anterior portion of the knee and complains of discomfort with stairs or prolonged walking. She has had relief with her cortisone injections in the past however they do not last as long as she would like. [facility] Medical History Arthritis COVID-19 long hauler manifesting chronic muscle pain COVID-19 long hauler Migraine headache Back pain Surgical History S/P insertion of spinal cord stimulator History of appendectomy Family History Father Diabetes Mother Heart disease HTN (hypertension) Brother Cerebrovascular accident (CVA) Social History Alcohol intake: never Patient Tobacco Use Status: Never used Tobacco Current occupational status: unemployed Current occupation: right handed. Gender identity: Female Female Reproductive History Menstrual Age of Menarche: 12 Review of Systems Const All systems reviewed & are unremarkable except as noted in HPI and below Physical Exam Extrem Other: Right knee is normal to inspection. She does have some retropatellar tenderness and also tenderness along the pes bursa. Range of motion is full. Neurovascularly intact. Office Procedures AMB Joint Injection/Aspiration Joint Injection/Aspiration Primary Site: right knee Prep: site was prepped using aseptic technique, ethochloride spray was applied and injection warnings given Injected: 40 mg of, with 3 mL of, 1% plain lidocaine, 0.25% bupivacaine, in the joint and decadron Approach Used: anterolateral Procedure: The patient tolerated the procedure well and there was some relief with the local anesthesia Coding 57807 - Glenohumeral/Tronchanteric Bursa/Intraarticular Procedure code (CPT) selection complete Assessment & Plan Assessment & Plan (1) Patella-femoral syndrome: Code(s): M22.2X9 - Patellofemoral disorders, unspecified knee Category: Medical Qualifiers: Laterality: right Qualified Code(s): M22.2X1 - Patellofemoral disorders, right knee Plan: We discuss repeat injection of the right knee today which she is interested in. She will continue with her activities as tolerated and if symptoms persist or worsen she can always see me back otherwise she will follow up as needed. Coding Level of Care Code Est Pt Level 3 (24913) Complex EM visit Add On G2211 Diagnoses Patellofemoral pain syndrome of right knee M22.2X1 Laterality: right CPT Codes Coding - Joint 7: 57747 - Glenohumeral/Tronchanteric Bursa/Intraarticular ([id number])
--- OUTSIDE RECORDS SUMMARY | 2025-06-26 17:00 | XMS_ITS | Encounter Summary ---
Author Organization [email or web address] Address [address] [facility] [address] [place] [address] Care Team Providers Care Linotyper Name Role Phone Patti Clark MD Primary Care Provider [phone] Reason for Visit * Reason Onset Date Comments Appointment Request 12/20/2022 Encounter Details Date Type Department Care Team ([facility] st Contact Info) Description 12/20/2022 Telephone [facility] [address] [place] [address] Patti Clark MD [address] [place] [address] Appointment Request Social History Tobacco Use Types [...] regarding message below. Please contact pt at [phone] * Telephone Encounter - Adan Albrecht - 12/20/2022 3:27 PM EST Tc from pt requesting to r/s appt 12/21/22 ( ER follow up [facility] 12/16 for low back pain and passing out due to the pain. ) Please contact pt at [phone] documented in this encounter Plan of Treatment Upcoming Encounters Date Type Department Care Team (Late st Contact Info) Description 08/12/2025 10:30 AM EDT Office Visit [facility] OPTOMETRY [address] [place] [address] Nessa Mayfield, OD [address] [place] [address] documented as of this encounter Visit Diagnoses Not on filedocumented in this encounter Additional Health Concerns Assessment Noted Time PHQ-9 Depression Total Score: 11 023 3:48 PM EST documented as of this encounter Care Teams Linotyper Relationship Specialty Start Date End Date Patti Clark MD [address] [place] [id number] PCP - General Family Medicine 12/10/20 Kanchan Hughes NP Psychiatrist 09/24/24 documented as of this encounter
--- OUTSIDE RECORDS SUMMARY | 2025-06-26 17:01 | XMS_ITS | Encounter Summary ---
Author Organization [employer] Address [address] [facility] [address] [facility] [address] [place] [address] Care Team Providers Care Rewriter Name Role Phone Patti Clark MD Primary Care Provider [phone] Encounter Details Date Type Department Care Team ([facility] Contact Info) Description 10/05/2024 Orders Only [facility] [address] [place] [address] Erin Soto MD [address] [place] [address] Social History Tobacco Use Types Packs/Day Years [...] Description 08/12/2025 10:30 AM EDT Office Visit [facility] OPTOMETRY [address] [place] [address] Nessa Mayfield, OD [address] [place] [address] documented as of this encounter Visit Diagnoses Not on filedocumented in this encounter Additional Health Concerns Assessment Noted Time PHQ-9 Depression Total Score: 5 08/23/20 24 11:38 AM EDT documented as of this encounter Care Teams Rewriter Relationship Specialty Start Date End Date Patti Clark MD [address] [place] [address] PCP - General Family Medicine 12/10/20 Kanchan GregoryTony, QUALITY ENGINEERING MANAGER Psychiatrist 09/24/24 documented as of this encounter
--- OUTSIDE RECORDS SUMMARY | 2025-06-26 17:01 | XMS_ITS | Clinical Summary ---
Author Organization [employer] Address [address] [facility] [address] [place] [address] Care Team Providers Care Director Of Veterans Affairs Name Role Phone Patti Clark MD Primary Care Provider [phone] Allergies No known active allergies Medications cholecalciferol [...] DAILY NEEDED FOR ANXIETY 09/07/20 23 Active meloxicam (Mobic) 15 MG tablet [...] bedtime. 12/22/19 24 Active Tirzepatide-Weight Management (Zepbound) 7.5 MG/0.5ML solution auto-injector Inject 0.5 mL (7.5 mg) under the skin every 7 (seven) days. 2 mL 03/08/20 25 Active Ubrogepant (Ubrelvy) 100 MG tablet Take by mouth. 12/03/19 25 Active gabapentin (Neurontin) 300 MG capsule Take 1 capsule (300 mg) by mouth 3 times daily. 90 capsule 03/25/20 25 Active naproxen (Naprosyn) 500 MG tablet Take 1 tablet (500 mg) by mouth if needed in the morning and at bedtime for mild pain. 30 tablet 05/23/20 25 026 Active acetaminophen (Tylenol 8 Hour) 650 MG ER tablet Take 1 tablet (650 mg) by mouth every 8 (eight) hours if needed for mild pain. Do not crush, chew, or split. 50 tablet 1 05/23/20 25 026 Active Diclofenac Sodium 1 % gel Apply 2 g topically if needed in the morning, at noon, in the evening, and at bedtime (pain). 150 g 3 05/23/20 25 Active predniSONE (Deltasone) 20 MG tablet Take 1 tablet (20 mg) by mouth 2 times daily for 5 days. 10 tablet 05/23/20 25 025 Active Problems Problem Noted Date Diagnosed Date Right-sided headache 03/25/2025 Overview (03/25/2025): ? cervicogenic, ? ON, migraine w/o aura Excessive daytime sleepiness 03/25/2025 Overview (03/25/2025): [place] sleepiness scale: 10 Cyst of right ovary 03/25/2025 Assessment & Plan (03/25/2025 10:43 AM EDT): Pt requested visit with edge inker heels for her woman's health care, reports wants SURVEY METHODOLOGIST to do her annual well woman exam and also reports prior hx of right ovarian cyst that she wants SURVEY METHODOLOGIST to followup on. Prefers female SURVEY METHODOLOGIST. Polyarthralgia 03/08/2025 Assessment & Plan (03/25/2025 10:42 AM EDT): Minimal response to tramadol, will send trial of gabapentin. At this moment, will send to pain medicine. Ddx fibromyalgia vs autoimmune arthritis. Labs for autoimmune arthritis were negative in the past. Followup via telemedicine in 8 weeks. Assessment & Plan (03/11/2025 8:56 AM EDT): Given the widespread nature of the pain, normal imaging results, and lack of response to conventional treatments, fibromyalgia is suspected. Fibromyalgia is described as a diagnosis of exclusion, characterized by pain in different parts of the body, especially in the upper region, affecting muscles and fibers. Plan: - Prescribe tramadol for pain management - Up to 4 times daily as needed - Sufficient quantity for 2 weeks if used every 6 hours - Educate patient on fibromyalgia as a chronic condition requiring lifestyle adaptations - Discuss potential side effects of tramadol, including drowsiness - Schedule follow-up phone call in 2 weeks to assess efficacy of tramadol Dysmenorrhea 09/19/2024 Assessment & Plan (09/19/2024 6:04 [...] daily for 10 days until can completes SURVEY METHODOLOGIST eval -denies any risk factors to take [...] Hand Surgeon -Will prescribe pain medication. Chronic bilateral low back pain with bilateral s ciatica 02/09/2023 Assessment & Plan (01/21/2024 2:56 PM [...] EST): Patient reports she was seen in [facility] by neurologist but she was concern about his rapport, requested referral to specialist in [place], referral placed. Assessment & Plan (11/23/2022 5:23 PM EST): Patient with ongoing issue for months, no improvement with conservative therapy, will send to neurology for evaluation. Female fertility problem 11/22/2022 Constipation 11/22/2022 Class 1 obesity 10/13/2022 Assessment & Plan (03/25/2025 10:44 AM EDT): Currently stable on Zepbound, needs followup weight check in 3 months to assess for continued stability. Assessment & Plan (03/11/2025 8:55 AM EDT): Patient currently on pharmacotherapy to assist with management of her weight. Starting weight: 187lbs Current weight: 168 lbs Review continue lifestyle modifications. Patient was titrated up to treatment dose. Tolerated titration well. Patient was transitioned to Zepbound given change in preferred agent by patient s insurance and medication efficacy. Reviewed mechanism of action with patient. Discussed side effects with patient: nausea, vomiting, diarrhea & risk of pancreatitis. No contraindications identified: , hx of pancreatitis, hx of medullary thyroid cancer or MEN 2. Discussed calorie deficit, recommended reduction of 20-30% of maintenance calories; haul driver referral offered. Recommended to decrease soda and sugary beverage consumption. Recommended at least 20 g per meal of protein to assist with satiety. Recommended at least 150 min/week of moderate intensity exercise. Assessment & Plan (08/23/2024 1:21 PM EDT): [...] recommended reduction of 20-30% of maintenance calories; haul driver referral offered. Recommended to decrease soda and sugary beverage consumption. Recommended at least 20 g per meal of protein to assist with satiety. Recommended at least 150 min/week of moderate intensity exercise. Assessment & Plan (04/02/2024 2:27 AM EDT): -Pt has lost 6 pounds. Discussed calorie deficit, recommended reduction of 20-30% of maintenance calories; haul driver referral offered. Recommended to decrease soda and sugary beverage consumption. Recommended at least 20 g per meal of protein to assist with satiety. Recommended at least 150 min/week of moderate intensity exercise. -f/u in 3 months Assessment & Plan (01/24/2024 9:19 AM EDT): - Discussed calorie deficit, recommended reduction of 20-30% of maintenance calories; haul driver referral offered. Recommended to decrease soda and sugary beverage consumption. Recommended at least 20 g per meal of protein to assist with satiety. Recommended at least 150 min/week of moderate intensity exercise. Will start trial of AOM to assist w/ wt loss. Assessment & Plan (11/18/2023 8:55 AM EST): Discussed calorie deficit, recommended reduction of 20-30% of maintenance calories; haul driver referral offered. Recommended to decrease soda and [...] recommended reduction of 20-30% of maintenance calories; haul driver referral offered. Recommended to decrease soda and [...] 10/13/2022 Back pain 10/13/2022 Assessment & Plan (03/25/2025 10:25 AM EDT): Diffuse sacrum-coccyx pain, reports also feeling hypermobility Assessment & Plan (04/02/2024 2:26 AM EDT): [...] chronic pain management she does follow in [place] with [facility] but is thinking of switching to [facility], report patient that she will need to inform specialist of her decision. Pain in female pelvis 10/09/2018 Encounters Date Type Department Care Team Description 05/24/2025 Telephone [facility] [address] [place] [address] Patti Clark MD Referral 05/23/2025 10:20 AM EDT Office Visit [facility] [address] [place] [address] Karishma Thurman DO Right elbow pain (Primary Dx) 05/23/2025 Telephone [facility] [address] [place] [address] Karishma Thurman DO Results 05/23/2025 Travel 05/02/2025 Orders Only [facility] External Provider, [facility] 03/29/2025 Results Follow-Up [facility] [address] [place] [address] Patti Clark MD XR Lumbar Spine 2-3 Views from Last 3 Months Immunizations Immunization Administration Dates Next Due Hep A, Adult [...] Answer Date Recorded Patient Health Questionnaire-9 Score 12 03/25/2025 Patient Health Questionnaire-9 Score 12 03/25/2025 Last PHQ-9: Questionnaire Data Not on file 0 03/25/2025 Housing Stability Answer Date Recorded What is your housing situation today? I have imelda jon 03/25/[address] you li ve. Do you have problems with any of the following? None of the above 03/25/2025 Food Insecurity Answer Date Recorded Within the past 12 months, y ou worried that your food would run out before you got money to buy more: Never True 03/25/2025 Within the past 12 months,th e food you bought just didn't last and you didn't have enough money to get more: Never True 11/2024 Transportation Answer Date Recorded In the past 12 months, has l ack of transportation kept you from medical appts, meetings, work or from getting things needed for daily living? No 03/25/2025 Utilities Answer Date Recorded In the past 12 months, has t he electric, gas, oil or water company threatened to shut off services in your home? No 03/25/2025 Depression Answer Date Recorded Patient Health Questionnaire-2 Score 5 03/25/2025 Internet Access Answer Date Recorded Internet Access Q1 Yes 03/25/2025 Internet Access Q2 Not on file 03/25/2025 Comments No Sex and Gender Information Value Date Recorded Sex Assigned at Female 08/23/2022 10:16 AM EDT Legal Sex Female 10:16 AM EDT Gender Identity Female 08/23/2022 10:16 AM EDT Sexual Orientation Straight 08/23/2022 10 :16 AM EDT Last Filed Vital Signs Vital Sign Reading Time Taken Comments Blood Pressure 114/75 05/23/2025 10:18 AM EDT Pulse 76 05/23/2025 10:18 AM EDT Temperature 36.7 C (98.1 F) 05/23/2025 10:18 AM EDT Respiratory Rate 17 05/23/2025 10:18 AM EDT Oxygen Saturation 98% 05/23/2025 10:18 AM EDT Inhaled Oxygen Concentration - - Weight 76.8 kg (169 lb 6.4 oz) 05/23/2025 10:18 AM EDT Height 158 cm (5' 2.21 ) 02/01/2025 1:51 PM EDT Body Mass Index 30.77 02/01/2025 1:51 PM EDT Plan of Treatment Upcoming Encounters Date Type Department Care Team (Late st Contact Info) Description 08/12/2025 10:30 AM EDT Office Visit [facility] [address] [place] [address] Nessa Mayfield, OD [address] [place] [address] Health Maintenance Due Date Last Done Comments Disability Screening 1985 Family Planning (PISQ) 2002 HPV Vaccines (1 - 3-dose series) 2002 Hepatitis C Screening 2005 Pap Smear 01/28/2008 Hepatitis B Vaccines (2 of 3 - 19+ 3-dose series) 05/20/2016 04/22/2016 COVID-19 Vaccine ( season) 2024 04/06/2021, 03/09/2021 Influenza Vaccine (#1) 2025 07/21/2020, 2018 Depression Monitoring 09/24/2025 03/25/2025, 025 Alcohol/Substance Use Screening 03/25/2026 03/25/2025 SDOH Screening 03/25/2026 03/25/2025 Cervical Cancer Screening 04/24/2026 HPV/Cotest 04/24/2026 04/24/2021, 07/0 11/2020, 08/16/2019, Additional history exists Tobacco Screening 05/23/2026 05/23/2025 DTaP/Tdap/Td Vaccines (2 - Td or Tdap) [...] patient's age to complete this topic Meningococcal B Vaccine Aged Out No l onger eligible based on patient's age to complete this topic Meningococcal Vaccine Aged Out No xiomy sagar eligible based on patient's age to complete this topic Pneumococcal Vaccine: Pediatrics (0 to 5 Years) and At-Risk Patients (6 to 49) Years Aged Out No longer eligible based on patient's age to complete this topic RSV under 20 months Aged Out No longe r eligible based on patient's age to complete this topic Rotavirus Vaccines Aged Out No longer eligible based on patient's age to complete this topic Procedures Procedure Name Priority Date/Time Associated Diagnosis Comments XR ELBOW 3+ VIEWS RIGHT Routine 05/23/2025 9:58 AM EDT Right elbow pain XR SHOULDER 2+ VIEWS LEFT Routine 05/02/2025 11:08 AM EDT XR LUMBAR SPINE 2-3 VIEWS Routine 03/26/2025 8:37 AM EDT LIPID PANEL, STANDARD Routine 12/28/2021 11:25 AM EST ZZZ HISTORICAL HPV E6/E7 RFLX ANTWAN 16 18/45 Routine 04/24/2021 3:22 PM EDT HIV 1/2 ANTIGEN/ANTIBODY, FOURTH GENERATION W/RFL Routine 08/21/2020 10:06 AM EDT from Last 3 Months or Most Recently Relevant to Health Maintenance Results * XR Elbow 3+ Views Right (05/23/2025 9:58 AM EDT) Anatomical Region Laterality Modality Upper Extremities, Elbow Right Radiogr aphic Imaging 05/23/2025 9:58 AM EDT Narrative 05/23/2025 11:18 AM EDT [facility] [address] [place] [address] XRay Report Signed Patient: Fariba Corrales MR#: [id number] : 1985 Acct:[id number] Age/Sex: 40 / F ADM Date: 05/23/25 Loc: .HHCX Attending Dr: Karishma Thurman DO Ordering Physician: Karishma Thurman DO Date of Service: 05/23/25 Procedure(s): XR elbow RT min 3V Accession Number(s): [id number] cc: Karishma Thurman DO EXAMINATION: XR ELBOW, RIGHT CLINICAL INFORMATION: R elbow medial pain and swelling COMPARISON: None available. TECHNIQUE: AP, lateral, and oblique views of the right elbow. FINDINGS: No fracture, dislocation, or suspicious bone lesion. Normal bone mineralization. Normal alignment. Joint spaces are preserved. No significant arthropathy. There is minimal calcification of the distal triceps tendon abutting the enthesis. The epicondyles are normal. No significant joint effusion. Soft tissues appear normal. XR/XR elbow RT min 3V IMPRESSION: 1. No acute fracture, dislocation, or joint effusion. 2. Mild calcific tendinosis of the triceps tendon. Electronically signed by: David Quintero MD 05/23/2025 11:15 AM EDT Dictated By: David Quintero MD Signed By: <Electronically signed by David Quintero MD in OV> 05/23/25 1115 DD/ 0958 TD/TT: 05/23/25 1000 [employer]: Procedure Note Donotuseinterpreter, Image - 05/23/[address] [address] XRay Report Signed Patient: Fariba Corrales MMR#: [id number] : 1985Acct:[id number] Age/Sex: 40 / FADM Date: 05/23/25 Loc: HO.HHCX Attending Dr: Karishma Thurman DO Ordering Physician: Karishma Thurman DO Date of Service: 05/23/25 Procedure(s): XR elbow RT min 3V Accession Number(s): [id number] cc: Karishma Thurman DO EXAMINATION: XR ELBOW, RIGHT CLINICAL INFORMATION: R elbow medial pain and swelling COMPARISON: None available. TECHNIQUE: AP, lateral, and oblique views of the right elbow. FINDINGS: No fracture, dislocation, or suspicious bone lesion. Normal bone mineralization. Normal alignment. Joint spaces are preserved. No significant arthropathy. There is minimal calcification of the distal triceps tendon abutting the enthesis. The epicondyles are normal. No significant joint effusion. Soft tissues appear normal. XR/XR elbow RT min 3V IMPRESSION: 1. No acute fracture, dislocation, or joint effusion. 2. Mild calcific tendinosis of the triceps tendon. Electronically signed by: David Quintero MD 05/23/2025 11:15 AM EDT Dictated By: David Quintero MD Signed By: <Electronically signed by David Quintero MD in OV> 05/23/25 1115 DD/ 0958 TD/TT: 05/23/25 1000 [employer] [address]: Karishma Thurman DO IMG XR PROCEDURES Final Resu lt * XR Shoulder 2+ Views Left (05/02/2025 11:08 AM EDT) Anatomical Region Laterality Modality Upper Extremities, Shoulder Left Radi ographic Imaging 05/02/2025 11:0 8 AM EDT Narrative 05/02/2025 11:30 AM EDT [address] [address] XRay Report Signed Patient: Fariba Corrales MR#: [id number] : 1985 Acct:[id number] Age/Sex: 40 / F ADM Date: 05/02/25 Loc: [facility] Attending Dr: Rj Abdi MD Ordering Physician: Rj Abdi MD Date of Service: 05/02/25 Procedure(s): XR shoulder LT min 2V Accession Number(s): [id number] cc: Rj Abdi MD; Patti Clark MD EXAMINATION: XR SHOULDER, LEFT CLINICAL INFORMATION: M19.012 - Primary osteoarthritis, left shoulder COMPARISON: 02/01/2025, 12/05/2024. TECHNIQUE: AP external rotation, Grashey, scapular Y, and axillary views of the left shoulder. FINDINGS: Normal bone mineralization. No fracture, dislocation, or suspicious bone lesion. Normal alignment. The glenohumeral joint is normal. The AC joint demonstrates minimal spurring. There is a type II acromion. No undersurface spurring. The subacromial space is preserved. Remainder of the soft tissue and bony structures appear normal. XR/XR shoulder LT min 2V IMPRESSION: 1. No acute bony abnormalities left shoulder. 2. Minimal AC joint spurring. Electronically signed by: David Quintero MD 05/02/2025 11:26 AM EDT Dictated By: Dvaid Quintero MD Signed By: <Electronically signed by David Quintero MD in OV> 05/02/25 1126 DD/ 1108 TD/TT: 05/02/25 1115 [employer]: Procedure Note Donotuseinterpreter, Image - 05/02/[address] [address] XRay Report Signed Patient: Fariba Corrales MMR#: [id number] : 1985Acct:[id number] Age/Sex: 40 / FADM Date: 05/02/25 Loc: HO.CARD Attending Dr: Rj Abdi MD Ordering Physician: Rj Abdi MD Date of Service: 05/02/25 Procedure(s): XR shoulder LT min 2V Accession Number(s): [id number] cc: Rj Abdi MD; Patti Clark MD EXAMINATION: XR SHOULDER, LEFT CLINICAL INFORMATION: M19.012 - Primary osteoarthritis, left shoulder COMPARISON: 02/01/2025, 12/05/2024. TECHNIQUE: AP external rotation, Grashey, scapular Y, and axillary views of the left shoulder. FINDINGS: Normal bone mineralization. No fracture, dislocation, or suspicious bone lesion. Normal alignment. The glenohumeral joint is normal. The AC joint demonstrates minimal spurring. There is a type II acromion. No undersurface spurring. The subacromial space is preserved. Remainder of the soft tissue and bony structures appear normal. XR/XR shoulder LT min 2V IMPRESSION: 1. No acute bony abnormalities left shoulder. 2. Minimal AC joint spurring. Electronically signed by: David Quintero MD 05/02/2025 11:26 AM EDT Dictated By: David Quintero MD Signed By: <Electronically signed by David Quintero MD in OV> 05/02/25 1126 DD/ 1108 TD/TT: 05/02/25 1115 [employer] Sergeant Precinct: [facility] External Provider IMG XR PROCEDURES Edited Result - Final * XR Lumbar Spine 2-3 Views (03/26/2025 8:37 AM EDT) Anatomical Region Laterality Modality Spine, L-spine Radiographic Maite ging 03/26/2025 8:37 AM EDT Narrative 03/26/2025 9:13 AM EDT [address] [address] XRay Report Signed Patient: Fariba Corrales MR#: [id number] : 1985 Acct:[id number] Age/Sex: 40 / F ADM Date: 03/26/25 Loc: HO.HHX Attending Dr: Patti Clark MD Ordering Physician: Patti Clark MD Date of Service: 03/26/25 Procedure(s): XR lumbar spine 2-3V Accession Number(s): [id number] cc: Patti Clark MD EXAMINATION: XR LUMBOSACRAL SPINE CLINICAL INFORMATION: 40 yo F with sacral back pain, feels hypermobility of pain, send to [facility] COMPARISON: CT lumbar 12/16/2022. TECHNIQUE: Three views of the lumbosacral spine. FINDINGS: Minimal levoconvex scoliosis centered at C5, possibly positional. Normal lumbar lordosis. No subluxations. No fractures, compression deformities, or suspicious bone lesions. No subluxations. Very mild disc and facet degeneration noted at L4-5 and L5-S1. Left-sided posterior neurostimulator device in place within the soft tissues, with leads extending cephalad into the thoracic spine. There are surgical clips overlying the right sacral wing medially. XR/XR lumbar spine 2-3V IMPRESSION: 1. No acute bony abnormalities of the lumbar spine. 2. Very mild degenerative spondylosis, most significant at L4-5 and L5-S1. Electronically signed by: David Quintero MD 03/26/2025 09:10 AM EDT Dictated By: David Quintero MD Signed By: <Electronically signed by David Quintero MD in OV> 03/26/25 0910 DD/ 0837 TD/TT: 03/26/25 0900 [employer] Sergeant Precinct: Procedure Note Donotuseinterpreter, Image - 03/26/[address] [address] XRay Report Signed Patient: Fariba Corrales [facility]#: [id number] : 1985Acct:[id number] Age/Sex: 40 / FADM Date: 03/26/25 Loc: HO.HHCX Attending Dr: Patti Clark MD Ordering Physician: Patti Clark MD Date of Service: 03/26/25 Procedure(s): XR lumbar spine 2-3V Accession Number(s): [id number] cc: Patti Clark MD EXAMINATION: XR LUMBOSACRAL SPINE CLINICAL INFORMATION: 40 yo F with sacral back pain, feels hypermobility of pain, send to [facility] COMPARISON: CT lumbar 12/16/2022. TECHNIQUE: Three views of the lumbosacral spine. FINDINGS: Minimal levoconvex scoliosis centered at C5, possibly positional. Normal lumbar lordosis. No subluxations. No fractures, compression deformities, or suspicious bone lesions. No subluxations. Very mild disc and facet degeneration noted at L4-5 and L5-S1. Left-sided posterior neurostimulator device in place within the soft tissues, with leads extending cephalad into the thoracic spine. There are surgical clips overlying the right sacral wing medially. XR/XR lumbar spine 2-3V IMPRESSION: 1. No acute bony abnormalities of the lumbar spine. 2. Very mild degenerative spondylosis, most significant at L4-5 and L5-S1. Electronically signed by: David Quintero MD 03/26/2025 09:10 AM EDT Dictated By: David Quintero MD Signed By: <Electronically signed by David Quintero MD in OV> 03/26/25 0910 DD/ 0837 TD/TT: 03/26/25 0900 [employer] Sergeant Precinct: us Patti Clark MD IMG XR PROCEDURES Final Resul t * (ABNORMAL) LIPID PANEL, STANDARD (12/28/2021 11:25 AM EST) Chol/HDLC Ratio 4.1 <5.0 (calc) [facility] Cholesterol, Total 198 <200 mg/dL [facility] HDL Cholesterol 48(L) > OR = 50 mg/dL [facility] LDL Cholesterol 133(H) mg/dL (calc) [facility] Comment: Reference range: <100 Desirable range <100 mg/dL for primary prevention; <70 mg/dL for patients with CHD or diabetic patients with > or = 2 CHD risk factors. LDL-C is now calculated using the Christopher calculation, which is a validated novel method providing better accuracy than the Friedewald equation in the estimation of LDL-C. Abdon SS et al. CATHERINE. 2013;310(19): 0074-3385 (http://education.Aphios.Carmudi/faq/GDF185) Non-HDL Cholesterol 150(H) <130 mg/dL (calc) [facility] Comment: For patients with diabetes plus 1 major ASCVD risk factor, treating to a non-HDL-C goal of <100 mg/dL (LDL-C of <70 mg/dL) is considered a therapeutic option. Triglycerides 78 <150 mg/dL [facility] 12/28/2021 11:2 5 AM EST Patti Clark MD LAB BLOOD ORDERABLES Final Re sult Performing Organization Address [facility] [[email or web address]] de Phone Number [facility] [address] [place] [address] * HPV E6/E7 RFLX ANTWAN 16 18/45 (04/24/2021 3:22 PM EDT) HPV mRNA E6/E7 rflx Not Detected Not Detected [facility] Comment: Methodology: Video Photographer-Mediated Amplification This assay detects E6/E7 viral messenger RNA (mRNA) from 14 high-risk HPV types (16,18,31,33,35,39,45,51,52,56,58,59,66,68). The analytical performance characteristics of this assay have been determined by [facility] [employer]. The modifications have not been cleared or approved by the FDA. This assay has been validated pursuant to the CLIA regulations and is used for clinical purposes. For additional information, please refer to http://education.Zeo/faq/CUF397i5 (This link if provided for information/ educational purposes only.) THIS TEST WAS PERFORMED AT: [facility] [address] [place] [address] [address] [facility],[place] [address] FAISAL MINOR MD 04/24/2021 3:22 PM EDT [place] HISTORICAL/NON ORDERABLE LABS Fi nal Result Performing Organization Address [facility] Co de Phone Number [facility] [address] * HIV 1/2 ANTIGEN/ANTIBODY,FOURTH GENERATION W/RFL (08/21/2020 10:06 AM EDT) HIV-1/2 ANTIGEN AND ANTIBODIES, 4TH GENERATION W/ REFLEX NON-REACT LARA NON-REACT LARA [facility] Comment: HIV-1 antigen and HIV-1/HIV-2 antibodies were not detected. There is no laboratory evidence of HIV infection. PLEASE NOTE: This information has been disclosed to you from records whose confidentiality may be protected by state law. If your state requires such protection, then the state law prohibits you from making any further disclosure of the information without the specific written consent of the person to whom it pertains, or as otherwise permitted by law. A general authorization for the release of medical or other information is NOT sufficient for this purpose. For additional information please refer to http://education.Zeo/faq/NVD559 (This link is being provided for informational/ educational purposes only.) The performance of this assay has not been clinically validated in patients less than 2 years old. 08/21/2020 10:0 6 AM EDT us Cielo Ron NP LAB BLOOD ORDERABLES Final Resul t [facility] [address] from Last 3 Months or Most Recently Relevant to Health Maintenance Insurance [facility] C3 Care Teams Director Of Veterans Affairs Relationship Specialty Start Date End Date Patti Clark MD [address] [place] [address] PCP - General Family Medicine 12/10/20 Kanchan [place] NP Psychiatrist 09/24/24
--- OUTSIDE RECORDS SUMMARY | 2025-06-26 17:01 | XMS_ITS | Encounter Summary ---
Author Organization [employer] Address [address] [facility] 7t [place] [address] Care Team Providers Care Construction Carpenters Helper Name Role Phone Patti Clark MD Primary Care Provider [phone] Reason for Visit * Reason Comments Med Refill Encounter Details Date Type Department Care Team ([facility] st Contact Info) Description 05/28/2024 Refill [facility] [address] [place] [address] Patti Clark MD 505 [place] [address] Social History Tobacco Use Types Packs/Day Years [...] Description 08/12/2025 10:30 AM EDT Office Visit [facility] OPTOMETRY [address] [place] [address] Nessa Mayfield, OD [address] [place] [address] documented as of this encounter Visit Diagnoses Not on filedocumented in this encounter Additional Health Concerns Assessment Noted Time PHQ-9 Depression Total Score: 9 11/18/19 24 8:24 AM EST documented as of this encounter Care Teams Construction Carpenters Helper Relationship Specialty Start Date End Date Patti Clark MD [address] [place] [address] PCP - General Family Medicine 12/10/20 Kanchan [place], SALES REPRESENTATIVE [employer] Psychiatrist 09/24/24 documented as of this encounter
--- OUTSIDE RECORDS SUMMARY | 2025-06-26 17:01 | XMS_ITS | Encounter Summary ---
Author Organization [employer] Address 75 [facility] 7t [place] [address] Care Team Providers Care Reference Test Clerk Name Role Phone Patti Clark MD Primary Care Provider [phone] Reason for Visit * Reason Onset Date Comments Med Refill 03/19/2025 Encounter Details Date Type Department Care Team ([facility] st Contact Info) Description 03/19/2025 Telephone [facility] MED [facility] PEDS 505 [place] [address] Patti Clark MD 505 [place] [address] Med Refill Social History Tobacco Use Types [...] Telephone Encounter - Karishma Infante LPN - 03/19/2025 1:06 PM EDT Medication was sent to [facility] on 03/08/25. * Telephone Encounter - Santa Hillman - 03/19/2025 1:00 PM EDT TC from pt requesting medication refill. Medications needing refill : Tirzepatide-Weight Management (Zepbound) 7.5 MG/0.5ML solution auto-injector To be sent to: [facility] - [place], [place] - [address] [facility] documented in this encounter Plan of Treatment Upcoming Encounters Date Type Department Care Team (Late st Contact Info) Description 08/12/2025 10:30 AM EDT Office Visit [facility] OPTOMETRY [address] [place] [address] Nessa Mayfield, OD [address] [place] [address] documented as of this encounter Visit Diagnoses Not on filedocumented in this encounter Additional Health Concerns Assessment Noted Time PHQ-9 Depression Total Score: 5 08/23/20 24 11:38 AM EDT documented as of this encounter Care Teams Reference Test Clerk Relationship Specialty Start Date End Date Patti Clark MD 230 [place] [address] PCP - General Family Medicine 12/10/20 Kanchan [place] NP Psychiatrist 09/24/24 documented as of this encounter
--- OUTSIDE RECORDS SUMMARY | 2025-06-26 17:01 | XMS_ITS | Encounter Summary ---
Author Organization [employer] Address [address] [facility] [address] 7t [place] [address] Care Team Providers Care Steel Rule Die Maker Apprentice Name Role Phone Patti Clark MD Primary Care Provider [phone] Encounter Details Date Type Department Care Team ([facility] st Contact Info) Description 11/19/2024 Orders Only [facility] 230 [place] [address] Abbey Fonseca MD 505 [place] [address] Social History Tobacco Use Types Packs/Day Years [...] Description 08/12/2025 10:30 AM EDT Office Visit [facility] OPTOMETRY [address] [place] [address] Nessa Mayfield, OD 267 [place] [address] documented as of this encounter Visit Diagnoses Not on filedocumented in this encounter Additional Health Concerns Assessment Noted Time PHQ-9 Depression Total Score: 5 08/23/20 24 11:38 AM EDT documented as of this encounter Care Teams Steel Rule Die Maker Apprentice Relationship Specialty Start Date End Date Patti Clark MD 230 [place] [address] PCP - General Family Medicine 12/10/20 Kanchan [place], DOPE FIRER Psychiatrist 09/24/24 documented as of this encounter
--- OUTSIDE RECORDS SUMMARY | 2025-06-26 17:01 | XMS_ITS | Encounter Summary ---
Author Organization [employer] Address [address] [place] [address] 7 [place] [address] Care Team Providers Care Wool Sorter Name Role Phone Patti Clark MD Primary Care Provider [phone] Reason for Referral * Imaging (Routine) - Closed Specialty Diagnoses / Procedures Referred By Contac t Referred To Contact Radiology Diagnoses Menorrhagia with regular cycle Procedures US Pelvis Transvaginal Erin Soto MD [address] [place] [address] Phone: tel: fax: [facility] [address] [place], [place] Phone: tel: fax: Referral ID Status Reason Start Date Expiration Date Visits Re quested Visits Authorized [id number] Closed 09/12/2024 09/12/2025 1 1 Encounter Details Date Type Department Care Team (Late st Contact Info) Description 09/12/2024 Orders Only [facility] MED & PEDS 505 [place] [address] Erin Soto MD [address] [place] [address] Menorrhagia with regular cycle (Primary Dx) Social [...] Description 08/12/2025 10:30 AM EDT Office Visit C OPTOMETRY [address] [place] [address] Nessa Mayfield, OD [address] [place] [address] documented as of this encounter Procedures Procedure Name Priority Date/Time Associated Diagnosis Comments US PELVIS TRANSVAGINAL Routine 09/26/2024 Menorrhagia with regular cycle documented in this encounter Results * US Pelvis Transvaginal (09/26/2024) Anatomical Region Laterality Modality Pelvis Ultrasound us Erin Soto MD IMG US PROCEDURES Final Res ult documented in this encounter Visit Diagnoses Diagnosis Menorrhagia with regular cycle- Primary documented in this encounter Additional Health Concerns Assessment Noted Time PHQ-9 Depression Total Score: 5 08/23/20 24 11:38 AM EDT documented as of this encounter Care Teams Wool Sorter Relationship Specialty Start Date End Date Patti Clark MD [address] [place] [address] PCP - General Family Medicine 12/10/20 Kanchan [place] NP Psychiatrist 09/24/24 documented as of this encounter
== END 2025-06-26 15:26 | disposition home or self-care (01) ==
LOC: HO.HOS 14:42
PROVIDERS: Visit Provider Physician Assistant
DX: M22.2X1 Patellofemoral disorders, right knee (principal)
CPT/HCPCS: 20610; 99213

== ENCOUNTER → 2025-06-26 14:42 | Outpatient (BNVA) | payer MEDICAID, SELFPAY | PROVIDERS: Visit Provider Physician Assistant | DX: M22.2X1 Patellofemoral disorders, right knee (principal) | CPT/HCPCS: 20610; 99212; J0665; J1100; J2003 ==

== ENCOUNTER 2025-07-09 06:22 | Outpatient (REF) | payer MEDICAID, SELFPAY ==
--- NOTE | ~2025-07-09 | FL_ITS ---
EXAMINATION: FL GUIDANCE ONLY HISTORY: M19.012 - Primary osteoarthritis, left shoulder COMPARISON: None available. TECHNIQUE: Fluoroscopy time: 0.1 minute. Cumulative Dose: 0.167 mGy. DAP: 0.20193 mGym2 Images: 1. FINDINGS: A single fluoroscopic spot film of the left shoulder demonstrate a needle in the region of the AC joint. FL/FL guidance in treatment room IMPRESSION: Fluoroscopy during procedure. Please see procedure report for additional information. Electronically signed by: Kain Nieves MD 07/09/2025 12:14 PM EDT
--- OUTSIDE RECORDS SUMMARY | 2025-07-09 06:24 | XMS_ITS | Encounter Summary ---
Author Organization [employer] Address [address] [facility] [address] 7t [place] [address] Care Team Providers Care Propagator Name Role Phone Patti Clark MD Primary Care Provider [phone] Encounter Details Date Type Department Care Team ([facility] st Contact Info) Description 11/19/2024 Orders Only [facility] [address] [place] [address] Abbey Fonseca MD 505 [place] [address] Social History Tobacco Use Types Packs/Day Years [...] Description 08/12/2025 10:30 AM EDT Office Visit [facility] OPTOMETRY [address] [place] [address] Nessa May[place], OD [address] [place] [address] documented as of this encounter Visit Diagnoses Not on filedocumented in this encounter Additional Health Concerns Assessment Noted Time PHQ-9 Depression Total Score: 5 08/23/20 24 11:38 AM EDT documented as of this encounter Care Teams Propagator Relationship Specialty Start Date End Date Patti Clark MD [address] [place] [address] PCP - General Family Medicine 12/10/20 Kanchan [place], COLD TYPE COMPOSING MACHINE OPERATOR Psychiatrist 09/24/24 documented as of this encounter
--- OUTSIDE RECORDS SUMMARY | 2025-07-09 06:24 | XMS_ITS | Encounter Summary ---
Author Organization [employer] Address [address] [place] [address] 7 [place] [address] Care Team Providers Care Nursing Informatics Clinical Analyst Name Role Phone Patti Clark MD Primary Care Provider [phone] Reason for Referral * Imaging (Routine) - Closed Specialty Diagnoses / Procedures Referred By Contac t Referred To Contact Radiology Diagnoses Menorrhagia with regular cycle Procedures US Pelvis Transvaginal Erin Soto MD [address] [place] [address] Phone: tel: fax: [facility] [address] [place], [place] Phone: tel: fax: Referral ID Status Reason Start Date Expiration Date Visits Re quested Visits Authorized [id number] Closed 09/12/2024 09/12/2025 1 1 Encounter Details Date Type Department Care Team (Late st Contact Info) Description 09/12/2024 Orders Only [facility] MED & PEDS [address] [place] [address] Erin Soto MD [address] [place] [address] Menorrhagia with regular cycle (Primary Dx) Social [...] EDT Office Visit C OPTOMETRY [address] [place] [address] Nessa May[place], OD [address] [place] [address] documented as of this encounter Procedures Procedure [...] documented as of this encounter Care Teams Nursing Informatics Clinical Analyst Relationship Specialty Start Date End Date Patti Clark MD [address] [place] [address] PCP - General Family Medicine 12/10/20 Kanchan [place] NP Psychiatrist 09/24/24 documented as of this encounter
--- OUTSIDE RECORDS SUMMARY | 2025-07-09 06:24 | XMS_ITS | Clinical Summary ---
Author Organization [employer] Address [address] [facility] 7t [place] [address] Care Team Providers Care Freezer Worker Name Role Phone Patti Clark MD Primary Care Provider [phone] Allergies No known active allergies Medications cholecalciferol (Vitamin D-3) 50 MCG (1999 UT) tablet Take 100 mcg by mouth in the morning. 2 Active magnesium oxide (Mag-Ox) 400 (240 Mg) MG tablet TAKE 1 TABLET BY MOUTH DAILY AT BEDTIME HOLD FOR LOOSE STOOL 3 Active ketoconazole (NIZOral) 2 % shampoo APPLY TO SCALP ONCE A WEEK LEAVE ON el erum por 5 MINUTES THEN RINSE 3 Active hydrOXYzine pamoate (Vistaril) 25 MG capsule TAKE 1 TO 2 CAPSULES BY MOUTH TWICE DAILY NEEDED FOR ANXIETY 3 Active meloxicam (Mobic) 15 MG tablet Take 1 tablet (15 mg) by mouth Once per day. 30 tablet 4 025 Active fluocinolone (Synalar) 0.01 % external solution APPLY TO THE AFFECTED AREA(S) ON SCALP ONCE DAILY NEEDED FOR ITCHING AND FLARE 4 Active rizatriptan (Maxalt) 10 MG tablet TAKE 1/2 TO 1 TABLET BY MOUTH EVERY 2 HOURS NEEDED FOR MIGRAINE. DO NOT EXCEED 2 TABLETS IN 24 HOURS OR 4 TABLETS PER WEEK 4 Active cyclobenzaprine (Flexeril) 10 MG tablet Take 1 tablet (10 mg) by mouth at bedtime. 30 tablet 4 Active norethindrone (Aygestin) 5 MG tablet Take 1 tablet (5 mg) by mouth Once per day for 10 days. 10 tablet 4 Active FLUoxetine (PROzac) 40 MG capsule Take 80 mg by mouth Once per day. 4 Active propranolol (Inderal) 10 MG tablet Take 10 mg by mouth if needed in the morning and at bedtime. 4 Active diclofenac (Voltaren) 75 MG EC tabletIndications: Chronic pain of multiple joints Take 1 tablet (75 mg) by mouth 2 times daily. Do not crush, chew, or split. 60 tablet 4 Active olopatadine (Pataday) 0.2 % ophthalmic solutionIndication s:Other chronic allergic conjunctivitis of both eyes Administer 1 drop into both eyes Once per day. 2.5 mL 5 5 Active SUMAtriptan (Imitrex) 100 MG tablet TAKE 1 TABLET BY MOUTH ONCE NEEDED FOR FOR MIGRAINE 4 Active amitriptyline (Elavil) 25 MG tablet Take 25 mg by mouth at bedtime. 4 Active Tirzepatide-Weight Management (Zepbound) 7.5 MG/0.5ML solution auto-injector Inject 0.5 mL (7.5 mg) under the skin every 7 (seven) days. 2 mL 5 Active Ubrogepant (Ubrelvy) 100 MG tablet Take by mouth. 5 Active gabapentin (Neurontin) 300 MG capsule Take 1 capsule (300 mg) by mouth 3 times daily. 90 capsule 5 Active naproxen (Naprosyn) 500 MG tablet Take 1 tablet (500 mg) by mouth if needed in the morning and at bedtime for mild pain. 30 tablet 5 026 Active acetaminophen (Tylenol 8 Hour) 650 MG ER tablet Take 1 tablet (650 mg) by mouth every 8 (eight) hours if needed for mild pain. Do not crush, chew, or split. 50 tablet 1 5 026 Active Diclofenac Sodium 1 % gel Apply 2 g topically if needed in the morning, at noon, in the evening, and at bedtime (pain). 150 g 3 5 Active Active Problems Problem Noted Date Diagnosed Date Right-sided headache 03/25/2025 Overview (03/25/2025): ? cervicogenic, ? ON, migraine w/o aura Excessive daytime sleepiness 03/25/2025 Overview (03/25/2025): Silver sleepiness scale: 10 Cyst of right ovary 03/25/2025 Assessment & Plan (03/25/2025 10:43 AM EDT): Pt requested visit with picker and sorter load and unload for her woman's health care, reports wants COAL UNLOADER to do her annual well woman exam and also reports prior hx of right ovarian cyst that she wants COAL UNLOADER to followup on. Prefers female COAL UNLOADER. Polyarthralgia 03/08/2025 Assessment & Plan (03/25/2025 10:42 [...] daily for 10 days until can completes COAL UNLOADER eval -denies any risk factors to take [...] she was seen in [facility] by neurologist but she was concern about his rapport, requested referral to specialist in [place], referral placed. Assessment & Plan (11/23/2022 5:23 [...] recommended reduction of 20-30% of maintenance calories; clinical abstractor referral offered. Recommended to decrease soda and [...] recommended reduction of 20-30% of maintenance calories; clinical abstractor referral offered. Recommended to decrease soda and sugary beverage consumption. Recommended at least 20 g per meal of protein to assist with satiety. Recommended at least 150 min/week of moderate intensity exercise. Assessment & Plan (04/02/2024 2:27 AM EDT): -Pt has lost 6 pounds. Discussed calorie deficit, recommended reduction of 20-30% of maintenance calories; clinical abstractor referral offered. Recommended to decrease soda and sugary beverage consumption. Recommended at least 20 g per meal of protein to assist with satiety. Recommended at least 150 min/week of moderate intensity exercise. -f/u in 3 months Assessment & Plan (01/24/2024 9:19 AM EDT): - Discussed calorie deficit, recommended reduction of 20-30% of maintenance calories; clinical abstractor referral offered. Recommended to decrease soda and sugary beverage consumption. Recommended at least 20 g per meal of protein to assist with satiety. Recommended at least 150 min/week of moderate intensity exercise. Will start trial of AOM to assist w/ wt loss. Assessment & Plan (11/18/2023 8:55 AM EST): Discussed calorie deficit, recommended reduction of 20-30% of maintenance calories; clinical abstractor referral offered. Recommended to decrease soda and [...] recommended reduction of 20-30% of maintenance calories; clinical abstractor referral offered. Recommended to decrease soda and [...] chronic pain management she does follow in [place] with [facility] but is thinking of switching to [facility], report patient that she will need to inform specialist of her decision. Pain in female pelvis 10/09/2018 Encounters Date Type Department Care Team Description 05/24/2025 Telephone [facility] [address] [place] [address] Patti Clark MD Referral 05/23/2025 10:20 AM EDT Office Visit [facility] [address] [place] [address] Karishma Thurman DO Right elbow pain (Primary Dx) 05/23/2025 Telephone [facility] [address] [place] [address] Karishma Thurman DO Results 05/23/2025 Travel 05/02/2025 Orders Only [facility] External Provider, [facility] from Last 3 Months Immunizations Immunization Administration [...] Description 08/12/2025 10:30 AM EDT Office Visit [facility] OPTOMETRY [address] [place], [place] [phone] AmaliafanyNessa, OD [address] [place], [place] [phone] Health Maintenance Due Date Last Done Comments Disability Screening 1985 Family Planning (PISQ) 2002 HPV Vaccines (1 - 3-dose series) 2002 Hepatitis C Screening 2005 Pap Smear 01/28/2008 Hepatitis B Vaccines (2 of 3 - 19+ 3-dose series) 05/20/2016 04/22/2016 COVID-19 Vaccine (3 - season) 2025 04/06/2021, 03/09/2021 Influenza Vaccine (#1) 2025 07/21/2020, [...] Procedure Name Priority Date/Time Associated Diagnosis Comments AMB REFERRAL TO ORTHOPAEDIC SURGERY Urgent 07/02/2025 Right elbow pain XR ELBOW 3+ VIEWS RIGHT Routine 05/23/2025 9:58 AM EDT Right elbow pain XR SHOULDER 2+ VIEWS LEFT Routine 05/02/2025 11:08 AM EDT LIPID PANEL, STANDARD Routine 12/28/2021 11:25 AM EST ZZZ HISTORICAL HPV E6/E7 RFLX ANTWAN 16 18/45 Routine 04/24/2021 3:22 PM EDT HIV 1/2 ANTIGEN/ANTIBODY, FOURTH GENERATION W/RFL Routine 08/21/2020 10:06 AM EDT from Last 3 Months or Most Recently Relevant to Health Maintenance Results * Referral to Orthopaedic Surgery (07/02/2025) Karishma Thurman DO OUTPATIENT REFERRAL ORDERABL ES Final Result * XR Elbow 3+ Views Right (05/23/2025 9:58 AM EDT) Anatomical Region Laterality Modality Upper Extremities, Elbow Right Radiogr aphic Imaging 05/23/2025 9:58 AM EDT Narrative 05/23/2025 11:18 AM EDT [address] [address] XRay Report Signed Patient: Fariba Corrales MR#: [id number] : 1985 Acct:[id number] Age/Sex: 40 / F ADM Date: 05/23/25 Loc: HO.HHCX Attending Dr: Karishma Thurman DO Ordering Physician: Karishma Thurman DO Date of Service: 05/23/25 Procedure(s): XR elbow RT min 3V Accession Number(s): [id number] cc: Karishma Thurman DO EXAMINATION: XR ELBOW, [...] 05/23/25 1115 DD/ 0958 TD/TT: 05/23/25 1000 Heel Sander: Procedure Note Donotuseinterpreter, Image - 05/23/[address] [address] XRay Report Signed Patient: Fariba Corrales MMR#: [id number] : 1985Acct:[id number] Age/Sex: 40 / FADM Date: 05/23/25 Loc: HO.HHCX Attending Dr: Karishma Thurman DO Ordering Physician: Karishma Thurman DO Date of Service: 05/23/25 Procedure(s): XR elbow RT min 3V Accession Number(s): [id number] cc: Karishma Thurman DO EXAMINATION: XR ELBOW, [...] 05/23/25 1115 DD/ 0958 TD/TT: 05/23/25 1000 Heel Sander: Karishma Thurman DO IMG XR PROCEDURES Final Resu lt * XR Shoulder 2+ Views Left (05/02/2025 11:08 AM EDT) Anatomical Region Laterality Modality Upper Extremities, Shoulder Left Radi ographic Imaging 05/02/2025 11:0 8 AM EDT Narrative 05/02/2025 11:30 AM EDT [address] [address] XRay Report Signed Patient: Fariba Corrales MR#: [id number] : 1985 Acct:[id number] Age/Sex: 40 / F ADM Date: 05/02/25 Loc: HO.CARD Attending Dr: Rj Abdi MD Ordering Physician: Rj Abdi MD Date of Service: 05/02/25 Procedure(s): XR shoulder LT min 2V Accession Number(s): [id number] cc: Rj Abdi MD; Patti Clark MD [...] 05/02/25 1126 DD/ 1108 TD/TT: 05/02/25 1115 Heel Sander: Procedure Note Donotangelinterpreter, Image - 05/02/[address] [address] XRay Report Signed Patient: Fariba Corrales MMR#: [id number] : 1985Acct:[id number] Age/Sex: 40 / FADM Date: 05/02/25 Loc: HO.CARD Attending Dr: Rj Abdi MD Ordering Physician: Rj Abdi MD Date of Service: 05/02/25 Procedure(s): XR shoulder LT min 2V Accession Number(s): [id number] cc: Rj Abdi MD; Patti Clark MD [...] 05/02/25 1126 DD/ 1108 TD/TT: 05/02/25 1115 Heel Sander: [facility] External Provider IMG XR PROCEDURES Edited Result - Final * (ABNORMAL) LIPID PANEL, STANDARD (12/28/2021 11:25 [...] equation in the estimation of LDL-C. Abdon NELSON et al. CATHERINE. 2013;310(19): 4823-0088 (http://education.IPNetVoice.Dapt/faq/YAL734) Non-HDL Cholesterol 150(H) <130 mg/dL (calc) [facility] Comment: For patients with diabetes plus 1 major ASCVD risk factor, treating to a non-HDL-C goal of <100 mg/dL (LDL-C of <70 mg/dL) is considered a therapeutic option. Triglycerides 78 <150 mg/dL [facility] 12/28/2021 11:2 5 AM EST Patti Clark MD LAB BLOOD ORDERABLES Final Re sult Performing Organization Address [facility] Co de Phone Number [facility] [address] [place] [address], * HPV E6/E7 RFLX ANTWAN 16 18/45 (04/24/2021 3:22 PM EDT) [facility] HPV mRNA E6/E7 rflx Not Detected Not Detected [facility] Comment: Methodology: Lobbyist-Mediated Amplification This assay detects E6/E7 viral messenger RNA (mRNA) from 14 high-risk HPV types (16,18,31,33,35,39,45,51,52,56,58,59,66,68). The analytical performance characteristics of this assay have been determined by [employer]. The modifications have not been cleared or approved by the FDA. This assay has been validated pursuant to the CLIA regulations and is used for clinical purposes. For additional information, please refer to http://education.rVita/faq/SWD513l1 (This link if provided for information/ educational purposes only.) THIS TEST WAS PERFORMED AT: [facility] [address] [place] [address] FLOOR,[place] [address] FAISAL MINOR MD 04/24/2021 3:22 PM EDT us Cony TraylorSalyer HISTORICAL/NON ORDERABLE LABS Fi nal Result Performing Organization Address [facility] Co de Phone Number [facility] [address] [place] [address], * HIV 1/2 ANTIGEN/ANTIBODY,FOURTH GENERATION W/RFL (08/21/2020 [...] purpose. For additional information please refer to http://education.rVita/faq/ARW305 (This link is being provided for informational/ educational purposes only.) The performance of this assay has not been clinically validated in patients less than 2 years old. 08/21/2020 10:0 6 AM EDT us Cielo Ron NP LAB BLOOD ORDERABLES Final Resul t [facility] [address] from Last 3 Months or Most Recently Relevant to Health Maintenance Insurance [facility] C3 Care Teams Freezer Worker Relationship Specialty Start Date End Date Patti Clark MD [address] [place] [address] PCP - General Family Medicine 12/10/20 Kanchan [place] NP Psychiatrist 09/24/24
--- OUTSIDE RECORDS SUMMARY | 2025-07-09 06:24 | XMS_ITS | Encounter Summary ---
Author Organization [employer] Address [address] [facility] 7t [place] [address] Care Team Providers Care Ditch Cleaner Name Role Phone Patti Clark MD Primary Care Provider [phone] Encounter Details Date Type Department Care Team ([facility] Contact Info) Description 10/05/2024 Orders Only [facility] [address] [place] [address] Erin Soto MD [address] [place] [address] Social History Tobacco Use Types Packs/Day Years [...] Description 08/12/2025 10:30 AM EDT Office Visit [facility] OPTOMETRY [address] [place] [address] Nessa [place], OD [address] [place] [address] documented as of this encounter Visit Diagnoses Not on filedocumented in this encounter Additional Health Concerns Assessment Noted Time PHQ-9 Depression Total Score: 5 08/23/20 24 11:38 AM EDT documented as of this encounter Care Teams Ditch Cleaner Relationship Specialty Start Date End Date Patti Clark MD [address] [place] [address] PCP - General Family Medicine 12/10/20 Kanchan GregoryTony, MATRIX REPAIRER Psychiatrist 09/24/24 documented as of this encounter
--- OUTSIDE RECORDS SUMMARY | 2025-07-09 06:24 | XMS_ITS | Encounter Summary ---
Author Organization [employer] Address [address] [place] [address] Care Team Providers Care Crew Boat Operator Name Role Phone Patti Clark MD Primary Care Provider [phone] Reason for Visit * Reason Comments Med Refill Encounter Details Date Type Department Care Team ([facility] st Contact Info) Description 05/28/2024 Refill [facility] MED & PEDS [address] [place] [address] Patti Clark MD [address] [place] [address] Social History Tobacco Use Types Packs/Day Years [...] Description 08/12/2025 10:30 AM EDT Office Visit [facility] OPTOMETRY [address] [place] [address] Nessa Mayfield, OD [address] [place] [address] documented as of this encounter Visit Diagnoses Not on filedocumented in this encounter Additional Health Concerns Assessment Noted Time PHQ-9 Depression Total Score: 9 11/18/19 24 8:24 AM EST documented as of this encounter Care Teams Crew Boat Operator Relationship Specialty Start Date End Date Patti Clark MD [address] [place] [address] PCP - General Family Medicine 12/10/20 Kanchan Hughes, REGISTERED NURSE CARDIOVASCULAR ICU Psychiatrist 09/24/24 documented as of this encounter
--- OUTSIDE RECORDS SUMMARY | 2025-07-09 06:24 | XMS_ITS | Encounter Summary ---
Author Organization [employer] Address [address] [facility] [facility] [address] [place] [address] Care Team Providers Care Strategic Account Director Name Role Phone Patti Clark MD Primary Care Provider [phone] Reason for Visit * Reason Onset Date Comments Appointment Request 12/20/2022 Encounter Details Date Type Department Care Team ([facility] st Contact Info) Description 12/20/2022 Telephone [facility] MEDICINE [address] [place] [address] Patti Clark MD [address] [place] [address] Appointment Request Social History Tobacco Use Types [...] regarding message below. Please contact pt at [phone] * Telephone Encounter - Adan Albrecht - 12/20/2022 3:27 PM EST Tc from pt requesting to r/s appt 12/21/22 ( ER follow up [facility] 12/16 for low back pain and passing out due to the pain. ) Please contact pt at [phone] documented in this encounter Plan of Treatment Upcoming Encounters Date Type Department Care Team (Late st Contact Info) Description 08/12/2025 10:30 AM EDT Office Visit [facility] OPTOMETRY [address] [place] [address] Nessa Mayfield, OD [address] [place] [address] documented as of this encounter Visit Diagnoses Not on filedocumented in this encounter Additional Health Concerns Assessment Noted Time PHQ-9 Depression Total Score: 11 023 3:48 PM EST documented as of this encounter Care Teams Strategic Account Director Relationship Specialty Start Date End Date Patti Clark MD [address] [place] [id number] PCP - General Family Medicine 12/10/20 Kanchan Hughes NP Psychiatrist 09/24/24 documented as of this encounter
== END 2025-07-09 06:23 | disposition home or self-care (01) ==
LOC: CF 06:22
PROVIDERS: Visit Provider Anesthesiology
DX: M19.012 Primary osteoarthritis, left shoulder (principal)
CPT/HCPCS: 20605; J2003; J2795; J3301; Q9967

== ENCOUNTER 2025-07-09 09:27 | Outpatient (AMB) | payer MEDICAID, SELFPAY ==
--- NOTE | 2025-07-09 09:35 | MHC.OFFVIS ---
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 Gender identity: Female Female Reproductive History Menstrual Age of Menarche: 12 Physical Exam Vital Signs: Last Vital Signs Pulse 84 07/09/25 09:36 Resp 18 07/09/25 09:36 BP 112/78 07/09/25 09:36 Pulse Ox 97 07/09/25 09:36 Oxygen Delivery Method Room Air 07/09/25 09:36 Assessment & Plan Assessment & Plan (1) Acromioclavicular arthrosis: Code(s): M19.019 - Primary osteoarthritis, unspecified shoulder Category: Medical (2) Left shoulder pain: Code(s): M25.512 - Pain in left shoulder Category: Medical Plan Right AC joint intra-articular steroid injection. the risks, benefits and alternatives were discussed with the patient and informed consent was obtained, patient was placed in the prone position and padded to foster comfort. Time out was performed delineating correct site and side of the procedure , name and of the patient, patient participated in time out procedure. The patient was positioned supine on the operating table, the left upper shoulder and left anterior chest were prepped with ChloraPrep and draped with sterile self adhesive utility towels. C-arm was brought over the operating field and picture of the left AC joint was demonstrated on the screen. In the projection of the joint injection of the local anesthetic lidocaine 2% was performed. After that 22 gauge 3-1/2 inch needle was inserted through the skin wheal and advanced into the joint in AP view. When needle entered the joint injection of the local anesthetic lidocaine 2% mixed with Kenalog 40 mg 2 mL was performed into the joint. The patient tolerated the procedure well needle was removed sterile Band-Aid was applied. Orders: Orders FL guidance in treatment room Today M19.012 - Primary osteoarthritis, left shoulder Medications: New lorazepam (Ativan) Take 30 minutes prior to arrival to procedure 1 mg PO ONCE 1 tab 0RF anxiety Coding Level of Care Code Procedure Only Diagnoses Acromioclavicular arthrosis M19.019 Left shoulder pain M25.512
[2025-07-09 09:36] VITALS: BP 112/78; PULSE 84; RESP 18; O2SAT 97
== END 2025-07-09 10:17 | disposition home or self-care (01) ==
LOC: HO.PMCPRC 09:27
PROVIDERS: Visit Provider Anesthesiology
DX: M19.019 Primary osteoarthritis, unspecified shoulder (principal); M25.512 Pain in left shoulder
CPT/HCPCS: 20605; 77002

== ENCOUNTER 2025-08-06 11:49 | Outpatient (REF) | payer MEDICAID, SELFPAY ==
[2025-08-06 13:39] LABS: Hematocrit 38.0 % (37.0-47.0); Hemoglobin 12.3 g/dl (12.0-16.0); Mean Corpuscular HGB Conc 32.4 g/dl (31.0-35.0); Mean Corpuscular Hemoglobin 29.1 pg (27.0-33.0); Mean Corpuscular Volume 89.8 fL (80.0-98.0); NRBC Abs Auto 0.000 X10*3/uL (0.0-0.012); NRBC Pct Auto 0.0 /100WBC (0.0-0.2); Platelet Count 174 X10*3/uL (160-400); Red Blood Count 4.23 X10*6/uL (4.20-5.50); White Blood Count 5.9 X10*3/uL (4.8-10.8)
[2025-08-06 14:16] LABS: Alanine Aminotransferase 22 U/L (0-31); Albumin Level 3.9 g/dL (3.5-5.0); Alkaline Phosphatase 52 U/L (39-117); Anion Gap 11 (12-20); Aspartate Amino Transferase 21 U/L (5-31); Blood Urea Nitrogen 15 mg/dL (9-16); Calcium 8.7 mg/dL (8.4-10.2); Carbon Dioxide 25 mmol/L (22-29); Chloride 111 mmol/L (96-108); Estimated Glomerular Filt Rate 48; Potassium 3.9 mmol/L (3.3-5.1); Sodium 143 mmol/L (135-145); Total Protein 7.2 g/dL (6.5-8.0)
[2025-08-07 02:11] LABS: CT PCR Urine NOT DETECTED (Not Detect.); NG PCR Urine NOT DETECTED (Not Detect.)
== END 2025-08-06 11:50 | disposition home or self-care (01) ==
LOC: HO.HHCL 11:49
PROVIDERS: PCP Internal Medicine; Visit Provider Internal Medicine
DX: Z20.2 Contact with and (suspected) exposure to infections with a predominantly sexual mode of transmission (principal); R10.9 Unspecified abdominal pain; R11.10 Vomiting, unspecified; R19.7 Diarrhea, unspecified
CPT/HCPCS: 36415; 80048; 80076; 85027; 85652; 86140; 87086; 87491; 87591

== ENCOUNTER 2025-08-08 16:14 | Outpatient (REF) | payer MEDICAID, SELFPAY ==
--- OUTSIDE RECORDS SUMMARY | 2025-08-06 10:40 | XMS_ITS | Encounter Summary ---
Author Organization [employer] Address [address] [place] [address] Care Team Providers Care Guide Dog Instructor Name Role Phone Patti Clark MD Primary Care Provider [phone] Reason for Visit * Reason Comments Diarrhea Encounter Details Date Type Department Care Team ([facility] st Contact Info) Description 08/06/2025 10:40 AM EDT Office Visit [facility] [address] [place] [address] [phone] Sebastian Dent MD [address] [place], [place] [phone] Abdominal pain, vomiting, and diarrhea (Primary Dx); Irregular menses Social History Tobacco Use Types Packs/Day Years [...] Sign Reading Time Taken Comments Blood Pressure 121/77 08/06/2025 10:47 AM EDT Pulse 64 08/06/2025 10:47 AM EDT Temperature 35.8 C (96.5 F) 08/06/2025 10:47 AM EDT Respiratory Rate 16 08/06/2025 10:4 7 AM EDT Oxygen Saturation 98% 08/06/2025 10: 47 AM EDT Inhaled Oxygen Concentration - - Weight 77.9 kg (171 lb 12.8 oz) 025 10:47 AM EDT Height 157.5 cm (5' 2 ) 08/06/2025 10:4 7 AM EDT Body Mass Index 31.42 08/06/2025 10:47 AM EDT documented in this encounter Progress Notes * Sebastian Jett MD - 08/06/2025 10:40 AM EDT SUBJECTIVE Fariba Corrales is a 40 y.o. female who presents for Diarrhea. Fariba Corrales, 40 years Acute Gastrointestinal and Systemic Symptoms - Onset of symptoms since yesterday morning (August 05, 2025) - Body aches started first, followed by fever, diarrhea, vomiting, headache - Diarrhea occurred approximately 6 times, initially watery, now more formed, frequency decreasing - Abdominal pain in lower belly, crampy, comes and goes, not present at time of encounter - Fever comes and goes, accompanied by chills - Vomiting occurred yesterday, mild - Loss of appetite, prefers fluids such as water and lemon, able to tolerate liquids - Denies recent travel, denies eating outside home, denies blood or mucus in stool - No other sick contacts at home - No prior similar episodes recalled, except during previous COVID infection Abnormal Vaginal Bleeding - Menstrual period started July 24, 2025 and ended July 272024 - New onset vaginal bleeding after recent period - Lower abdominal pain similar to menstrual pain accompanying bleeding HPI Review of Systems Constitutional: Negative for fever. HENT: Negative for sore throat. Respiratory: Negative for cough and shortness of breath. Cardiovascular: Negative for chest pain. Gastrointestinal: Negative for abdominal pain. Neurological: Negative for headaches. Allergies[1] OBJECTIVE Vitals: 08/06/25 1047 BP: 121/77 BP Location: Left arm Patient Position: Sitting BP Cuff Size: Adult Pulse: 64 Resp: 16 Temp: 96.5 ??F (35.8 ??C) TempSrc: Temporal SpO2: 98% Weight: 171 lb 12.8 oz (77.9 kg) Height: 5' 2 (1.575 m) Physical Exam Vitals reviewed. Constitutional: Appearance: Normal appearance. HENT: Head: Normocephalic and atraumatic. Right Ear: External ear normal. Left Ear: External ear normal. Nose: Nose normal. Mouth/Throat: Mouth: Mucous membranes are moist. Eyes: Conjunctiva/sclera: Conjunctivae normal. Cardiovascular: Rate and Rhythm: Normal rate and regular rhythm. Pulmonary: Effort: Pulmonary effort is normal. Breath sounds: Normal breath sounds. Abdominal: General: Abdomen is flat. Bowel sounds are increased. Palpations: Abdomen is soft. Tenderness: There is no abdominal tenderness. There is no guarding or rebound. Negative signs include Thompson's sign and McBurney's sign. Genitourinary: Vagina: Normal. Cervix: Cervical bleeding present. No cervical motion tenderness or discharge. Adnexa: Right: No tenderness. Left: No tenderness. Skin: General: Skin is warm. Neurological: Mental Status: She is alert. Mental status is at baseline. Assessment/Plan Problem List Items Addressed This Visit Abdominal pain, vomiting, and diarrhea - Primary Pt with c/o new onset of lower abdominal discomfort associated with fever, nausea one episode of vomiting and diarrhea. Symptomatology and exam suggestive of: Viral gastroenteritis. influenza and COVID-19; and flu test results negative Infectious etiologies to be ruled out. Plan: Prescribed acetaminophen for fever, chills, and body aches. Prescribed antiemetic for nausea.Recommended oral hydration with fluids and electrolytes. Ordered blood work and stool studies to beperformed if diarrhea continues. Advised to monitor for red flag symptoms: bloody diarrhea, persistent fever, worsening or constant abdominal pain; instructed to seek medical attention or visit emergency room if these occur. Relevant Medications ondansetron (Zofran) 4 MG tablet Other Relevant Orders POCT Rapid Covid-19 BinaxNOW (Completed) POCT Rapid Influenza A OSOM (Completed) POCT Rapid Influenza B OSOM (Completed) Stool - Gastrointestinal panel CBC (Completed) Hepatic Function Panel Basic Metabolic Panel Sed Rate by Modified Westergren C-reactive Protein POCT Urine (Completed) Culture, Urine, Routine Chlamydia/Trichomonas/Neisseria gonorrhoeae, PCR, Urine POCT urinalysis dipstick manually resulted (CPT 13711) (Completed) Irregular menses Patient with c/o new onset of irregular menses, had her period 10 days ago and yesterday started having vaginal bleeding again. She reports regular periods . First time she has experienced this. Vaginal exam: No Cervicomotion tenderness, No vaginal discharge, there was presence of blood vaginal canal. No adnexal tenderness HCG urine: negative GC and Chlamydia sent. Pt sexually active, not seeking . Not using contraception Plan: Pt tells me already has an upcoming appointment with [facility] TECHNICIAN next month at [facility] Discussed with her if she is to develop pelvic pain, discharge ro any other associated symptom to present herself to nearest ER This note was drafted using Ambient (AI) technology. The patient/patient's guardian has been informed and has consented to the use of this technology: Yes Future Appointments Date Time Provider Department Center 08/12/2025 10:30 AM Nessa Mayfield OD [facility] [1] No Known Allergies documented in this encounter Miscellaneous Notes * Assessment & Plan Note - Sebastian Jett MD - 08/06/2025 1:26 PM EDT Associated Problem(s): Irregular menses Patient with c/o new onset of irregular menses, had her period 10 days ago and yesterday started having vaginal bleeding again. She reports regular periods . First time she has experienced this. Vaginal exam: No Cervicomotion tenderness, No vaginal discharge, there was presence of blood vaginal canal. No adnexal tenderness HCG urine: negative GC and Chlamydia sent. Pt sexually active, not seeking . Not using contraception Plan: Pt tells me already has an upcoming appointment with [facility] OPERATIONS TECHNICIAN next month at [facility] Discussed with her if she is to develop pelvic pain, discharge ro any other associated symptom to present herself to nearest ER * Assessment & Plan Note - Sebastian Jett MD - 08/06/2025 1:22 PM EDT Associated Problem(s): Abdominal pain, vomiting, and diarrhea Pt with c/o new onset of lower abdominal discomfort associated with fever, nausea one episode of vomiting and diarrhea. Symptomatology and exam suggestive of: Viral gastroenteritis. influenza and COVID-19; and flu test results negative Infectious etiologies to be ruled out. Plan: Prescribed acetaminophen for fever, chills, and body aches. Prescribed antiemetic for nausea.Recommended oral hydration with fluids and electrolytes. Ordered blood work and stool studies to beperformed if diarrhea continues. Advised to monitor for red flag symptoms: bloody diarrhea, persistent fever, worsening or constant abdominal pain; instructed to seek medical attention or visit emergency room if these occur. documented in this encounter Plan of Treatment Upcoming Encounters Date Type Department Care Team ([facility] st Contact Info) Description 08/12/2025 10:30 AM EDT Office Visit [facility] [address] [place], [place] [phone] Nessa Mayfield, OD [address] [place] [address] Scheduled Orders Name Type Priority Associated Diagnoses Orde r Schedule Stool - Gastrointestinal panel Microbiology Routine Abdominal pain, vomiting, and diarrhea Expected: 08/06/2025 (Approximate), Expires: 08/06/2026 documented as of this encounter Procedures Procedure Name Priority Date/Time Associated Diagnosis Comments SED RATE BY MODIFIED WESTERGREN Routine 08/06/2025 11:55 AM EDT Abdominal pain, vomiting, and diarrhea CBC Routine 08/06/2025 11:55 AM EDT Abdominal pain, vomiting, and diarrhea C-REACTIVE PROTEIN Routine 08/06/2025 11 :55 AM EDT Abdominal pain, vomiting, and diarrhea HEPATIC FUNCTION PANEL Routine 08/06/2025 11:55 AM EDT Abdominal pain, vomiting, and diarrhea BASIC METABOLIC PANEL Routine 08/06/2025 11:55 AM EDT Abdominal pain, vomiting, and diarrhea POCT URINALYSIS DIPSTICK Routine 08/06/2025 11:47 AM EDT Abdominal pain, vomiting, and diarrhea POCT , URINE Routine 08/06/2025 11:45 AM EDT Abdominal pain, vomiting, and diarrhea CHLAMYDIA/TRICHOMONA S/NEISSERIA GONORRHOEAE, PCR, URINE Routine 08/06/2025 11:40 AM EDT Abdominal pain, vomiting, and diarrhea CULTURE, URINE, ROUTINE Routine 08/06/2025 11:40 AM EDT Abdominal pain, vomiting, and diarrhea POCT INFLUENZA B Routine 08/06/2025 11:1 0 AM EDT Abdominal pain, vomiting, and diarrhea POCT INFLUENZA A Routine 08/06/2025 11:0 9 AM EDT Abdominal pain, vomiting, and diarrhea POCT RAPID COVID ANTIGEN Routine 08/06/2025 10:57 AM EDT Abdominal pain, vomiting, and diarrhea documented in this encounter Results * (ABNORMAL) C-reactive Protein (08/06/2025 11:55 AM EDT) [facility] C Reactive Protein 2.22(H) < or = 0.50 mg/dL [facility] Blood Venous blood specimen / Unknown 08/06/2025 11:55 AM EDT 08/06/2025 1:14 PM EDT Sebastian Jett MD LAB BLOOD ORDERABLES Final Result Performing Organization Address [facility] Co de Phone Number [facility] [address] [place] [phone] * (ABNORMAL) Sed Rate by Modified Westergren (08/06/2025 11:55 AM EDT) [facility] Erythrocyte Sedimentation Rate 31(H) 0 - 20 MM/HR [facility] Comment:Patients with polycy themia and many hemoglobin abnormalitiesmay have depressed sed rates whereas patients with anemiamay have elevated sed rates. Blood Venous blood specimen / Unknown 08/06/2025 11:55 AM EDT 08/06/2025 1:14 PM EDT Sebastian Jett MD LAB BLOOD ORDERABLES Final Result Performing Organization Address City/[facility]/ZIP Co de Phone Number [facility] [address] [place] [phone] * (ABNORMAL) Basic Metabolic Panel (08/06/2025 11:55 AM EDT) [facility] Sodium 143 135 - 145 mmol/L [facility] Potassium 3.9 3.3 - 5.1 mmol/L [facility] Chloride 111(H) 96 - 108 mmol/L [facility] Carbon Dioxide 25 22 - 29 mmol/L [facility] Anion Gap 11(L) 12 - 20 [facility] Urea Nitrogen (BUN) 15 9 - 16 mg/dL [facility] Creatinine, Serum 1.26 0.5 - 1.4 mg/dL [facility] Estimated Glomerular Filt Rate 48 [facility] Comment:Chronic Kidney Disea se: Estimated GFR < 60 mL/min/[id number] Kidney Disease: Estimated GFR < 15 mL/min/1.73m2 Glucose 74 60 - 115 mg/dL [facility] Calcium 8.7 8.4 - 10.2 mg/dL [facility] Blood Venous blood specimen / Unknown 08/06/2025 11:55 AM EDT 08/06/2025 1:14 PM EDT Sebastian Jett MD LAB BLOOD ORDERABLES Final Result Performing Organization Address [facility] Co de Phone Number [facility] [address] [place] [phone] * Hepatic Function Panel (08/06/2025 11:55 AM EDT) Bilirubin, Total 0.5 0.0 - 1.0 mg/dL [facility] Bilirubin, Direct 0.2 0.0 - 0.5 mg/dL [facility] Aspartate Amino Transferase 21 5 - 31 U/L [facility] Alanine Aminotransferase 22 0 - 31 U/L [facility] Total Protein 7.2 6.5 - 8.0 g/dL [facility] Albumin Level 3.9 3.5 - 5.0 g/dL [facility] Alkaline Phosphatase 52 39 - 117 U/L [facility] Blood Venous blood specimen / Unknown 08/06/2025 11:55 AM EDT 08/06/2025 1:14 PM EDT Sebastian Jett MD LAB BLOOD ORDERABLES Final Result Performing Organization Address City/[facility] Co de Phone Number [facility] [address] [place] [phone] * CBC (08/06/2025 11:55 AM EDT) White Blood Count 5.9 4.8 - 10.8 X10*3/uL [facility] Red Blood Count 4.23 4.20 - 5.50 X10*6/uL [facility] Hemoglobin 12.3 12.0 - 16.0 g/dl [facility] Hematocrit 38.0 37.0 - 47.0 % [facility] Mean Corpuscular Volume 89.8 80.0 - 98.0 fL [facility] Mean Corpuscular Hemoglobin 29.1 27.0 - 33.0 pg [facility] Mean Corpuscular HGB Conc 32.4 31.0 - 35.0 g/dl [facility] Red Cell Distribution Width 14.2 11.0 - 16.0 % [facility] Platelet Count 174 160 - 400 X10*3/uL [facility] Mean Platelet Volume 10.5 9.4 - 12.3 fL [facility] NRBC Pct Auto 0.0 0.0 - 0.2 /100WBC [facility] NRBC Abs Auto 0.000 0.0 - 0.012 X10*3/uL [facility] Blood Venous blood specimen / Unknown 08/06/2025 11:55 AM EDT 08/06/2025 1:14 PM EDT us Sebastian Jett MD LAB BLOOD ORDERABLES Final Result [facility] [address] [place] [phone] * (ABNORMAL) POCT urinalysis dipstick manually resulted (CPT 66222) (08/06/2025 11:47 AM EDT) Color, UA Red Clarity, UA Cloudy Glucose, UA Negative Bilirubin, UA Negative Ketones, UA Negative Spec Grav, UA 1.005 Blood, UA Positive(A) Negative, None Detected Comment:large pH, UA 6.0 Protein, UA Trace Comment:100mg Urobilinogen, UA 0.2 Leukocytes, UA Many(A) Negative, Rare, Trace Nitrite, UA Negative Negative, None Detected Appearance, UA cloudy QC Media Lot # [id number] Lot# Expiration Date Urine (Urine, Random) 08/06/2025 11:47 AM EDT us Sebastian Jett MD POINT OF CARE TEST EN TER/EDIT ORDERABLES Final Result * POCT Urine (08/06/2025 11:45 AM EDT) Preg Test, Ur Negative Negative, Indeterminate, None Detected, Invalid, Specimen unsatisfactory for evaluation, Weakly Positive, 2+ QC Media Lot # [id number] Lot# Expiration Date Urine 08/06/2025 11:4 5 AM EDT Sebastian Jett MD POINT OF CARE TEST EN TER/EDIT ORDERABLES Final Result * Chlamydia/Trichomonas/Neisseria gonorrhoeae, PCR, Urine (08/06/2025 11:40 AM EDT) CT PCR, Urine NOT DETECTED Not Detect. [facility] Comment:A not detected test result does not exclude the possibilityof infection because test results can be affected byimproper specimen collection, concurrent antibiotic therapy,or the number of organisms in the specimen which may bebelow the sensitivity of the test. As with many diagnostictests, results from the Xpert CT/NG assay should beinterpreted in conjunction with other laboratory andclinical data available to the clinician.The Xpert CT/NG assay should not be used for the evaluationof suspected sexual abuse or for other medico-legalindications. Additional testing is recommended in anycircumstance when false positive or false negative resultscould lead to adverse medical, social or psychologicalconsequences. NG PCR, Urine NOT DETECTED Not Detect. [facility] Comment:A not detected test result does not exclude the possibilityof infection because test results can be affected byimproper specimen collection, concurrent antibiotic therapy,or the number of organisms in the specimen which may bebelow the sensitivity of the test. As with many diagnostictests, results from the Xpert CT/NG assay should beinterpreted in conjunction with other laboratory andclinical data available to the clinician.The Xpert CT/NG assay should not be used for the evaluationof suspected sexual abuse or for other medico-legalindications. Additional testing is recommended in anycircumstance when false positive or false negative resultscould lead to adverse medical, social or psychologicalconsequences. Urine (Urine, Random) 08/06/2025 11:40 AM EDT 08/06/2025 5:01 PM EDT Sebastian Jett MD LAB URINE ORDERABLES Final Result Performing Organization Address City/[facility]/ZIP Co de Phone Number [facility] [address] [place] [phone] * Culture, Urine, Routine (08/06/2025 11:40 AM EDT) Urine Urine specimen obtained by clean catch procedure / Unknown 08/06/2025 11:40 AM EDT 08/06/2025 5:01 PM EDT Comment:UACC Narrative [facility] - 08/08/2025 10:20 AM EDT Urine Culture No growth. Specimen Source: Urine clean catch Sebastian Jett MD LAB MICROBIOLOGY - NERAL ORDERABLES Final Result Performing Organization Address City/[facility]/ZIP Co de Phone Number [facility] [address] [place] [phone] * POCT Rapid Influenza B OSOM (08/06/2025 11:10 AM EDT) [facility] Rapid Influenza B Ag Negative Negative, Indeterminate QC Media Lot # [id number] Lot# Expiration Date [id number] Swab 08/06/2025 11:1 0 AM EDT Sebastian Jett MD POINT OF CARE TEST EN TER/EDIT ORDERABLES Final Result * POCT Rapid Influenza A OSOM (08/06/2025 11:09 AM EDT) [facility] Rapid Influenza A Ag Negative Negative, Indeterminate QC Media Lot # [id number] Lot# Expiration Date ,027 Swab Nasopharyngeal structure / Unknown 08/06/2025 11:09 AM EDT Sebastian Jett MD POINT OF CARE TEST EN TER/EDIT ORDERABLES Final Result * POCT Rapid Covid-19 BinaxNOW (08/06/2025 10:57 AM EDT) [facility] Rapid COVID Ag Negative QC Media Lot # [id number] Lot# Expiration Date 8,026 Swab 08/06/2025 10:5 7 AM EDT Sebastian Jett MD POINT OF CARE TEST EN TER/EDIT ORDERABLES Final Result documented in this encounter Visit Diagnoses Diagnosis Abdominal pain, vomiting, and diarrhea- Primary Irregular menses Irregular menstrual cycle documented in this encounter Additional Health Concerns Assessment Noted Time PHQ-9 Depression Total Score: 12 025 9:50 AM EDT documented as of this encounter Care Teams Guide Dog Instructor Relationship Specialty Start Date End Date Patti Clrak MD [address] [place] [phone] PCP - General Family Medicine 12/10/20 Kanchan Hughes NP Psychiatrist 09/24/24 documented as of this encounter
--- OUTSIDE RECORDS SUMMARY | 2025-08-08 19:39 | XMS_ITS | Clinical Summary ---
Author Organization [employer] Address [address] [facility] 7t [place] [address] Care Team Providers Care Foreign Language Teacher Name Role Phone Patti Clark MD Primary Care Provider [phone] Allergies No known active allergies Medications cholecalciferol [...] TWICE DAILY NEEDED FOR ANXIETY 023 Active fluocinolone (Synalar) 0.01 % external solution APPLY TO THE AFFECTED AREA(S) ON SCALP ONCE DAILY NEEDED FOR ITCHING AND FLARE 024 Active rizatriptan (Maxalt) 10 MG tablet TAKE 1/2 TO 1 TABLET BY MOUTH EVERY 2 HOURS NEEDED FOR MIGRAINE. DO NOT EXCEED 2 TABLETS IN 24 HOURS OR 4 TABLETS PER WEEK 024 Active cyclobenzaprine (Flexeril) 10 MG tablet Take 1 tablet (10 mg) by mouth at bedtime. 30 tablet 024 Active norethindrone (Aygestin) 5 MG tablet Take 1 tablet (5 mg) by mouth Once per day for 10 days. 10 tablet Active FLUoxetine (PROzac) 40 MG capsule Take 80 mg by mouth Once per day. Active propranolol (Inderal) 10 MG tablet Take 10 mg by mouth if needed in the morning and at bedtime. Active olopatadine (Pataday) 0.2 % ophthalmic solutionIndicatio ns:Other chronic allergic conjunctivitis of both eyes Administer 1 drop into both eyes Once per day. 2.5 mL 5 Active SUMAtriptan (Imitrex) 100 MG tablet TAKE 1 TABLET BY MOUTH ONCE NEEDED FOR FOR MIGRAINE Active amitriptyline (Elavil) 25 MG tablet Take 25 mg by mouth at bedtime. Active Tirzepatide-Weigh t Management (Zepbound) 7.5 MG/0.5ML solution auto-injector Inject 0.5 mL (7.5 mg) under the skin every 7 (seven) days. 2 mL Active Ubrogepant (Ubrelvy) 100 MG tablet Take by mouth. Active gabapentin (Neurontin) 300 MG capsule Take 1 capsule (300 mg) by mouth 3 times daily. 90 capsule Active acetaminophen (Tylenol 8 Hour) 650 MG ER tablet Take 1 tablet (650 mg) by mouth every 8 (eight) hours if needed for mild pain. Do not crush, chew, or split. 50 tablet 1 2025 Active Diclofenac Sodium 1 % gel Apply 2 g topically if needed in the morning, at noon, in the evening, and at bedtime (pain). 150 g 3 Active meloxicam (Mobic) 15 MG tablet Take 1 tablet (15 mg) by mouth Once per day. 15 tablet 2025 Active ondansetron (Zofran) 4 MG tabletIndications :Abdominal pain, vomiting, and diarrhea Take 1 tablet (4 mg) by mouth every 8 (eight) hours if needed for nausea or vomiting. 20 tablet Active meloxicam (Mobic) 15 MG tablet Take 1 tablet (15 mg) by mouth Once per day. 30 tablet 2024 Discontinued(R eorder (will not trigger notification to Pharmacy)) diclofenac (Voltaren) 75 MG EC tabletIndications :Chronic pain of multiple joints Take 1 tablet (75 mg) by mouth 2 times daily. Do not crush, chew, or split. 60 tablet 024 2024 Discontinued(T herapy completed) naproxen (Naprosyn) 500 MG tablet Take 1 tablet (500 mg) by mouth if needed in the morning and at bedtime for mild pain. 30 tablet 025 2024 Discontinued(I neffective) Hospital, Clinic, or Other Facility Administered Medication Ordered Dose Route Frequency Start Date End Date Status ketorolac (Toradol) injection 30 mgIndications:Trochanteric bursitis of right hip 30 mg IM Once 07/30/2025 07/30/2025 End ed Active Problems Problem Noted Date Diagnosed Date Abdominal pain, vomiting, and diarrhea Assessment & Plan (08/06/2025 1:22 PM EDT): Pt with c/o new onset of lower abdominal discomfort associated with fever, nausea one episode of vomiting and diarrhea. Symptomatology and exam suggestive of: Viral gastroenteritis. influenza and COVID-19; and flu test results negative Infectious etiologies to be ruled out. Plan: Prescribed acetaminophen for fever, chills, and body aches. Prescribed antiemetic for nausea. Recommended oral hydration with fluids and electrolytes. Ordered blood work and stool studies to be performed if diarrhea continues. Advised to monitor for red flag symptoms: bloody diarrhea, persistent fever, worsening or constant abdominal pain; instructed to seek medical attention or visit emergency room if these occur. Irregular menses 08/06/2025 Assessment & Plan (08/06/2025 1:26 PM EDT): Patient with c/o new onset of irregular [...] me already has an upcoming appointment with AUTOMOTIVE PARTS INTERPRETER [place] [facility] [place]iscussed with her if she is to develop pelvic pain, discharge ro any other associated symptom to present herself to nearest ER Trochanteric bursitis of right hip 07/30/2025 Assessment & Plan (07/30/2025 1:45 PM EDT): Toradol injection today, will start meloxicam daily x 1 week tomorrow. Can use Tylenol twice daily as needed breakthrough pain Apply heat to affected areas and refer to PT, I explained that knee pain could be exacerbated by radiated trochanteric bursitis Right-sided headache 03/25/2025 Overview (03/25/2025): ? cervicogenic, ? ON, migraine w/o aura Excessive daytime sleepiness 03/25/2025 Overview (03/25/2025): [place] sleepiness scale: 10 Cyst of right ovary 03/25/2025 Assessment & Plan (03/25/2025 10:43 AM EDT): Pt requested visit with glass beveler for her woman's health care, reports wants AUTOMOTIVE PARTS INTERPRETER to do her annual well woman exam and also reports prior hx of right ovarian cyst that she wants AUTOMOTIVE PARTS INTERPRETER to followup on. Prefers female AUTOMOTIVE PARTS INTERPRETER. Polyarthralgia 03/08/2025 Assessment & Plan (03/25/2025 10:42 [...] daily for 10 days until can completes AUTOMOTIVE PARTS INTERPRETER eval -denies any risk factors to take [...] bilateral s ciatica 02/09/2023 Assessment & Plan (07/30/2025 1:45 PM EDT): Recommended to use diclofenac gel as needed, she is getting Toradol injection today. See above trochanteric bursitis Dx Assessment & Plan (01/21/2024 2:56 PM EDT): [...] EST): Patient reports she was seen [place] [facility] [place] but she was concern about his rapport, requested referral to specialist in [place], referral placed. Assessment & Plan (11/23/2022 5:23 [...] recommended reduction of 20-30% of maintenance calories; glove parts cutter referral offered. Recommended to decrease soda and [...] recommended reduction of 20-30% of maintenance calories; glove parts cutter referral offered. Recommended to decrease soda and sugary beverage consumption. Recommended at least 20 g per meal of protein to assist with satiety. Recommended at least 150 min/week of moderate intensity exercise. Assessment & Plan (04/02/2024 2:27 AM EDT): -Pt has lost 6 pounds. Discussed calorie deficit, recommended reduction of 20-30% of maintenance calories; glove parts cutter referral offered. Recommended to decrease soda and sugary beverage consumption. Recommended at least 20 g per meal of protein to assist with satiety. Recommended at least 150 min/week of moderate intensity exercise. -f/u in 3 months Assessment & Plan (01/24/2024 9:19 AM EDT): - Discussed calorie deficit, recommended reduction of 20-30% of maintenance calories; glove parts cutter referral offered. Recommended to decrease soda and sugary beverage consumption. Recommended at least 20 g per meal of protein to assist with satiety. Recommended at least 150 min/week of moderate intensity exercise. Will start trial of AOM to assist w/ wt loss. Assessment & Plan (11/18/2023 8:55 AM EST): Discussed calorie deficit, recommended reduction of 20-30% of maintenance calories; glove parts cutter referral offered. Recommended to decrease soda and [...] recommended reduction of 20-30% of maintenance calories; glove parts cutter referral offered. Recommended to decrease soda and [...] chronic pain management she does follow in [place] with [facility] but is thinking of switching to [facility], report patient that she will need to inform specialist of her decision. Pain in female pelvis 10/09/2018 Encounters Date Type Department Care Team Description 08/06/2025 10:40 AM EDT Office Visit [facility] [address] [phone] Sebastian Dent MD Abdominal pain, vomiting, and diarrhea (Primary Dx); Irregular menses 08/06/2025 Travel 07/30/2025 1:20 PM EDT Office Visit [facility] [address] [place] [phone] Beba Romo MD Trochanteric bursitis of right hip (Primary Dx); Chronic bilateral low back pain with bilateral sciatica 07/30/2025 Travel 07/17/2025 10:00 AM EDT Telemedicine [facility] [address] [place] [address] Radha Olson RN Chronic bilateral low back pain with right-sided sciatica 07/17/2025 Travel 05/24/2025 Telephone [facility] [address] [place] [address] Patti Clark MD Referral 05/23/2025 10:20 AM EDT Office Visit [facility] [address] [place] [phone] Karishma Thurman DO Right elbow pain (Primary Dx) 05/23/2025 Telephone [facility] [address] [address] Karishma Thurman DO Results 05/23/2025 Travel from Last 3 Months Immunizations Immunization Administration [...] Mass Index 31.42 08/06/2025 10:47 AM EDT Plan of Treatment Upcoming Encounters Date Type Department Care Team (Late st Contact Info) Description 08/12/2025 10:30 AM EDT Office Visit [facility] [address] [place] [address] Nessa Mayfield, OD [address] [place] [address] Health Maintenance Due Date Last Done Comments [...] (2 - Td or Tdap) 05/25/2026 05/25/2016 Tobacco Screening 08/06/2026 08/06/2025 Lipid Panel 12/28/2026 12/28/2021, 08/21/2020 Zoster Vaccines [...] Procedure Name Priority Date/Time Associated Diagnosis Comments C-REACTIVE PROTEIN Routine 08/06/2025 11 :55 AM EDT Abdominal pain, vomiting, and diarrhea SED RATE BY MODIFIED WESTERGREN Routine 08/06/2025 [...] AM EDT Abdominal pain, vomiting, and diarrhea AMB REFERRAL TO ORTHOPAEDIC SURGERY Urgent 07/02/2025 Right elbow pain XR ELBOW 3+ VIEWS RIGHT Routine 05/23/2025 9:58 AM EDT Right elbow pain LIPID PANEL, STANDARD Routine 12/28/2021 11:25 AM EST ZZZ HISTORICAL HPV E6/E7 RFLX ANTWAN 16 18/45 Routine 04/24/2021 3:22 PM EDT HIV 1/2 ANTIGEN/ANTIBODY, FOURTH GENERATION W/RFL Routine 08/21/2020 10:06 AM EDT from Last 3 Months or Most Recently Relevant to Health Maintenance Results * (ABNORMAL) Sed Rate by Modified Westergren (08/06/2025 11:55 AM EDT) Erythrocyte Sedimentation Rate 31(H) 0 - 20 MM/HR [facility] Comment:Patients with polycy themia and many hemoglobin abnormalitiesmay have depressed sed rates whereas patients with anemiamay have elevated sed rates. Blood Venous blood specimen / Unknown 08/06/2025 11:55 AM EDT 08/06/2025 1:14 PM EDT us Sebastian Jett MD LAB BLOOD ORDERABLES Final Result [facility] [address] [place] [phone] * CBC (08/06/2025 11:55 AM EDT) White Blood Count 5.9 4.8 - 10.8 X10*3/uL [facility] Red Blood Count 4.23 4.20 - 5.50 X10*6/uL [facility] Hemoglobin 12.3 12.0 - 16.0 g/dl [facility] Hematocrit 38.0 37.0 - 47.0 % [facility] Mean Corpuscular Volume 89.8 80.0 - 98.0 fL [facility] Mean Corpuscular Hemoglobin 29.1 27.0 - 33.0 pg [facility] Mean Corpuscular HGB Conc 32.4 31.0 - 35.0 g/dl [facility] Red Cell Distribution Width 14.2 11.0 - 16.0 % [facility] Platelet Count 174 160 - 400 X10*3/uL [facility] Mean Platelet Volume 10.5 9.4 - 12.3 fL [facility] NRBC Pct Auto 0.0 0.0 - 0.2 /100WBC [facility] NRBC Abs Auto 0.000 0.0 - 0.012 X10*3/uL [facility] Blood Venous blood specimen / Unknown 08/06/2025 11:55 AM EDT 08/06/2025 1:14 PM EDT Sebastian Jett MD LAB BLOOD ORDERABLES Final Result Performing Organization Address City/[facility]/ZIP Co de Phone Number [facility] [address] [place] [phone] * (ABNORMAL) C-reactive Protein (08/06/2025 11:55 AM EDT) C Reactive Protein 2.22(H) < or = 0.50 mg/dL [facility] Blood Venous blood specimen / Unknown 08/06/2025 11:55 AM EDT 08/06/2025 1:14 PM EDT Sebastian Jett MD LAB BLOOD ORDERABLES Final Result [facility] [address] [place] [phone] * Hepatic Function Panel (08/06/2025 11:55 AM EDT) Pathologist [facility] Bilirubin, Total 0.5 0.0 - 1.0 mg/dL [facility] Bilirubin, Direct 0.2 0.0 - 0.5 mg/dL [facility] Aspartate Amino Transferase 21 5 - 31 U/L [facility] Alanine Aminotransferase 22 0 - 31 U/L [facility] Total Protein 7.2 6.5 - 8.0 g/dL [facility] Albumin Level 3.9 3.5 - 5.0 g/dL [facility] Alkaline Phosphatase 52 39 - 117 U/L [facility] Blood Venous blood specimen / Unknown 08/06/2025 11:55 AM EDT 08/06/2025 1:14 PM EDT Sebastian Jett MD LAB BLOOD ORDERABLES Final Result [facility] [address] [place] [phone] * (ABNORMAL) Basic Metabolic Panel (08/06/2025 11:55 AM EDT) Pathologist [facility] Sodium 143 135 - 145 mmol/L [facility] Potassium 3.9 3.3 - 5.1 mmol/L [facility] Chloride 111(H) 96 - 108 mmol/L [facility] Carbon Dioxide 25 22 - 29 mmol/L [facility] Anion Gap 11(L) 12 - 20 [facility] Urea Nitrogen (BUN) 15 9 - 16 mg/dL [facility] Creatinine, Serum 1.26 0.5 - 1.4 mg/dL [facility] Estimated Glomerular Filt Rate 48 [facility] Comment:Chronic Kidney Disea se: Estimated GFR < 60 mL/min/1.28d0Hopfle Kidney Disease: Estimated GFR < 15 mL/min/1.73m2 Glucose 74 60 - 115 mg/dL [facility] Calcium 8.7 8.4 - 10.2 mg/dL [facility] Blood Venous blood specimen / Unknown 08/06/2025 11:55 AM EDT 08/06/2025 1:14 PM EDT Sebastian Jett MD LAB BLOOD ORDERABLES Final Result [facility] [address] [place] [phone] * (ABNORMAL) POCT urinalysis dipstick manually resulted (CPT 54177) (08/06/2025 11:47 AM EDT) Color, UA Red [...] Urine (Urine, Random) 08/06/2025 11:47 AM EDT Sebastian Jett MD POINT OF [...] CT PCR, Urine NOT DETECTED Not Detect. [facility] Comment:A not detected test result does [...] NG PCR, Urine NOT DETECTED Not Detect. [facility] Comment:A not detected test result does [...] 11:40 AM EDT 08/06/2025 5:01 PM EDT us Sebastian Jett MD LAB URINE ORDERABLES Final Result [facility] [address] [place] [phone] * Culture, Urine, Routine (08/06/2025 11:40 AM EDT) Urine Urine specimen obtained by clean catch procedure / Unknown 08/06/2025 11:40 AM EDT 08/06/2025 5:01 PM EDT Comment:UACC Narrative [facility] - 08/08/2025 10:20 AM EDT Urine Culture No growth. Specimen Source: Urine clean catch Result Lelia Jett MD LAB MICROBIOLOGY - GE NERAL ORDERABLES Final Result [facility] [address] [place] [phone] * POCT Rapid Influenza B OSOM (08/06/2025 11:10 AM EDT) Pathologist [facility] Rapid Influenza B Ag Negative Negative, Indeterminate QC Media Lot # [id number] Lot# Expiration Date Swab 08/06/2025 11:1 0 AM EDT us Sebastian Jett MD POINT OF CARE TEST EN TER/EDIT ORDERABLES Final Result * POCT Rapid Influenza A OSOM (08/06/2025 11:09 AM EDT) [facility] Rapid Influenza A Ag Negative Negative, Indeterminate QC Media Lot # [id number] Lot# Expiration Date Swab Nasopharyngeal structure / Unknown 08/06/2025 11:09 AM EDT us Sebastian Jett MD POINT OF CARE TEST EN TER/EDIT ORDERABLES Final Result * POCT Rapid Covid-19 BinaxNOW (08/06/2025 10:57 AM EDT) [facility] Rapid COVID Ag Negative QC Media Lot # [id number] Lot# Expiration Date Swab 08/06/2025 10:5 7 AM EDT us Sebastian Jett MD POINT OF CARE TEST EN TER/EDIT ORDERABLES Final Result * Referral to Orthopaedic Surgery (07/02/2025) Karishma Thurman DO OUTPATIENT REFERRAL ORDERABL ES Final Result * XR Elbow 3+ Views Right (05/23/2025 9:58 AM EDT) Anatomical Region Laterality Modality Upper Extremities, Elbow Right Radiogr aphic Imaging 05/23/2025 9:58 AM EDT Narrative 05/23/2025 11:18 AM EDT [address] [address] XRay Report Signed Patient: Fariba Corrales MR#: [id number] : 1985 Acct:[id number] Age/Sex: 40 / F ADM Date: 05/23/25 Loc: HO.HHCX Attending Dr: Karishma Thurman DO Ordering Physician: Karishma Thurman DO Date of Service: 05/23/25 Procedure(s): XR elbow RT min 3V Accession Number(s): [id number] cc: Karishma Thurman DO EXAMINATION: XR ELBOW, [...] 05/23/25 1115 DD/ 0958 TD/TT: 05/23/25 1000 [employer]: Procedure Note Donotuseinterpreter, Image - 05/23/2025 [facility] [address] [place] [address] XRay Report Signed Patient: Fariba Corrales MMR#: [id number] : 1985Acct:[id number] Age/Sex: 40 / FADM Date: 05/23/25 Loc: HO.HHCX Attending Dr: Karishma Thurman DO Ordering Physician: Karishma Thurman DO Date of Service: 05/23/25 Procedure(s): XR elbow RT min 3V Accession Number(s): [id number] cc: Karishma Thurman DO EXAMINATION: XR ELBOW, [...] 05/23/25 1115 DD/ 0958 TD/TT: 05/23/25 1000 [employer]: us Karishma Thurman DO IMG XR PROCEDURES Final Resu lt * (ABNORMAL) LIPID PANEL, STANDARD (12/28/2021 11:25 [...] LDL-C. Abdon NELSON et al. CATHERINE. 2013;310(19): 6026-5267 (http://education.WEbook.Zoomdata/faq/ZZB654) Non-HDL Cholesterol 150(H) <130 mg/dL (calc) [facility] Comment: For patients with diabetes plus 1 major ASCVD risk factor, treating to a non-HDL-C goal of <100 mg/dL (LDL-C of <70 mg/dL) is considered a therapeutic option. Triglycerides 78 <150 mg/dL [facility] 12/28/2021 11:2 5 AM EST us Patti Clark MD LAB BLOOD ORDERABLES Final Re sult [facility] [address] * HPV E6/E7 RFLX ANTWAN 16 18/45 (04/24/2021 3:22 PM EDT) HPV mRNA E6/E7 rflx Not Detected Not Detected [facility] Comment: Methodology: Receiving Manager-Mediated Amplification This assay detects E6/E7 viral messenger RNA (mRNA) from 14 high-risk HPV types (16,18,31,33,35,39,45,51,52,56,58,59,66,68). The analytical performance characteristics of this assay have been determined by [facility]. The modifications have not been cleared or approved by the FDA. This assay has been validated pursuant to the CLIA regulations and is used for clinical purposes. For additional information, please refer to http://education.[employer] Net[employer]x (Astilbe)/faq/FEY787w0 (This link if provided for information/ educational purposes only.) THIS TEST WAS PERFORMED AT: [facility] [address] [place] [address],[place] [phone] FAISAL MINOR MD 04/24/2021 3:22 PM EDT us [place] HISTORICAL/NON ORDERABLE LABS Fi nal Result Performing Organization Address [facility] Co de Phone Number [facility] [address] * HIV 1/2 ANTIGEN/ANTIBODY,FOURTH GENERATION W/RFL (08/21/2020 10:06 AM EDT) HIV-1/2 ANTIGEN AND ANTIBODIES, 4TH GENERATION W/ REFLEX NON-REACT LARA NON-REACT LARA [facility] Comment: HIV-1 antigen [...] purpose. For additional information please refer to http://education.[employer].Zoomdata/faq/RRF936 (This link is being provided for informational/ educational purposes only.) The performance of this assay has not been clinically validated in patients less than 2 years old. 08/21/2020 10:0 6 AM EDT Cielo Ron NP LAB BLOOD ORDERABLES Final Resul t Performing Organization Address [facility] Co de Phone Number [facility] [address] from Last 3 Months or Most Recently Relevant to Health Maintenance Insurance [facility] C3 Care Teams Foreign Language Teacher Relationship Specialty Start Date End Date Patti Clark MD [address] [place] [phone] PCP - General Family Medicine 12/10/20 Kanchan Hughes NP Psychiatrist 09/24/24
--- OUTSIDE RECORDS SUMMARY | 2025-08-08 19:39 | XMS_ITS | Encounter Summary ---
Author Organization [employer] Address [address] [facility] [address] [place] [address] Care Team Providers Care Seam Steamer Name Role Phone Patti Clark MD Primary Care Provider [phone] Encounter Details Date Type Department Care Team ([facility] Contact Info) Description 10/05/2024 Orders Only [facility] [address] [place] [address] Erin Soto MD [address] [place] [address] Social History Tobacco Use Types Packs/Day Years [...] Description 08/12/2025 10:30 AM EDT Office Visit [facility] [address] [place] [address] Nessa Mayfield, OD [address] [place] [address] documented as of this encounter Visit Diagnoses Not on filedocumented in this encounter Additional Health Concerns Assessment Noted Time PHQ-9 Depression Total Score: 5 08/23/20 24 11:38 AM EDT documented as of this encounter Care Teams Seam Steamer Relationship Specialty Start Date End Date aPtti Clark MD [address] [place] [address] PCP - General Family Medicine 12/10/20 Kanchan GregoryTony, SPINNERET PERSON Psychiatrist 09/24/24 documented as of this encounter
--- OUTSIDE RECORDS SUMMARY | 2025-08-08 19:39 | XMS_ITS | Encounter Summary ---
Author Organization [employer] Address [address] [facility] [address]t [place] [address] Care Team Providers Care Rn Complex Care Name Role Phone Patti Clark MD Primary Care Provider [phone] Reason for Visit * Reason Comments Med Refill Encounter Details Date Type Department Care Team ([facility] st Contact Info) Description 05/28/2024 Refill [facility] [address] [place] [address] Patti Clark MD [address] [place] [address] Social History Tobacco Use Types Packs/Day Years [...] Description 08/12/2025 10:30 AM EDT Office Visit [facility] [address] [place] [address] Nessa Mayfield, OD [address] [place] [address] documented as of this encounter Visit Diagnoses Not on filedocumented in this encounter Additional Health Concerns Assessment Noted Time PHQ-9 Depression Total Score: 9 11/18/19 24 8:24 AM EST documented as of this encounter Care Teams Rn Complex Care Relationship Specialty Start Date End Date Patti Clark MD [address] [place] [address] PCP - General Family Medicine 12/10/20 Kanchan Hughes, SPUD SORTER Psychiatrist 09/24/24 documented as of this encounter
--- OUTSIDE RECORDS SUMMARY | 2025-08-08 19:39 | XMS_ITS | Encounter Summary ---
Author Organization [employer] Address [address] [facility] 7t [place] [address] Care Team Providers Care Glass Artist Name Role Phone Patti Clark MD Primary Care Provider [phone] Reason for Visit * Reason Onset Date Comments Appointment Request 12/20/2022 Encounter Details Date Type Department Care Team ([facility] st Contact Info) Description 12/20/2022 Telephone [facility]ICINE [address] [place] [address] Patti Clark MD [address] [place] [address] Appointment Request Social History Tobacco Use Types [...] regarding message below. Please contact pt at [phone] * Telephone Encounter - Adan Albrecht - 12/20/2022 3:27 PM EST Tc from pt requesting to r/s appt 12/21/22 ( ER follow up [facility] 12/16 for low back pain and passing out due to the pain. ) Please contact pt at [phone] documented in this encounter Plan of Treatment Upcoming Encounters Date Type Department Care Team (Late st Contact Info) Description 08/12/2025 10:30 AM EDT Office Visit [facility] OPTOMETRY [address] [place] [address] Nessa Mayfield, OD [address] [place] [address] documented as of this encounter Visit Diagnoses Not on filedocumented in this encounter Additional Health Concerns Assessment Noted Time PHQ-9 Depression Total Score: 11 023 3:48 PM EST documented as of this encounter Care Teams Glass Artist Relationship Specialty Start Date End Date Patti Clark MD [address] [place] [address] PCP - General Family Medicine 12/10/20 Kanchan Hughes NP Psychiatrist 09/24/24 documented as of this encounter
--- OUTSIDE RECORDS SUMMARY | 2025-08-08 19:39 | XMS_ITS | Encounter Summary ---
Author Organization [employer] Address [address] [facility] [address] 7[address] [place] [address] Care Team Providers Care Roll Cutting Operator Name Role Phone Patti Clark MD Primary Care Provider [phone] Encounter Details Date Type Department Care Team ([facility] st Contact Info) Description 11/19/2024 Orders Only [facility] [address] [place] [address] Abbey Fonseca MD [address] [place] [address] Social History Tobacco Use Types Packs/Day Years [...] is your housing situation today? I have imelad jon 01/20/[address] you [...] 08/12/2025 10:30 AM EDT Office Visit [facility] OPTOMETRY [address] [place] [address] Nessa Mayfield, OD [address] [place] [address] documented as of this encounter Visit Diagnoses Not on filedocumented in this encounter Additional Health Concerns Assessment Noted Time PHQ-9 Depression Total Score: 5 08/23/20 24 11:38 AM EDT documented as of this encounter Care Teams Roll Cutting Operator Relationship Specialty Start Date End Date Patti Clark MD [address] [place] [address] PCP - General Family Medicine 12/10/20 Kanchan Hughes, VACUUM FRAME OPERATOR Psychiatrist 09/24/24 documented as of this encounter
--- OUTSIDE RECORDS SUMMARY | 2025-08-08 19:39 | XMS_ITS | Encounter Summary ---
Author Organization [employer] Address [address] [place] [address] 7 [place] [address] Care Team Providers Care Granulizing Machine Operator Name Role Phone Patti Clark MD Primary Care Provider [phone] Reason for Referral * Imaging (Routine) - Closed Specialty Diagnoses / Procedures Referred By Contac t Referred To Contact Radiology Diagnoses Menorrhagia with regular cycle Procedures US Pelvis Transvaginal Erin Soto MD [address] [place] [address] Phone: tel: fax: [facility] [address] [place], [place] Phone: tel: fax: Referral ID Status Reason Start Date Expiration Date Visits Re quested Visits Authorized [id number] Closed 09/12/2024 09/12/2025 1 1 Encounter Details Date Type Department Care Team (Late st Contact Info) Description 09/12/2024 Orders Only [facility] CH[facility] MED & PEDS [address] [place] [address] Erin Soto MD [address] [place] [address] Menorrhagia with regular cycle (Primary Dx) Social [...] EDT Office Visit [facility] OPTOMETRY [address] [place] [address] Nessa Mayfield, OD [address] [place] [address] documented as of this encounter Procedures Procedure [...] documented as of this encounter Care Teams Granulizing Machine Operator Relationship Specialty Start Date End Date Patti Clark MD [address] [place] [address] PCP - General Family Medicine 12/10/20 Kanchan Hughes NP Psychiatrist 09/24/24 documented as of this encounter
--- OUTSIDE RECORDS SUMMARY | 2025-08-08 19:40 | XMS_ITS | Encounter Summary ---
Author Organization [employer] Address [address] [facility] [address] 7[address] [place] [address] Care Team Providers Care Field Radio Operator Name Role Phone Patti Clark MD Primary Care Provider [phone] Encounter Details Date Type Department Care Team (Latest Contact Info) Description 08/06/2025 Travel Social History Tobacco Use Types Packs/Day [...] Description 08/12/2025 10:30 AM EDT Office Visit [facility] OPTOMETRY [address] [place], [place] [phone] TarNessa soares, OD [address] [place] [address] documented as of this encounter Visit Diagnoses Not on filedocumented in this encounter Additional Health Concerns Assessment Noted Time PHQ-9 Depression Total Score: 12 025 9:50 AM EDT documented as of this encounter Care Teams Field Radio Operator Relationship Specialty Start Date End Date Patti Clark MD [address] [place] [address] PCP - General Family Medicine 12/10/20 Kanchan Hughes FLEET MECHANIC Psychiatrist 09/24/24 documented as of this encounter
[2025-08-09 14:27] LABS: E. coli EAEC Not Detected (Not Detect.); E. coli EPEC Not Detected (Not Detect.); E. coli ETEC Not Detected (Not Detect.); E. coli STEC Not Detected (Not Detect.); Shigella sp./EIEC Not Detected (Not Detect.)
== END 2025-08-08 16:15 | disposition home or self-care (01) ==
LOC: HO.HHCLNP 16:14
PROVIDERS: Visit Provider Internal Medicine
DX: R10.9 Unspecified abdominal pain (principal); R19.7 Diarrhea, unspecified; R11.10 Vomiting, unspecified
CPT/HCPCS: 87507

== ENCOUNTER 2025-08-15 13:06 | Outpatient (AMB) | payer MEDICAID, SELFPAY ==
--- OUTSIDE RECORDS SUMMARY | 2025-08-12 10:30 | XMS_ITS | Encounter Summary ---
Author Organization [employer] Address [address] [facility] 7t [place] [address] Care Team Providers Care Shank Breaker Name Role Phone Patti Clark MD Primary Care Provider [phone] Encounter Details Date Type Department Care Team (Latest Contact Info) Description 08/12/2025 10:30 AM EDT Office Visit [facility] OPTOMETRY [address] [place], [place] [phone] Nessa Mayfield, OD [address] [place] [address] Other chronic allergic conjunctivitis of both eyes (Primary Dx); Hyperopia of both eyes; Retinal hole of left eye Social History [...] this encounter Progress Notes * Nessa Mayfield, ROX - 08/12/2025 10:30 AM EDT Eye Care Progress Note Patient ID: Fariba Corrales is a 40 y.o. female. HPI Patient presents for comprehensive eye exam and ocular health assessment. Patient continues to report itchy inner corner OS, not constant but happens sometimes. Patient notes minor relief with Pataday. Patient sometimes uses glasses when her eyes feel tired. Patient reports floaters x 2 months, unsure which eye is affected. Patient denies flashes or curtains/shadows in vision. SAMUEL: here Last edited by Nessa Mayfield, OD on 08/12/2025 11:43 AM. Current Medications[1] Medical History[2] Surgical History[3] Family History[4] Tobacco Use: Low Risk (08/12/2025) Tobacco Smoking Tobacco Use: Never Smokeless Tobacco Use: Never Passive Exposure: Never Allergies[5] ROS Positive for: Eyes Negative for: Constitutional, Gastrointestinal, Neurological, Skin, Genitourinary, Musculoskeletal,HENT, Endocrine, Cardiovascular, Respiratory, Psychiatric, Allergic/Imm, Heme/Lymph Last edited by Nessa Mayfield OD on 08/12/2025 10:21 AM. Base Eye Exam Visual Acuity (Snellen - Linear) Right Left Dist sc 20/20 20/20 Tonometry ([facility] , 10:29 AM) Right Left Pressure 15 13 Pupils Pupils APD Right PERRL None Left PERRL None Visual Woodard (Counting fingers) Left Right Full Full Extraocular Movement Right Left Full Full Neuro/Psych Oriented x3: Yes Mood/Affect: Normal Dilation Both eyes: 1.0% tropicamide @ 10:29 AM Pt defers Slit Lamp and Fundus Exam External Exam Right Left External Normal Normal Slit Lamp Exam Right Left Lids/Lashes Clean and clear Clean and clear Conjunctiva/Sclera 1+ papillae LL 1+ papillae LL Cornea Clear Clear Anterior Chamber Deep and quiet, angles open gr 4 Deep and quiet, angles open gr 4 Iris Round and reactive Round and reactive Lens Clear Clear Fundus Exam Right Left Vitreous Normal Normal Disc Mcgrath and healthy Mcgrath and healthy C/D Ratio Vertical 0.50 0.50 C/D Ratio Horizontal 0.50 0.50 Macula Flat, even pigmentation Flat, even pigmentation Vessels AV 2/3, normal course and caliber AV 2/3, normal course and caliber Refraction Manifest Refraction (Subjective) Sphere Dist VA Right +0.75 20/20 Left +1.00 20/20 Final Rx Sphere Right +0.75 Left +1.00 Expiration Date: 08/12/2026 Assessment and Plan Diagnoses and all orders for this visit: Other chronic allergic conjunctivitis of both eyes - Continue use of Pataday PRN Hyperopia of both eyes - No change in Rx. Patient okay to continue with current specs. --- Not directly assessed today --- Retinal hole of left eye - History of small inferior retinal hole OS. 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 Do not crush, chew, or split. 50 tablet 1 amitriptyline (Elavil) 25 MG tablet Take 25 mg by mouth at bedtime. cholecalciferol (Vitamin D-3) 50 MCG (2000 UT) tablet Take 100 mcg by mouth in the morning. cyclobenzaprine (Flexeril) 10 MG tablet Take 1 tablet (10 mg) by mouth at bedtime. 30 tablet 0 Diclofenac Sodium 1 % gel Apply 2 g topically if needed in the morning, at noon, in the evening, and at bedtime (pain). 150 g 3 fluocinolone (Synalar) 0.01 % external solution APPLY TO THE AFFECTED AREA(S) ON SCALP ONCE DAILY NEEDED FOR ITCHING AND FLARE FLUoxetine (PROzac) 40 MG capsule Take 80 mg by mouth Once per day. gabapentin (Neurontin) 300 MG capsule Take 1 capsule (300 mg) by mouth 3 times daily. 90 capsule 0 hydrOXYzine pamoate (Vistaril) 25 MG capsule TAKE [...] by mouth Once per day. 15 tablet 0 norethindrone (Aygestin) 5 MG tablet Take 1 tablet (5 mg) by mouth Once per day for 10 days. 10 tablet 0 olopatadine (Pataday) 0.2 % ophthalmic solution Administer 1 drop into both eyes Once per day. 2.5 mL 5 ondansetron (Zofran) 4 MG tablet Take 1 tablet (4 mg) by mouth every 8 (eight) hours if needed for nausea or vomiting. 20 tablet 0 propranolol (Inderal) 10 MG tablet Take 10 mg by mouth if needed in the morning and at bedtime. rizatriptan (Maxalt) 10 MG tablet TAKE 1/2 TO 1 TABLET BY MOUTH EVERY 2 HOURS NEEDED FOR MIGRAINE. DO NOT EXCEED 2 TABLETS IN 24 HOURS OR 4 TABLETS PER WEEK SUMAtriptan (Imitrex) 100 MG tablet TAKE 1 TABLET BY MOUTH ONCE NEEDED FOR FOR MIGRAINE Tirzepatide-Weight Management (Zepbound) 7.5 MG/0.5ML solution auto-injector Inject 0.5 mL (7.5 mg)under the skin every 7 (seven) days. 2 mL 0 Ubrogepant (Ubrelvy) 100 MG tablet Take by mouth. No current facility-administered medications for this visit. [2] History reviewed. No pertinent past medical history. [3] History reviewed. No pertinent surgical history. [4] Family History Problem Relation Name Age of Onset Osteogenesis imperfecta Mother [5] No Known Allergies documented in this encounter Plan of Treatment Upcoming Encounters Date Type Department Care Team (Late st Contact Info) Description 09/27/2025 3:30 PM EST Office Visit [facility] OPTOMETRY [address] [place], [place] [phone] Nessa Mayfield, ROX [address] [place] [address] documented as of this encounter Visit Diagnoses Diagnosis Other chronic allergic conjunctivitis of both eyes- Primary Hyperopia of both eyes Retinal hole of left eye documented in this encounter Additional Health Concerns Assessment Noted Time PHQ-9 Depression Total Score: 12 025 9:50 AM EDT documented as of this encounter Care Teams Shank Breaker Relationship Specialty Start Date End Date Patti Clark MD [address] [place] [address] PCP - General Family Medicine 12/10/20 Kanchan Hughes NP Psychiatrist 09/24/24 documented as of this encounter
[2025-08-15 13:44] VITALS: BP 119/77; PULSE 75; RESP 16; O2SAT 97; BMI 31.5
--- NOTE | 2025-08-15 13:44 | A.OFFVIS_ITS ---
Vital Signs 08/15/25 13:44 Height 5 ft 2 in Weight 172 lb BMI 31.5 BP 119/77 Blood Pressure Location Rt brachial Position Sitting Respiration 16 Pulse 75 Pulse Source Pulse Oximeter Pulse Oximetry (%) 97 Oxygen Delivery Method Room Air Intake Visit Reasons: S/P Left AC Joint Injection 07/09/25 Horticulture/Floriculture Teacher Required: No Accompanied by: Self / Same As Patient Allergies No Known Allergies (No Known Allergies*) Allergy (Verified 08/15/25 13:46) HPI Comments Details: Fariba is here for the follow-up after AC joint injection on the left with steroids. She reported 90% pain relief for the past 4 weeks. We discussed today further management of her pain. I explained to the patient that insurance company pays for this procedure 4 times a year. I also explained to her that it is better be not injected that often. I recommended her to give us a call when her pain will start to come back and we will schedule her for another injection. Prior: in my office after 2 years of absence. She visited me during the COVID pandemic with long COVID symptoms complaining on widespread pains all over the body. Two years after that she attended this office again and she complained to me on right-sided chest pain right-sided shoulder pain and bilateral feet pain. She was under care of [facility] with lower back pain. She received some injections with [facility]. She was recommended to come back and bring me the results of the injections. However today the patient came in my office complaining on left-sided chance pain, radiation of the pain into the left upper extremity and limited range of motion with the left arm. She denies pain being aggravated with coughing or sneezing. She stated that her primary care physician sent her for chest x-ray but it was not diagnostic. We agreed that I will send her for EKG as well as left shoulder x-ray. I will see her in 1 week. I will evaluate left shoulder x-ray and if there are arthritic changes I will offer her intra-articular left shoulder steroid injections. Prior: History she COVID-19 infection.? 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 She started to feel pain in the shoulder on the right pain in the forearm on the right pain in the wrist on the right numbness and pain in the right hip and pain on the right in the area of the posterior chest.? She was diagnosed with arthritis.? She reports that pain is getting crease when she takes a slow deep breath.? She tried NSAIDs to treat her pain.? She never went for physical therapy to treat her pain.? 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 She was examined by hand orthopedic surgeon and was sent for EMG by neurologist.? her neurological examination was normal and her EMG was also normal.? Hand orthopedic surgeon did not find any issues with her wrist or hand.? She was sent to pain management to help her pain.? She received COVID-19 vaccine injection however that did not help her pain. Her past medical history significant for headaches.? 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 Gender identity: Female Female Reproductive History Menstrual Age of Menarche: 12 Review of Systems Const All systems reviewed & are unremarkable except as noted in HPI and below ENT Reports Normal hearing present Neuro Reports Normal hearing present, Denies Abnormal speech present and Denies Sensory deficit (Neuro) Physical Exam Vital Signs: Last Vital Signs Pulse 75 08/15/25 13:44 Resp 16 08/15/25 13:44 BP 119/77 08/15/25 13:44 Pulse Ox 97 08/15/25 13:44 Oxygen Delivery Method Room Air 08/15/25 13:44 BMI result Body Mass Index 31.5 Const General: no acute distress and well developed; No acute distress Nutritional Appearance: average body habitus, well nourished and obese Orientation/consciousness: patient oriented x3 Limitations: no limitations Eyes Pupils: Equal, round and reactive pupils present EOM: EOMs intact bilaterally Chest Chest palpation & inspection: normal inspection of the chest Resp Effort & Inspection: normal respiratory effort, able to speak in complete sentences, normal respiratory pattern, no audible wheezes and no cough Cardio Jugular venous distension: no JVD Back/Spine/Pelvis Other: tenderness on palpation in paraspinal spinal region in lumbar spine. Loading test is positive. Range of motion in lumbar spine is preserved. Luis Angel test is negative bilaterally. Neuro General: patient oriented x3 Cranial nerves: Yes Equal, round and reactive pupils present and Yes Normal hearing present Speech: No Abnormal speech present Sensory Exam: No Sensory deficit (Neuro) Extrem Other: Limited range of motion of the left upper extremity. Unable to lift up the left arm above the shoulder line, unable to bring the left forearm behind the upper back, unable to touch the right shoulder with the left hand. Psych Speech and movement: Normal speech and movement present Affect: normal affect Attitude: cooperative Thought process: Normal thought process present Thought content: Normal thought content present Insight: Good insight present (Psych) Judgement: Good judgement present (Psych) Results Reviewed Results Reviewed: XR SHOULDER, LEFT CLINICAL INFORMATION: M19.012 - Primary osteoarthritis, left shoulder COMPARISON: 02/01/2025, 12/05/2024. TECHNIQUE: AP external rotation, Grashey, scapular Y, and axillary views of the left shoulder. FINDINGS: Normal bone mineralization. No fracture, dislocation, or suspicious bone lesion. Normal alignment. The glenohumeral joint is normal. The AC joint demonstrates minimal spurring. There is a type II acromion. No undersurface spurring. The subacromial space is preserved. Remainder of the soft tissue and bony structures appear normal. 1. No acute bony abnormalities left shoulder. 2. Minimal AC joint spurring. Assessment & Plan Assessment & Plan (1) Osteoarthritis of left shoulder: Code(s): M19.012 - Primary osteoarthritis, left shoulder Category: Medical (2) Chest pain: Code(s): R07.9 - Chest pain, unspecified Category: Medical (3) Osteoarthritis of left acromioclavicular joint: Code(s): M19.012 - Primary osteoarthritis, left shoulder Category: Medical Plan After the injection page and pain in the past month greatly improved. She reports 90% pain improvement. I will see her again when her pain will start to come back to repeat the injection. No new appointment at this time. Coding Level of Care Code Est Pt Level 3 (26789) Diagnoses Osteoarthritis of left shoulder M19.012 Chest pain R07.9 Osteoarthritis of left acromioclavicular joint M19.012
--- OUTSIDE RECORDS SUMMARY | 2025-08-15 16:30 | XMS_ITS | Encounter Summary ---
Author Organization [employer] Address [address] [facility] 7t [place] [address] Care Team Providers Care Accounting Manager Assistant Controller Name Role Phone Patti Clark MD Primary Care Provider [phone] Reason for Visit * Reason Onset Date Comments Appointment Request 12/20/2022 Encounter Details Date Type Department Care Team ([facility] st Contact Info) Description 12/20/2022 Telephone [facility] [address] [place] [address] Patti Clark MD [address] [place] [address] Appointment Request Social History Tobacco Use Types [...] regarding message below. Please contact pt at [phone] * Telephone Encounter - Adan Albrecht - 12/20/2022 3:27 PM EST Tc from pt requesting to r/s appt 12/21/22 ( ER follow up [facility] 12/16 for low back pain and passing out due to the pain. ) Please contact pt at [phone] documented in this encounter Plan of Treatment Upcoming Encounters Date Type Department Care Team (Late st Contact Info) Description 09/27/2025 3:30 PM EST Office Visit [facility] OPT[facility]ETRY [address] [place] [address] Nessa Mayfield, OD [address] [place] [address] documented as of this encounter Visit Diagnoses Not on filedocumented in this encounter Additional Health Concerns Assessment Noted Time PHQ-9 Depression Total Score: 11 023 3:48 PM EST documented as of this encounter Care Teams Accounting Manager Assistant Controller Relationship Specialty Start Date End Date Patti Clark MD [address] [place] [address] PCP - General Family Medicine 12/10/20 Kanchan Hughes NP Psychiatrist 09/24/24 documented as of this encounter
--- OUTSIDE RECORDS SUMMARY | 2025-08-15 16:30 | XMS_ITS | Encounter Summary ---
Author Organization [employer] Address [address] [facility] 7t [place] [address] Care Team Providers Care Milk Pasteurizer Name Role Phone Patti Clark MD Primary Care Provider [phone] Reason for Visit * Reason Comments Med Refill Encounter Details Date Type Department Care Team ([facility] st Contact Info) Description 05/28/2024 Refill [facility] CHC MED & PEDS [address] [place] [address] Patti Clark MD [address] [place] [address] Social History Tobacco Use Types Packs/Day Years [...] Description 09/27/2025 3:30 PM EST Office Visit [facility] OPTOMETRY [address] [place] [address] Nessa Mayfield, OD [address] [place] [address] documented as of this encounter Visit Diagnoses Not on filedocumented in this encounter Additional Health Concerns Assessment Noted Time PHQ-9 Depression Total Score: 9 11/18/19 24 8:24 AM EST documented as of this encounter Care Teams Milk Pasteurizer Relationship Specialty Start Date End Date Patti Clark MD [address] [place] [address] PCP - General Family Medicine 12/10/20 Kanchan Hughes NP Psychiatrist 09/24/24 documented as of this encounter
--- OUTSIDE RECORDS SUMMARY | 2025-08-15 16:30 | XMS_ITS | Encounter Summary ---
Author Organization [employer] Address [address] [facility] [address] 7[address] [place] [address] Care Team Providers Care Promotor Group Ticket Sales Name Role Phone Patti Clark MD Primary Care Provider Encounter Details Date Type Department Care Team (Latest Contact Info) Description 08/12/2025 Travel Social History Tobacco Use Types Packs/Day [...] Description 09/27/2025 3:30 PM EST Office Visit [facility] OPTOMETRY [address] [place] [address] Nessa Mayfield, OD [address] [place] [address] documented as of this encounter Visit Diagnoses Not on filedocumented in this encounter Additional Health Concerns Assessment Noted Time PHQ-9 Depression Total Score: 12 025 9:50 AM EDT documented as of this encounter Care Teams Promotor Group Ticket Sales Relationship Specialty Start Date End Date Patti Clark MD [address] [place] [address] PCP - General Family Medicine 12/10/20 Kanchan Hughes STANDARD MACHINE STITCHER Psychiatrist 09/24/24 documented as of this encounter
--- OUTSIDE RECORDS SUMMARY | 2025-08-15 16:30 | XMS_ITS | Clinical Summary ---
Author Organization [employer] Address [address] [facility] [address] [place] [address] Care Team Providers Care Health Screener Name Role Phone Patti Clark MD Primary Care Provider [phone] Allergies No known active allergies Medications cholecalciferol [...] me already has an upcoming appointment with BULB FILLER next month at [facility] Discussed with her if [...] aura Excessive daytime sleepiness 03/25/2025 Overview (03/25/2025): [place] sleepiness scale: 10 Cyst of right ovary 03/25/2025 Assessment & Plan (03/25/2025 10:43 AM EDT): Pt requested visit with gym manager for her woman's health care, reports wants BULB FILLER to do her annual well woman exam and also reports prior hx of right ovarian cyst that she wants BULB FILLER to followup on. Prefers female BULB FILLER. Polyarthralgia 03/08/2025 Assessment & Plan (03/25/2025 10:42 [...] daily for 10 days until can completes BULB FILLER eval -denies any risk factors to take [...] EST): Patient reports she was seen in [facility] by neurologist but she was concern about his rapport, requested referral to specialist in [place], referral placed. Assessment & Plan (11/23/2022 5:23 [...] recommended reduction of 20-30% of maintenance calories; credit collections rep referral offered. Recommended to decrease soda and [...] recommended reduction of 20-30% of maintenance calories; credit collections rep referral offered. Recommended to decrease soda and sugary beverage consumption. Recommended at least 20 g per meal of protein to assist with satiety. Recommended at least 150 min/week of moderate intensity exercise. Assessment & Plan (04/02/2024 2:27 AM EDT): -Pt has lost 6 pounds. Discussed calorie deficit, recommended reduction of 20-30% of maintenance calories; credit collections rep referral offered. Recommended to decrease soda and sugary beverage consumption. Recommended at least 20 g per meal of protein to assist with satiety. Recommended at least 150 min/week of moderate intensity exercise. -f/u in 3 months Assessment & Plan (01/24/2024 9:19 AM EDT): - Discussed calorie deficit, recommended reduction of 20-30% of maintenance calories; credit collections rep referral offered. Recommended to decrease soda and sugary beverage consumption. Recommended at least 20 g per meal of protein to assist with satiety. Recommended at least 150 min/week of moderate intensity exercise. Will start trial of AOM to assist w/ wt loss. Assessment & Plan (11/18/2023 8:55 AM EST): Discussed calorie deficit, recommended reduction of 20-30% of maintenance calories; credit collections rep referral offered. Recommended to decrease soda and [...] recommended reduction of 20-30% of maintenance calories; credit collections rep referral offered. Recommended to decrease soda and [...] chronic pain management she does follow in [place] with [facility] but is thinking of switching to [facility], report patient that she will need to inform specialist of her decision. Pain in female pelvis 10/09/2018 Encounters Date Type Department Care Team Description 08/12/2025 10:30 AM EDT Office Visit [facility] [address] [place] [address] Tarka, Nessa, OD Other chronic allergic conjunctivitis of both eyes (Primary Dx); Hyperopia of both eyes; Retinal hole of left eye 08/12/2025 Travel 08/06/2025 10:40 AM EDT Office Visit [facility] [address] [place] [phone] Sebastian Dent MD Abdominal pain, vomiting, and diarrhea (Primary Dx); Irregular menses 08/06/2025 Travel 07/30/2025 1:20 PM EDT Office Visit [facility] [address] [address] Beba Romo MD Trochanteric bursitis of right hip (Primary Dx); Chronic bilateral low back pain with bilateral sciatica 07/30/2025 Travel 07/17/2025 10:00 AM EDT Telemedicine [facility] [address] [place] [address] Radha Olson RN Chronic bilateral low back pain with right-sided sciatica 07/17/2025 Travel 05/24/2025 Telephone [facility] [address] [place] [address] Patti Clark MD Referral 05/23/2025 10:20 AM EDT Office Visit [facility] [address] [address] Karishma Thurman DO Right elbow pain (Primary Dx) 05/23/2025 Telephone [facility] [address] [address] Karishma Thurman DO Results 05/23/2025 Travel from [...] Description 09/27/2025 3:30 PM EST Office Visit [facility] [address] [place] [address] Nessa Mayfield, OD [address] [place] [address] Health Maintenance Due Date Last Done Comments Disability Screening 1985 Family Planning (PISQ) 2002 HPV Vaccines (1 - 3-dose series) 2002 Hepatitis C Screening 2005 Pap Smear 01/28/2008 Hepatitis B Vaccines (2 of 3 - 19+ 3-dose series) 05/20/2016 04/22/2016 COVID-19 Vaccine ( - season) 2025 04/06/2021, 03/09/2021 Influenza Vaccine (#1) 2025 07/21/2020, 2018 Depression Monitoring 09/24/2025 03/25/2025, 025 Alcohol/Substance Use Screening 03/25/2026 03/25/2025 SDOH Screening 03/25/2026 03/25/2025 Cervical Cancer Screening 04/24/2026 HPV/Cotest 04/24/2026 04/24/2021, 07/0 11/2020, 08/16/2019, Additional history exists DTaP/Tdap/Td Vaccines (2 - Td or Tdap) 05/25/2026 05/25/2016 Tobacco Screening 08/12/2026 08/12/2025 Lipid Panel 12/28/2026 12/28/2021, 08/21/2020 Zoster Vaccines [...] Procedure Name Priority Date/Time Associated Diagnosis Comments GASTROINTESTINAL PANEL Routine 3:15 PM EDT Abdominal pain, vomiting, and diarrhea C-REACTIVE PROTEIN Routine 08/06/2025 11 :55 AM EDT Abdominal pain, vomiting, and diarrhea SED RATE BY MODIFIED WESTERGREN Routine 08/06/2025 11:55 AM EDT Abdominal pain, vomiting, and diarrhea BASIC METABOLIC PANEL Routine 08/06/2025 11:55 AM EDT Abdominal pain, vomiting, and diarrhea HEPATIC FUNCTION PANEL Routine 11:55 AM EDT Abdominal pain, vomiting, and diarrhea CBC Routine 08/06/2025 11:55 AM EDT Abdominal pain, vomiting, and diarrhea POCT URINALYSIS DIPSTICK Routine 025 11:47 AM EDT Abdominal pain, vomiting, and diarrhea POCT , URINE Routine 08/06/2025 11:45 AM EDT Abdominal pain, vomiting, and diarrhea CHLAMYDIA/TRICHOMONAS/NE ISSERIA GONORRHOEAE, PCR, URINE Routine 08/06/2025 11:40 AM EDT Abdominal pain, vomiting, and diarrhea CULTURE, URINE, ROUTINE Routine 08/06/20 11:40 AM EDT Abdominal pain, vomiting, and diarrhea POCT INFLUENZA B Routine 08/06/2025 11:1 0 AM EDT Abdominal pain, vomiting, and diarrhea POCT INFLUENZA A Routine 08/06/2025 11:0 9 AM EDT Abdominal pain, vomiting, and diarrhea POCT RAPID COVID ANTIGEN Routine 025 10:57 AM EDT Abdominal pain, vomiting, and diarrhea AMB REFERRAL TO ORTHOPAEDIC SURGERY Urgent 07/02/2025 Right elbow pain XR ELBOW 3+ VIEWS RIGHT Routine 05/23/20 9:58 AM EDT Right elbow pain LIPID PANEL, STANDARD Routine 12/28/2021 11:25 AM EST ZZZ HISTORICAL HPV E6/E7 RFLX ANTWAN 16 18/45 Routine 04/24/2021 3:22 PM EDT HIV 1/2 ANTIGEN/ANTIBODY, FOURTH GENERATION W/RFL Routine 08/21/2020 10:06 AM EDT from Last 3 Months or Most Recently Relevant to Health Maintenance Results * Stool - Gastrointestinal panel (08/08/2025 3:15 PM EDT) Campylobacter Not Detected Not Detect. [facility] Plesiomonas shigelloides Not Detected Not Detect. [facility] Salmonella Not Detected Not Detect. [facility] Vibrio Not Detected Not Detect. [facility] Vibrio cholerae Not Detected Not Detect. [facility] YERSINIA ENTEROCOLITICA Not Detected Not Detect. [facility] Enteroaggregative E. coli (EAEC) Not Detected Not Detect. [facility] Enteropathogenic E. coli (EPEC) Not Detected Not Detect. [facility] Enterotoxigenic E. coli (ETEC) lt/st Not Detected Not Detect. [facility] Shiga-like toxin-producing E. coli (STEC) stx1/stx2 Not Detected Not Detect. [facility] E coli O157 Not applicable Not Detect. [facility] Comment:E. coli containing t he O157 antigen are a subset ofShiga-like toxin- producing E. coli (STEC). Shigella/Enteroinvasive E. coli (EIEC) Not Detected Not Detect. [facility] Cryptosporidium Not Detected Not Detect. [facility] Cyclospora cayetanensis Not Detected Not Detect. [facility] Entamoeba histolytica Not Detected Not Detect. [facility] Giardia lamblia Not Detected Not Detect. [facility] Adenovirus F 40/41 Not Detected Not Detect. [facility] Astrovirus Not Detected Not Detect. [facility] Norovirus GI/GII Not Detected Not Detect. [facility] Rotavirus A Not Detected Not Detect. [facility] Sapovirus Not Detected Not Detect. [facility] Comment: All results must be correlated with clinical findings.Negative results do not exclude the possibility ofgastrointestinal infection and should not be used as thesole basis for diagnosis, treatment, or other managementdecisions. Virus, bacteria, and parasite nucleic acid maypersist in vivo independently of organism viability.Additionally, some organisms may be carriedasymptomatically.Detection of organism targets does not imply that thecorresponding organisms are infectious or are the causativeagents for clinical symptoms. There is a risk of falsenegative values due to the presence of sequence variants inthe gene targets of the assay, amplification inhibitors inspecimens, or inadequate numbers of organisms foramplification.The identification of several diarrheagenic E. colipathotypes has historically relied upon phenotypiccharacteristics. This panel targets genetic determinantscharacteristic of most pathogenic strains, but may notdetect all strains having phenotypic characteristics of apathotype.The performance of this test has not been established formonitoring treatment of infection with any of the panelorganisms.This assay is performed by Multiplexed PCR, utilizing Trover Array. Stool Rectal contents / Unknown 08/08/2025 3:15 PM EDT 08/08/2025 4:15 PM EDT Sebastian Jett MD LAB MICROBIOLOGY - GE NERAL ORDERABLES Final Result Performing Organization Address [facility] Co de Phone Number [facility] [address] [place] [phone] * (ABNORMAL) Sed Rate by Modified Westergren (08/06/2025 11:55 AM EDT) Pathologist [facility] Erythrocyte Sedimentation Rate 31(H) 0 - 20 MM/HR [facility] Comment:Patients with polycy themia and many hemoglobin abnormalitiesmay have depressed sed rates whereas patients with anemiamay have elevated sed rates. Blood Venous blood specimen / Unknown 08/06/2025 11:55 AM EDT 08/06/2025 1:14 PM EDT Sebastian Jett MD LAB BLOOD ORDERABLES Final Result Performing Organization Address [facility] Co de Phone Number [facility] [address] [place] [phone] * CBC (08/06/2025 11:55 AM EDT) [facility] White Blood Count 5.9 4.8 - 10.8 X10*3/uL [facility] Red Blood Count 4.23 4.20 - 5.50 X10*6/uL [facility] Hemoglobin 12.3 12.0 - 16.0 g/dl [facility] Hematocrit 38.0 37.0 - 47.0 % [facility] Mean Corpuscular Volume 89.8 80.0 - 98.0 fL [facility] Mean Corpuscular Hemoglobin 29.1 27.0 - 33.0 pg [facility] Mean Corpuscular HGB Conc 32.4 31.0 - 35.0 g/dl [facility] Red Cell Distribution Width 14.2 11.0 - 16.0 % [facility] Platelet Count 174 160 - 400 X10*3/uL [facility] Mean Platelet Volume 10.5 9.4 - 12.3 fL [facility] NRBC Pct Auto 0.0 0.0 - 0.2 /100WBC [facility] NRBC Abs Auto 0.000 0.0 - 0.012 X10*3/uL [facility] Blood Venous blood specimen / Unknown 08/06/2025 11:55 AM EDT 08/06/2025 1:14 PM EDT Sebastian Jett MD LAB BLOOD ORDERABLES Final Result Performing Organization Address [facility]/ZIP Co de Phone Number [facility] [address] [place] [phone] * (ABNORMAL) C-reactive Protein (08/06/2025 11:55 AM EDT) C Reactive Protein 2.22(H) < or = 0.50 mg/dL [facility] Blood Venous blood specimen / Unknown 08/06/2025 11:55 AM EDT 08/06/2025 1:14 PM EDT Sebastian Jett MD LAB BLOOD ORDERABLES Final Result Performing Organization Address [facility]ZIP Co de Phone Number [facility] [address] [place] [phone] * Hepatic Function Panel (08/06/2025 11:55 AM EDT) Bilirubin, Total 0.5 0.0 - 1.0 mg/dL [facility] Bilirubin, Direct 0.2 0.0 - 0.5 mg/dL [facility] Aspartate Amino Transferase 21 5 - 31 U/L [facility] Alanine Aminotransferase 22 0 - 31 U/L [facility] Total Protein 7.2 6.5 - 8.0 g/dL [facility] Albumin Level 3.9 3.5 - 5.0 g/dL [facility] Alkaline Phosphatase 52 39 - 117 U/L [facility] Blood Venous blood specimen / Unknown 08/06/2025 11:55 AM EDT 08/06/2025 1:14 PM EDT Sebastian Jett MD LAB BLOOD ORDERABLES Final Result Performing Organization Address [facility] Co de Phone Number [facility] [address] [place] [phone] [phone] * (ABNORMAL) Basic Metabolic Panel (08/06/2025 11:55 AM EDT) Sodium 143 135 - 145 mmol/L [facility] Potassium 3.9 3.3 - 5.1 mmol/L [facility] Chloride 111(H) 96 - 108 mmol/L [facility] Carbon Dioxide 25 22 - 29 mmol/L [facility] Anion Gap 11(L) 12 - 20 [facility] Urea Nitrogen (BUN) 15 9 - 16 mg/dL [facility] Creatinine, Serum 1.26 0.5 - 1.4 mg/dL [facility] Estimated Glomerular Filt Rate 48 [facility] Comment:Chronic Kidney Disea se: Estimated GFR < 60 mL/min/1.15w5Dkbtok Kidney Disease: Estimated GFR < 15 mL/min/1.73m2 Glucose 74 60 - 115 mg/dL [facility] Calcium 8.7 8.4 - 10.2 mg/dL [facility] Blood Venous blood specimen / Unknown 08/06/2025 11:55 AM EDT 08/06/2025 1:14 PM EDT us Sebastian Jett MD LAB BLOOD ORDERABLES Final Result Performing Organization Address [facility] Co de Phone Number [facility] [address] [place] [phone] * (ABNORMAL) POCT urinalysis dipstick manually resulted (CPT 93139) (08/06/2025 11:47 AM EDT) Color, UA Red [...] Date Urine 08/06/2025 11:4 5 AM EDT us Sebastian Jett MD POINT OF CARE TEST EN TER/EDIT ORDERABLES Final Result * Chlamydia/Trichomonas/Neisseria gonorrhoeae, PCR, Urine (08/06/2025 11:40 AM EDT) CT PCR, Urine NOT DETECTED Not Detect. [facility] Comment:A not detected test result [...] NG PCR, Urine NOT DETECTED Not Detect. [facility] Comment:A not detected test result [...] URINE ORDERABLES Final Result Performing Organization Address [facility]/ZIP Co de Phone Number [facility] [address] [place] [phone] * Culture, Urine, Routine (08/06/2025 11:40 AM EDT) Urine Urine specimen obtained by clean catch procedure / Unknown 08/06/2025 11:40 AM EDT 08/06/2025 5:01 PM EDT Comment:UACC Narrative [facility] - 08/08/2025 10:20 AM EDT Urine Culture No growth. Specimen Source: Urine clean catch Sebastian Jett MD LAB MICROBIOLOGY - NERAL ORDERABLES Final Result Performing Organization Address [facility]/ZIP Co de Phone Number [facility] [address] [place] [phone] * POCT Rapid Influenza B OSOM (08/06/2025 11:10 AM EDT) Pathologist [facility] Rapid Influenza B Ag Negative Negative, Indeterminate QC Media Lot # [id number] Lot# Expiration Date Swab 08/06/2025 11:1 0 AM EDT Sebastian Jett MD POINT OF CARE TEST EN TER/EDIT ORDERABLES Final Result * POCT Rapid Influenza A OSOM (08/06/2025 11:09 AM EDT) Pathologist [facility] Rapid Influenza A Ag Negative Negative, Indeterminate QC Media Lot # [id number] Lot# Expiration Date Swab Nasopharyngeal structure / Unknown 08/06/2025 11:09 AM EDT Sebastian Jett MD POINT OF CARE TEST EN TER/EDIT ORDERABLES Final Result * POCT Rapid Covid-19 BinaxNOW (08/06/2025 10:57 AM EDT) [facility] Rapid COVID Ag Negative QC Media Lot # [id number] Lot# Expiration Date Swab 08/06/2025 10:5 7 AM EDT Sebastian Jett MD POINT OF CARE TEST EN TER/EDIT ORDERABLES Final Result * Referral to Orthopaedic Surgery (07/02/2025) Karishma Thurman DO OUTPATIENT REFERRAL ORDERABL ES Final Result * XR Elbow 3+ Views Right (05/23/2025 9:58 AM EDT) Anatomical Region Laterality Modality Upper Extremities, Elbow Right Radiogr aphic Imaging 05/23/2025 9:58 AM EDT Narrative 05/23/2025 11:18 AM EDT [address] [address] XRay Report Signed Patient: Fariba Corrales MR#: [id number] : 1985 Acct:[id number] Age/Sex: 40 / F ADM Date: 05/23/25 Loc: [facility] Attending Dr: Karishma Thurman DO Ordering Physician: Karishma Thurman DO Date of Service: 05/23/25 Procedure(s): XR elbow RT min 3V Accession Number(s): [id number] cc: Karishma Thurmna DO EXAMINATION: XR ELBOW, RIGHT CLINICAL INFORMATION: [...] 05/23/25 1115 DD/ 0958 TD/TT: 05/23/25 1000 Lens Molding Equipment Operator: Procedure Note Donotuseinterpreter, Image - 05/23/[address] [address] XRay Report Signed Patient: Fariba Corrales MMR#: [id number] : 1985Acct:[id number] Age/Sex: 40 / FADM Date: 05/23/25 Loc: [facility] Attending Dr: Karishma Thurman DO Ordering Physician: Karishma Thurman DO Date of Service: 05/23/25 Procedure(s): XR elbow RT min 3V Accession Number(s): [id number] cc: Karishma Thurman DO EXAMINATION: XR ELBOW, [...] 05/23/25 1115 DD/ 0958 TD/TT: 05/23/25 1000 Lens Molding Equipment Operator: Karishma Thurman DO IMG XR PROCEDURES Final [...] LDL-C. Abdon NELSON et al. CATHERINE. 2013;310(19): 2392-4396 (http://education.ResponseTek.Much Better Adventures/faq/BIN928) Non-HDL Cholesterol 150(H) <130 mg/dL (calc) [facility] Comment: For patients with diabetes plus 1 major ASCVD risk factor, treating to a non-HDL-C goal of <100 mg/dL (LDL-C of <70 mg/dL) is considered a therapeutic option. Triglycerides 78 <150 mg/dL [facility] 12/28/2021 11:2 5 AM EST Patti Clark MD LAB BLOOD ORDERABLES Final Re sult Performing Organization Address [facility] Co de Phone Number [facility] [address] * HPV E6/E7 RFLX ANTWAN 16 18/45 (04/24/2021 3:22 PM EDT) Pathologist [facility] HPV mRNA E6/E7 rflx Not Detected Not Detected [facility] Comment: Methodology: Sales Center Manager-Mediated Amplification This assay detects E6/E7 viral messenger RNA (mRNA) from 14 high-risk HPV types (16,18,31,33,35,39,45,51,52,56,58,59,66,68). The analytical performance characteristics of this assay have been determined by [employer]. The modifications have not been cleared or approved by the FDA. This assay has been validated pursuant to the CLIA regulations and is used for clinical purposes. For additional information, please refer to http://education.ElephantDrive/faq/RHA628z1 (This link if provided for information/ educational purposes only.) THIS TEST WAS PERFORMED AT: [facility] [address] [place] [address] [address],[place] [phone] FAISAL MINOR MD 04/24/2021 3:22 PM EDT [place] HISTORICAL/NON ORDERABLE LABS Fi nal Result Performing Organization Address [facility] Co de Phone Number [facility] [address] [place] [phone], * HIV 1/2 ANTIGEN/ANTIBODY,FOURTH GENERATION W/RFL (08/21/2020 10:06 AM EDT) Pathologist [facility] HIV-1/2 ANTIGEN AND ANTIBODIES, 4TH GENERATION W/ REFLEX NON-REACT LARA NON-REACT LARA [facility] Comment: HIV-1 antigen and HIV-1/HIV-2 [...] purpose. For additional information please refer to http://education.ElephantDrive/faq/JIA740 (This link is being provided for informational/ educational purposes only.) The performance of this assay has not been clinically validated in patients less than 2 years old. 08/21/2020 10:0 6 AM EDT us Cielo Ron NP LAB BLOOD ORDERABLES Final Resul t [facility] [address] from Last 3 Months or Most Recently Relevant to Health Maintenance Insurance [facility] C3 Care Teams Health Screener Relationship Specialty Start Date End Date Patti Clark MD [address] [place] [phone] PCP - General Family Medicine 12/10/20 Kanchan Hughes NP Psychiatrist 09/24/24
--- OUTSIDE RECORDS SUMMARY | 2025-08-15 16:30 | XMS_ITS | Encounter Summary ---
Author Organization [employer] Address [address] [facility] [address] [place] [address] Care Team Providers Care Residency Director Name Role Phone Patti Clark MD Primary Care Provider [phone] Encounter Details Date Type Department Care Team ([facility] Contact Info) Description 10/05/2024 Orders Only [facility] [address] [place] [address] Erin Soto MD [address] [place] [address] Social History Tobacco Use Types Packs/Day Years [...] Description 09/27/2025 3:30 PM EST Office Visit [facility] [address] [place] [address] Nessa Mayfield, OD [address] [place] [address] documented as of this encounter Visit Diagnoses Not on filedocumented in this encounter Additional Health Concerns Assessment Noted Time PHQ-9 Depression Total Score: 5 08/23/20 24 11:38 AM EDT documented as of this encounter Care Teams Residency Director Relationship Specialty Start Date End Date Patti Clark MD [address] [place] [address] PCP - General Family Medicine 12/10/20 Kanchan Hughes, FLOOR FRAMER Psychiatrist 09/24/24 documented as of this encounter
--- OUTSIDE RECORDS SUMMARY | 2025-08-15 16:30 | XMS_ITS | Encounter Summary ---
Author Organization [employer] Address [address] [facility] [address] [place] [address] Care Team Providers Care Crusher And Binder Operator Name Role Phone Patti Clark MD Primary Care Provider [phone] Encounter Details Date Type Department Care Team ([facility] st Contact Info) Description 11/19/2024 Orders Only [facility] [address] [place] [address] Abbey Fonseca MD [address] [place] [address] Social History Tobacco Use Types Packs/Day Years [...] Description 09/27/2025 3:30 PM EST Office Visit [facility] [address] [place] [address] Nessa Mayfield, OD [address] [place] [address] documented as of this encounter Visit Diagnoses Not on filedocumented in this encounter Additional Health Concerns Assessment Noted Time PHQ-9 Depression Total Score: 5 08/23/20 24 11:38 AM EDT documented as of this encounter Care Teams Crusher And Binder Operator Relationship Specialty Start Date End Date Patti Clark MD [address] [place] [address] PCP - General Family Medicine 12/10/20 Kacnhan Hughes, TINTER PHOTOGRAPH Psychiatrist 09/24/24 documented as of this encounter
--- OUTSIDE RECORDS SUMMARY | 2025-08-15 16:30 | XMS_ITS | Encounter Summary ---
Author Organization [facility] [employer] Address [address] [place] [address] [address] [place] [address] Care Team Providers Care Slitter Service And Setter Name Role Phone Patti Clark MD Primary Care Provider [phone] Reason for Referral * Imaging (Routine) - Closed Specialty Diagnoses / Procedures Referred By Contac t Referred To Contact Radiology Diagnoses Menorrhagia with regular cycle Procedures US Pelvis Transvaginal Erin Soto MD [address] [place] [id number] Phone: tel: fax: [facility] [address] [place], [place] Phone: tel: fax: Referral ID Status Reason Start Date Expiration Date Visits Re quested Visits Authorized [id number] Closed 09/12/2024 09/12/2025 1 1 Encounter Details Date Type Department Care Team (Late st Contact Info) Description 09/12/2024 Orders Only [facility] [address] [place] [address] Erin Soto MD [address] [place] [id number] Menorrhagia with regular cycle (Primary Dx) Social [...] Description 09/27/2025 3:30 PM EST Office Visit [facility] OPTOMETRY [address] [place] [address] Nessa Mayfield, OD [address] [place] [address] documented as of this encounter Procedures Procedure [...] documented as of this encounter Care Teams Slitter Service And Setter Relationship Specialty Start Date End Date Patti Clark MD [address] [place] [address] PCP - General Family Medicine 12/10/20 Kanchan Hughes NP Psychiatrist 09/24/24 documented as of this encounter
== END 2025-08-15 13:51 | disposition home or self-care (01) ==
LOC: HO.PMC 13:07
PROVIDERS: PCP Internal Medicine; Visit Provider Anesthesiology
DX: M19.012 Primary osteoarthritis, left shoulder (principal); R07.9 Chest pain, unspecified
CPT/HCPCS: 99213

== ENCOUNTER → 2025-08-15 13:06 | Outpatient (BNVA) | payer MEDICAID, SELFPAY | PROVIDERS: PCP Internal Medicine; Visit Provider Anesthesiology | DX: M19.012 Primary osteoarthritis, left shoulder (principal); R07.9 Chest pain, unspecified | CPT/HCPCS: 99212 ==